=== PATIENT | female | born 1930 | race Caucasian/White ===

== ENCOUNTER 2017-03-21 02:57 | Emergency (ER) | payer MEDICARE, MEDICAID ==
[~2017-03-21] VITALS: Ht 180.3 cm; Wt 95.3 kg
[~2017-03-21 02:57] MED LIST: AC325T PO; ALPR.25T PO; ALPR0.5T PO; AMLO10TA4 PO; AMLO5TAB2 PO; APIX5TAB PO; APIX5TAB2 PO; ARIP10TA2 PO; ARIP2TAB3 PO; ASCO500C15 PO; ASCO500T20 PO; ASP81TEC PO; ATRV10T PO; BISA10SU6 RC; BUDE6HFA IH; CARB15DR74 OU; CARB1TAB17 PO; CARB1TAB6 PO; CHOL10003 PO; CHOL200018 PO; CHOL200035 PO; CLOP75TA PO; CLPD75T PO; CTLP20T PO; CYAN100014 PO; CYAN100053 IM; DOCU100T7; DOCU100T7 PO; DULO30CA; DVL500TSR PO; DXZS2T; ENAL5TAB PO; ENLP10T PO; FENO145T PO; FENT1PAT2 TD; FERROUS SULFATE 27 MG PO; FLUT16SP22 NS; FRSM40T PO; GARL400T13 PO; GBPN600T; GNT.3OP5 OS; GUAI100L2 PO; GUAI100S PO; HYDR-2890 PO; HYDR-3720 PO; KCL10CCR; LEVO125T6; LOPE2CAP PO; LORA10CA PO; LORA10TA76 PO; LUBI8CAP PO; LVT.15T; LVT.15T PO; LVT.1T PO; MAGN-47 PO; MAGN800O PO; MECL25TA56 PO; MELA1TAB16 PO; MELO7.5T; MINE99OI; MMT17NA NS; MNTL10T PO; MTP100TCR; MULT-28 PO; MULT-298 PO; MULT-608 PO; NEBI5TAB8 PO; NF-CYM60C PO; NF-ESOM40C PO; NF-LOVAZAC PO; NF-METANX PO; NF-VITB12 PO; NFNEB10T PO; NYST1POW15 TOP; OLME40TA14 PO; OMG1KC; OMG1KC PO; ONDA4TAB11 PO; ONDN4T PO; OXYC-465 PO; Oxygen; PNT40TEC PO; POLY17PO23 PO; PONARIS NS; POTA10CA43 PO; PRAM0.5T4 PO; PRAM1.5T4 PO; PRAM1TAB3 PO; PRCD5U PO; PRM25T PO; PROM12.59 PO; RANO500T2 PO; SCOP1PAT TD; SENN1TAB33 PO; SODI50SP2 NS; SPIR25TA3 PO; SULF1TAB38 PO; TRAM1TAB7 PO; VITA-185 PO; VLS80C; WARF4TAB PO; WARF6TAB PO; WRF2T PO; WRF3T; WRF5T; WRF5T PO; [UNRECOGNIZED DRUG - OTHER]
[2017-03-21 03:15] LABS: BASOPHILS % (AUTO) 0 % (0-10); EOSINOPHILS # (AUTO) 0.3 10^3/uL (0.0-0.3); EOSINOPHILS % (AUTO) 4 % (0-10); LYMPHOCYTES # (AUTO) 3.2 X 10^3 (1.0-4.0); LYMPHOCYTES % (AUTO) 47 % (12-44); MEAN CORPUSCULAR HEMOGLOBIN 32 PG (25-34); MEAN CORPUSCULAR HGB CONC 32 G/DL (32-36); MEAN CORPUSCULAR VOLUME 100 FL (80-99); MEAN PLATELET VOLUME 9.4 FL (7.4-10.4); MONOCYTES # (AUTO) 0.8 X 10^3 (0.0-1.0); MONOCYTES % (AUTO) 12 % (0-12); NEUTROPHILS # (AUTO) 2.4 X 10^3 (1.8-7.8); NEUTROPHILS % (AUTO) 36 % (42-75); PLATELET COUNT 236 10^3/uL (130-400); RED BLOOD COUNT 3.56 10^6/uL (4.35-5.85); RED CELL DISTRIBUTION WIDTH 13.7 % (10.0-14.5); WHITE BLOOD COUNT 6.8 10^3/uL (4.3-11.0)
[2017-03-21] MEDS ORDERED: RT-ALBUTEROL/IPRATROPIUM 3 ML (DUONEB) VIAL INH ONE (03:15)
[2017-03-21 03:28] LABS: BILIRUBIN,URINE NEGATIVE (NEGATIVE); KETONES,URINE NEGATIVE (NEGATIVE); LEUKOCYTE ESTERASE ,URINE NEGATIVE (NEGATIVE); NITRITE,URINE NEGATIVE (NEGATIVE); PH,URINE 5 (5-9); PROTEIN,URINE NEGATIVE (NEGATIVE); UROBILINOGEN,URINE NORMAL (NORMAL)
[2017-03-21 03:31] LABS: ANION GAP 10 MMOL/L (5-14); BLOOD UREA NITROGEN 35 MG/DL (7-18); CARBON DIOXIDE 21 MMOL/L (21-32); CHLORIDE 108 MMOL/L (98-107); CREATININE SERUM 1.68 MG/DL (0.60-1.30); POTASSIUM 5.6 MMOL/L (3.6-5.0); SODIUM 139 MMOL/L (135-145)
[2017-03-21 03:32] LABS: ALANINE AMINOTRANSFERASE 9 U/L (0-55); ASPARTATE AMINO TRANSFERASE 17 U/L (5-34); BILIRUBIN,TOTAL 0.4 MG/DL (0.1-1.0); BUN/CREATININE RATIO 21; CALCIUM 9.1 MG/DL (8.5-10.1); GFR ESTIMATED 29; GLUCOSE 79 MG/DL (70-105); MAGNESIUM 2.4 MG/DL (1.8-2.4); TOTAL PROTEIN 6.8 G/DL (6.4-8.2)
[2017-03-21 03:34] LABS: SQUAMOUS EPITHELIAL CELL,UR 0-2 /HPF
[2017-03-21] MEDS ORDERED: NS IV 1000 ML 1,000 ML IV ONE ×2 (03:49→04:12)
[2017-03-21 03:52] LABS: TROPONIN I < 0.30 NG/ML (<0.30)
[2017-03-21 03:56] LABS: THYROID STIMULATING HORMONE 5.84 UIU/ML (0.35-4.94)
--- NOTE | 2017-03-21 04:02 | ED General ---
General Chief Complaint: Altered Mental Status Stated Complaint: AMS Nursing Triage Note: PT TO ED PER [facility], STAFF STATES PT HAS ACUTE MENTAL STATUS CHANGE,PT IS ALERT PER AGE, PT ABLE TO SPEAK TO STAFF ONLY CO IS PAIN IN LHAND TO SHOULDER, STATES HURTS ALL THE TIME Nursing Sepsis Screen: No Definite Risk Source of Information: Patient, EMS, Prison Records, Old Records Exam Limitations: No Limitations History of Present Illness Time Seen by Provider: 02:59 Initial Comments This 86-year-old woman presents to the emergency room via EMS with altered mental status. She comes from [facility] in [place], [place] where she was found by staff to have altered mental status when she got up to use the restroom at 01 :30. Staff report that she was not following commands and was not verbal which is unusual for her. However, she did not appear to have complete syncope. Patient was normal earlier in the evening. Staff reports that she is normally conversant and will follow instructions. Patient has neurologic problems including history of CVA and Parkinson's disease. Patient denies any complaints at this time except for left upper extremity and shoulder pain which is chronic. EMS reports she was alert for them. Allergies and Home Medications Allergies Coded Allergies: Penicillins (Unverified Allergy, Unknown, 11/03/16) Uncoded Allergies: POISON AISHWARYA, OAK AND SUMAC (Allergy, Unknown, 12/28/08) Home Medications Acetaminophen 325 Mg Tablet, 325 MG PO BID PRN for PAIN, (Reported) Albuterol Sulfate 2.5 Mg/3 Ml Vial.neb, 2.5 MG IH Q4H PRN for WHEEZING, #30 Prescribed by: CARLOS RITCHIE on 03/21/17 0425 Alprazolam 0.5 Mg Tablet, 0.5 MG PO DAILY, (Reported) Amlodipine Besylate 5 Mg Tab, 5 MG PO DAILY, (Reported) Apixaban 5 Mg Tablet, 5 MG PO BID, (Reported) Ascorbic Acid 500 Mg Capsule.er, 500 MG PO TID, (Reported) Bisacodyl 10 Mg Supp.rect, 10 MG RC DAILY PRN for CONSTIPATION, (Reported) Budesonide/Formoterol Fumarate 10.2 Gm Hfa.aer.ad, 2 PUFF IH BID, (Reported) Carbidopa/Levodopa 1 Each Tablet, 1 TAB PO QID, (Reported) Carboxymethylcellulose Sodium 15 Ml Drops, 1 DROP OU QID, (Reported) Cholecalciferol (Vitamin D3) 2,000 Unit Capsule, 3,000 UNIT PO DAILY, (Reported) Citalopram Hydrobromide 20 Mg Tablet, 20 MG PO DAILY, (Reported) Cyanocobalamin 1,000 Mcg Tablet, 1,000 MCG PO DAILY, (Reported) Fentanyl 1 Each Patch.td72, 25 MCG TD EVERY 3 DAYS, (Reported) Levothyroxine Sodium 100 Mcg Tablet, 100 MCG PO DAILY, (Reported) Loratadine 10 Mg Tablet, 10 MG PO DAILY, (Reported) Magnesium Hydroxide 400 Mg/5 Ml Oral.susp, 30 ML PO DAILY PRN for CONSTIPATION, (Reported) Nebivolol HCl 10 Mg Tab, 10 MG PO DAILY, (Reported) Nystatin 1 Each Powder.ea., TOP BID PRN for REDNESS/GAULDING, (Reported) ABDOMINAL FOLD Olmesartan Medoxomil 40 Mg Tablet, 20-40 MG PO DAILY, (Reported) TAKES 1/2 (40MG) TABLET IF BP BETWEEN 110-150 TAKES 1 (40MG) TABLET IF SYSTOLIC >150 IF SYSTOLIC IS < 110 HOLD MEDICINE Ondansetron 4 Mg Tab.rapdis, 4 MG PO Q6H PRN for NAUSEA, (Reported) Pantoprazole Sod 40 Mg Tab, 40 MG PO DAILY, (Reported) Pramipexole Di-Hcl 1.5 Mg Tablet, 1.5 MG PO TID, (Reported) Sennosides/Docusate Sodium 1 Each Tablet, 2 EACH PO DAILY, (Reported) Tramadol HCl/Acetaminophen 1 Each Tablet, 1 EACH PO Q4H PRN for PAIN, (Reported) [Ferrous Sulfate 27MG] , 27 MG PO TID, (Reported) [Ponaris Solution] , 2 DROP NS BID, (Reported) Constitutional: no symptoms reported EENTM: no symptoms reported Respiratory: no symptoms reported Cardiovascular: no symptoms reported Gastrointestinal: no symptoms reported Genitourinary: no symptoms reported : No Musculoskeletal: see HPI Skin: no symptoms reported Psychiatric/Neurological: See HPI Hematologic/Lymphatic: No Symptoms Reported Past Wtjbiqf-Xbuuml-Gfurjq Hx Patient Social History Alcohol Use: Denies Use Recreational Drug Use: No Smoking Status: Never a Smoker Recent Foreign Travel: No Contact w/Someone Who Travel: No Recent Infectious Disease Expo: No Recent Hopitalizations: No Immunizations Up To Date Tetanus Booster (TDap): Unknown Date of Pneumonia Vaccine: Aug 05, 2012 Date of Influenza Vaccine: Sep 01, 2016 Surgeries HX Surgeries: Yes (HYSTERECTOMY 1974, PACEMAKER, TKR, FOOT, SHOULDER) Surgeries: Abdominal, Coronary Stent, Orthopedic (left shoulder chondroplasty) , Pacemaker Respiratory Hx Respiratory Disorders: Yes (O2 at night) Respiratory Disorders: COPD Cardiovascular Hx Cardiac Disorders: Yes (PACEMAKER, sick sinus syndrome) Cardiac Disorders: Coronary Artery Disease Neurological Hx Neurological Disorders: Yes Neurological Disorders: Parkinson's Disease, Stroke Reproductive System Hx Reproductive Disorders: No Sexually Transmitted Disease: No HIV/AIDS: Yes Female Reproductive Disorders: Denies Genitourinary Hx Genitourinary Disorders: Yes Genitourinary Disorders: Renal Failure Gastrointestinal Hx Gastrointestinal Disorders: Yes Gastrointestinal Disorders: Gastroesophageal Reflux Musculoskeletal Hx Musculoskeletal Disorders: Yes Musculoskeletal Disorders: Arthritis Endocrine Hx Endocrine Disorders: Yes Endocrine Disorders: Hypothyroidsim HEENT HX ENT Disorders: Yes Cancer Hx Cancer: No Psychosocial Hx Psychiatric Problems: Yes Behavioral Health Disorders: Depression Integumentary HX Skin/Integumentary Disorder: No Blood Transfusions Hx Blood Disorders: Yes (anemia) Adverse Reaction to a Blood Tr: No Physical Exam Vital Signs Vital Sign - Last 12Hours 03/21/17 03/21/17 03:00 04:33 Temp 97.2 Pulse 62 Resp 18 B/P (MAP) 128/85 Pulse Ox 98 O2 Flow Rate 2.00 Capillary Refill : Less Than 3 Seconds General Appearance: No Apparent Distress, WD/WN HEENT: PERRL/EOMI, TMs Normal, Normal ENT Inspection, Pharynx Normal, Other ( no mastoid tenderness) Neck: Normal Inspection, Supple Respiratory: Decreased Breath Sounds, Wheezing, Other (inspiratory and expiratory wheezing with decreased air movement, resolved after DuoNeb) Cardiovascular: Regular Rate, Rhythm, No Edema, No Murmur, Normal Peripheral Pulses Gastrointestinal: Normal Bowel Sounds, Non Tender, Soft Extremity: Normal Inspection, No Pedal Edema Neurologic/Psychiatric: Alert, Normal 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/Affect, 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 Norm as Tested, Motor Weakness (left-sided weakness due to orthopedic problems and chronic pain) , Other (somewhat disoriented) Skin: Normal Color, Warm/Dry Progress/Results/Core Measures Results/Orders Lab Results Laboratory Tests Test 03/21/17 03:06 03/21/17 03:21 Range/Units White Blood Count 6.8 4.3-11.0 10^3/uL Red Blood Count 3.56 L 4.35-5.85 10^6/uL Hemoglobin 11.4 L 11.5-16.0 G/DL Hematocrit 36 35-52 % Mean Corpuscular Volume 100 H 80-99 FL Mean Corpuscular Hemoglobin 32 25-34 PG Mean Corpuscular Hemoglobin Concent 32 32-36 G/DL Red Cell Distribution Width 13.7 10.0-14.5 % Platelet Count 236 130-400 10^3/uL Mean Platelet Volume 9.4 7.4-10.4 FL Neutrophils (%) (Auto) 36 L 42-75 % Lymphocytes (%) (Auto) 47 H 12-44 % Monocytes (%) (Auto) 12 0-12 % Eosinophils (%) (Auto) 4 0-10 % Basophils (%) (Auto) 0 0-10 % Neutrophils # (Auto) 2.4 1.8-7.8 X 10^3 Lymphocytes # (Auto) 3.2 1.0-4.0 X 10^3 Monocytes # (Auto) 0.8 0.0-1.0 X 10^3 Eosinophils # (Auto) 0.3 0.0-0.3 10^3/uL Basophils # (Auto) 0.0 0.0-0.1 10^3/uL Sodium Level 139 135-145 MMOL/L Potassium Level 5.6 H 3.6-5.0 MMOL/L Chloride Level 108 H 98-107 MMOL/L Carbon Dioxide Level 21 21-32 MMOL/L Anion Gap 10 5-14 MMOL/L Blood Urea Nitrogen 35 H 7-18 MG/DL Creatinine 1.68 H 0.60-1.30 MG/DL Estimat Glomerular Filtration Rate 29 BUN/Creatinine Ratio 21 Glucose Level 79 70-105 MG/DL Calcium Level 9.1 8.5-10.1 MG/DL Magnesium Level 2.4 1.8-2.4 MG/DL Total Bilirubin 0.4 0.1-1.0 MG/DL Aspartate Amino Transf (AST/SGOT) 17 5-34 U/L Alanine Aminotransferase (ALT/SGPT) 9 0-55 U/L Alkaline Phosphatase 78 40-136 U/L Troponin I < 0.30 <0.30 NG/ML Total Protein 6.8 6.4-8.2 G/DL Albumin 4.0 3.2-4.5 G/DL Thyroid Stimulating Hormone (TSH) 5.84 H 0.35-4.94 UIU/ML Free Thyroxine 0.84 0.70-1.48 NG/DL Urine Color YELLOW Urine Clarity CLEAR Urine pH 5 5-9 Urine Specific [place] 1.020 1.016-1.022 Urine Protein NEGATIVE NEGATIVE Urine Glucose (UA) NEGATIVE NEGATIVE Urine Ketones NEGATIVE NEGATIVE Urine Nitrite NEGATIVE NEGATIVE Urine Bilirubin NEGATIVE NEGATIVE Urine Urobilinogen NORMAL NORMAL MG/DL Urine Leukocyte Esterase NEGATIVE NEGATIVE Urine RBC (Auto) NEGATIVE NEGATIVE Urine RBC NONE /HPF Urine WBC NONE /HPF Urine Squamous Epithelial Cells 0-2 /HPF Urine Crystals NONE /LPF Urine Bacteria NONE /HPF Urine Casts NONE /LPF Urine Mucus NEGATIVE /LPF Urine Culture Indicated NO My Orders Orders - CARLOS GRIFFIN MD Cbc With Automated Diff (03/21/17 03:08) Comprehensive Metabolic Panel (03/21/17 03:08) Magnesium (03/21/17 03:08) Ua Culture If Indicated (03/21/17 03:08) Saline Lock/Iv-Start (03/21/17 03:08) Ekg Tracing (03/21/17 03:08) Monitor-Rhythm Ecg Trace Only (03/21/17 03:08) Chest 1 View, Ap/Pa Only (03/21/17 03:08) Albuterol/Ipra Inhalation Soln (Duoneb I (03/21/17 03:15) Svn Sm Volume Nebulizer Rt-Rfs (03/21/17 03:08) Troponin I (03/21/17 03:08) Thyroid Stimulating Hormone (03/21/17 03:14) Free T4 (Free Thyroxine) (03/21/17 03:14) Ct Head Wo-R/O Stroke (03/21/17 03:27) Ns Iv 1000 Ml (Sodium Chloride 0.9%) (03/21/17 03:49) Ns Iv 1000 Ml (Sodium Chloride 0.9%) (03/21/17 04:12) Medications Given in ED Current Medications Medications Dose Ordered Sig/Indira Route Start Time Stop Time Status Last Admin Dose Admin Albuterol/ Ipratropium 3 ml ONCE ONCE INH 03/21/17 03:15 03/21/17 03:16 DC 03/21/17 03:15 3 ML Sodium Chloride 1,000 ml @ 0 mls/hr Q0M ONCE IV 03/21/17 03:49 03/21/17 03:51 DC 03/21/17 03:56 1,000 MLS/HR Sodium Chloride 1,000 ml @ 0 mls/hr Q0M ONCE IV 03/21/17 04:12 03/21/17 04:13 DC 03/21/17 04:25 1,000 MLS/HR Vital Signs/I&O Vital Sign - Last 12Hours 03/21/17 03/21/17 03/21/17 03:00 03:15 04:33 Temp 97.2 97.2 Pulse 62 60 Resp 18 18 B/P (MAP) 128/85 Pulse Ox 98 96 96 O2 Flow Rate 2.00 Blood Pressure Mean: 99 Progress Note : Progress Note Patient was found to have acute renal failure. She was given 2 L of IV fluids. She also had mild hyperkalemia. Patient uses Lasix and potassium replacement. I'm recommending that she skip the next 2 doses of potassium and follow up with Dr. Greenwood for further lab work. Patient's mental status seemed to be at reported baseline prior to dismissal. Patient was given a DuoNeb treatment which resolved her wheezing. A prescription for albuterol and a nebulizer machine was provided. The radiologist commented on some fluid in the right mastoid air cells. However, this did not appear to be present to a significant degree on my review of the imaging. I performed a focused exam on the patient and found no mastoid tenderness, swelling, or inflammation. Patient denied pain over the mastoid sinuses. ECG Initial ECG Impression Date: Mar 21, 2017 Initial ECG Impression Time: 03:08 Initial ECG Rate: 61 Initial ECG Rhythm: Normal Sinus Comment Sinus rhythm with low voltage. No ST elevation or depression. No axis deviation. Intervals appear normal. Diagnostic Imaging Diagonstic Imaging: Xray Plain Films/CT/US/NM/MRI: chest Comments Chest x-ray viewed by me and compared with prior. Report not yet available. No acute abnormalities appreciated. Plain Films/CT/US/NM/MRI: head Comments CT head viewed by me and [facility] report reviewed. Discussed with the radiologist. Chronic findings including old CVA noted. No acute abnormalities appreciated. Fluid in the mastoid air cell reported by the radiologist did not correlate with any physical exam findings. Departure Impression Impression: Primary Impression: Altered mental status Qualified Codes: R41.82 - Altered mental status, unspecified Additional Impressions: Acute renal failure Qualified Codes: N17.9 - Acute kidney failure, unspecified Hyperkalemia COPD exacerbation Disposition: HOME, SELF-CARE Condition: Improved Departure-Patient Inst. Decision time for Depature: 04:00 Referrals: DIA GREENWOOD MD (PCP) Primary Care Physician GLENIS CHAVARRIA (Family) Primary Care Physician Patient Instructions: Acute Kidney Failure, Chronic Obstructive Pulmonary Disease (COPD), Including Emphysema Add. Discharge Instructions: Encourage plenty of clear liquids. Skip the next 2 doses of potassium. Follow-up with Dr. Greenwood as soon as possible for repeat blood work. Return to the emergency room with worsening symptoms. Use nebulizer treatments every 4 hours as needed for shortness of breath or wheezing. All discharge instructions reviewed with patient and/or family. Voiced understanding. Scripts Albuterol Sulfate (Albuterol Sulfate) 2.5 Mg/3 Ml Vial.neb 2.5 MG IH Q4H Y for WHEEZING, #30 EA Prov: CARLOS GRIFFIN MD 03/21/17 Copy Copies To 1: DIA GREENWOOD MD, JOSHUA T MD Mar 21, 2017 04:02
[2017-03-21] MEDS ORDERED: ALBU2.5V4 IH (04:25)
[2017-03-21 04:33] VITALS: BP 128/85
--- NOTE | 2017-03-21 06:16 | Diagnostic Imaging Report ---
CLINICAL INDICATION: Patient altered mental status. EXAM: Axial CT scan of brain performed without IV contrast. COMPARISON: Head CT without IV contrast dated 11/03/2016. FINDINGS: Stable small chronic cerebral infarct involving the lateral right frontal lobe. Stable chronic lacunar infarct involving the right thalamus. There is no significant change to the patchy and confluent areas of low-attenuation white matter changes involving both cerebral hemispheres likely representing chronic small vessel ischemic disease and leukoaraiosis. There is stable diffuse brain parenchymal volume loss. There is no evidence of intracranial hemorrhage, hydrocephalus, or brain herniation. There is dense atherosclerotic disease involving the bilateral cavernous carotid arteries and intradural vertebral arteries. Extracranial soft tissue, skull, and orbits are unremarkable. Paranasal sinuses show no significant abnormality. Temporal bone structures are unremarkable as visualized. IMPRESSION: 1: There is no definite CT evidence of interval acute cerebral infarction, intracranial hemorrhage, or mass seen. Given the diffuse low attenuation changes throughout the brain parenchyma which can obscure more subtle findings, if there is clinical concern for acute cerebral infarction, MRI of the brain would better evaluate. 2: Relatively stable CT scan of brain with small right frontal lobe chronic cerebral infarct, chronic right thalamic lacunar infarct, chronic small vessel ischemic disease, leukoaraiosis, and brain parenchymal volume loss. I agree with [facility] report. Dictated by: Dictated on workstation # [id number]
--- NOTE | 2017-03-21 06:44 | Diagnostic Imaging Report ---
INDICATION: Altered mental status. COMPARISON STUDY: Chest from November 03. FINDINGS: Portable upright view of the chest demonstrates cardiac pacemaker remaining in place. Heart size and vascularity are normal. There is calcification of the aorta. The lungs are clear. There are no pleural effusions. IMPRESSION: There are no acute findings. Dictated by: Dictated on workstation # [id number]
== END 2017-03-21 04:42 | disposition home or self-care (01) ==
LOC: EDUNIT# 02:57 → ER 02:59
DX: R41.82 Altered mental status, unspecified (principal); N17.9 Acute kidney failure, unspecified; E87.5 Hyperkalemia; J44.1 Chronic obstructive pulmonary disease with (acute) exacerbation; I25.10 Atherosclerotic heart disease of native coronary artery without angina pectoris; G20 Parkinson's disease; Z79.01 Long term (current) use of anticoagulants; Z79.899 Other long term (current) drug therapy; Z95.0 Presence of cardiac pacemaker; Z95.5 Presence of coronary angioplasty implant and graft; Z86.73 Personal history of transient ischemic attack (TIA), and cerebral infarction without residual deficits
CPT/HCPCS: 36415; 70450; 71010; 80053; 81000; 83735; 84439; 84443; 84484; 85025; 93005; 93041; 94640; 96360

== ENCOUNTER → 2017-04-24 | Outpatient (CLI) | payer MEDICARE, MEDICAID ==
[~2017-04-24] MED LIST changes: +ALBU2.5V4 IH
--- NOTE | 2017-04-24 16:42 | Diagnostic Imaging Report ---
PROCEDURE: CT abdomen and pelvis without contrast. TECHNIQUE: Multiple contiguous axial images were obtained through the abdomen and pelvis without the use of intravenous contrast. INDICATION: Pain and nausea. COMPARISON: Comparison 10/27/2008. FINDINGS: There is suggestion of minimal atelectasis in the lung bases and cardiac pacer leads. The liver demonstrates mild dilatation of the bile ducts as well as the CBD demonstrates slight dilatation. This is probably normal for the patient's age and after cholecystectomy. The spleen, the adrenal glands and the pancreas appear unremarkable for unenhanced exam. The kidneys demonstrate no hydronephrosis and no stones. Cystic lesion in the upper pole of the right kidney is 6.1 cm in size enlarged from 5.6 cm in 2008. The abdominal aorta is normal in caliber. No para-aortic significantly enlarged lymph node is seen. Prominent atherosclerotic calcifications are noted. There is suggestion of prior hysterectomy. Presumably dystrophic calcifications are seen in the left adnexa with no significant associated soft tissue mass. There is no bowel obstruction. There is mild diverticulosis. No diverticulitis. The appendix is not seen. The terminal ileum appears unremarkable. There is suggestion of laxity in the anterior abdominal wall with no discrete hernia. The osseous structures demonstrate right convexity scoliosis in the lumbar spine centered around L2 level and prominent disc degenerative changes. SI joints and hip joint degenerative changes also is seen. IMPRESSION: No acute process. Dictated by: Dictated on workstation # [id number]
== END ==
LOC: RAD 15:11
PROVIDERS: ATTEND Physician Assistant
DX: R10.84 Generalized abdominal pain (principal); R11.0 Nausea
CPT/HCPCS: 74176

== ENCOUNTER 2017-05-09 18:42 | Emergency (ER) | payer MEDICARE, MEDICAID ==
[~2017-05-09] VITALS: Ht 180.3 cm; Wt 95.6 kg
--- NOTE | 2017-05-09 19:23 | Diagnostic Imaging Report ---
PROCEDURE: CT head and CT cervical spine without contrast. TECHNIQUE: Multiple contiguous axial images were obtained through the brain and cervical spine without the use of intravenous contrast. Sagittal and coronal reformations through the cervical spine were then performed. INDICATION: Patient found down. COMPARISON: Comparison with CT head from 03/21/2017. CT cervical spine from 11/03/2016. FINDINGS: CT head without: There is diffuse cortical atrophy. Diffuse periventricular white matter changes are present. No evidence of intracranial hemorrhage. Ventricles are slightly prominent with periventricular white matter changes. Overall appearance has not changed significantly since previous exam. No intracranial hemorrhage. No extra-axial fluid collection. There is focal area of encephalomalacia along the right temporoparietal region which was present previously. Basal cisterns are clear. Mastoid air cells and paranasal sinuses are clear. IMPRESSION: 1. Encephalomalacia in right temporoparietal region which has not changed. There are no acute intracranial abnormalities demonstrated. 2. Diffuse cortical atrophy with white matter changes, consistent with chronic small vessel disease. CT cervical spine: Sagittal and coronal reformatted images show good alignment of the vertebral bodies. Body heights are well maintained. There is loss of disc space at C5-C6 and C6-C7 levels with hypertrophic lipping of the endplates both anteriorly and posteriorly. This is causing moderate encroachment upon the neuroforamen and lateral recesses bilaterally at C5-C6. No significant central canal stenosis. No cervical fractures. The surrounding soft tissues appear normal. IMPRESSION: 1. Advanced degenerative cervical disc disease at C5 through C7. 2. No acute abnormalities. Dictated by: Dictated on workstation # [id number]
--- NOTE | 2017-05-09 19:46 | ED Fall/Injury ---
General Chief Complaint: Trauma-Non Activation Stated Complaint: PT FELL AT HOME Nursing Triage Note: patient was found on floor about 1500 this afternoon at retirement. patient complains of neck pain all around Source: patient, family, retirement records Exam Limitations: no limitations History of Present Illness Time seen by provider: 18:50 Initial Comments This pleasant 86-year-old woman from the retirement in [place] presents by private vehicle after having a fall at around 15:00. She has had some associated neck pain unrelieved by her oral medications. Patient does not ambulate at baseline. She attempted to get up without assistance and fell. There is no known loss of consciousness. C-collar was placed. She has Parkinson's disease. Allergies and Home Medications Allergies Coded Allergies: Penicillins (Unverified Allergy, Unknown, 11/03/16) Uncoded Allergies: POISON AISHWARYA, OAK AND SUMAC (Allergy, Unknown, 12/28/08) Home Medications Acetaminophen 325 Mg Tablet, 325 MG PO BID PRN for PAIN, (Reported) Albuterol Sulfate 2.5 Mg/3 Ml Vial.neb, 2.5 MG IH Q4H PRN for WHEEZING, #30 Prescribed by: CARLOS RITCHIE on 03/21/17 0425 Alprazolam 0.5 Mg Tablet, 0.5 MG PO DAILY, (Reported) Amlodipine Besylate 5 Mg Tab, 5 MG PO DAILY, (Reported) Apixaban 5 Mg Tablet, 5 MG PO BID, (Reported) Ascorbic Acid 500 Mg Capsule.er, 500 MG PO TID, (Reported) Bisacodyl 10 Mg Supp.rect, 10 MG RC DAILY PRN for CONSTIPATION, (Reported) Budesonide/Formoterol Fumarate 10.2 Gm Hfa.aer.ad, 2 PUFF IH BID, (Reported) Carbidopa/Levodopa 1 Each Tablet, 1 TAB PO QID, (Reported) Carboxymethylcellulose Sodium 15 Ml Drops, 1 DROP OU QID, (Reported) Cholecalciferol (Vitamin D3) 2,000 Unit Capsule, 3,000 UNIT PO DAILY, (Reported) Ciprofloxacin HCl 250 Mg Tablet, 250 MG PO BID, #10 Prescribed by: CARLOS RITCHIE on 05/09/17 2135 Citalopram Hydrobromide 20 Mg Tablet, 20 MG PO DAILY, (Reported) Cyanocobalamin 1,000 Mcg Tablet, 1,000 MCG PO DAILY, (Reported) Fentanyl 1 Each Patch.td72, 25 MCG TD EVERY 3 DAYS, (Reported) Levothyroxine Sodium 100 Mcg Tablet, 100 MCG PO DAILY, (Reported) Loratadine 10 Mg Tablet, 10 MG PO DAILY, (Reported) Magnesium Hydroxide 400 Mg/5 Ml Oral.susp, 30 ML PO DAILY PRN for CONSTIPATION, (Reported) Nebivolol HCl 10 Mg Tab, 10 MG PO DAILY, (Reported) Nystatin 1 Each Powder.ea., TOP BID PRN for REDNESS/GAULDING, (Reported) ABDOMINAL FOLD Olmesartan Medoxomil 40 Mg Tablet, 20-40 MG PO DAILY, (Reported) TAKES 1/2 (40MG) TABLET IF BP BETWEEN 110-150 TAKES 1 (40MG) TABLET IF SYSTOLIC >150 IF SYSTOLIC IS < 110 HOLD MEDICINE Ondansetron 4 Mg Tab.rapdis, 4 MG PO Q6H PRN for NAUSEA, (Reported) Pantoprazole Sod 40 Mg Tab, 40 MG PO DAILY, (Reported) Pramipexole Di-Hcl 1.5 Mg Tablet, 1.5 MG PO TID, (Reported) Sennosides/Docusate Sodium 1 Each Tablet, 2 EACH PO DAILY, (Reported) Tramadol HCl/Acetaminophen 1 Each Tablet, 1 EACH PO Q4H PRN for PAIN, (Reported) [Ferrous Sulfate 27MG] , 27 MG PO TID, (Reported) [Ponaris Solution] , 2 DROP NS BID, (Reported) Constitutional: no symptoms reported Eyes: No Symptoms Reported Ears, Nose, Mouth, Throat: no symptoms reported Respiratory: no symptoms reported Cardiovascular: no symptoms reported Gastrointestinal: no symptoms reported Genitourinary: no symptoms reported Musculoskeletal: see HPI Skin: no symptoms reported Psychiatric/Neurological: See HPI Past Ridgmyr-Udmkij-Mpfnmf Hx Patient Social History Alcohol Use: Denies Use Recreational Drug Use: No Smoking Status: Never a Smoker Recent Foreign Travel: No Contact w/Someone Who Travel: No Recent Infectious Disease Expo: No Recent Hopitalizations: No Immunizations Up To Date Tetanus Booster (TDap): Unknown Date of Pneumonia Vaccine: Aug 05, 2012 Date of Influenza Vaccine: Sep 01, 2016 Surgeries HX Surgeries: Yes (HYSTERECTOMY 1974, PACEMAKER, TKR, FOOT, SHOULDER) Surgeries: Abdominal, Coronary Stent, Orthopedic, Pacemaker Respiratory Hx Respiratory Disorders: Yes (O2 at night) Respiratory Disorders: COPD Cardiovascular Hx Cardiac Disorders: Yes (PACEMAKER, sick sinus syndrome) Cardiac Disorders: Coronary Artery Disease Neurological Hx Neurological Disorders: Yes Neurological Disorders: Parkinson's Disease, Stroke Reproductive System Hx Reproductive Disorders: No Sexually Transmitted Disease: No HIV/AIDS: Yes Female Reproductive Disorders: Denies Genitourinary Hx Genitourinary Disorders: Yes Genitourinary Disorders: Renal Failure Gastrointestinal Hx Gastrointestinal Disorders: Yes Gastrointestinal Disorders: Gastroesophageal Reflux Musculoskeletal Hx Musculoskeletal Disorders: Yes Musculoskeletal Disorders: Arthritis Endocrine Hx Endocrine Disorders: Yes Endocrine Disorders: Hypothyroidsim HEENT HX ENT Disorders: Yes Cancer Hx Cancer: No Psychosocial Hx Psychiatric Problems: Yes Behavioral Health Disorders: Depression Integumentary HX Skin/Integumentary Disorder: No Blood Transfusions Hx Blood Disorders: Yes (anemia) Adverse Reaction to a Blood Tr: No Physical Exam Vital Signs Vital Sign - Last 12Hours 05/09/17 18:51 Temp 98.2 Pulse 65 Resp 18 B/P (MAP) 177/83 Pulse Ox 98 Capillary Refill : Less Than 3 Seconds General Appearance: WD/WN, no apparent distress HEENT: normal ENT inspection Neck: normal inspection, tender midline Cardiovascular: regular rate, rhythm, no edema, no murmur Respiratory: lungs clear, normal breath sounds, no respiratory distress, no accessory muscle use Gastrointestinal: non tender, soft Extremities: non-tender, normal inspection, no pedal edema, other (No pain with palpation or external rotation of the hips) 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, alert, normal mood/affect, motor weakness (Generalized) Skin: normal color, warm/dry [place] Coma Score Best Eye Response: (4) Open Spontaneously Best Verbal Response: (5) Oriented Best Motor Response: (6) Obeys Commands [place] Total: 15 Splinting and Joint Reduction : Cervical Collars: [place]-Adult Progress/Results/Core Measures Results/Orders Lab Results Laboratory Tests Test 05/09/17 20:30 Range/Units Urine Color YELLOW Urine Clarity SLIGHTLY CLOUDY Urine pH 5 5-9 Urine Specific [place] 1.015 L 1.016-1.022 Urine Protein NEGATIVE NEGATIVE Urine Glucose (UA) NEGATIVE NEGATIVE Urine Ketones NEGATIVE NEGATIVE Urine Nitrite NEGATIVE NEGATIVE Urine Bilirubin NEGATIVE NEGATIVE Urine Urobilinogen NORMAL NORMAL MG/DL Urine Leukocyte Esterase 3+ H NEGATIVE Urine RBC (Auto) NEGATIVE NEGATIVE Urine RBC NONE /HPF Urine WBC 10-25 H /HPF Urine Squamous Epithelial Cells 0-2 /HPF Urine Crystals NONE /LPF Urine Bacteria FEW H /HPF Urine Casts NONE /LPF Urine Mucus NEGATIVE /LPF Urine Culture Indicated YES My Orders Orders - CARLOS GRIFFIN MD Ct Head/Cervical Spine Wo (05/09/17 18:54) Ua Culture If Indicated (05/09/17 18:55) Urine Culture (05/09/17 20:30) Ciprofloxacin Tablet (Cipro Tablet) (05/09/17 21:30) Hydrocodone/Apap 5/325 Tablet (Lortab 5 (05/09/17 21:30) Medications Given in ED Current Medications Medications Dose Ordered Sig/Indira Route Start Time Stop Time Status Last Admin Dose Admin Acetaminophen/ Hydrocodone Bitart 1.5 tab ONCE ONCE PO 05/09/17 21:30 05/09/17 21:31 DC 05/09/17 21:35 1.5 TAB Ciprofloxacin 250 mg ONCE ONCE PO 05/09/17 21:30 05/09/17 21:31 DC 05/09/17 21:35 250 MG Vital Signs/I&O Vital Sign - Last 12Hours 05/09/17 05/09/17 18:51 21:44 Temp 98.2 Pulse 65 84 Resp 18 18 B/P (MAP) 177/83 Pulse Ox 98 98 Blood Pressure Mean: 114 Progress Note : Progress Note Patient was given a dose of hydrocodone and Cipro 250 mg orally before dismissal. Glenis Bustillo was given an update on this patient's status. Chart was reviewed to determine renal function before dosing of Cipro. Diagnostic Imaging Diagonstic Imaging: CT Plain Films/CT/US/NM/MRI: c-spine, head Comments CT head and C-spine viewed by me and report reviewed. See report below: NAME: PRISCILLA LOVELACE [facility] REC#: [id number] PT STATUS: REG ER : 1930 PHYSICIAN: CARLOS GRIFFIN MD ADMIT DATE: 05/09/17/ER Signed Date of Exam: 05/09/17 CT HEAD/CERVICAL SPINE WO PROCEDURE: CT head and CT cervical spine without contrast. TECHNIQUE: Multiple contiguous axial images were obtained through the brain and cervical spine without the use of intravenous contrast. Sagittal and coronal reformations through the cervical spine were then performed. INDICATION: Patient found down. COMPARISON: Comparison with CT head from 03/21/2017. CT cervical spine from 11/03/2016. FINDINGS: CT head without: There is diffuse cortical atrophy. Diffuse periventricular white matter changes are present. No evidence of intracranial hemorrhage. Ventricles are slightly prominent with periventricular white matter changes. Overall appearance has not changed significantly since previous exam. No intracranial hemorrhage. No extra-axial fluid collection. There is focal area of encephalomalacia along the right temporoparietal region which was present previously. Basal cisterns are clear. Mastoid air cells and paranasal sinuses are clear. IMPRESSION: 1. Encephalomalacia in right temporoparietal region which has not changed. There are no acute intracranial abnormalities demonstrated. 2. Diffuse cortical atrophy with white matter changes, consistent with chronic small vessel disease. CT cervical spine: Sagittal and coronal reformatted images show good alignment of the vertebral bodies. Body heights are well maintained. There is loss of disc space at C5-C6 and C6-C7 levels with hypertrophic lipping of the endplates both anteriorly and posteriorly. This is causing moderate encroachment upon the neuroforamen and lateral recesses bilaterally at C5-C6. No significant central canal stenosis. No cervical fractures. The surrounding soft tissues appear normal. IMPRESSION: 1. Advanced degenerative cervical disc disease at C5 through C7. 2. No acute abnormalities. Dictated by: Dictated on workstation # [id number] Dict: 05/09/171913 Trans: 05/09/171923 Interpreted by: LUISANA QUINTERO MD Electronically signed by: LUISANA QUINTERO MD 05/09/171923 Departure Impression Impression: Primary Impression: Fall on same level Qualified Codes: W18.30XA - Fall on same level, unspecified, initial encounter Additional Impressions: Neck pain Urinary tract infection Qualified Codes: N39.0 - Urinary tract infection, site not specified Disposition: 01 HOME, SELF-CARE Condition: Improved Departure-Patient Inst. Decision time for Depature: 21:32 Referrals: DIA GREENWOOD MD (PCP) Primary Care Physician GLENIS BUSTILLO (Family) Primary Care Physician Patient Instructions: Urinary Tract Infections in Adults Add. Discharge Instructions: You may continue using your hydrocodone for pain at home. Follow-up with your primary care provider on Saturday to review urine cultures. You historically of had some kidney insufficiency. Please make sure you're drinking plenty of clear liquids and have your primary care provider follow your kidney function. Return to care if symptoms worsen. All discharge instructions reviewed with patient and/or family. Voiced understanding. Scripts Ciprofloxacin HCl (Cipro) 250 Mg Tablet 250 MG PO BID, #10 TAB Prov: CARLOS GRIFFIN MD 05/09/17 CARLOS GRIFFIN MD May 09, 2017 19:46
[2017-05-09 20:38] LABS: BILIRUBIN,URINE NEGATIVE (NEGATIVE); KETONES,URINE NEGATIVE (NEGATIVE); LEUKOCYTE ESTERASE ,URINE 3+ (NEGATIVE); NITRITE,URINE NEGATIVE (NEGATIVE); PH,URINE 5 (5-9); PROTEIN,URINE NEGATIVE (NEGATIVE); UROBILINOGEN,URINE NORMAL (NORMAL)
[2017-05-09 20:45] LABS: SQUAMOUS EPITHELIAL CELL,UR 0-2 /HPF
[2017-05-09] MEDS: CIPROFLOXACIN 500 MG (CIPRO) TABLET PO ONE (21:35)
[2017-05-09] MEDS: HYDROcodone/APAP 5 MG/325 MG (LORTAB) TAB PO ONE (21:35)
[2017-05-09] MEDS ORDERED: CIPR-226 PO (21:35)
[2017-05-09 21:44] VITALS: BP 143/86
== END 2017-05-09 21:44 | disposition home or self-care (01) ==
LOC: EDUNIT# 18:42 → ER 18:44
DX: M54.2 Cervicalgia (principal); N39.0 Urinary tract infection, site not specified; W18.30XA Fall on same level, unspecified, initial encounter; Y92.129 Unspecified place in nursing home as the place of occurrence of the external cause; J44.9 Chronic obstructive pulmonary disease, unspecified; Z99.81 Dependence on supplemental oxygen; Z95.0 Presence of cardiac pacemaker; I49.5 Sick sinus syndrome; I25.10 Atherosclerotic heart disease of native coronary artery without angina pectoris; G20 Parkinson's disease; Z86.73 Personal history of transient ischemic attack (TIA), and cerebral infarction without residual deficits; N19 Unspecified kidney failure; E03.9 Hypothyroidism, unspecified; D64.9 Anemia, unspecified
CPT/HCPCS: 70450; 72125; 81000; 87088; 99283

== ENCOUNTER → 2017-07-22 | Outpatient (CLI) | payer MEDICARE, MEDICAID ==
[~2017-07-22] MED LIST changes: +CIPR-226 PO
== END ==
LOC: CARD 15:01
PROVIDERS: ATTEND Physician Assistant
DX: I25.10 Atherosclerotic heart disease of native coronary artery without angina pectoris (principal); E78.2 Mixed hyperlipidemia; I49.5 Sick sinus syndrome; G20 Parkinson's disease
CPT/HCPCS: 93306

== ENCOUNTER 2017-11-26 17:53 | Emergency (ER) | payer MEDICARE, MEDICAID ==
[~2017-11-26] VITALS: Ht 180.3 cm; Wt 95.6 kg
--- NOTE | 2017-11-26 18:19 | ED Fall/Injury ---
General Chief Complaint: Trauma-Non Activation Stated Complaint: FALL Nursing Triage Note: TO ED PER [facility] . 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 C/O PAIN IN BACK OF HEAD AND IN R SHOULDER Source: patient Exam Limitations: no limitations History of Present Illness Time seen by provider: 18:00 Initial Comments Here with report of falling while standing at trying to get her pants up after going to the bathroom. Arrives via EMS. Apparently the patient had finished going to the bathroom and was using her Assist bar to hold herself up and was trying to pull up her pants when she lost her balance and fell against a wall. She hit her head against the bar and her shoulder against the wall. She slid down to the floor. Denies loss of consciousness. Only complains of right shoulder pain and mild pain to the posterior aspect of her head. She is on blood thinners. Denies hip pain or back pain. Occurred: just prior to arrival (approximately one hour ago) Severity: mild Injuries/Pain Location: head Context: lost balance Loss of Consciousness: no loss of consciousness Modifying Factors: Improves With Rest Associated Symptoms (Fall): No Abdominal Pain, No Chest Pain, No Confusion, No Muscle Spasms, No Nausea/Vomiting, No Neck Pain, No Shortness of Air, No Slurred Speech Allergies and Home Medications Allergies Coded Allergies: Penicillins (Unverified Allergy, Unknown, 11/03/16) Uncoded Allergies: POISON AISHWARYA, OAK AND SUMAC (Allergy, Unknown, 12/28/08) Home Medications Acetaminophen 325 Mg Tablet, 325 MG PO BID PRN for PAIN, (Reported) Albuterol Sulfate 2.5 Mg/3 Ml Vial.neb, 2.5 MG IH Q4H PRN for WHEEZING, #30 Prescribed by: CARLOS RITCHIE on 03/21/17 4991 Alprazolam 0.5 Mg Tablet, 0.5 MG PO DAILY, (Reported) Amlodipine Besylate 5 Mg Tab, 5 MG PO DAILY, (Reported) Apixaban 5 Mg Tablet, 5 MG PO BID, (Reported) Ascorbic Acid 500 Mg Capsule.er, 500 MG PO TID, (Reported) Bisacodyl 10 Mg Supp.rect, 10 MG RC DAILY PRN for CONSTIPATION, (Reported) Budesonide/Formoterol Fumarate 10.2 Gm Hfa.aer.ad, 2 PUFF IH BID, (Reported) Carbidopa/Levodopa 1 Each Tablet, 1 TAB PO QID, (Reported) Carboxymethylcellulose Sodium 15 Ml Drops, 1 DROP OU QID, (Reported) Cholecalciferol (Vitamin D3) 2,000 Unit Capsule, 3,000 UNIT PO DAILY, (Reported) Ciprofloxacin HCl 250 Mg Tablet, 250 MG PO BID, #10 Prescribed by: CARLOS RITCHIE on 05/09/175 Citalopram Hydrobromide 20 Mg Tablet, 20 MG PO DAILY, (Reported) Cyanocobalamin 1,000 Mcg Tablet, 1,000 MCG PO DAILY, (Reported) Fentanyl 1 Each Patch.td72, 25 MCG TD EVERY 3 DAYS, (Reported) Levothyroxine Sodium 100 Mcg Tablet, 100 MCG PO DAILY, (Reported) Loratadine 10 Mg Tablet, 10 MG PO DAILY, (Reported) Magnesium Hydroxide 400 Mg/5 Ml Oral.susp, 30 ML PO DAILY PRN for CONSTIPATION, (Reported) Nebivolol HCl 10 Mg Tab, 10 MG PO DAILY, (Reported) Nystatin 1 Each Powder.ea., TOP BID PRN for REDNESS/GAULDING, (Reported) ABDOMINAL FOLD Olmesartan Medoxomil 40 Mg Tablet, 20-40 MG PO DAILY, (Reported) TAKES 1/2 (40MG) TABLET IF BP BETWEEN 110-150 TAKES 1 (40MG) TABLET IF SYSTOLIC >150 IF SYSTOLIC IS < 110 HOLD MEDICINE Ondansetron 4 Mg Tab.rapdis, 4 MG PO Q6H PRN for NAUSEA, (Reported) Pantoprazole Sod 40 Mg Tab, 40 MG PO DAILY, (Reported) Pramipexole Di-Hcl 1.5 Mg Tablet, 1.5 MG PO TID, (Reported) Sennosides/Docusate Sodium 1 Each Tablet, 2 EACH PO DAILY, (Reported) Tramadol HCl/Acetaminophen 1 Each Tablet, 1 EACH PO Q4H PRN for PAIN, (Reported) [Ferrous Sulfate 27MG] , 27 MG PO TID, (Reported) [Ponaris Solution] , 2 DROP NS BID, (Reported) Constitutional: see HPI, No chills, No fever Eyes: No Symptoms Reported Ears, Nose, Mouth, Throat: no symptoms reported Respiratory: no symptoms reported Cardiovascular: no symptoms reported Gastrointestinal: no symptoms reported Genitourinary: no symptoms reported Musculoskeletal: see HPI, joint pain Skin: no symptoms reported Psychiatric/Neurological: See HPI, Headache (mild posterior aspect pain on palpation to the right side of the head) All Other Systems Reviewed Negative Unless Noted: Yes Past Lffaexc-Mydpbq-Puzcxf Hx Patient Social History Alcohol Use: Denies Use Recreational Drug Use: No Recent Foreign Travel: No Contact w/Someone Who Travel: No Recent Infectious Disease Expo: No Recent Hopitalizations: No Immunizations Up To Date Tetanus Booster (TDap): Unknown Date of Pneumonia Vaccine: Aug 05, 2012 Date of Influenza Vaccine: Sep 01, 2016 Surgeries History of Surgeries: Yes (HYSTERECTOMY 1974, PACEMAKER, TKR, FOOT, SHOULDER) Surgeries: Abdominal, Coronary Stent, Orthopedic, Pacemaker Respiratory History of Respiratory Disorde: Yes (O2 at night) Respiratory Disorders: COPD Cardiovascular History of Cardiac Disorders: Yes (PACEMAKER, sick sinus syndrome) Cardiac Disorders: Coronary Artery Disease Neurological History of Neurological Disord: Yes Neurological Disorders: Parkinson's Disease, Stroke Reproductive System Hx Reproductive Disorders: No Sexually Transmitted Disease: No HIV/AIDS: Yes Female Reproductive Disorders: Denies Genitourinary Genitourinary Disorders: Renal Failure Gastrointestinal History of Gastrointestinal Di: Yes Gastrointestinal Disorders: Gastroesophageal Reflux Musculoskeletal History of Musculoskeletal Dis: Yes Musculoskeletal Disorders: Arthritis Endocrine History of Endocrine Disorders: Yes Endocrine Disorders: Hypothyroidsim Cancer History of Cancer: No Psychosocial History of Psychiatric Problem: Yes Behavioral Health Disorders: Depression Integumentary History of Skin or Integumenta: No Blood Transfusions History of Blood Disorders: Yes (anemia) Adverse Reaction to a Blood Tr: No Reviewed Nursing Assessment Reviewed/Agree w Nursing PMH: Yes Family Medical History Significant Family History: No Pertinent Family Hx Physical Exam Vital Signs Vital Sign - Last 12Hours 11/26/17 17:53 Temp 98.8 Pulse 83 Resp 18 B/P (MAP) 149/79 (102) Pulse Ox 98 O2 Delivery Room Air Capillary Refill : Less Than 3 Seconds General Appearance: WD/WN, no apparent distress HEENT: PERRL/EOMI, pharynx normal Neck: non-tender, full range of motion, supple, normal inspection Cardiovascular: regular rate, rhythm, no murmur Respiratory: lungs clear, normal breath sounds Gastrointestinal: non tender, soft Back: normal inspection, no CVA tenderness, no vertebral tenderness Extremities: pelvis stable, other (mild tenderness to the right shoulder throughout the joint with retained range of motion.) Neurologic/Psychiatric: alert, oriented x 3 Skin: normal color, warm/dry, No ecchymosis [place] Coma Score Best Eye Response: (4) Open Spontaneously Best Verbal Response: (5) Oriented Best Motor Response: (6) Obeys Commands Progress/Results/Core Measures Results/Orders My Orders Orders - HUAN HOPE MD Ct Head/Cervical Spine Wo (11/26/17 18:12) Shoulder, Right, 3 Views (11/26/17 18:12) Vital Signs/I&O Vital Sign - Last 12Hours 11/26/17 17:53 Temp 98.8 Pulse 83 Resp 18 B/P (MAP) 149/79 (102) Pulse Ox 98 O2 Delivery Room Air Blood Pressure Mean: 102 Progress Note : Progress Note Seen and evaluated. CT of head and neck ordered. Right shoulder x-ray ordered. Monitor patient. Call light in reach and side rails up 2. 105: No acute fractures or other significant findings. Discharge back to group home with return precautions. Patient verbalize understanding instructions and agreement with plan. Diagnostic Imaging Diagonstic Imaging: CT Plain Films/CT/US/NM/MRI: c-spine, head Comments [facility] [place] [place] NAME: PRISCILLA LOVELACE [facility] REC#: [id number] PT STATUS: REG ER : 1930 PHYSICIAN: HUAN HOPE MD ADMIT DATE: 11/26/17/ER Draft Date of Exam:11/26/17 CT HEAD/CERVICAL SPINE WO PROCEDURE: CT head and CT cervical spine without contrast. TECHNIQUE: Multiple contiguous axial images were obtained through the brain and cervical spine without the use of intravenous contrast. Sagittal and coronal reformations through the cervical spine were then performed. INDICATION: Fall. COMPARISON: 05/09/17 CT head: FINDINGS: Age-related cerebral volume loss and chronic small vessel ischemic changes are present. There is no midline shift or mass effect. There is no hemorrhage or evidence of acute ischemia. There is no skull fracture. Paranasal sinuses and mastoids are unremarkable. IMPRESSION: No acute intracranial abnormality. CT cervical spine: FINDINGS: Alignment is normal. There is no subluxation or fracture. Degenerative changes are seen throughout. No paraspinous mass is identified. IMPRESSION: No traumatic malalignment or fracture. Dictated on workstation # [id number] Dict: 11/26/171839 Trans: 11/26/171843 [facility] [id number] Interpreted by: SANGEETHA MON Electronically signed by: Radha Imaging: Xray Plain Films/CT/US/NM/MRI: other Comments [facility] [place] [place] NAME: PRISCILLA LOVELACE [facility] REC#: [id number] PT STATUS: REG ER : 1930 PHYSICIAN: HUAN HOPE MD ADMIT DATE: 11/26/17/ER Draft Date of Exam:11/26/17 SHOULDER, RIGHT, 3 VIEWS INDICATION: Fall, right shoulder pain. COMPARISON: None. FINDINGS: Three views of the right shoulder demonstrate no acute fracture or dislocation. Articular surfaces are age-appropriate. No osseous lesion. IMPRESSION: No fracture or dislocation. Dictated on workstation # [id number] Dict: 11/26/171852 Trans: 11/26/171855 [facility] [id number] Interpreted by: SANGEETHA MON Electronically signed by: Departure Impression Impression: Primary Impression: Minor head injury without loss of consciousness Qualified Codes: S09.90XA - Unspecified injury of head, initial encounter Additional Impression: Contusion of shoulder, right Qualified Codes: S40.011A - Contusion of right shoulder, initial encounter Disposition: 01 HOME, SELF-CARE Condition: Stable Departure-Patient Inst. Decision time for Depature: 19:08 Referrals: DIA GREENWOOD MD (PCP) Primary Care Physician GLENIS CHAVARRIA (Family) Primary Care Physician Patient Instructions: Contusion (DC), Minor Head Injury (DC) Add. Discharge Instructions: All discharge instructions reviewed with patient and/or family. Voiced understanding. Ice packs to affected area as needed 20 minutes per hour for pain. You may take Tylenol as needed for pain control. Follow-up with your in a few days for recheck his needed. Return for worsening, fever, vomiting, weakness, breathing problems or other concerns as needed. You should ask for assistance anytime you need to move about outside of your wheelchair or bed. HUAN HOPE MD Nov 26, 2017 18:19
--- NOTE | 2017-11-26 18:45 | Diagnostic Imaging Report ---
PROCEDURE: CT head and CT cervical spine without contrast. TECHNIQUE: Multiple contiguous axial images were obtained through the brain and cervical spine without the use of intravenous contrast. Sagittal and coronal reformations through the cervical spine were then performed. INDICATION: Fall. COMPARISON: 05/09/17 CT head: FINDINGS: Age-related cerebral volume loss and chronic small vessel ischemic changes are present. There is no midline shift or mass effect. There is no hemorrhage or evidence of acute ischemia. There is no skull fracture. Paranasal sinuses and mastoids are unremarkable. IMPRESSION: No acute intracranial abnormality. CT cervical spine: FINDINGS: Alignment is normal. There is no subluxation or fracture. Degenerative changes are seen throughout. No paraspinous mass is identified. IMPRESSION: No traumatic malalignment or fracture. Dictated by: Dictated on workstation # [id number]
--- NOTE | 2017-11-26 18:57 | Diagnostic Imaging Report ---
INDICATION: Fall, right shoulder pain. COMPARISON: None. FINDINGS: Three views of the right shoulder demonstrate no acute fracture or dislocation. Articular surfaces are age-appropriate. No osseous lesion. IMPRESSION: No fracture or dislocation. Dictated by: Dictated on workstation # [id number]
[2017-11-26 19:16] VITALS: BP 147/68
== END 2017-11-26 19:16 | disposition home or self-care (01) ==
LOC: EDUNIT# 17:53 → ER 17:56
DX: S09.90XA Unspecified injury of head, initial encounter (principal); S40.011A Contusion of right shoulder, initial encounter; J44.9 Chronic obstructive pulmonary disease, unspecified; I25.10 Atherosclerotic heart disease of native coronary artery without angina pectoris; G20 Parkinson's disease; K21.9 Gastro-esophageal reflux disease without esophagitis; E03.9 Hypothyroidism, unspecified; F32.9 Major depressive disorder, single episode, unspecified; Z90.710 Acquired absence of both cervix and uterus; Z95.0 Presence of cardiac pacemaker; Z86.73 Personal history of transient ischemic attack (TIA), and cerebral infarction without residual deficits; Z95.5 Presence of coronary angioplasty implant and graft; W01.198A Fall on same level from slipping, tripping and stumbling with subsequent striking against other object, initial encounter
CPT/HCPCS: 70450; 72125; 73030; 99282

== ENCOUNTER 2017-12-30 20:17 | Emergency (ER) | payer MEDICARE, MEDICAID ==
[~2017-12-30] VITALS: Ht 180.3 cm; Wt 95.6 kg
--- OUTSIDE RECORDS SUMMARY | 2017-12-30 20:26 | XMS REPORT | Continuity of Care Document ---
Author Author [facility] Organization [facility] Address Unknown Phone Unavailable Allergies Active Description Code Type Severity Reaction Onset Reported/Identified Relationship to Patient Clinical Status Yes POISON AISHWARYA, OAK AND SUMAC POISON AISHWARYA, OAK AND SUMAC Unknown N/A 2008 Yes Penicillins [id number] Drug Allergy Unknown N/A 11/03/2016 Medications There is no data. Problems Date Dx Coded Attending Type Code Diagnosis Diagnosed By 06/25/2010 Ot 244.9 06/25/2010 Ot 272.4 06/25/2010 Ot 403.90 06/25/2010 Ot 414.01 06/25/2010 Ot 427.81 06/25/2010 Ot 433.10 06/25/2010 Ot 585.9 06/25/2010 Ot V12.51 06/25/2010 Ot V12.54 06/25/2010 Ot V53.31 06/25/2010 Ot V58.61 04/21/2011 Ot 599.0 URIN TRACT INFECTION NOS 04/21/2011 Ot 786.50 CHEST PAIN NOS 04/21/2011 Ot 786.52 PAINFUL RESPIRATION 07/27/2011 Ot 244.9 HYPOTHYROIDISM NOS 07/27/2011 Ot 285.9 ANEMIA NOS 07/27/2011 Ot 311 DEPRESSIVE DISORDER NEC 07/27/2011 Ot 401.9 HYPERTENSION NOS 07/27/2011 Ot 414.01 CORONARY ATHEROSCLEROSIS OF [place] CORON 07/27/2011 Ot 428.0 CONGESTIVE HEART FAILURE NOS 07/27/2011 Ot 428.43 ACUTE CHRONIC SYSTOLIC/DIALSTOLIC HRT FA 07/27/2011 Ot 496 CHR AIRWAY OBSTRUCT NEC 07/27/2011 Ot 530.81 ESOPHAGEAL REFLUX 07/27/2011 Ot 599.0 URIN TRACT INFECTION NOS 07/27/2011 Ot V12.54 PERSONAL HX OF TIA, CEREBRAL INFARCTION 08/08/2011 Ot 244.9 HYPOTHYROIDISM NOS 08/08/2011 Ot 272.4 HYPERLIPIDEMIA NEC/NOS 08/08/2011 Ot 285.9 ANEMIA NOS 08/08/2011 Ot 311 DEPRESSIVE DISORDER NEC 08/08/2011 Ot 403.90 HYPTNSV CHR KID DIS, UNSPEC, W CHR KD ST 08/08/2011 Ot 414.01 CORONARY ATHEROSCLEROSIS OF [place] CORON 08/08/2011 Ot 428.0 CONGESTIVE HEART FAILURE NOS 08/08/2011 Ot 433.10 CAROTID ARTERY OCCLUSION W O CEREBRAL IN 08/08/2011 Ot 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,HEMIPLEGIA AFFECTING 08/08/2011 Ot 438.89 OTH LATE EFFECT-CEREBROVASCULAR DISEASE 08/08/2011 Ot 585.9 CHRONIC KIDNEY DISEASE, UNSPECIFIED 08/08/2011 Ot 599.0 URIN TRACT INFECTION NOS 08/08/2011 Ot 715.36 LOC OSTEOARTH NOS-L/LEG 08/08/2011 Ot 781.2 ABNORMALITY OF GAIT 08/08/2011 Ot V45.01 CARDIAC PACEMAKER IN SITU 08/08/2011 Ot V57.1 PHYSICAL THERAPY NEC 08/08/2011 Ot V57.21 ENCOUNTER FOR OCCUPATIONAL THERAPY 09/05/2011 Ot 244.9 HYPOTHYROIDISM NOS 09/05/2011 Ot 276.51 DEHYDRATION 09/05/2011 Ot 332.0 PARALYSIS AGITANS 09/05/2011 Ot 401.9 HYPERTENSION NOS 09/05/2011 Ot 414.00 CORON ATHEROSCLER NOS TYPE VESSEL, NATIV 09/05/2011 Ot 435.9 TRANS CEREB ISCHEMIA NOS 09/05/2011 Ot 530.81 ESOPHAGEAL REFLUX 09/05/2011 Ot 584.9 ACUTE RENAL FAILURE, UNSPECIFIED 09/05/2011 Ot 599.0 URIN TRACT INFECTION NOS 09/05/2011 Ot 715.90 OSTEOARTHROS NOS-UNSPEC 09/05/2011 Ot 728.87 MUSCLE WEAKNESS (GENERALIZED) 09/05/2011 Ot V57.1 PHYSICAL THERAPY NEC 09/05/2011 Ot V58.61 ANTICOAGULANTS,LT,CURRENT USE 09/05/2011 Ot V58.63 LONG-TERM( CURRENT)USE OF ANTIPLATELET/AN 09/05/2011 Ot V58.69 OTH MED,LT, CURRENT USE 09/12/2011 Ot 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.0 ABRASION HEAD 09/12/2011 Ot 924.8 MULTIPLE CONTUSIONS NEC 09/12/2011 Ot 959.01 HEAD INJURY , NOS 09/12/2011 Ot E000.8 OTHER EXTERNAL CAUSE STATUS 09/12/2011 Ot E849.0 ACCIDENT IN HOME 09/12/2011 Ot E884.3 FALL FROM WHEELCHAIR 10/10/2011 Ot V45.82 PERCUTANEOUS TRANSLUM CORON ANGIOPLASTY 10/10/2011 Ot V57.89 REHABILITATION PROC NEC 12/20/2011 Ot 244.9 HYPOTHYROIDISM NOS 12/20/2011 Ot 272.4 HYPERLIPIDEMIA NEC/NOS 12/20/2011 Ot 276.51 DEHYDRATION 12/20/2011 Ot 300.00 ANXIETY STATE NOS 12/20/2011 Ot 311 DEPRESSIVE DISORDER NEC 12/20/2011 Ot 332.0 PARALYSIS AGITANS 12/20/2011 Ot 401.9 HYPERTENSION NOS 12/20/2011 Ot 414.01 CORONARY ATHEROSCLEROSIS OF [place] CORON 12/20/2011 Ot 428.0 CONGESTIVE HEART FAILURE NOS 12/20/2011 Ot 435.9 TRANS CEREB ISCHEMIA NOS 12/20/2011 Ot 593.9 RENAL URETERAL DIS NOS 12/20/2011 Ot 788.30 UNSPECIFIED URINARY INCONTINENCE 12/20/2011 Ot V12.54 PERSONAL HX OF TIA, CEREBRAL INFARCTION 12/20/2011 Ot V45.82 PERCUTANEOUS TRANSLUM CORON ANGIOPLASTY 03/21/2012 Ot 920 CONTUSION FACE/ SCALP/NCK 03/21/2012 Ot E000.8 OTHER EXTERNAL CAUSE STATUS 03/21/2012 Ot E849.7 ACCID IN RESIDENT INSTIT 03/21/2012 Ot E888.9 FALL NOS 03/21/2012 Ot V58.61 ANTICOAGULANTS,LT,CURRENT USE 04/01/2012 Ot 250.00 DIAB NOVA WO COMPL, TYPE II OR UNSPEC TY 04/01/2012 Ot 276.8 HYPOPOTASSEMIA 04/01/2012 Ot 285.21 ANEMIA IN CHRONIC KIDNEY DISEASE 04/01/2012 Ot 311 DEPRESSIVE DISORDER NEC 04/01/2012 Ot 403.90 HYPTNSV CHR KID DIS, UNSPEC, W CHR KD ST 04/01/2012 Ot 414.01 CORONARY ATHEROSCLEROSIS OF [place] CORON 04/01/2012 Ot 435.9 TRANS CEREB ISCHEMIA NOS 04/01/2012 Ot 584.9 ACUTE RENAL FAILURE, UNSPECIFIED 04/01/2012 Ot 585.9 CHRONIC KIDNEY DISEASE, UNSPECIFIED 04/01/2012 Ot 920 CONTUSION FACE/ SCALP/NCK 04/01/2012 Ot E888.9 FALL NOS 04/01/2012 Ot V12.51 HX-VENOUS THROMBOSIS EMBOLISM 04/01/2012 Ot V12.54 PERSONAL HX OF TIA, CEREBRAL INFARCTION 04/01/2012 Ot V12.55 PERSONAL HISTORY OF PULMONARY EMBOLISM 06/22/2012 Ot 244.9 HYPOTHYROIDISM NOS 06/22/2012 Ot 300.00 ANXIETY STATE NOS 06/22/2012 Ot 311 DEPRESSIVE DISORDER NEC 06/22/2012 Ot 332.0 PARALYSIS AGITANS 06/22/2012 Ot 401.9 HYPERTENSION NOS 06/22/2012 Ot 414.01 CORONARY ATHEROSCLEROSIS OF [place] CORON 06/22/2012 Ot 435.9 TRANS CEREB ISCHEMIA NOS 06/22/2012 Ot 438.89 OTH LATE EFFECT-CEREBROVASCULAR DISEASE 06/22/2012 Ot 496 CHR AIRWAY OBSTRUCT NEC 06/22/2012 Ot 530.81 ESOPHAGEAL REFLUX 06/22/2012 Ot 564.00 UNSPEC CONSTIPATION 06/22/2012 Ot 715.35 LOC OSTEOARTH NOS-PELVIS 06/22/2012 Ot 715.36 LOC OSTEOARTH NOS-L/LEG 06/22/2012 Ot 728.87 MUSCLE WEAKNESS (GENERALIZED) 06/22/2012 Ot V15.88 HISTORY OF FALL 06/22/2012 Ot V45.01 CARDIAC PACEMAKER IN SITU 12/17/2012 Ot 041.49 OTHER AND UNSPECIFIED ESCHERICHIA COLI [ 12/17/2012 Ot 401.9 HYPERTENSION NOS 12/17/2012 Ot 435.9 TRANS CEREB ISCHEMIA NOS 12/17/2012 Ot 584.9 ACUTE RENAL FAILURE, UNSPECIFIED 12/17/2012 Ot 599.0 URIN TRACT INFECTION NOS 02/19/2013 Ot 244.9 HYPOTHYROIDISM NOS 02/19/2013 Ot 250.00 DIAB NOVA WO COMPL, TYPE II OR UNSPEC TY 02/19/2013 Ot 272.4 HYPERLIPIDEMIA NEC/NOS 02/19/2013 Ot 278.01 MORBID OBESITY 02/19/2013 Ot 285.9 ANEMIA NOS 02/19/2013 Ot 300.00 ANXIETY STATE NOS 02/19/2013 Ot 311 DEPRESSIVE DISORDER NEC 02/19/2013 Ot 403.90 HYPTNSV CHR KID DIS, UNSPEC, W CHR KD ST 02/19/2013 Ot 414.01 CORONARY ATHEROSCLEROSIS OF [place] CORON 02/19/2013 Ot 477.9 ALLERGIC RHINITIS NOS 02/19/2013 Ot 496 CHR AIRWAY OBSTRUCT NEC 02/19/2013 Ot 530.81 ESOPHAGEAL REFLUX 02/19/2013 Ot 564.00 UNSPEC CONSTIPATION 02/19/2013 Ot 584.9 ACUTE RENAL FAILURE, UNSPECIFIED 02/19/2013 Ot 585.9 CHRONIC KIDNEY DISEASE, UNSPECIFIED 02/19/2013 Ot 599.0 URIN TRACT INFECTION NOS 02/19/2013 Ot 715.90 OSTEOARTHROS NOS-UNSPEC 02/19/2013 Ot 733.00 OSTEOPOROSIS NOS 02/19/2013 Ot 780.79 OTH MALAISE FATIGUE 02/19/2013 Ot 780.97 ALTERED MENTAL STATUS 02/19/2013 Ot 786.2 COUGH 02/19/2013 Ot 786.59 CHEST PAIN NEC 02/19/2013 Ot 787.01 NAUSEA WITH VOMITING 02/19/2013 Ot V12.54 PERSONAL HX OF TIA, CEREBRAL INFARCTION 02/19/2013 Ot V15.82 HISTORY OF TOBACCO USE 02/19/2013 Ot V45.01 CARDIAC PACEMAKER IN SITU 02/19/2013 Ot V45.82 PERCUTANEOUS TRANSLUM CORON ANGIOPLASTY 02/19/2013 Ot V85.30 BODY MASS INDEX 30.0-30.9, ADULT 03/25/2015 Ot 959.3 03/25/2015 Ot E000.8 03/25/2015 Ot E030 03/25/2015 Ot E849.0 03/25/2015 Ot E888.9 03/25/2015 Ot 401.9 03/25/2015 Ot 780.2 03/25/2015 Ot 427.81 03/25/2015 Ot 780.2 03/25/2015 Ot V58.61 03/25/2015 Ot V72.63 03/25/2015 Ot V72.81 03/25/2015 Ot V74.8 03/25/2015 Ot 276.51 03/25/2015 Ot 722.51 03/25/2015 Ot 722.52 03/25/2015 Ot 611.72 03/25/2015 Ot 173.90 03/25/2015 Ot 611.72 03/25/2015 Ot 784.7 03/25/2015 Ot V58.61 03/25/2015 Ot 791.9 03/25/2015 Ot V58.61 03/25/2015 Ot V58.83 03/25/2015 Ot 397.0 03/25/2015 Ot 414.00 03/25/2015 Ot 424.0 03/25/2015 Ot 427.81 03/25/2015 Ot 436 03/25/2015 Ot V45.01 03/25/2015 Ot 414.01 03/25/2015 Ot V12.54 03/25/2015 Ot V45.01 03/31/2015 NATALIA BEARD Ot 272.4 03/31/2015 MARLENE PA, NATALIA K Ot 414.00 03/31/2015 MARLENE PA, NATALIA K Ot 427.81 03/31/2015 MARLENE PA, NATALIA K Ot 453.40 04/04/2015 MARLENE PA, NATALIA K Ot 272.4 04/04/2015 MARLENE PA, NATALIA K Ot 414.00 04/04/2015 MARLENE PA, NATALIA K Ot 427.81 04/04/2015 MARLENE PA, NATALIA K Ot 453.40 04/04/2015 MARLENE PA, NATALIA K Ot 272.4 04/04/2015 MARLENE PA, NATALIA K Ot 414.00 04/04/2015 MARLENE PA, NATALIA K Ot 427.81 04/04/2015 MARLENE PA, NATALIA K Ot 453.40 04/04/2015 MARLENE PA, NATALIA K Ot 272.4 04/04/2015 MARLENE PA, NATALIA K Ot 414.00 04/04/2015 MARLENE PA, NATALIA K Ot 427.81 04/04/2015 MARLENE PA, NATALIA K Ot 453.40 04/21/2015 KAYLENE NARVAEZ MD Ot 272.4 HYPERLIPIDEMIA NEC/NOS 04/21/2015 KAYLENE NARVAEZ MD Ot 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 04/21/2015 KAYLENE NARVAEZ MD Ot 332.0 PARALYSIS AGITANS 04/21/2015 KAYLENE NARVAEZ MD Ot 401.9 HYPERTENSION NOS 04/21/2015 KAYLENE NARVAEZ MD Ot 414.01 CORONARY ATHEROSCLEROSIS OF [place] CORON 04/21/2015 KAYLENE NARVAEZ MD Ot 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 NODE DYSFUNCT 04/21/2015 KAYLENE NARVAEZ MD Ot 794.30 ABN CARDIOVASC STUDY NOS 04/21/2015 KAYLENE NARVAEZ MD Ot V12.54 PERSONAL HX OF TIA, CEREBRAL INFARCTION 04/21/2015 KAYLENE NARVAEZ MD Ot V45.82 PERCUTANEOUS TRANSLUM CORON ANGIOPLASTY 04/21/2015 KAYLENE NARVAEZ MD Ot V58.61 ANTICOAGULANTS,LT,CURRENT USE 04/21/2015 SOLANGE RAMOS, KAYLENE Ash Ot V58.69 OT MED,LT,CURRENT USE 04/30/2015 MARLENE PA, NATALIA K Ot 272.4 04/30/2015 MARLENE PA, NATALIA K Ot 414.00 04/30/2015 MARLENE PA, NATALIA K Ot 427.81 04/30/2015 MARLENE PA, NATALIA K Ot 453.40 05/12/2015 MARLENE PA, NATALIA K Ot 272.4 05/12/2015 MARLENE PA, NATALIA K Ot 414.00 05/12/2015 MARLENE PA, NATALIA K Ot 427.81 05/12/2015 MARLENE PA, NATALIA K Ot 453.40 05/12/2015 MARLENE PA, NATALIA K Ot 272.4 05/12/2015 MARLENE PA, NATALIA K Ot 414.00 05/12/2015 MARLENE PA, NATALIA K Ot 427.81 05/12/2015 MARLENE PA, NATALIA K Ot 453.40 05/24/2015 MARLENE PA, NATALIA K Ot 272.4 05/24/2015 MARLENE PA, NATALIA K Ot 414.00 05/24/2015 MARLENE PA, NATALIA K Ot 427.81 05/24/2015 MARLENE PA, NATALIA K Ot 453.40 04/17/2016 Ot 276.51 DEHYDRATION 04/17/2016 Ot 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 NODE DYSFUNCT 04/17/2016 Ot 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 04/17/2016 Ot V45.01 CARDIAC PACEMAKER IN SITU 04/17/2016 Ot 414.01 CORONARY ATHEROSCLEROSIS OF [place] CORON 04/17/2016 Ot V12.54 PERSONAL HX OF TIA, CEREBRAL INFARCTION 04/17/2016 Ot V45.01 CARDIAC PACEMAKER IN SITU 04/17/2016 NATALIA BEARD Ot 272.4 HYPERLIPIDEMIA NEC/NOS 04/17/2016 NATALIA BEARD Ot 414.00 CORON ATHEROSCLER NOS TYPE VESSEL, NATIV 04/17/2016 NATALIA BEARD Ot 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 NODE DYSFUNCT 04/17/2016 NATALIA BEARD Ot 453.40 ACUTE VENOUS EMBOLISM THROMBOSIS UNSP 04/17/2016 NATALIA BEARD Ot 272.4 HYPERLIPIDEMIA NEC/NOS 04/17/2016 NATALIA BEARD Ot 414.00 CORON ATHEROSCLER NOS TYPE VESSEL, NATIV 04/17/2016 NATALIA BEARD Ot 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 NODE DYSFUNCT 04/17/2016 NATALIA BEARD Ot 453.40 ACUTE VENOUS EMBOLISM THROMBOSIS UNSP 04/17/2016 NATALIA BEARD Ot 272.4 HYPERLIPIDEMIA NEC/NOS 04/17/2016 NATALIA BEARD Ot 414.00 CORON ATHEROSCLER NOS TYPE VESSEL, NATIV 04/17/2016 NATALIA BEARD Ot 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 NODE DYSFUNCT 04/17/2016 NATALIA BEARD Ot 453.40 ACUTE VENOUS EMBOLISM [facility] 04/17/2016 TERESITA RAMOS, SAPNA Estes Ot M75.120 COMPLETE ROTATR-CUFF TEAR/RUPTR OF UNSP 04/17/2016 SAPNA LO MD Ot M75.120 COMPLETE ROTATR-CUFF TEAR/RUPTR OF UNSP 04/17/2016 TERESITA RAMOS, SAPNA Estes Ot M75.120 COMPLETE ROTATR-CUFF TEAR/RUPTR OF UNSP 04/18/2016 SAPNA LO MD Ot M75.122 COMPLETE ROTATR-CUFF TEAR/RUPTR OF LEFT 04/18/2016 SAPNA LO MD Ot M75.122 COMPLETE ROTATR-CUFF TEAR/RUPTR OF LEFT 05/18/2016 SAPNA LO MD Ot M75.122 COMPLETE ROTATR-CUFF TEAR/RUPTR OF LEFT 05/23/2016 SAPNA LO MD Ot M75.122 COMPLETE ROTATR-CUFF TEAR/RUPTR OF LEFT 06/22/2016 GLENIS FARR Ot H53.2 DIPLOPIA 07/11/2016 SAPNA LO MD Ot 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 07/11/2016 SAPNA LO MD Ot I10 ESSENTIAL (PRIMARY) HYPERTENSION 07/11/2016 SAPNA LO MD Ot J44.9 CHRONIC OBSTRUCTIVE PULMONARY DISEASE, U 07/11/2016 SAPNA LO MD Ot M19.012 PRIMARY OSTEOARTHRITIS, LEFT SHOULDER 07/11/2016 SAPNA LO MD Ot M75.102 UNSP ROTATR-CUFF TEAR/RUPTR OF LEFT SHOU 07/11/2016 SAPNA LO MD Ot Z11.2 ENCOUNTER FOR SCREENING FOR OTHER BACTER 07/20/2016 GLENIS FARR Ot H53.2 DIPLOPIA 07/25/2016 GLENIS FARR Ot H53.2 DIPLOPIA 11/03/2016 VALERIE MASCORRO APRN Ot J44.9 CHRONIC OBSTRUCTIVE PULMONARY DISEASE, U 11/03/2016 VALERIE MASCORRO APRN Ot 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 11/03/2016 VALERIE MASCORRO APRN Ot S09.90XA UNSPECIFIED INJURY OF HEAD, INITIAL ENCO 11/03/2016 VALERIE MASCORRO APRN Ot S49.92XA UNSP INJURY OF LEFT SHOULDER AND UPPER A 11/03/2016 VALERIE MASCORRO APRN Ot W01.0XXA FALL SAME LEV FROM SLIP/TRIP W/O STRIKE 11/03/2016 VALERIE MASCORRO APRN Ot Y92.[address] IN CUSTODIAL PLACE 11/03/2016 VALERIE MASCORRO APRN Ot Y93.9 ACTIVITY, UNSPECIFIED 11/03/2016 VALERIE MASCORRO [employer]IP[employer] OPERATOR Ot Y99.8 OTHER EXTERNAL CAUSE STATUS 11/03/2016 VALERIE MASCORRO [employer] EQUIPMENT OPERATOR Ot Z79.899 OTHER VACUUM COOKER OPERATOR (CURRENT) DRUG THERAPY 11/03/2016 VALERIE MASCORRO [employer] EQUIPMENT OPERATOR Ot Z95.0 PRESENCE OF CARDIAC PACEMAKER 11/03/2016 Ot 611.72 LUMP OR MASS IN BREAST 11/03/2016 Ot 173.90 UNSPECIFIED MALIGNANT NEOPLASM OF SKIN, 11/03/2016 Ot 611.72 LUMP OR MASS IN BREAST 11/03/2016 Ot 784.7 EPISTAXIS 11/03/2016 Ot V58.61 ANTICOAGULANTS,LT,CURRENT USE 11/03/2016 Ot 791.9 ABN URINE FINDINGS NEC 11/03/2016 Ot V58.61 ANTICOAGULANTS,LT,CURRENT USE 11/03/2016 Ot V58.83 ENCOUNTER FOR THERAPEUTIC DRUG MONITORIN 11/03/2016 Ot 397.0 TRICUSPID VALVE DISEASE 11/03/2016 Ot 414.00 CORON ATHEROSCLER NOS TYPE VESSEL, NATIV 11/03/2016 Ot 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 VALVE DISORDER 11/03/2016 Ot 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 NODE DYSFUNCT 11/03/2016 Ot 436 CVA 11/03/2016 Ot V45.01 CARDIAC PACEMAKER IN SITU 11/03/2016 Ot 414.01 CORONARY ATHEROSCLEROSIS OF [place] CORON 11/03/2016 Ot V12.54 PERSONAL HX OF TIA, CEREBRAL INFARCTION 11/03/2016 Ot V45.01 CARDIAC PACEMAKER IN SITU 11/03/2016 NATALIA BEARD Ot 272.4 HYPERLIPIDEMIA NEC/NOS 11/03/2016 NATALIA BEARD Ot 414.00 CORON ATHEROSCLER NOS TYPE VESSEL, NATIV 11/03/2016 NATALIA BEARD Ot 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 NODE DYSFUNCT 11/03/2016 NATALIA BEARD Ot 453.40 ACUTE VENOUS EMBOLISM THROMBOSIS UNSP 11/03/2016 NATALIA BEARD Ot 272.4 HYPERLIPIDEMIA NEC/NOS 11/03/2016 NATALIA BEARD Ot 414.00 CORON ATHEROSCLER NOS TYPE VESSEL, NATIV 11/03/2016 NATALIA BEARD Ot 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 NODE DYSFUNCT 11/03/2016 NATALIA BEARD Ot 453.40 ACUTE VENOUS EMBOLISM THROMBOSIS UNSP 11/03/2016 NATALIA BEARD Ot 272.4 HYPERLIPIDEMIA NEC/NOS 11/03/2016 NATALIA BEARD Ot 414.00 CORON ATHEROSCLER NOS TYPE VESSEL, NATIV 11/03/2016 NATALIA BEARD Ot 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 NODE DYSFUNCT 11/03/2016 NATALIA BEARD Ot 453.40 ACUTE VENOUS EMBOLISM THROMBOSIS UNSP 11/03/2016 TERESITA RAMOS, SAPNA Estes Ot M75.122 COMPLETE ROTATR-CUFF TEAR/RUPTR OF LEFT 11/03/2016 GLENIS FARR Ot H53.2 DIPLOPIA 11/03/2016 SAPNA LO MD Ot M75.102 UNSP ROTATR-CUFF TEAR/RUPTR OF LEFT SHOU 11/03/2016 SAPNA LO MD Ot Z01.818 ENCOUNTER FOR OTHER PREPROCEDURAL EXAMIN 11/06/2016 VALERIE MASCORRO APRN Ot J44.9 CHRONIC OBSTRUCTIVE PULMONARY DISEASE, U 11/06/2016 VALERIE MASCORRO APRN Ot 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 11/06/2016 VALERIE MASCORRO APRN Ot S09.90XA UNSPECIFIED INJURY OF HEAD, INITIAL ENCO 11/06/2016 VALERIE MASCORRO APRN Ot S49.92XA UNSP INJURY OF LEFT SHOULDER AND UPPER A 11/06/2016 VALERIE MASCORRO APRN Ot W01.0XXA FALL SAME LEV FROM SLIP/TRIP W/O STRIKE 11/06/2016 VALERIE MASCORRO APRN Ot Y92.[address] IN CUSTODIAL PLACE 11/06/2016 VALERIE MASCORRO APRN Ot Y93.9 ACTIVITY, UNSPECIFIED 11/06/2016 VALERIE MASCORRO APRN Ot Y99.8 OTHER EXTERNAL CAUSE STATUS 11/06/2016 VALERIE MASCORRO APRN Ot Z79.899 OTHER VACUUM COOKER OPERATOR (CURRENT) DRUG THERAPY 11/06/2016 VALERIE MASCORRO APRN Ot Z95.0 PRESENCE OF CARDIAC PACEMAKER 03/21/2017 ELIAS RAMOS, CARLOS Sutton Ot E87.5 HYPERKALEMIA 03/21/2017 CARLOS GRIFFIN MD, Ot 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 03/21/2017 CARLOS GRIFFIN MD Ot I25.10 ATHSCL HEART DISEASE OF [place] CORONARY 03/21/2017 CARLOS GRIFFIN MD, Ot J44.1 CHRONIC OBSTRUCTIVE PULMONARY DISEASE W 03/21/2017 CARLOS GRIFFIN MD Ot N17.9 ACUTE KIDNEY FAILURE, UNSPECIFIED 03/21/2017 CARLOS GRIFFIN MD Ot R41.82 ALTERED MENTAL STATUS, UNSPECIFIED 03/21/2017 CARLOS GRIFFIN MD Ot Z79.01 SKILLED NURSING (CURRENT) USE OF ANTICOAGULANT 03/21/2017 CARLOS GRIFFIN MD Ot Z79.899 OTHER SKILLED NURSING (CURRENT) DRUG THERAPY 03/21/2017 CARLOS GRIFFIN MD Ot Z86.73 PRSNL HX OF TIA (TIA), AND CEREB INFRC W 03/21/2017 CARLOS GRIFFIN MD Ot Z95.0 PRESENCE OF CARDIAC PACEMAKER 03/21/2017 CARLOS GRIFFIN MD Ot Z95.5 PRESENCE OF CORONARY ANGIOPLASTY IMPLANT 03/22/2017 CARLOS GRIFFIN MD Ot E87.5 HYPERKALEMIA 03/22/2017 CARLOS GRIFFIN MD, Ot 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 03/22/2017 CARLOS GRIFFIN MD Ot I25.10 ATHSCL HEART DISEASE OF [place] CORONARY 03/22/2017 CARLOS GRIFFIN MD, Ot J44.1 CHRONIC OBSTRUCTIVE PULMONARY DISEASE W 03/22/2017 CARLOS GRIFFIN MD Ot N17.9 ACUTE KIDNEY FAILURE, UNSPECIFIED 03/22/2017 CARLOS GRIFFIN MD Ot R41.82 ALTERED MENTAL STATUS, UNSPECIFIED 03/22/2017 CARLOS GRIFFIN MD Ot Z79.01 SKILLED NURSING (CURRENT) USE OF ANTICOAGULANT 03/22/2017 CARLOS GRIFFIN MD Ot Z79.899 OTHER SKILLED NURSING (CURRENT) DRUG THERAPY 03/22/2017 CARLOS GRIFFIN MD Ot Z86.73 PRSNL HX OF TIA (TIA), AND CEREB INFRC W 03/22/2017 ELIAS RAMOS, CARLOS Sutton Ot Z95.0 PRESENCE OF CARDIAC PACEMAKER 03/22/2017 CARLOS GRIFFIN MD Ot Z95.5 PRESENCE OF CORONARY ANGIOPLASTY IMPLANT 04/30/2017 DENISE FARREN L Ot R10.84 GENERALIZED ABDOMINAL PAIN 04/30/2017 DENISE FARREN L Ot R11.0 NAUSEA 04/30/2017 DENISE FARREN L Ot R10.84 GENERALIZED ABDOMINAL PAIN 04/30/2017 DENISE FARREN L Ot R11.0 NAUSEA 04/30/2017 GLENIS FARR L Ot R10.84 GENERALIZED ABDOMINAL PAIN 04/30/2017 GLENIS FARR L Ot R11.0 NAUSEA 04/30/2017 GLENSI FARR L Ot R10.84 GENERALIZED ABDOMINAL PAIN 04/30/2017 GLENIS FARR L Ot R11.0 NAUSEA 05/03/2017 GLENIS FARR L Ot R10.84 GENERALIZED ABDOMINAL PAIN 05/03/2017 DENISE FARREN L Ot R11.0 NAUSEA 05/03/2017 GLENIS FARR L Ot R10.84 GENERALIZED ABDOMINAL PAIN 05/03/2017 DENISE FARREN L Ot R11.0 NAUSEA 05/03/2017 GLENIS FARR L Ot R10.84 GENERALIZED ABDOMINAL PAIN 05/03/2017 GLENIS FARR L Ot R11.0 NAUSEA 05/03/2017 GLENIS FARR L Ot R10.84 GENERALIZED ABDOMINAL PAIN 05/03/2017 GLENIS FARR L Ot R11.0 NAUSEA 05/09/2017 Ot 173.90 UNSPECIFIED MALIGNANT NEOPLASM OF SKIN, 05/09/2017 Ot 611.72 LUMP OR MASS IN BREAST 05/09/2017 Ot 784.7 EPISTAXIS 05/09/2017 Ot V58.61 ANTICOAGULANTS,LT,CURRENT USE 05/09/2017 Ot 791.9 ABN URINE FINDINGS NEC 05/09/2017 Ot V58.61 ANTICOAGULANTS,LT,CURRENT USE 05/09/2017 Ot V58.83 ENCOUNTER FOR THERAPEUTIC DRUG MONITORIN 05/09/2017 Ot 397.0 TRICUSPID VALVE DISEASE 05/09/2017 Ot 414.00 CORON ATHEROSCLER NOS TYPE VESSEL, NATIV 05/09/2017 Ot 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 VALVE DISORDER 05/09/2017 Ot 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 NODE DYSFUNCT 05/09/2017 Ot 436 CVA 05/09/2017 Ot V45.01 CARDIAC PACEMAKER IN SITU 05/09/2017 Ot 414.01 CORONARY ATHEROSCLEROSIS OF [place] CORON 05/09/2017 Ot V12.54 PERSONAL HX OF TIA, CEREBRAL INFARCTION 05/09/2017 Ot V45.01 CARDIAC PACEMAKER IN SITU 05/09/2017 NATALIA BEARD Ot 272.4 HYPERLIPIDEMIA NEC/NOS 05/09/2017 NATALIA BEARD Ot 414.00 CORON ATHEROSCLER NOS TYPE VESSEL, NATIV 05/09/2017 NATALIA BEARD Ot 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 NODE DYSFUNCT 05/09/2017 NATALIA BEARD Ot 453.40 ACUTE VENOUS EMBOLISM THROMBOSIS UNSP 05/09/2017 NATALIA BEARD Ot 272.4 HYPERLIPIDEMIA NEC/NOS 05/09/2017 NATALIA BEARD Ot 414.00 CORON ATHEROSCLER NOS TYPE VESSEL, NATIV 05/09/2017 NATALIA BEARD Ot 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 NODE DYSFUNCT 05/09/2017 NATALIA BEARD Ot 453.40 ACUTE VENOUS EMBOLISM THROMBOSIS UNSP 05/09/2017 NATALIA BEARD Ot 272.4 HYPERLIPIDEMIA NEC/NOS 05/09/2017 NATALIA BEARD Ot 414.00 CORON ATHEROSCLER NOS TYPE VESSEL, NATIV 05/09/2017 NATALIA BEARD Ot 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 NODE DYSFUNCT 05/09/2017 NATALIA BEARD Ot 453.40 ACUTE VENOUS EMBOLISM THROMBOSIS UNSP 05/09/2017 TERESITA RAMOS, SAPNA Estes Ot M75.122 COMPLETE ROTATR-CUFF TEAR/RUPTR OF LEFT 05/09/2017 GLENIS FARR Ot H53.2 DIPLOPIA 05/09/2017 SAPNA LO MD Ot M75.102 UNSP ROTATR-CUFF TEAR/RUPTR OF LEFT SHOU 05/09/2017 TERESITA RAMOS, SAPNA Estes Ot Z01.818 ENCOUNTER FOR OTHER PREPROCEDURAL EXAMIN 05/09/2017 GLENIS FARR Ot R10.84 GENERALIZED ABDOMINAL PAIN 05/09/2017 GLENIS FARR Ot R11.0 NAUSEA 05/09/2017 CARLOS GRIFFIN MD, Ot D64.9 ANEMIA, UNSPECIFIED 05/09/2017 CARLOS GRIFFIN MD, Ot E03.9 HYPOTHYROIDISM, UNSPECIFIED 05/09/2017 CARLOS GRIFFIN MD, Ot 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 05/09/2017 CARLOS GRIFFIN MD Ot I25.10 ATHSCL HEART DISEASE OF [place] CORONARY 05/09/2017 CARLOS GRIFFIN MD Ot I49.5 SICK SINUS SYNDROME 05/09/2017 CARLOS GRIFFIN MD, Ot J44.9 CHRONIC OBSTRUCTIVE PULMONARY DISEASE, U 05/09/2017 CARLOS GRIFFIN MD, Ot M54.2 CERVICALGIA 05/09/2017 CARLOS GRIFFIN MD, Ot N19 UNSPECIFIED KIDNEY FAILURE 05/09/2017 CARLOS GRIFFIN MD Ot N39.0 URINARY TRACT INFECTION, SITE NOT SPECIF 05/09/2017 CARLOS GRIFFIN MD Ot W18.30XA FALL ON SAME LEVEL, UNSPECIFIED, INITIAL 05/09/2017 CARLOS GRIFFIN MD Ot Y92.[address] IN CUSTODIAL PLACE 05/09/2017 CARLOS GRIFFIN MD, Ot Z86.73 PRSNL HX OF TIA (TIA), AND CEREB INFRC W 05/09/2017 CARLOS GRIFFIN MD Ot Z95.0 PRESENCE OF CARDIAC PACEMAKER 05/09/2017 CARLOS GRIFFIN MD Ot Z99.81 DEPENDENCE ON SUPPLEMENTAL OXYGEN 05/11/2017 CARLOS GRIFFIN MD Ot D64.9 ANEMIA, UNSPECIFIED 05/11/2017 CARLOS GRIFFIN MD Ot E03.9 HYPOTHYROIDISM, UNSPECIFIED 05/11/2017 CARLOS GRIFFIN MD, Ot 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 05/11/2017 CARLOS GRIFFIN MD Ot I25.10 ATHSCL HEART DISEASE OF [place] CORONARY 05/11/2017 CARLOS GRIFFIN MD, Ot I49.5 SICK SINUS SYNDROME 05/11/2017 CARLOS GRIFFIN MD, Ot J44.9 CHRONIC OBSTRUCTIVE PULMONARY DISEASE, U 05/11/2017 CARLOS GRIFFIN MD, Ot M54.2 CERVICALGIA 05/11/2017 CARLOS GRIFFIN MD, Ot N19 UNSPECIFIED KIDNEY FAILURE 05/11/2017 CARLOS GRIFFIN MD, Ot N39.0 URINARY TRACT INFECTION, SITE NOT SPECIF 05/11/2017 CARLOS GRIFFIN MD, Ot W18.30XA FALL ON SAME LEVEL, UNSPECIFIED, INITIAL 05/11/2017 CARLOS GRIFFIN MD, Ot Y92.[address] IN CUSTODIAL PLACE 05/11/2017 CARLOS GRIFFIN MD, Ot Z86.73 PRSNL HX OF TIA (TIA), AND CEREB INFRC W 05/11/2017 CARLOS GRIFFIN MD, Ot Z95.0 PRESENCE OF CARDIAC PACEMAKER 05/11/2017 CARLOS GRIFFIN MD, Ot Z99.81 DEPENDENCE ON SUPPLEMENTAL OXYGEN 05/15/2017 GLENIS FARR Ot R10.84 GENERALIZED ABDOMINAL PAIN 05/15/2017 GLENIS FARR Ot R11.0 NAUSEA 05/22/2017 GLENIS FARR Ot R10.84 GENERALIZED ABDOMINAL PAIN 05/22/2017 GLENIS FARR Ot R11.0 NAUSEA 08/12/2017 GLENIS FARR Ot R10.84 GENERALIZED ABDOMINAL PAIN 08/12/2017 GLENIS FARR Ot R11.0 NAUSEA 08/13/2017 NATALIA BEARD Ot E78.2 MIXED HYPERLIPIDEMIA 08/13/2017 NATALIA BEARD Ot 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 08/13/2017 NATALIA BEARD Ot I25.10 ATHSCL HEART DISEASE OF [place] CORONARY 08/13/2017 NATALIA BEARD Ot I49.5 SICK SINUS SYNDROME 08/28/2017 NATALIA BEARD Ot E78.2 MIXED HYPERLIPIDEMIA 08/28/2017 NATALIA BEARD Ot 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 08/28/2017 NATALIA BEARD Ot I25.10 ATHSCL HEART DISEASE OF [place] CORONARY 08/28/2017 NATALIA BEARD Ot I49.5 SICK SINUS SYNDROME 11/26/2017 HUAN HOPE MD, Ot E03.9 HYPOTHYROIDISM, UNSPECIFIED 11/26/2017 HUAN HOPE MD Ot F32.9 MAJOR DEPRESSIVE DISORDER, SINGLE EPISOD 11/26/2017 HUAN HOPE MD, Ot 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 11/26/2017 HUAN HOPE MD, Ot I25.10 ATHSCL HEART DISEASE OF [place] CORONARY 11/26/2017 HUAN HOPE MD, Ot J44.9 CHRONIC OBSTRUCTIVE PULMONARY DISEASE, U 11/26/2017 HUAN HOPE MD Ot K21.9 GASTRO-ESOPHAGEAL REFLUX DISEASE WITHOUT 11/26/2017 HUAN HOPE MD Ot S09.90XA UNSPECIFIED INJURY OF HEAD, INITIAL ENCO 11/26/2017 HUAN HOPE MD Ot S40.011A CONTUSION OF RIGHT SHOULDER, INITIAL ENC 11/26/2017 HUAN HOPE MD Ot W01.198A FALL SAME LEV FROM SLIP/TRIP W STRIKE AG 11/26/2017 HUAN HOPE MD Ot Z86.73 PRSNL HX OF TIA (TIA), AND CEREB INFRC W 11/26/2017 HUAN HOPE MD Ot Z90.710 ACQUIRED ABSENCE OF BOTH CERVIX AND UTER 11/26/2017 HUAN HOPE MD Ot Z95.0 PRESENCE OF CARDIAC PACEMAKER 11/26/2017 HUAN HOPE MD Ot Z95.5 PRESENCE OF CORONARY ANGIOPLASTY IMPLANT 12/02/2017 HUAN HOPE MD Ot E03.9 HYPOTHYROIDISM, UNSPECIFIED 12/02/2017 HUAN HOPE MD Ot F32.9 MAJOR DEPRESSIVE DISORDER, SINGLE EPISOD 12/02/2017 HUAN HOPE MD Ot 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 12/02/2017 HUAN HOPE MD Ot I25.10 ATHSCL HEART DISEASE OF [place] CORONARY 12/02/2017 HUAN HOPE MD Ot J44.9 CHRONIC OBSTRUCTIVE PULMONARY DISEASE, U 12/02/2017 HUAN HOPE MD, Ot K21.9 GASTRO-ESOPHAGEAL REFLUX DISEASE WITHOUT 12/02/2017 HUAN HOPE MD, Ot S09.90XA UNSPECIFIED INJURY OF HEAD, INITIAL ENCO 12/02/2017 HUAN HOPE MD Ot S40.011A CONTUSION OF RIGHT SHOULDER, INITIAL ENC 12/02/2017 HUAN HOPE MD Ot W01.198A FALL SAME LEV FROM SLIP/TRIP W STRIKE AG 12/02/2017 HUAN HOPE MD Ot Z86.73 PRSNL HX OF TIA (TIA), AND CEREB INFRC W 12/02/2017 HUAN HOPE MD, Ot Z90.710 ACQUIRED ABSENCE OF BOTH CERVIX AND UTER 12/02/2017 HUAN HOPE MD Ot Z95.0 PRESENCE OF CARDIAC PACEMAKER 12/02/2017 HUAN HOPE MD Ot Z95.5 PRESENCE OF CORONARY ANGIOPLASTY IMPLANT Procedures Code Description Performed By Performed On 00.40 PROCEDURE ON SINGLE VESSEL 07/25/2011 00.66 PERC TRANSLUMINAL CORON ANGIOPLASTY PTCA 07/25/2011 36.06 CORONARY ARTERY STENT INSERTION NON-DRUG 07/25/2011 37.22 LEFT HEART CARDIAC CATH 07/25/2011 88.53 LT HEART ANGIOCARDIOGRAM 07/25/2011 88.56 CORONAR ARTERIOGR-2 CATH 07/25/2011 Results Test Result Range Methicillin resistant Staphylococcus aureus (MRSA) screening culture - 10:15 MRSA SCREEN RESULT MRSA ISOLATED NRG Complete urinalysis with reflex to culture - 11/03/16 13:42 Urine color determination YELLOW NRG Urine clarity determination CLEAR NRG Urine pH measurement by test strip 6 5-9 Specific gravity of urine by test strip 1.015 1.016- 1.022 Urine protein assay by test strip, semi-quantitative NEGATIVE NEGATIVE Urine glucose detection by automated test strip NEGATIVE NEGATIVE Erythrocytes detection in urine sediment by light microscopy NEGATIVE NEGATIVE Urine ketones detection by automated test strip NEGATIVE NEGATIVE Urine nitrite detection by test strip NEGATIVE NEGATIVE Urine total bilirubin detection by test strip 1+ NEGATIVE Urine urobilinogen measurement by automated test strip (mass/volume) NORMAL NORMAL Urine leukocyte esterase detection by dipstick 2+ NEGATIVE Automated urine sediment erythrocyte count by microscopy (number/high power field) NONE NRG Automated urine sediment leukocyte count by microscopy (number/high power field ) [HPF] NRG Bacteria detection in urine sediment by light microscopy MODERATE NRG Squamous epithelial cells detection in urine sediment by light microscopy NONE NRG Crystals detection in urine sediment by light microscopy NONE NRG Casts detection in urine sediment by light microscopy NONE NRG Mucus detection in urine sediment by light microscopy NEGATIVE NRG Complete urinalysis with reflex to culture NO NRG Complete blood count (CBC) with automated white blood cell (WBC) differential - 03/21/17 03:06 Blood leukocytes automated count (number/volume) 6.8 10*3/uL 4.3-11.0 Blood erythrocytes automated count (number/volume) 3.56 10*6/uL 4.35-5.85 Venous blood hemoglobin measurement (mass/volume) 11.4 g/dL 11.5-16.0 Blood hematocrit (volume fraction) 36 % 35-52 Automated erythrocyte mean corpuscular volume 100 [foz_us] 80-99 Automated erythrocyte mean corpuscular hemoglobin (mass per erythrocyte) 32 pg 25-34 Automated erythrocyte mean corpuscular hemoglobin concentration measurement ( mass/volume) 32 g/dL 32-36 Automated erythrocyte distribution width ratio 13.7 % 10.0-14.5 Automated blood platelet count (count/volume) 236 10*3/uL 130-400 Automated blood platelet mean volume measurement 9.4 [foz_us] 7.4-10.4 Automated blood neutrophils/100 leukocytes 36 % 42-75 Automated blood lymphocytes/100 leukocytes 47 % 12-44 Blood monocytes/100 leukocytes 12 % 0-12 Automated blood eosinophils/100 leukocytes 4 % 0-10 Automated blood basophils/100 leukocytes 0 % 0-10 Blood neutrophils automated count (number/volume) 2.4 10*3 1.8-7.8 Blood lymphocytes automated count (number/volume) 3.2 10*3 1.0-4.0 Blood monocytes automated count (number/volume) 0.8 10*3 0.0-1.0 Automated eosinophil count 0.3 10*3/uL 0.0-0.3 Automated blood basophil count (count/volume) 0.0 10*3/uL 0.0-0.1 Comprehensive metabolic panel - 03/21/17 03:06 Serum or plasma sodium measurement (moles/volume) 139 mmol/L 135-145 Serum or plasma potassium measurement (moles/volume) 5.6 mmol/L 3.6-5.0 Serum or plasma chloride measurement (moles/volume) 108 mmol/L 98-107 Carbon dioxide 21 mmol/L 21-32 Serum or plasma anion gap determination (moles/volume) 10 mmol/L 5-14 Serum or plasma urea nitrogen measurement (mass/volume) 35 mg/dL 7-18 Serum or plasma creatinine measurement (mass/volume) 1.68 mg/dL 0.60-1.30 Serum or plasma urea nitrogen/creatinine mass ratio 21 NRG Serum or plasma creatinine measurement with calculation of estimated glomerular filtration rate 29 NRG Serum or plasma glucose measurement (mass/volume) 79 mg/dL 70-105 Serum or plasma calcium measurement (mass/volume) 9.1 mg/dL 8.5-10.1 Serum or plasma total bilirubin measurement (mass/volume) 0.4 mg/dL 0.1-1.0 Serum or plasma alkaline phosphatase measurement (enzymatic activity/volume) 78 U/L 40-136 Serum or plasma aspartate aminotransferase measurement (enzymatic activity/ volume) 17 U/L 5-34 Serum or plasma alanine aminotransferase measurement (enzymatic activity/volume ) 9 U/L 0-55 Serum or plasma protein measurement (mass/volume) 6.8 g/dL 6.4-8.2 Serum or plasma albumin measurement (mass/volume) 4.0 g/dL 3.2-4.5 Magnesium - 03/21/17 03:06 Magnesium 2.4 mg/dL 1.8-2.4 THYROID STIMULATING HORMONE - 03/21/17 03:06 THYROID STIMULATING HORMONE 5.84 u[iU]/mL 0.35-4.94 Serum or plasma thyroxine (T4) free measurement (mass/volume) - 03/21/17 03:06 Serum or plasma thyroxine (T4) free measurement (mass/volume) 0.84 ng/dL 0.70-1.48 Serum or plasma troponin i.cardiac measurement (mass/volume) - 03/21/17 03:06 Serum or plasma troponin i.cardiac measurement (mass/volume) < ng/ mL <0.30 Complete urinalysis with reflex to culture - 03/21/17 03:21 Urine color determination YELLOW NRG Urine clarity determination CLEAR NRG Urine pH measurement by test strip 5 5-9 Specific gravity of urine by test strip 1.020 1.016- 1.022 Urine protein assay by test strip, semi-quantitative NEGATIVE NEGATIVE Urine glucose detection by automated test strip NEGATIVE NEGATIVE Erythrocytes detection in urine sediment by light microscopy NEGATIVE NEGATIVE Urine ketones detection by automated test strip NEGATIVE NEGATIVE Urine nitrite detection by test strip NEGATIVE NEGATIVE Urine total bilirubin detection by test strip NEGATIVE NEGATIVE Urine urobilinogen measurement by automated test strip (mass/volume) NORMAL NORMAL Urine leukocyte esterase detection by dipstick NEGATIVE NEGATIVE Automated urine sediment erythrocyte count by microscopy (number/high power field) NONE NRG Automated urine sediment leukocyte count by microscopy (number/high power field ) NONE NRG Bacteria detection in urine sediment by light microscopy NONE NRG Squamous epithelial cells detection in urine sediment by light microscopy 0-2 NRG Crystals detection in urine sediment by light microscopy NONE NRG Casts detection in urine sediment by light microscopy NONE NRG Mucus detection in urine sediment by light microscopy NEGATIVE NRG Complete urinalysis with reflex to culture NO NRG Complete urinalysis with reflex to culture - 05/09/17 20:30 Urine color determination YELLOW NRG Urine clarity determination SLIGHTLY CLOUDY NRG Urine pH measurement by test strip 5 5-9 Specific gravity of urine by test strip 1.015 1.016- 1.022 Urine protein assay by test strip, semi-quantitative NEGATIVE NEGATIVE Urine glucose detection by automated test strip NEGATIVE NEGATIVE Erythrocytes detection in urine sediment by light microscopy NEGATIVE NEGATIVE Urine ketones detection by automated test strip NEGATIVE NEGATIVE Urine nitrite detection by test strip NEGATIVE NEGATIVE Urine total bilirubin detection by test strip NEGATIVE NEGATIVE Urine urobilinogen measurement by automated test strip (mass/volume) NORMAL NORMAL Urine leukocyte esterase detection by dipstick 3+ NEGATIVE Automated urine sediment erythrocyte count by microscopy (number/high power field) NONE NRG Automated urine sediment leukocyte count by microscopy (number/high power field ) [HPF] NRG Bacteria detection in urine sediment by light microscopy FEW NRG Squamous epithelial cells detection in urine sediment by light microscopy 0-2 NRG Crystals detection in urine sediment by light microscopy NONE NRG Casts detection in urine sediment by light microscopy NONE NRG Mucus detection in urine sediment by light microscopy NEGATIVE NRG Complete urinalysis with reflex to culture YES NRG Bacterial urine culture - 05/09/17 20:30 Bacterial urine culture SEE COMMEN NRG COLONY COUNT . NRG FTX;REPORTABLE SENSITIVITY REPORTED 05/12 16:50 NRG URINE CULTURE RESULTS <10,000/ML NRG FREE TEXT ENTRY 3 MIXED GRAM POSITIVE GARTH <10,000/ML NRG Bacterial susceptibility panel - 05/09/17 20:30 Gentamicin susceptibility test by minimum inhibitory concentration > = NRG Trimethoprim/sulfamethoxazole susceptibility test by minimum inhibitoryconcentration >= NRG Ampicillin susceptibility test by minimum inhibitory concentration > = NRG Tobramycin susceptibility test by minimum inhibitory concentration > = NRG Ampicillin/sulbactam susceptibility test by minimum inhibitory concentration 16 NRG Piperacillin/tazobactam susceptibility test by minimum inhibitory concentration <= NRG Ciprofloxacin susceptibility test by minimum inhibitory concentration >= NRG Meropenem susceptibility test by minimum inhibitory concentration 0.5 NRG Encounters ACCT No. Visit Date/Time Discharge Status Pt. Type Provider Facility Loc./Unit Complaint [id number] 11/26/2017 17:56:00 11/26/2017 19:16:00 DIS Emergency HUAN HOPE MD [facility] ER FALL [id number] 07/22/2017 15:01:00 07/22/2017 23:59:59 CLS Outpatient NATALIA BEARD [facility] CARD I25.10 [id number] 05/09/2017 18:44:00 05/09/2017 21:44:00 DIS Emergency CARLOS GRIFFIN MD [facility] ER PT FELL AT HOME [id number] 04/24/2017 15:11:00 04/24/2017 23:59:59 CLS Outpatient GLENIS FARR [facility] RAD ABD PAIN,NAUSEA [id number] 03/21/2017 02:59:00 03/21/2017 04:42:00 DIS Emergency CARLOS GRIFFIN MD [facility] ER AMS [id number] 11/03/2016 12:52:00 11/03/2016 15:03:00 DIS Emergency VALERIE MASCORRO APRN [facility] ER FALL [id number] 07/11/2016 09:22:00 07/11/2016 14:35:00 DIS Outpatient TERESITA RAMOS, SAPNA Estes [facility] SDC LEFT TORN ROTATOR CUFF [id number] 07/10/2016 09:36:00 07/10/2016 23:59:59 CLS Outpatient SAPNA LO MD [facility] PREOP LEFT TORN ROTATOR CUFF [id number] 06/21/2016 13:05:00 06/21/2016 23:59:59 CLS Outpatient GLENIS FARR [facility] RAD DOUBLE VISION [id number] 04/17/2016 13:11:00 04/17/2016 23:59:59 CLS Outpatient SAPNA LO MD [facility] RAD RTC TEAR LEFT [id number] 04/20/2015 10:18:00 04/21/2015 10:05:00 DIS Outpatient SOLANGE RAMOS, KAYLENE Ash [facility] CATH ABNORMAL STRESS,CAD,HTN, CPHLP [id number] 04/18/2015 08:13:00 04/18/2015 23:59:59 CLS Outpatient NATALIA BEARD [facility] CARD CAD,DVT,HLP [id number] 03/30/2015 12:13:00 03/30/2015 23:59:59 CLS Outpatient NATALIA BEARD [facility] CARD CAD,DVT,HLP, SSS [id number] 03/28/2015 13:07:00 03/28/2015 23:59:59 CLS Outpatient NATALIA BEARD [facility] CARD CAD,DVT,HLP, SSS [id number] 03/25/2015 09:53:00 Document Registration [id number] 03/25/2015 09:53:00 Document Registration [id number] 03/25/2015 09:52:00 Document Registration [id number] 03/25/2015 09:52:00 Document Registration [id number] 03/25/2015 09:52:00 Document Registration [id number] 03/25/2015 09:52:00 Document Registration [id number] 03/25/2015 09:52:00 Document Registration [id number] 03/25/2015 09:52:00 Document Registration [id number] 03/23/2013 08:24:00 Document Registration [id number] 01/21/2013 13:50:00 Document Registration [id number] 03/31/2012 16:57:00 Document Registration [id number] 03/21/2012 07:22:00 Document Registration [id number] 01/12/2012 09:33:00 Document Registration [id number] 12/23/2011 12:57:00 Document Registration [id number] 12/19/2011 13:00:00 Document Registration [id number] 12/14/2011 19:49:00 Document Registration [id number] 12/11/2011 12:46:00 Document Registration [id number] 10/22/2011 14:18:00 Document Registration [id number] 09/12/2011 12:22:00 Document Registration [id number] 09/03/2011 15:57:00 Document Registration [id number] 08/31/2011 10:07:00 Document Registration [id number] 07/27/2011 12:17:00 Document Registration [id number] 04/20/2011 21:58:00 Document Registration [id number] 06/22/2010 13:05:00 Document Registration [id number] 06/20/2010 09:08:00 Document Registration [id number] 04/04/2010 10:52:00 Document Registration
--- NOTE | 2017-12-30 20:53 | Diagnostic Imaging Report ---
PROCEDURE: CT head and CT cervical spine without contrast. TECHNIQUE: Multiple contiguous axial images were obtained through the brain and cervical spine without the use of intravenous contrast. Sagittal and coronal reformations through the cervical spine were then performed. INDICATION: Head injury from a fall. CT HEAD: There is generalized atrophy. There is decreased density in the periventricular white matter, typical chronic small vessel ischemic changes. There is no mass, hemorrhage or extra-axial fluid collections. 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 There is no acute abnormality seen. CT CERVICAL SPINE: There are degenerative changes of the atlantoaxial joint and of the discs at C5-6 and C6-7. Alignment is normal. There are no fractures. IMPRESSION: Osteoarthritic changes of the discs and facets. No acute abnormality is seen. Dictated by: Dictated on workstation # [id number]
--- NOTE | 2017-12-30 21:01 | Diagnostic Imaging Report ---
INDICATION: Hip injury from a fall AP view pelvis shows no fracture or dislocation. IMPRESSION: Negative pelvis Dictated by: Dictated on workstation # [id number]
--- NOTE | 2017-12-30 21:02 | Diagnostic Imaging Report ---
INDICATION: Injury from a fall EXAM: Portable chest at 9:03 PM FINDINGS: There is a dual-chamber pacemaker. Heart size and pulmonary vascularity are normal. The lungs are clear. There are no effusions or pneumothoraces. IMPRESSION: Negative chest. Dictated by: Dictated on workstation # [id number]
--- NOTE | 2017-12-30 21:02 | ED Fall/Injury ---
General Chief Complaint: Trauma-Non Activation Stated Complaint: FELL,HIT HEAD Nursing Triage Note: SEE TRAUMA NOTE. Source: patient, EMS History of Present Illness Date Seen by Provider: Dec 30, 2017 Time Seen by Provider: 20:17 Initial Comments PT ARRIVES VIA [facility] FROM [facility] ILL-FITTING C-COLLAR IN PLACE PT HAD UNWITNESSED FALL IN BATHROOM. STATES SHE WAS GOING TO THE BATHROOM WAS TRYING TO TAKE HER PANTS DOWN AND LOST HER BALANCE AND FELL-HIT THE LEFT SIDE OF HER HEAD ON THE SINK, AND HER RIGHT UPPER ARM ON THE TOILET PT DENIES LOSS OF CONSCIOUSNESS. PT STATES SHE WAS ABLE TO CRAWL OUT OF THE SPACE ON HER OWN. PT STATES SHE HAS CHRONIC NECK AND CHRONIC LEFT FOREARM PAIN--NECK IS SLIGHTLY MORE SORE THAN NORMAL NO VISION CHANGES NO DIZZINESS NO PARESTHESIAS OR MOTOR DEFICITS NO HIP OR LEG PAIN PT IS ON ELIQUIS C/O PAIN TO RIGHT UPPER ARM, RIGHT THUMB AND LEFT SIDE OF HEAD CERVICAL COLLAR REPLACED WITH BETTER-FITTING COLLAR ON ARRIVAL TO ER Location Injury Occurred: [facility] Allergies and Home Medications Allergies Coded Allergies: Penicillins (Unverified Allergy, Unknown, 11/03/16) Uncoded Allergies: POISON AISHWARYA, OAK AND SUMAC (Allergy, Unknown, 12/28/08) Home Medications Acetaminophen 325 Mg Tablet, 325 MG PO BID PRN for PAIN, (Reported) Albuterol Sulfate 2.5 Mg/3 Ml Vial.neb, 2.5 MG IH Q4H PRN for WHEEZING, #30 Prescribed by: CARLOS RITCHIE on 03/21/17 0425 Alprazolam 0.5 Mg Tablet, 0.5 MG PO DAILY, (Reported) Amlodipine Besylate 5 Mg Tab, 5 MG PO DAILY, (Reported) Apixaban 5 Mg Tablet, 5 MG PO BID, (Reported) Ascorbic Acid 500 Mg Capsule.er, 500 MG PO TID, (Reported) Bisacodyl 10 Mg Supp.rect, 10 MG RC DAILY PRN for CONSTIPATION, (Reported) Budesonide/Formoterol Fumarate 10.2 Gm Hfa.aer.ad, 2 PUFF IH BID, (Reported) Carbidopa/Levodopa 1 Each Tablet, 1 TAB PO QID, (Reported) Carboxymethylcellulose Sodium 15 Ml Drops, 1 DROP OU QID, (Reported) Cholecalciferol (Vitamin D3) 2,000 Unit Capsule, 3,000 UNIT PO DAILY, (Reported) Ciprofloxacin HCl 250 Mg Tablet, 250 MG PO BID, #10 Prescribed by: CARLOS RITCHIE on 05/09/175 Citalopram Hydrobromide 20 Mg Tablet, 20 MG PO DAILY, (Reported) Cyanocobalamin 1,000 Mcg Tablet, 1,000 MCG PO DAILY, (Reported) Fentanyl 1 Each Patch.td72, 25 MCG TD EVERY 3 DAYS, (Reported) Hydrocodone Bit/Acetaminophen 1 Tab Tab, 1 EACH PO Q4H, #15 Prescribed by: DESTINEE GALLEGOS on 12/30/178 Levothyroxine Sodium 100 Mcg Tablet, 100 MCG PO DAILY, (Reported) Loratadine 10 Mg Tablet, 10 MG PO DAILY, (Reported) Magnesium Hydroxide 400 Mg/5 Ml Oral.susp, 30 ML PO DAILY PRN for CONSTIPATION, (Reported) Nebivolol HCl 10 Mg Tab, 10 MG PO DAILY, (Reported) Nystatin 1 Each Powder.ea., TOP BID PRN for REDNESS/GAULDING, (Reported) ABDOMINAL FOLD Olmesartan Medoxomil 40 Mg Tablet, 20-40 MG PO DAILY, (Reported) TAKES 1/2 (40MG) TABLET IF BP BETWEEN 110-150 TAKES 1 (40MG) TABLET IF SYSTOLIC >150 IF SYSTOLIC IS < 110 HOLD MEDICINE Ondansetron 4 Mg Tab.rapdis, 4 MG PO Q6H PRN for NAUSEA, (Reported) Pantoprazole Sod 40 Mg Tab, 40 MG PO DAILY, (Reported) Pramipexole Di-Hcl 1.5 Mg Tablet, 1.5 MG PO TID, (Reported) Sennosides/Docusate Sodium 1 Each Tablet, 2 EACH PO DAILY, (Reported) Tramadol HCl/Acetaminophen 1 Each Tablet, 1 EACH PO Q4H PRN for PAIN, (Reported) [Ferrous Sulfate 27MG] , 27 MG PO TID, (Reported) [Ponaris Solution] , 2 DROP NS BID, (Reported) Constitutional: no symptoms reported Eyes: No Symptoms Reported Ears, Nose, Mouth, Throat: no symptoms reported Respiratory: no symptoms reported Cardiovascular: no symptoms reported Gastrointestinal: no symptoms reported Genitourinary: no symptoms reported Musculoskeletal: see HPI Skin: no symptoms reported Psychiatric/Neurological: See HPI, Denies Numbness, Denies Paresthesia, Pre- Existing Deficit (TREMORS), Denies Seizure, Tremors (CHRONIC), Denies Weakness Past Qqxrtff-Tafxtz-Nczbts Hx Patient Social History Alcohol Use: Denies Use Recreational Drug Use: No Smoking Status: Never a Smoker 2nd Hand Smoke Exposure: No Recent Foreign Travel: No Contact w/Someone Who Travel: No Recent Infectious Disease Expo: No Recent Hopitalizations: No Immunizations Up To Date Tetanus Booster (TDap): Unknown Date of Pneumonia Vaccine: Aug 05, 2012 Date of Influenza Vaccine: Sep 01, 2016 Seasonal Allergies Seasonal Allergies: No Surgeries History of Surgeries: Yes (HYSTERECTOMY 1974, PACEMAKER, TKR, FOOT, SHOULDER) Surgeries: Abdominal, Coronary Stent, Orthopedic, Pacemaker Respiratory History of Respiratory Disorde: Yes (O2 at night) Respiratory Disorders: COPD Cardiovascular History of Cardiac Disorders: Yes (PACEMAKER, sick sinus syndrome, CHF) Cardiac Disorders: Chronic Edema/Swelling, Coronary Artery Disease Neurological History of Neurological Disord: Yes Neurological Disorders: Parkinson's Disease, Stroke Reproductive System Hx Reproductive Disorders: No Sexually Transmitted Disease: No HIV/AIDS: Yes Female Reproductive Disorders: Denies Genitourinary History of Genitourinary Disor: Yes Genitourinary Disorders: Renal Failure Gastrointestinal History of Gastrointestinal Di: Yes Gastrointestinal Disorders: Gastroesophageal Reflux Musculoskeletal History of Musculoskeletal Dis: Yes Musculoskeletal Disorders: Arthritis Endocrine History of Endocrine Disorders: Yes Endocrine Disorders: Hypothyroidsim HEENT History of HEENT Disorders: No Cancer History of Cancer: No Psychosocial History of Psychiatric Problem: Yes Behavioral Health Disorders: Depression Integumentary History of Skin or Integumenta: No Blood Transfusions History of Blood Disorders: Yes (anemia) Adverse Reaction to a Blood Tr: No Family Medical History Significant Family History: No Pertinent Family Hx Physical Exam Vital Signs Vital Sign - Last 12Hours 12/30/17 20:17 Temp 97.3 Pulse 64 Resp 16 B/P (MAP) 193/83 (119) Pulse Ox 100 O2 Delivery Room Air Capillary Refill : Less Than 3 Seconds General Appearance: WD/WN, no apparent distress HEENT: PERRL/EOMI, normal ENT inspection, other (NO EXTERNAL EVIDENCE OF TRAUMA TO HEAD) Neck: tender lateral (SLIGHTLY), tender midline (SLIGHTLY) Cardiovascular: regular rate, rhythm, no murmur Respiratory: chest non-tender, normal breath sounds, no respiratory distress, no accessory muscle use Gastrointestinal: normal bowel sounds, non tender, soft Back: normal inspection, no CVA tenderness Extremities: normal capillary refill, other (TENDERNESS TO RIGHT MID HUMERUS AND RIGHT THUMMB, NO DEFORMITY, SWELLING OR OR EXTERNAL EVIDENCE OF TRAUMA. ROM LIMITED BY PAIN ,BUT DISTAL MOTOR/SENSORY/VASCULAR INTACT. RESTING TREMOR TO LOWER JAW, HANDS AND FEET. 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 as tested, no motor/sensory deficits, alert, normal mood/affect, oriented x 3, other (RESTING TREMOR TO HANDS, FEET AND LOWER JAW) Skin: normal color, warm/dry, No ecchymosis Eugene Coma Score Best Eye Response: (4) Open Spontaneously Best Verbal Response: (5) Oriented Best Motor Response: (6) Obeys Commands [place] Total: 15 Progress/Results/Core Measures Results/Orders My Orders Orders - DESTINEE GALLEGOS DO Ct Head/Cervical Spine Wo (12/30/17 20:27) Chest 1 View, Ap/Pa Only (12/30/17 20:27) Humerus, Right, 2 Views (12/30/17 20:27) Hand, Right, 3 Views (12/30/17 20:27) Pelvis (12/30/17 20:27) Cervical Collar (12/30/17 20:27) Ketorolac Injection (Toradol Injection) (12/30/17 21:13) Rx-Hydrocodone/Apap 5-325 Mg (Rx-Vicodin (12/30/17 21:30) Vital Signs/I&O Vital Sign - Last 12Hours 12/30/17 20:17 Temp 97.3 Pulse 64 Resp 16 B/P (MAP) 193/83 (119) Pulse Ox 100 O2 Delivery Room Air Blood Pressure Mean: [address] HEAD/CERVICAL SPINE--CHRONIC CHANGES, NO ACUTE PROCESS, PER RADIOLOGIST REPORT @ 2056 XRAYS: PELVIS--NO ACUTE PROCESS RIGHT HUMERUS--NO ACUTE PROCESS RIGHT HAND--NO ACUTE PROCESS CXR--NO ACUTE PROCESS ALL PER RADIOLOGIST REPORTS AT 2114 Reviewed: Reviewed by Me Departure Impression Impression: Primary Impression: Status post fall Additional Impressions: Minor head injury without loss of consciousness Contusion of right upper arm, initial encounter Sprain of right thumb CERVICAL SPINE STRAIN Disposition: 03 XFER SNF Condition: Stable Departure-Patient Inst. Referrals: DIA GREENWOOD MD (PCP) Primary Care Physician GLENIS CHAVARRIA (Family) Primary Care Physician Patient Instructions: Cervical Muscle Strain (DC), Contusion (DC), Minor Head Injury (DC), Preventing Falls in the Older Adult, Sprained Thumb (DC) Add. Discharge Instructions: ICE TO SORE AREAS AT 20 MINUTE INTERVALS CONTINUE YOUR REGULAR MEDICATIONS PRESCRIBED FOLLOW UP WITH YOUR DR IN 5-7 DAYS IF NO BETTER, RETURN TO ER IF WORSE All discharge instructions reviewed with patient and/or family. Voiced understanding. Scripts Hydrocodone Bit/Acetaminophen (Hydrocodone/Acetaminophen 5/325mg Tablet) 1 Tab Tab 1 EACH PO Q4H, #15 TAB Prov: DESTINEE GALLEGOS DO 12/30/17 DESTINEE GALLEGOS DO Dec 30, 2017 21:02
--- NOTE | 2017-12-30 21:02 | Diagnostic Imaging Report ---
INDICATION: Right arm pain Two views of the right humerus show no fracture or dislocation. IMPRESSION: Negative right humerus Dictated by: Dictated on workstation # [id number]
--- NOTE | 2017-12-30 21:03 | Diagnostic Imaging Report ---
INDICATION: Right hand injury from a fall EXAM: Three views of the right hand show no fracture, dislocation or other acute abnormalities. IMPRESSION: No acute abnormalities are seen in the right hand. Dictated by: Dictated on workstation # [id number]
[2017-12-30] MEDS ORDERED: KETOROLAC 60 MG/2 ML VIAL IM STA (21:13)
[2017-12-30] MEDS ORDERED: ACHD5005 PO (21:18)
[2017-12-30] MEDS ORDERED: RX-HYDROCODONE/APAP 5/325 MG #4 TAB PK PO PRN (21:30)
[2017-12-30] MEDS ORDERED: RX-HYDROCODONE/APAP 5/325 MG #4 TAB PK PO ONE (22:15)
[2017-12-30 22:35] VITALS: BP 175/80
== END 2017-12-30 22:35 ==
LOC: EDUNIT# 20:17 → ER 20:18
DX: S09.90XA Unspecified injury of head, initial encounter (principal); S63.621A Sprain of interphalangeal joint of right thumb, initial encounter; S40.021A Contusion of right upper arm, initial encounter; J44.9 Chronic obstructive pulmonary disease, unspecified; I25.10 Atherosclerotic heart disease of native coronary artery without angina pectoris; G20 Parkinson's disease; K21.9 Gastro-esophageal reflux disease without esophagitis; E03.9 Hypothyroidism, unspecified; F32.9 Major depressive disorder, single episode, unspecified; Z87.59 Personal history of other complications of pregnancy, childbirth and the puerperium; Z79.01 Long term (current) use of anticoagulants; Z88.0 Allergy status to penicillin; Z90.710 Acquired absence of both cervix and uterus; Z95.0 Presence of cardiac pacemaker; Z95.5 Presence of coronary angioplasty implant and graft; W01.198A Fall on same level from slipping, tripping and stumbling with subsequent striking against other object, initial encounter; Y92.002 Bathroom of unspecified non-institutional (private) residence as the place of occurrence of the external cause
CPT/HCPCS: 70450; 71045; 72125; 72170; 73060; 73130; 96372; 99283; 99284

== ENCOUNTER 2018-04-21 12:07 | Emergency (ER) | payer MEDICARE, MEDICAID ==
[~2018-04-21] VITALS: Ht 167.6 cm; Wt 81.6 kg
[~2018-04-21 12:07] MED LIST changes: +ACHD5005 PO; +CARB15DR OU; -CARB15DR74 OU
[2018-04-21 12:39] LABS: BASOPHILS % (AUTO) 0 % (0-10); EOSINOPHILS % (AUTO) 0 % (0-10); HEMATOCRIT 42 % (35-52); LYMPHOCYTES # (AUTO) 1.8 X 10^3 (1.0-4.0); LYMPHOCYTES % (AUTO) 20 % (12-44); MEAN CORPUSCULAR HEMOGLOBIN 32 PG (25-34); MEAN CORPUSCULAR HGB CONC 34 G/DL (32-36); MEAN CORPUSCULAR VOLUME 94 FL (80-99); MEAN PLATELET VOLUME 9.5 FL (7.4-10.4); MONOCYTES # (AUTO) 0.6 X 10^3 (0.0-1.0); MONOCYTES % (AUTO) 6 % (0-12); NEUTROPHILS # (AUTO) 6.8 X 10^3 (1.8-7.8); NEUTROPHILS % (AUTO) 74 % (42-75); PLATELET COUNT 299 10^3/uL (130-400); RED BLOOD COUNT 4.42 10^6/uL (4.35-5.85); RED CELL DISTRIBUTION WIDTH 13.8 % (10.0-14.5); WHITE BLOOD COUNT 9.3 10^3/uL (4.3-11.0)
[2018-04-21] MEDS ORDERED: NS IV 1000 ML 1,000 ML IV ONE (12:42)
[2018-04-21] MEDS ORDERED: NALOXONE 0.4 MG/ML 1 ML (NARCAN) VIAL IV ONE (12:45)
--- NOTE | 2018-04-21 12:57 | Diagnostic Imaging Report ---
PROCEDURE: CT head without contrast. TECHNIQUE: Multiple contiguous axial images were obtained through the brain without the use of intravenous contrast. INDICATION: Mental status changes. COMPARISON: Comparison is made with prior head CT from 12/30/2017. FINDINGS: Ventricles and sulci remain consistent with patient's age. There is significant periventricular hypodensity noted consistent with senescent change. There is area of encephalomalacia adjacent to the right frontal horn, unchanged and consistent with prior infarct. There is an old lacunar infarct in the right thalamus, unchanged. No sulcal effacement is identified. There is no midline shift. No acute intra-axial or extra-axial hemorrhage is seen. Cisterns are patent. The visualized paranasal sinuses are clear. IMPRESSION: Chronic and senescent changes. No acute intracranial process is detected. Dictated by: Dictated on workstation # [id number]
[2018-04-21] MEDS ORDERED: ONDANSETRON 4 MG/2 ML (SDV) Z0FRAN IVP ONE (13:00)
[2018-04-21 13:11] LABS: ALANINE AMINOTRANSFERASE < 6 U/L (0-55); ALBUMIN 4.7 GM/DL (3.2-4.5); ALKALINE PHOSPHATASE 115 U/L (40-136); BUN/CREATININE RATIO 14; CALCIUM 10.4 MG/DL (8.5-10.1); CARBON DIOXIDE 25 MMOL/L (21-32); CHLORIDE 99 MMOL/L (98-107); CREATINE KINASE 160 U/L (29-168); CREATININE SERUM 1.19 MG/DL (0.60-1.30); GFR ESTIMATED 43; GLUCOSE 114 MG/DL (70-105); MAGNESIUM 2.2 MG/DL (1.8-2.4); POTASSIUM 4.4 MMOL/L (3.6-5.0); SODIUM 136 MMOL/L (135-145); TOTAL PROTEIN 8.3 GM/DL (6.4-8.2)
[2018-04-21 13:24] LABS: FIBRIN DEGRADATION PRODUCTS 0.36 UG/ML (0.00-0.49); INR 1.7 (0.8-1.4); PROTHROMBIN TIME PATIENT 20.1 SEC (12.2-14.7)
--- NOTE | 2018-04-21 13:27 | ED Neurological Problem ---
General Chief Complaint: Altered Mental Status Stated Complaint: AMS Nursing Triage Note: intermediate staff reports declining mental status change since approx 0800 this morning. On ER arrival, pt is able to open her eyes and moan, but is unable to have intelligent communication. Nursing Sepsis Screen: No Definite Risk Source: patient, EMS, other (Yarelis ([facility] [place] Exam Limitations: clinical condition History of Present Illness Date Seen by Provider: April 21, 2018 Time Seen by Provider: 12:08 Initial Comments 87-year-old female patient presents to the emergency Department with reports of altered mental status beginning at 0800 this a.m. Patient is known to this examiner as a fpc patient for Dr. Greenwood. intermediate staff reports patient was unable to follow commands. Patient unable to provide history of present illness. Patient is noted to be lying in the bed with her eyes closed. 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 Location Injury Occurred: denies recent injury Timing/Duration: 4-6 hours Allergies and Home Medications Allergies Coded Allergies: Penicillins (Unverified Allergy, Unknown, 11/03/16) Uncoded Allergies: POISON AISHWARYA, OAK AND SUMAC (Allergy, Unknown, 12/28/08) Home Medications Acetaminophen 325 Mg Tablet, 650 MG PO Q4H PRN for PAIN-MILD, (Reported) TAKES 2 (325MG) TABLETS Albuterol Sulfate 2.5 Mg/3 Ml Vial.neb, 2.5 MG NEB Q4H PRN for WHEEZING, ( Reported) Apixaban 5 Mg Tablet, 5 MG PO BID, (Reported) Bisacodyl 10 Mg Supp.rect, 10 MG RC DAILY PRN for CONSTIPATION-4TH LINE, ( Reported) Budesonide/Formoterol Fumarate 10.2 Gm Hfa.aer.ad, 2 PUFF INH BID, (Reported) Carboxymethylcellulose Sodium 15 Ml Drops, 1 DROP OU BID, (Reported) Citalopram Hydrobromide 20 Mg Tablet, 20 MG PO 1700, (Reported) Cyanocobalamin (Vitamin B-12) 1,000 Mcg Tablet, 1,000 MCG PO DAILY, (Reported) Ergocalciferol (Vitamin D2) 50,000 Unit Capsule, 50,000 UNIT PO EVERY 14 DAYS, ( Reported) Fentanyl 1 Each Patch.td72, 50 MCG TD Q72H, (Reported) Ferrous Sulfate 134 Mg Tablet, 134 MG PO TID, (Reported) Fish Oil/Dha/Epa 1 Each Capsule, 1,200 MG PO TID, (Reported) Furosemide 20 Mg Tablet, 20 MG PO Q48H, (Reported) ALTERNATING WITH 40MG Furosemide 20 Mg Tablet, 40 MG PO Q48H, (Reported) ALTERNATING WITH 20MG Hydrocodone/Acetaminophen 1 Each Tablet, 1 TAB PO Q6H PRN for PAIN-MODERATE, ( Reported) Levothyroxine Sodium 112 Mcg Tablet, 112 MCG PO DAILY, (Reported) Magnesium Hydroxide 400 Mg/5 Ml Oral.susp, 30 ML PO DAILY PRN for CONSTIPATION- 7TH LINE, (Reported) Melatonin 3 Mg Tablet, 3 MG PO HS PRN for SLEEP, (Reported) Menthol 118 Ml Gel..ml., TP BID PRN for MUSCLE PAIN, (Reported) APPLY TO SHOULDERS, ARMS, OR NECK Nebivolol HCl 5 Mg Tablet, 5 MG PO DAILY, (Reported) HOLD FOR SBP <100 OR DBP <60 OR PULSE <60 Nystatin 1 Each Powder.ea., TOP BID PRN for REDNESS/GAULDING, (Reported) APPLY TO ABDOMINAL FOLD Risperidone 0.25 Mg Tablet, 0.25 MG PO BID Prescribed by: TACHO PEREYRA on 04/23/18 1437 Sennosides/Docusate Sodium 1 Each Tablet, 2 TAB PO DAILY, (Reported) Sodium Chloride 30 Ml [place], 1-2 SPRAYS NS Q4H PRN for CONGESTION, (Reported) Sulfamethoxazole/Trimethoprim 1 Each Tablet, 1 EACH PO BID Prescribed by: VALERIE MASCORRO on 04/24/18 1148 Patient Home Medication List Home Medication List Reviewed: Yes ([place] MAR reviewed.) Review of Systems Constitutional: No fever (no fever per [place] staff.), No other Psychiatric/Neurological: See HPI All Other Systems Reviewed Negative Unless Noted: Yes (Negative excepted noted.) Past Dtvniqo-Nfaafg-Hjqivm Hx Patient Social History 2nd Hand Smoke Exposure: No Recent Foreign Travel: No Contact w/Someone Who Travel: No Recent Infectious Disease Expo: No Recent Hopitalizations: No Immunizations Up To Date Tetanus Booster (TDap): Unknown Date of Pneumonia Vaccine: Aug 05, 2012 Date of Influenza Vaccine: Sep 01, 2016 Seasonal Allergies Seasonal Allergies: Yes Past Medical History Surgeries: Yes (HYSTERECTOMY 1974, PACEMAKER, TKR, FOOT, SHOULDER) Abdominal, Coronary Stent, Orthopedic, Pacemaker Respiratory: Yes (O2 at night) COPD Cardiac: Yes (chronic ischemic heart diseas, CHF, pacemaker, sick sinus syndrome) Chronic Edema/Swelling, Coronary Artery Disease Neurological: Yes (h/o frequent syncopal episodes) Parkinson's Disease, Stroke (with left sided residual effects) Reproductive Disorders: No Female Reproductive Disorders: Denies Sexually Transmitted Disease: No HIV/AIDS: Yes Genitourinary: Yes (UTI) Renal Failure Gastrointestinal: Yes (chronic N/V) Gastroesophageal Reflux, Chronic Constipation Musculoskeletal: Yes (lymphedema LUE, chronic LUE pain, generalized muscle weakness, chronic neck pain) Arthritis, Contracture (left hand) Endocrine: Yes Hypothyroidsim HEENT: Yes (dry eye syndrome, epistaxis, chronic sinusitis) Cancer: No Psychosocial: Yes Sleep Difficulties, Depression Integumentary: No Blood Disorders: Yes (anemia) Adverse Reaction/Blood Tranf: No Family Medical History Reviewed and Corrections made No Pertinent Family Hx Physical Exam Vital Signs Vital Signs - First Documented 04/21/18 04/21/18 12:07 18:09 Temp 98.8 Pulse 82 Resp 16 B/P (MAP) 95/ Pulse Ox 98 O2 Delivery Room Air Capillary Refill : Less Than 3 Seconds General Appearance: WD/WN, no apparent distress, other (patient lying on the exam bed with eyes closed. ) HEENT: PERRL/EOMI, normal ENT inspection, TMs normal, pharynx normal, other ( normocephalic, atraumatic) Neck: non-tender, supple, normal inspection Respiratory: lungs clear, normal breath sounds, no respiratory distress, no accessory muscle use Cardiovascular: normal peripheral pulses, regular rate, rhythm, no murmur Peripheral Pulses: 2+ Carotid (R), 2+ Carotid (L), 2+ Dorsalis Pedis (R), 2+ Left Dors-Pedis (L), 2+ Radial Pulses (R), 2+ Radial Pulses (L) Gastrointestinal: normal bowel sounds, non tender, soft, no organomegaly Back: normal inspection, no vertebral tenderness Extremities: normal capillary refill, other ( left hand contracture similar to previous exams. LUE swelling consistent with past exams (lymphedema LUE).) Neurologic/Psychiatric: other (patient is lying in the exam bed with her eyes closed. Unable to answer questions at this time. Patient does the opposite of instructions and commands (example: when asked to take a deep breath, the patient holds her breath). When her RUE is elevated by this examiner and released the patient is noted to stop her RUE from falling to the bed. Patient lays the arm down gently. mild left facial droop consistent with past exams and h/o cva. left hand contracture similar to previous exams. ) Crainal Nerves: PERRL Skin: normal color, warm/dry Comments Fentanyl patch removed from the left shoulder and discarded (witnessed by Iván Patel RN). Skin cleansed. Progress/Results/Core Measures Results/Orders Lab Results Laboratory Tests Test 04/21/18 12:25 04/21/18 13:40 04/21/18 16:20 Range/Units White Blood Count 9.3 4.3-11.0 10^3/uL Red Blood Count 4.42 4.35-5.85 10^6/uL Hemoglobin 14.0 11.5-16.0 G/DL Hematocrit 42 35-52 % Mean Corpuscular Volume 94 80-99 FL Mean Corpuscular Hemoglobin 32 25-34 PG Mean Corpuscular Hemoglobin Concent 34 32-36 G/DL Red Cell Distribution Width 13.8 10.0-14.5 % Platelet Count 299 130-400 10^3/uL Mean Platelet Volume 9.5 7.4-10.4 FL Neutrophils (%) (Auto) 74 42-75 % Lymphocytes (%) (Auto) 20 12-44 % Monocytes (%) (Auto) 6 0-12 % Eosinophils (%) (Auto) 0 0-10 % Basophils (%) (Auto) 0 0-10 % Neutrophils # (Auto) 6.8 1.8-7.8 X 10^3 Lymphocytes # (Auto) 1.8 1.0-4.0 X 10^3 Monocytes # (Auto) 0.6 0.0-1.0 X 10^3 Eosinophils # (Auto) 0.0 0.0-0.3 10^3/uL Basophils # (Auto) 0.0 0.0-0.1 10^3/uL Prothrombin Time 20.1 H 12.2-14.7 SEC INR Comment 1.7 H 0.8-1.4 Activated Partial Thromboplast Time 36 H 24-35 SEC D-Dimer 0.36 0.00-0.49 UG/ML Sodium Level 136 135-145 MMOL/L Potassium Level 4.4 3.6-5.0 MMOL/L Chloride Level 99 98-107 MMOL/L Carbon Dioxide Level 25 21-32 MMOL/L Anion Gap 12 5-14 MMOL/L Blood Urea Nitrogen 17 7-18 MG/DL Creatinine 1.19 0.60-1.30 MG/DL Estimat Glomerular Filtration Rate 43 BUN/Creatinine Ratio 14 Glucose Level 114 H 70-105 MG/DL Calcium Level 10.4 H 8.5-10.1 MG/DL Magnesium Level 2.2 1.8-2.4 MG/DL Total Bilirubin 1.0 0.1-1.0 MG/DL Aspartate Amino Transf (AST/SGOT) 16 5-34 U/L Alanine Aminotransferase (ALT/SGPT) < 6 0-55 U/L Alkaline Phosphatase 115 40-136 U/L Total Creatine Kinase 160 188 H 29-168 U/L Creatine Kinase MB 2.0 2.0 <6.6 NG/ML Myoglobin 361.1 H 533.1 H 10.0-92.0 NG/ML Troponin I < 0.30 < 0.30 <0.30 NG/ML C-Reactive Protein High Sensitivity 2.59 H 0.00-0.50 MG/DL B-Type Natriuretic Peptide 768.1 H <100.0 PG/ML Total Protein 8.3 H 6.4-8.2 GM/DL Albumin 4.7 H 3.2-4.5 GM/DL TSH [place] Testing 2.50 0.35-4.94 UIU/ML Urine Color YELLOW Urine Clarity CLEAR Urine pH 6.5 5-9 Urine Specific [place] 1.020 1.016-1.022 Urine Protein 3+ H NEGATIVE Urine Glucose (UA) NEGATIVE NEGATIVE Urine Ketones 1+ H NEGATIVE Urine Nitrite NEGATIVE NEGATIVE Urine Bilirubin NEGATIVE NEGATIVE Urine Urobilinogen NORMAL NORMAL MG/DL Urine Leukocyte Esterase 1+ H NEGATIVE Urine RBC (Auto) 2+ H NEGATIVE Urine RBC 0-2 /HPF Urine WBC 0-2 /HPF Urine Squamous Epithelial Cells RARE /HPF Urine Crystals NONE /LPF Urine Bacteria NEGATIVE /HPF Urine Casts NONE /LPF Urine Mucus NEGATIVE /LPF Urine Culture Indicated NO My Orders Orders - GLENIS CHAVARRIA Accucheck Stat ONCE (04/21/18 12:10) Saline Lock/Iv-Start (04/21/18 12:10) Ekg Tracing (04/21/18 12:10) Monitor-Rhythm Ecg Trace Only (04/21/18 12:10) Ct Head Wo (04/21/18 12:10) BNP (04/21/18 12:10) Cbc With Automated Diff (04/21/18 12:10) Comprehensive Metabolic Panel (04/21/18 12:10) Creatine Kinase (04/21/18 12:10) Creatine Kinase Mb (04/21/18 12:10) Hs C Reactive Protein (04/21/18 12:10) Fibrin Degradation Products (04/21/18 12:10) Magnesium (04/21/18 12:10) Protime With Inr (04/21/18 12:10) Partial Thromboplastin Time (04/21/18 12:10) Thyroid Analyzer (04/21/18 12:10) Troponin I (04/21/18 12:10) Ua Culture If Indicated (04/21/18 12:10) Myoglobin Serum (04/21/18 12:10) Naloxone Injection (Narcan Injection) (04/21/18 12:45) Ns Iv 1000 Ml (Sodium Chloride 0.9%) (04/21/18 12:42) Ondansetron Injection (Zofran Injectio (04/21/18 13:00) Chest 1 View, Ap/Pa Only (04/21/18 12:51) Thyroid Analyzer (04/21/18 14:19) Ct Angio Head/Neck (04/21/18 14:19) Iohexol Injection (Omnipaque 350 Mg/Ml 1 (04/21/18 14:30) Ns (Ivpb) (Sodium Chloride 0.9% Ivpb Bag (04/21/18 14:30) Creatine Kinase (04/21/18 16:02) Creatine Kinase Mb (04/21/18 16:02) Troponin I (04/21/18 16:02) Myoglobin Serum (04/21/18 16:02) Us Carotid Lui Complete [id number] (04/21/18 16:06) Iv Push Knot Tying Operator Ed (04/21/18 ) Medications Given in ED Vital Signs/I&O 04/21/18 04/21/18 12:07 18:09 Temp 98.8 98.8 Pulse 82 Resp 16 B/P (MAP) 95/ 180/90 Pulse Ox 98 O2 Delivery Room Air Initial ECG Impression Date: April 21, 2018 Initial ECG Impression Time: 13:55 Initial ECG Rate: 82 Initial ECG Comparisson: Unchanged Comment ventricular paced rhythm and prolonged QT interval similar to previous ECG. No STEMI noted. Diagnostic Imaging Diagonstic Imaging: CT Plain Films/CT/US/NM/MRI: head Comments CT HEAD WO PROCEDURE: CT head without contrast. TECHNIQUE: Multiple contiguous axial images were obtained through the brain without the use of intravenous contrast. INDICATION: Mental status changes. COMPARISON: Comparison is made with prior head CT from 12/30/2017. FINDINGS: Ventricles and sulci remain consistent with patient's age. There is significant periventricular hypodensity noted consistent with senescent change. There is area of encephalomalacia adjacent to the right frontal horn, unchanged and consistent with prior infarct. There is an old lacunar infarct in the right thalamus, unchanged. No sulcal effacement is identified. There is no midline shift. No acute intra- axial or extra-axial hemorrhage is seen. Cisterns are patent. The visualized paranasal sinuses are clear. IMPRESSION: Chronic and senescent changes. No acute intracranial process is detected. Dictated on workstation # [id number] Reviewed: Reviewed by Me (radiology report reviewed by me) Diagonstic Imaging: Xray Plain Films/CT/US/NM/MRI: chest Comments CHEST 1 VIEW, AP/PA ONLY INDICATION: Altered mental status. FINDINGS: The lungs are clear. The heart size and vascularity are normal. There is no effusion or pneumothorax. The pacemaker device appears unremarkable. IMPRESSION: No acute appearing abnormality. Dictated by: Dictated on workstation # [id number] Reviewed: Reviewed by Me (radiology report reviewed by me) Diagonstic Imaging: CT Plain Films/CT/US/NM/MRI: other (CTA head/neck) Comments CT ANGIO HEAD/NECK PROCEDURE: CT angiography of the head and CT angiography of the neck with and without contrast. TECHNIQUE: Contiguous noncontrast images were obtained from the skull base through the vertex. After intravenous contrast administration, helical CT angiography of the neck was performed. Source data was reformatted into multiple MIP projections. Delayed post contrast acquisition was also obtained. INDICATION: Altered metal status and confusion. FINDINGS: The delayed postcontrast imaging through the brain is without evidence of abnormal enhancement. White matter changes are again noted as well as chronic bilateral infarcts. CT angiography portion of the study demonstrates a three-vessel branching pattern to the aortic arch. Moderate calcified plaque at the origin of the left subclavian artery is noted. The right common carotid artery is tortuous but patent. The left common carotid artery is also widely patent. There is a large amount of calcified plaque at the right carotid bifurcation, but no high-grade stenosis is seen. There is also a large amount of calcified plaque at the left internal carotid artery origin. There appears to be high-grade stenosis at the origin of the left internal carotid. The remainder of the internal carotid arteries appear to be patent. There is significant calcified plaque at the carotid siphons bilaterally , limiting evaluation. No definite filling defects to suggest thromboembolism within the middle cerebral arteries are identified. Bilateral anterior cerebral arteries appear to be patent. The basilar artery is patent. Bilateral posterior cerebral arteries appear to be patent. Left vertebral artery appears to be dominant. Bilateral vertebrals appear widely patent. Moderate calcified plaque in the distal left vertebral artery is noted. IMPRESSION: 1. No evidence of acute intracranial thromboembolism. There is significant calcified plaque throughout both carotid systems. In particular, there appears to be a moderate grade stenosis of the origin of left internal carotid artery. Carotid Doppler may be useful for further evaluation and better characterization as there is a large amount of calcified plaque at this location, and evaluation of luminal diameter is compromised. No other significant abnormality is seen. Dictated by: Dictated on workstation # [id number] Reviewed: Reviewed by Me (radiology report reviewed by me) Diagonstic Imaging: Ultrasound Plain Films/CT/US/NM/MRI: other (carotids) Comments US CAROTID LUI COMPLETE [id number] PROCEDURE: US carotid duplex, bilateral. TECHNIQUE : Multiple real-time grayscale images were obtained over the carotid arteries in various projections, bilaterally. Additional duplex Doppler and color Doppler images were also obtained. DATE: April 21, 2018. INDICATION: 87-year-old female, altered mental status. Evaluation for carotid stenosis. COMPARISON: April 10, 2009. CT angiography head and neck April 21, 2018. FINDINGS: Peak systolic velocity in the left mid common carotid artery measures 40 cm/s. Peak systolic velocity in the left proximal internal carotid artery measures 49 cm/s, 70 cm/s in the mid left internal carotid artery, and 58 cm/s distally. Peak systolic velocity in the left external carotid artery measures 77 cm/s. The left vertebral artery is not well seen. Peak systolic velocity in the right mid common carotid artery measures 51 cm/s. Peak systolic velocity in the right proximal internal carotid artery measures 73 cm/s, 88 cm/s in the mid right internal carotid artery, and 60 cm/s distally. Peak systolic velocity in the right external carotid artery measures 90 cm/s. The right vertebral artery is not well seen. There is prominent plaque formation at the bilateral carotid bifurcations and proximal segments of the internal carotid arteries. IMPRESSION : 1. Negative for hemodynamically significant right or left internal carotid artery stenosis based on ultrasound velocity measurements. There is however visible narrowing of the right and left internal carotid arteries with estimated 80% narrowing of the proximal segment of the left internal carotid artery near its origin and roughly 50% narrowing of the right proximal internal carotid artery. 2. The vertebral arteries are not well seen on ultrasound although are patent on same day CT angiography head and neck. Parameters based on the consensus panel Nicholson-Scale and Doppler ultrasound criteria published October 2003, Radiology, Volume 229. DOPPLER (peak systolic velocity M/S Right Left CCA .5 .4 ICA Proximal .73 .5 ICA Mid .88 .69 ICA Distal .6 .57 RATIO 1.7 1.7 ECA .9 .77 VERT NOT SEEN NOT SEEN Dictated by: Dictated on workstation # [id number] Reviewed: Reviewed by Me (radiology report reviewed by me) Departure Communication (Admissions) Patient seen and evaluated. While discussing plan for narcan with ED RN ( patient to receive narcan if she does not wake up soon), patient is noted to open her eyes immediately. 1725 D/W Dr. Stuart. Patient has a f/u scheduled for April 22 for routine visit. Requests patient to keep this appointment. 173 D/W Dr. Hollis. Dr. Hollis recommends [facility] [place]. Impression Primary Impression: Altered mental status Additional Impressions: CKD (chronic kidney disease) CHF (congestive heart failure) Disposition: SNF Condition: Stable Departure-Patient Inst. Decision time for Depature: 17:42 Referrals: DIA GREENWOOD MD (PCP/Family) Primary Care Physician Patient Instructions: Heart Failure, Adult (DC), Transient Ischemic Attack (DC) Add. Discharge Instructions: All discharge instructions reviewed with patient and/or family. Voiced understanding. -Increase lasix to 40 mg po daily x3 days, then resume usual dosing. -Continue usual home medications -Repeat a CBC and CMP Saturday (04/23/18). -Continue your usual diet. -I will see you for follow-up/recheck this week for Dr. Greenwood's office. -Return to the emergency department immediately for worsened symptoms, changes in behavior, headache, dizziness, changes in speech, facial drooping, chest pain , shortness of air, or any other concerns. GLENIS CHAVARRIA April 21, 2018 13:26
[2018-04-21 13:31] LABS: MYOGLOBIN SERUM 361.1 NG/ML (10.0-92.0); TSH (THYROID ANALYZER) 2.44 UIU/ML (0.35-4.94)
--- NOTE | 2018-04-21 13:42 | Diagnostic Imaging Report ---
INDICATION: Altered mental status. FINDINGS: The lungs are clear. The heart size and vascularity are normal. There is no effusion or pneumothorax. The pacemaker device appears unremarkable. IMPRESSION: No acute appearing abnormality. Dictated by: Dictated on workstation # [id number]
[2018-04-21 13:51] LABS: BILIRUBIN,URINE NEGATIVE (NEGATIVE); CLARITY,URINE CLEAR; COLOR,URINE YELLOW; GLUCOSE, URINE (UA) NEGATIVE (NEGATIVE); KETONES,URINE 1+ (NEGATIVE); LEUKOCYTE ESTERASE ,URINE 1+ (NEGATIVE); NITRITE,URINE NEGATIVE (NEGATIVE); PH,URINE 6.5 (5-9); PROTEIN,URINE 3+ (NEGATIVE); UROBILINOGEN,URINE NORMAL (NORMAL)
[2018-04-21 14:06] LABS: BACTERIA,URINE NEGATIVE /HPF; RBC,URINE 0-2 /HPF; SQUAMOUS EPITHELIAL CELL,UR RARE /HPF; WBC,URINE 0-2 /HPF
[2018-04-21] MEDS ORDERED: NS 100 ML (IVPB) BAG IV ONE (14:30)
[2018-04-21] MEDS ORDERED: IOHEXOL 350 MG/ML 100 ML (OMNIPAQUE 350) VIAL IV ONE (14:30)
--- NOTE | 2018-04-21 15:54 | Diagnostic Imaging Report ---
PROCEDURE: CT angiography of the head and CT angiography of the neck with and without contrast. TECHNIQUE: Contiguous noncontrast images were obtained from the skull base through the vertex. After intravenous contrast administration, helical CT angiography of the neck was performed. Source data was reformatted into multiple MIP projections. Delayed post contrast acquisition was also obtained. INDICATION: Altered metal status and confusion. FINDINGS: The delayed postcontrast imaging through the brain is without evidence of abnormal enhancement. White matter changes are again noted as well as chronic bilateral infarcts. CT angiography portion of the study demonstrates a three-vessel branching pattern to the aortic arch. Moderate calcified plaque at the origin of the left subclavian artery is noted. The right common carotid artery is tortuous but patent. The left common carotid artery is also widely patent. There is a large amount of calcified plaque at the right carotid bifurcation, but no high-grade stenosis is seen. There is also a large amount of calcified plaque at the left internal carotid artery origin. There appears to be high-grade stenosis at the origin of the left internal carotid. The remainder of the internal carotid arteries appear to be patent. There is significant calcified plaque at the carotid siphons bilaterally, limiting evaluation. No definite filling defects to suggest thromboembolism within the middle cerebral arteries are identified. Bilateral anterior cerebral arteries appear to be patent. The basilar artery is patent. Bilateral posterior cerebral arteries appear to be patent. Left vertebral artery appears to be dominant. Bilateral vertebrals appear widely patent. Moderate calcified plaque in the distal left vertebral artery is noted. IMPRESSION: 1. No evidence of acute intracranial thromboembolism. There is significant calcified plaque throughout both carotid systems. In particular, there appears to be a moderate grade stenosis of the origin of left internal carotid artery. Carotid Doppler may be useful for further evaluation and better characterization as there is a large amount of calcified plaque at this location, and evaluation of luminal diameter is compromised. No other significant abnormality is seen. Dictated by: Dictated on workstation # [id number]
[2018-04-21 16:45] LABS: CREATINE KINASE 188 U/L (29-168)
[2018-04-21 16:52] LABS: MYOGLOBIN SERUM 533.1 NG/ML (10.0-92.0)
--- NOTE | 2018-04-21 17:10 | Diagnostic Imaging Report ---
PROCEDURE: US carotid duplex, bilateral. TECHNIQUE: Multiple real-time grayscale images were obtained over the carotid arteries in various projections, bilaterally. Additional duplex Doppler and color Doppler images were also obtained. DATE: April 21, 2018. INDICATION: 87-year-old female, altered mental status. Evaluation for carotid stenosis. COMPARISON: April 10, 2009. CT angiography head and neck April 21, 2018. FINDINGS: Peak systolic velocity in the left mid common carotid artery measures 40 cm/s. Peak systolic velocity in the left proximal internal carotid artery measures 49 cm/s, 70 cm/s in the mid left internal carotid artery, and 58 cm/s distally. Peak systolic velocity in the left external carotid artery measures 77 cm/s. The left vertebral artery is not well seen. Peak systolic velocity in the right mid common carotid artery measures 51 cm/s. Peak systolic velocity in the right proximal internal carotid artery measures 73 cm/s, 88 cm/s in the mid right internal carotid artery, and 60 cm/s distally. Peak systolic velocity in the right external carotid artery measures 90 cm/s. The right vertebral artery is not well seen. There is prominent plaque formation at the bilateral carotid bifurcations and proximal segments of the internal carotid arteries. IMPRESSION: 1. Negative for hemodynamically significant right or left internal carotid artery stenosis based on ultrasound velocity measurements. There is however visible narrowing of the right and left internal carotid arteries with estimated 80% narrowing of the proximal segment of the left internal carotid artery near its origin and roughly 50% narrowing of the right proximal internal carotid artery. 2. The vertebral arteries are not well seen on ultrasound although are patent on same day CT angiography head and neck. Parameters based on the consensus panel Nicholson-Scale and Doppler ultrasound criteria published October 2003, Radiology, Volume 229. DOPPLER (peak systolic velocity M/S Right Left CCA .5 .4 ICA Proximal .73 .5 ICA Mid .88 .69 ICA Distal .6 .57 RATIO 1.7 1.7 ECA .9 .77 VERT NOT SEEN NOT SEEN Dictated by: Dictated on workstation # [id number]
[2018-04-21 18:09] VITALS: BP 180/90
[2018-04-22] MEDS ORDERED: ACET325T49 PO (15:22)
[2018-04-22] MEDS ORDERED: FAMO20TA5 PO (15:22)
[2018-04-22] MEDS ORDERED: MELA3TAB PO (15:22)
[2018-04-22] MEDS ORDERED: SENN-109 PO (15:22)
[2018-04-22] MEDS ORDERED: ONDA4TAB10 PO (15:22)
[2018-04-22] MEDS ORDERED: NYST1POW24 TOP (15:22)
[2018-04-22] MEDS ORDERED: CITA20TA12 PO (15:22)
[2018-04-22] MEDS ORDERED: FENT1PAT9 TD (15:22)
[2018-04-22] MEDS ORDERED: ERGO50006 PO (15:22)
[2018-04-22] MEDS ORDERED: CYAN10006 PO (15:22)
[2018-04-22] MEDS ORDERED: ALBU2.5V4 NEB (15:22)
[2018-04-22] MEDS ORDERED: CARB1TAB19 PO ×2 (15:22)
[2018-04-22] MEDS ORDERED: FISH1CAP15 PO (15:22)
[2018-04-22] MEDS ORDERED: FERR134T PO (15:22)
[2018-04-22] MEDS ORDERED: ALPR0.254 PO (15:22)
[2018-04-22] MEDS ORDERED: BUDE10.2 INH (15:22)
[2018-04-22] MEDS ORDERED: NEBI5TAB8 PO (15:22)
[2018-04-22] MEDS ORDERED: PRAM1.5T5 PO (15:22)
[2018-04-22] MEDS ORDERED: LEVO112T55 PO (15:22)
[2018-04-22] MEDS ORDERED: SODI30SP2 NS (15:22)
[2018-04-22] MEDS ORDERED: FURO20TA4 PO ×2 (15:22→15:40)
[2018-04-22] MEDS ORDERED: HYDR-3816 PO ×2 (15:22)
[2018-04-22] MEDS ORDERED: MAGN400O7 PO (15:22)
[2018-04-22] MEDS ORDERED: MENT118G TP (15:22)
== END 2018-04-21 18:09 ==
LOC: EDUNIT# 12:07 → ER 12:09
DX: R41.82 Altered mental status, unspecified (principal); N18.9 Chronic kidney disease, unspecified; I50.9 Heart failure, unspecified; D64.9 Anemia, unspecified; K21.9 Gastro-esophageal reflux disease without esophagitis; K59.09 Other constipation; G20 Parkinson's disease; I25.10 Atherosclerotic heart disease of native coronary artery without angina pectoris; J44.9 Chronic obstructive pulmonary disease, unspecified; I69.30 Unspecified sequelae of cerebral infarction; Z95.0 Presence of cardiac pacemaker; Z95.5 Presence of coronary angioplasty implant and graft; Z90.710 Acquired absence of both cervix and uterus; Z88.0 Allergy status to penicillin
CPT/HCPCS: 36415; 70450; 70496; 70498; 71045; 80053; 81000; 82550; 82553; 83735; 83874; 83880; 84443; 84484; 85025; 85379; 85610; 85730; 86141; 93005; 93041; 93880; 96374; 96375

== ENCOUNTER 2018-04-22 11:37 | Inpatient (IN) | payer MEDICARE, MEDICAID ==
[~2018-04-22] VITALS: Ht 175.3 cm; Wt 95.3 kg
[2018-04-22 12:01] VITALS: BP 109/69
--- NOTE | 2018-04-22 13:54 | Physical Therapy Evaluation ---
PT Evaluation-General Medical Diagnosis Admission Date April 22, 2018 at 11:46 Medical Diagnosis: AMS Onset Date: April 21, 2018 Therapy Diagnosis Therapy Diagnosis: generalized weakness/debility Height/Weight Height (Feet): 5 Height (Inches): 9.00 Weight (Pounds): 199 Weight (Ounces): 0.0 Precautions Precautions/Isolations: Standard Precautions Weight Bear Status Right Lower Extremity: Right Weight Bearing/Tolerated Left Lower Extremity: Left Weight Bearing/Tolerated Referral Physician: Sade Reason for Referral: Evaluation/Treatment Medical History Pertinent Medical History: CAD, CVA, Heart Failure, Renal Insufficiency Additional Medical History nonambulatory per patient and family report. transfers only to w/c Current History direct admit from Dr. Stuart's office Reviewed History: Yes Social History Home: [facility] Prior/[facility] Prior Level of Function Functional Clarke Measure 0=Not Assessed/NA 4=Minimal Assistance 1=Total Assistance 5=Supervision or Setup 2=Maximal Assistance 6=Modified Clarke 3=Moderate Assistance 7=Complete Clarke Bed Mobility: 4 Transfers (B,C,W/C) (FIM): 4 Gait: 0 nonambulatory per patient and family report PT Evaluation-Current Subjective Patient is in bed and family present. Agrees to PT. Patient is very alert and talkative. Pain Numeric Pain Scale: 0-No Pain Location: No Pain Reported Objective Patient Orientation: Person, Time Problem Solving: Poor ROM/Strength ROM Lower Extremities bilateral LE WNL Strength Lower Extremities right LE 3+/5 grossly left LE 3-/5 grossly Integumentary/Posture Integumentary refer to nursing notes Bowel Incontinence: No Bladder Incontinence: No Posture slightly kyphotic Neuromuscular (Tone, Coordination, Reflexes) diminished coordination Sensory Vision: Wears Glasses Hearing: Impaired Sensation Right Lower Extremit: Impaired Sensation Left Lower Extremity: Impaired Transfers Functional Clarke Measure 0=Not Assessed/NA 4=Minimal Assistance 1=Total Assistance 5=Supervision or Setup 2=Maximal Assistance 6=Modified Clarke 3=Moderate Assistance 7=Complete Clarke Transfers (B, C, W/C) (FIM): 3 Scootin Rollin Supine to/from Sit: 3 Patient seated EOB SBA, however, became increasingly lethargic with decrease SAO2 to 84% on RA; BP 95/52 with RN notified. Patient returned to supine via PT and RN in for assessment. Balance Sitting Static: Fair Assessment/Needs 87 y.o. female, became increasingly lethargic and confused and required RN to assess patient's status. PT will address functional strength and mobility as tolerated by patient. 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 Goals Time Frame: April 30, 2018 Transfers (B,C,W/C) (FIM): 4 PT Plan Problem List Problem List: Activity Tolerance, Functional Strength, Balance, Transfer, Bed Mobility Treatment/Plan Treatment Plan: Continue Plan of Care Treatment Plan: Bed Mobility, Education, Functional Activity Nic, Functional Strength, Safety, Therapeutic Exercise, Transfers Treatment Duration: April 30, 2018 Frequency: 6 times per week Estimated Hrs Per Day: .25 hour per day Patient and/or Family Agrees t: Yes Discharge Recommendations Therapy D/C Recommendations: [facility] Placement Time/GCodes Time In: 1300 Time Out: 1312 Total Billed Treatment Time: 12 Total Billed Treatment 1 visit EVModC 12 min PT/OT Therapy GCodes Therapy Functional Limitation: Physical Therapy Test(s)/Tool used to determine: FIM Functional Limitation-Current Charge Code: MOBCUR Modifier: CL Functional Limitation-Goal Charge Code: MOBJASPER Modifier: TERRELL CHEN PT April 22, 2018 13:54
--- NOTE | 2018-04-22 14:04 | Occ Therapy Progress Note ---
Therapy Progress Note Order received and chart reviewed. Nursing requests for OT to hold on therapy at this time. Will hold and check back tomorrow. MANUELA GIBBONS OT April 22, 2018 14:04
[2018-04-22] MEDS ORDERED: BUDE10.2 INH (15:22)
[2018-04-22] MEDS ORDERED: FAMO20TA5 PO (15:22)
[2018-04-22] MEDS ORDERED: MENT118G TP (15:22)
[2018-04-22] MEDS ORDERED: ACET325T49 PO (15:22)
[2018-04-22] MEDS ORDERED: MAGN400O7 PO (15:22)
[2018-04-22] MEDS ORDERED: CYAN10006 PO (15:22)
[2018-04-22] MEDS ORDERED: NYST1POW24 TOP (15:22)
[2018-04-22] MEDS ORDERED: ALBU2.5V4 NEB (15:22)
[2018-04-22] MEDS ORDERED: FISH1CAP15 PO (15:22)
[2018-04-22] MEDS ORDERED: CITA20TA12 PO (15:22)
[2018-04-22] MEDS ORDERED: SODI30SP2 NS (15:22)
[2018-04-22] MEDS ORDERED: ONDA4TAB10 PO (15:22)
[2018-04-22] MEDS ORDERED: ALPR0.254 PO (15:22)
[2018-04-22] MEDS ORDERED: ERGO50006 PO (15:22)
[2018-04-22] MEDS ORDERED: FURO20TA4 PO ×2 (15:22→15:40)
[2018-04-22] MEDS ORDERED: FENT1PAT9 TD (15:22)
[2018-04-22] MEDS ORDERED: FERR134T PO (15:22)
[2018-04-22] MEDS ORDERED: NEBI5TAB8 PO (15:22)
[2018-04-22] MEDS ORDERED: HYDR-3816 PO ×2 (15:22)
[2018-04-22] MEDS ORDERED: SENN-109 PO (15:22)
[2018-04-22] MEDS ORDERED: PRAM1.5T5 PO (15:22)
[2018-04-22] MEDS ORDERED: CARB1TAB19 PO ×2 (15:22)
[2018-04-22] MEDS ORDERED: LEVO112T55 PO (15:22)
[2018-04-22] MEDS ORDERED: MELA3TAB PO (15:22)
[2018-04-22] MEDS ORDERED: ACETAMINOPHEN 325 MG TABLET/CAPLET (TYLENOL) PO PRN (16:00)
[2018-04-22] MEDS ORDERED: fentaNYL PATCH 50 MCG (DURAGESIC) TD SCH (16:00)
[2018-04-22] MEDS ORDERED: BISACODYL 10 MG SUPP (DULCOLAX) RC PRN (16:00)
[2018-04-22 17:00] VITALS: BP 110/98
[2018-04-22 20:00] VITALS: BP 121/53
[2018-04-22] MEDS: APIXABAN 5 MG (ELIQUIS) TABLET PO SCH (20:20)
[2018-04-22] MEDS ORDERED: MELATONIN 3 MG TABLET PO PRN (21:00)
[2018-04-22] MEDS ORDERED: ALPRAZolam 0.25 MG (XANAX) TAB PO SCH (21:00)
[2018-04-23 00:15] VITALS: BP 151/72
[2018-04-23 03:39] VITALS: BP 132/36
[2018-04-23 03:49] LABS: HEMOGLOBIN 11.9 G/DL (11.5-16.0); MEAN PLATELET VOLUME 9.4 FL (7.4-10.4); RED BLOOD COUNT 3.78 10^6/uL (4.35-5.85); RED CELL DISTRIBUTION WIDTH 13.6 % (10.0-14.5); WHITE BLOOD COUNT 8.3 10^3/uL (4.3-11.0)
[2018-04-23 04:01] LABS: INR 1.7 (0.8-1.4); PROTHROMBIN TIME PATIENT 19.8 SEC (12.2-14.7)
[2018-04-23 04:12] LABS: ALANINE AMINOTRANSFERASE 6 U/L (0-55); ALBUMIN 3.9 GM/DL (3.2-4.5); ALKALINE PHOSPHATASE 86 U/L (40-136); BILIRUBIN,TOTAL 0.5 MG/DL (0.1-1.0); BUN/CREATININE RATIO 24; CALCIUM 9.1 MG/DL (8.5-10.1); CARBON DIOXIDE 21 MMOL/L (21-32); CHLORIDE 102 MMOL/L (98-107); CREATININE SERUM 1.64 MG/DL (0.60-1.30); GFR ESTIMATED 30; GLUCOSE 91 MG/DL (70-105); SODIUM 136 MMOL/L (135-145); TOTAL PROTEIN 6.8 GM/DL (6.4-8.2)
--- NOTE | 2018-04-23 08:36 | Pulmonary Consultation ---
History of Present Illness History of Present Illness Date of Consultation 04/23/18 08:28 Time Seen by Provider: 08:28 Date of Admission History of Present Illness 87yo with hx of dementia, and parkinson's admitted from Dr. Stuart's office secondary to rigidity and worsening confusion. Pt was admitted to ICU for close observation. She is from an F. This morning patient does appear to be doing better with less rigidity. sedating meds were held upon admission. I am consulted for ICU management by Dr. Stuart. . Allergies and Home Medications Allergies Coded Allergies: Penicillins (Unverified Allergy, Unknown, 11/03/16) Uncoded Allergies: POISON AISHWARYA, OAK AND SUMAC (Allergy, Unknown, 12/28/08) Home Medications Acetaminophen 325 Mg Tablet, 650 MG PO Q4H PRN for PAIN-MILD, (Reported) TAKES 2 (325MG) TABLETS Albuterol Sulfate 2.5 Mg/3 Ml Vial.neb, 2.5 MG NEB Q4H PRN for WHEEZING, ( Reported) Alprazolam 0.25 Mg Tablet, 0.25 MG PO BID, (Reported) Apixaban 5 Mg Tablet, 5 MG PO BID, (Reported) Bisacodyl 10 Mg Supp.rect, 10 MG RC DAILY PRN for CONSTIPATION-4TH LINE, ( Reported) Budesonide/Formoterol Fumarate 10.2 Gm Hfa.aer.ad, 2 PUFF INH BID, (Reported) Carbidopa/Levodopa 1 Each Tablet, 2 TAB PO 0800,1700, (Reported) Carbidopa/Levodopa 1 Each Tablet, 1 TAB PO 1200,2100, (Reported) Carboxymethylcellulose Sodium 15 Ml Drops, 1 DROP OU BID, (Reported) Citalopram Hydrobromide 20 Mg Tablet, 20 MG PO 1700, (Reported) Cyanocobalamin (Vitamin B-12) 1,000 Mcg Tablet, 1,000 MCG PO DAILY, (Reported) Ergocalciferol (Vitamin D2) 50,000 Unit Capsule, 50,000 UNIT PO EVERY 14 DAYS, ( Reported) Famotidine 20 Mg Tablet, 20 MG PO BID, (Reported) Fentanyl 1 Each Patch.td72, 50 MCG TD Q72H, (Reported) Ferrous Sulfate 134 Mg Tablet, 134 MG PO TID, (Reported) Fish Oil/Dha/Epa 1 Each Capsule, 1,200 MG PO TID, (Reported) Furosemide 20 Mg Tablet, 20 MG PO Q48H, (Reported) ALTERNATING WITH 40MG Furosemide 20 Mg Tablet, 40 MG PO Q48H, (Reported) ALTERNATING WITH 20MG Hydrocodone/Acetaminophen 1 Each Tablet, 1 TAB PO Q6H PRN for PAIN-MODERATE, ( Reported) Hydrocodone/Acetaminophen 1 Each Tablet, 1 TAB PO BID, (Reported) Levothyroxine Sodium 112 Mcg Tablet, 112 MCG PO DAILY, (Reported) Magnesium Hydroxide 400 Mg/5 Ml Oral.susp, 30 ML PO DAILY PRN for CONSTIPATION- 7TH LINE, (Reported) Melatonin 3 Mg Tablet, 3 MG PO HS PRN for SLEEP, (Reported) Menthol 118 Ml Gel..ml., TP BID PRN for MUSCLE PAIN, (Reported) APPLY TO SHOULDERS, ARMS, OR NECK Nebivolol HCl 5 Mg Tablet, 5 MG PO DAILY, (Reported) HOLD FOR SBP <100 OR DBP <60 OR PULSE <60 Nystatin 1 Each Powder.ea., TOP BID PRN for REDNESS/GAULDING, (Reported) APPLY TO ABDOMINAL FOLD Ondansetron HCl 4 Mg Tablet, 4 MG PO Q6H PRN for NAUSEA/VOMITING-1ST LINE, ( Reported) Pramipexole Di-HCl 1.5 Mg Tablet, 1.5 MG PO TID, (Reported) Sennosides/Docusate Sodium 1 Each Tablet, 2 TAB PO DAILY, (Reported) Sodium Chloride 30 Ml Wendel, 1-2 SPRAYS NS Q4H PRN for CONGESTION, (Reported) Past Qrtktus-Jthezh-Tmzxli Hx Patient Social History Alcohol Use: Denies Use Recreational Drug Use: No Smoking Status: Unknown if Ever Smoked 2nd Hand Smoke Exposure: No Recent Foreign Travel: No Contact w/Someone Who Travel: No Recent Infectious Disease Expo: No Recent Hopitalizations: No Immunizations Up To Date Tetanus Booster (TDap): Unknown Date of Pneumonia Vaccine: Aug 05, 2012 Date of Influenza Vaccine: Sep 01, 2016 Seasonal Allergies Seasonal Allergies: Yes Past Medical History Surgeries: Yes (HYSTERECTOMY 1974, PACEMAKER, TKR, FOOT, SHOULDER) Abdominal, Coronary Stent, Orthopedic, Pacemaker Respiratory: Yes (O2 at night) COPD Cardiac: Yes (chronic ischemic heart diseas, CHF, pacemaker, sick sinus syndrome) Chronic Edema/Swelling, Coronary Artery Disease Neurological: Yes (h/o frequent syncopal episodes) Parkinson's Disease, Stroke Reproductive Disorders: No Female Reproductive Disorders: Denies Sexually Transmitted Disease: No HIV/AIDS: Yes Genitourinary: Yes (UTI) Renal Failure Gastrointestinal: Yes (chronic N/V) Gastroesophageal Reflux, Chronic Constipation Musculoskeletal: Yes Arthritis, Contracture Endocrine: Yes Hypothyroidsim HEENT: Yes (dry eye syndrome, epistaxis, chronic sinusitis) Cancer: No Psychosocial: Yes Sleep Difficulties, Depression Integumentary: No Blood Disorders: Yes (anemia) Adverse Reaction/Blood Tranf: No Family Medical History No Pertinent Family Hx Review of Systems Time Seen by Provider: 08:50 Constitutional: Weakness, Malaise; No: Fever, Chills, Sweats, Other Eyes: No: Pain, Vision change, Conjunctivae inflammation, Eyelid inflammation, Other, Redness ENT: No: Ear pain, Ear discharge, Nose pain, Nose discharge, Nose congestion, Mouth pain, Mouth swelling, Throat pain, Throat swelling, Other Respiratory: No: Cough, Dry, Shortness of breath, SOB with excertion, Wheezing , Hemoptysis, Pleuritic Pain, Sputum, Wheezing, Other Neurological: Weakness, Incoordination Exam Exam Vital Signs Date Time Temp Pulse Resp B/P (MAP) Pulse Ox O2 Delivery O2 Flow Rate FiO2 04/23/18 03:39 97.2 60 17 132/36 (68) 98 Room Air 04/23/18 01:00 74 04/23/18 00:15 97.6 66 20 151/72 (98) 92 Room Air 04/22/18 20:00 98.1 61 17 121/53 (75) 97 Room Air 04/22/18 19:31 98.1 04/22/18 19:03 65 04/22/18 17:00 66 24 110/98 (102) 97 Room Air 04/22/18 16:00 97.8 04/22/18 16:00 66 8 99 Room Air 04/22/18 15:15 64 16 99 Room Air 04/22/18 14:45 81 9 97 Room Air 04/22/18 14:15 70 20 99 Room Air 04/22/18 14:00 60 20 93 Room Air 04/22/18 13:52 Room Air 04/22/18 13:45 63 95 Room Air 04/22/18 13:30 82 21 90 Room Air 5/22/18 12:01 98.0 68 13 109/69 (82) 95 Room Air I & O 04/23/18 07:00 Intake Total 350 ml Balance 350 ml General Appearance: No Apparent Distress, WD/WN, Anxious HEENT: PERRL/EOMI, Normal ENT Inspection, Pharynx Normal Neck: Normal Inspection, Non Tender, Supple Respiratory: Chest Non Tender, No Accessory Muscle Use, No Respiratory Distress , Decreased Breath Sounds Cardiovascular: Regular Rate, Rhythm, No Edema Gastrointestinal: normal bowel sounds, non tender, soft, no organomegaly Extremity: Normal Capillary Refill, Normal Inspection Neurologic/Psychiatric: Alert, Oriented x3 Skin: Normal Color, Warm/Dry Lymphatic: No Adenopathy Results Lab Laboratory Tests 04/23/18 03:08 Assessment/Plan Assessment/Plan Parkinson's with dementia Acute lethargy - probably secondary to medications -PT appears to be back to baseline currently. -hold meds for sedation -Change Xanax to PRN only-- Or preferably D/C completely -Add risperadol 0.25mg BID - if this is too sedating we can just give it to her at bedtime. -PT also has a fentanyl patch that may need to be decreased. Deconditioning/debility -pt/ot consulted. Acute renal failure -PRobably secondary to dehydration -Will give IVF bolus Labs reviewed. PT is ok from my standpoint for discharge after IVF bolus. [facility] to be sure kidney function is stable. 254 NATALY CABRERA DO April 23, 2018 08:36
[2018-04-23] MEDS ORDERED: LACTATED RINGERS 1,000 ML IV SCH ×2 (08:45)
[2018-04-23] MEDS ORDERED: NEBIVOLOL 5 MG TAB (BYSTOLIC) PO SCH (09:00)
[2018-04-23] MEDS ORDERED: risperiDONE 0.25 MG (RisperDAL) TAB PO SCH (09:00)
[2018-04-23] MEDS ORDERED: LEVOTHYROXINE 112 MCG (LEVOTHROID) TAB PO SCH (09:00)
[2018-04-23 09:12] VITALS: BP 147/56
[2018-04-23] MEDS: APIXABAN 5 MG (ELIQUIS) TABLET PO SCH (09:30)
--- NOTE | 2018-04-23 11:36 | Consultation-Cardiology ---
HPI-Cardiology Cardiology Consultation Date of Consultation 04/23/18 Date of Admission Time Seen by Provider: 11:31 Indication: Change in mental status HPI Mrs. Gagnon is 87-year-old lady with history of coronary artery disease, history of CVA. She came to the [facility], has significant deterioration in mental status, unable to communicate or move her right arm. She is trying to speak without ability to talk. According to the staff accompanying her this is significant deterioration compared to earlier this week. Patient was sent for direct admission, overnight she has improved, this morning she is feeling well, more talkative. Responsive, back to his baseline, apparently she has been having multiple episodes with change in mental status. Home Medications & Allergies Allergies: Coded Allergies: Penicillins (Unverified Allergy, Unknown, 11/03/16) Uncoded Allergies: POISON AISHWARYA, OAK AND SUMAC (Allergy, Unknown, 12/28/08) Home Medication List Reviewed: Yes UYP-Kupgxp-Hnxpcu Hx Patient Social History Marital Status: Employed/Student: retired Alcohol Use: Denies Use Recreational Drug Use: No Smoking Status: Unknown if Ever Smoked 2nd Hand Smoke Exposure: No Recent Foreign Travel: No Recent Infectious Disease Expo: No Recent Hopitalizations: No Physical Abuse Screen: No Sexual Abuse: No Immunizations Up To Date Tetanus Booster (TDap): Unknown Date of Pneumonia Vaccine: Aug 05, 2012 Date of Influenza Vaccine: Sep 01, 2016 Past Medical History Discussed below Family Medical History Significant Family History: No Pertinent Family Hx Family Medical Hx Noncontributory to her current condition Constitutional: see HPI, malaise, weakness EENTM: see HPI, no symptoms reported Respiratory: see HPI; No cough; dyspnea on exertion; No hemoptysis, No orthopnea, No phlegm, No short of breath, No stridor, No wheezing, No other Cardiovascular: see HPI; No chest pain; edema; No Hx of Intervention, No palpitations, No syncope, No vascular heart diseas, No other Gastrointestinal: no symptoms reported, see HPI Genitourinary: no symptoms reported, see HPI Musculoskeletal: no symptoms reported, see HPI Skin: see HPI Psychiatric/Neurological: No Symptoms Reported, See HPI Reviewed Test Results Reviewed Test Results Lab Laboratory Tests Test 04/23/18 03:08 Range/Units White Blood Count 8.3 4.3-11.0 10^3/uL Red Blood Count 3.78 L 4.35-5.85 10^6/uL Hemoglobin 11.9 11.5-16.0 G/DL Hematocrit 36 35-52 % Mean Corpuscular Volume 95 80-99 FL Mean Corpuscular Hemoglobin 32 25-34 PG Mean Corpuscular Hemoglobin Concent 33 32-36 G/DL Red Cell Distribution Width 13.6 10.0-14.5 % Platelet Count 265 130-400 10^3/uL Mean Platelet Volume 9.4 7.4-10.4 FL Prothrombin Time 19.8 H 12.2-14.7 SEC INR Comment 1.7 H 0.8-1.4 Activated Partial Thromboplast Time 33 24-35 SEC Sodium Level 136 135-145 MMOL/L Potassium Level 4.0 3.6-5.0 MMOL/L Chloride Level 102 98-107 MMOL/L Carbon Dioxide Level 21 21-32 MMOL/L Anion Gap 13 5-14 MMOL/L Blood Urea Nitrogen 39 H 7-18 MG/DL Creatinine 1.64 H 0.60-1.30 MG/DL Estimat Glomerular Filtration Rate 30 BUN/Creatinine Ratio 24 Glucose Level 91 70-105 MG/DL Calcium Level 9.1 8.5-10.1 MG/DL Total Bilirubin 0.5 0.1-1.0 MG/DL Aspartate Amino Transf (AST/SGOT) 13 5-34 U/L Alanine Aminotransferase (ALT/SGPT) 6 0-55 U/L Alkaline Phosphatase 86 40-136 U/L Troponin I < 0.30 <0.30 NG/ML Total Protein 6.8 6.4-8.2 GM/DL Albumin 3.9 3.2-4.5 GM/DL Thyroid Stimulating Hormone (TSH) 1.69 0.35-4.94 UIU/ML Physical Exam Vital Signs Vital Signs - First Documented 04/22/18 12:01 Temp 98.0 Pulse 68 Resp 13 B/P (MAP) 109/69 (82) Pulse Ox 95 O2 Delivery Room Air Capillary Refill : General Appearance: No Apparent Distress, WD/WN Eyes: Bilateral Eye Normal Inspection, Bilateral Eye PERRL, Bilateral Eye EOMI HEENT: PERRL/EOMI, TMs Normal, Normal ENT Inspection, Pharynx Normal Neck: Full Range of Motion, Normal Inspection, Non Tender, Supple, Carotid Bruit Respiratory: Chest Non Tender, Lungs Clear, Normal Breath Sounds, No Accessory Muscle Use, No Respiratory Distress Cardiovascular: Regular Rate, Rhythm, No Edema, No Gallop, No JVD, No Murmur, Normal Peripheral Pulses Gastrointestinal: Normal Bowel Sounds, No Organomegaly, No Pulsatile Mass, Non Tender, Soft Back: Normal Inspection, No CVA Tenderness, No Vertebral Tenderness Extremity: Normal Capillary Refill, Normal Inspection, Normal Range of Motion, Non Tender, No Calf Tenderness, No Pedal Edema Neurologic/Psychiatric: Alert, Oriented x3, No Motor/Sensory Deficits, Normal Mood/Affect Skin: Normal Color, Warm/Dry Lymphatic: No Adenopathy A/P-Cardiology Admission Diagnosis Change in mental status Coronary artery disease Hypertension Hyperlipidemia Assessment/Plan Acute change in mental status. Waxing and waning, most probably secondary to medication, Dr. Azam Mosher and Dr. Morales were consulted, patient is better today, okay for discharge from cardiology standpoint Coronary artery disease, history of 2.25x12 mm integrity stent to the LAD done in July 2011. Most recent cardiac catheterization April 20, 2015 revealed patent stent in the mid LAD. 50 percent stenosis proximal to the stent in the LAD, small vessel disease distally. 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 Otherwise, mild to moderate disease, nonobstructive disease. EF 60 percent, continue to monitor. Most recent 2-D echocardiogram done July 2017 revealed normal EF. Monitor at this time Hypertension, restarted home medication monitor blood pressure Hyperlipidemia, continue to monitor lipids History of CVA and TIA. Continue to monitor. Sick sinus syndrome, paroxysmal atrial fibrillation, history of permanent pacemaker, last pacemaker checkup was done in December 2017 showing good sensing and capture activity, no abnormality. History of DVT, maintained on Eliquis 5 mg twice a day, tolerating it well. No changes were recommended. History of moderate carotid stenosis on the right, mild on the left, last ultrasound was done in April 2016. History of syncope, no further episodes were reported. History of Parkinson disease with unsteady gait and multiple falls, history of intolerance to aggressive anticoagulation. Currently tolerating Eliquis well. Alzheimer dementia, Parkinson disease, had significant change in mental status, waxing and waning, probably secondary to medication, patient will be reestablished with her neurologist, hospitalist functional architect was consulted Okay for discharge from cardiology standpoint, patient was seen and evaluated with physical therapy Clinical Quality Measures DVT/VTE Risk/Contraindication: Risk Factor Score Per Nursin RFS Level Per Nursing on Admit: 4+=Very High KAYLENE NARVAEZ MD April 23, 2018 11:36
--- NOTE | 2018-04-23 11:58 | Consultation-Hospitalist ---
HPI History of Present Illness: HPI/Chief Complaint The patient is an 87-year-old white female new patient of Dr. NEERU Clayton. She reports that she knows me as I provided care of her mother years ago before her . She was admitted from Dr. Stuart's office where she had a clinic visit. He found her to be confused and extremely stiff. She takes a long list of medications and he was concerned about these. Apparently she used to see Dr. Becerril and has just recently transferred to Dr. NEERU Clayton. She lives at the [facility] [place]. The bulk of her medications were held yesterday after her admission. Today she is bright and alert and much more functional. Source: patient, family Exam Limitations: no limitations Date Seen 04/23/18 Attending Physician Gloria Stuart MD PCP Bethel Clayton MD Referring Physician Sade Date of Admission April 22, 2018 at 11:46 Home Medications & Allergies Home Medications Reviewed patient Home Medication Reconciliation performed by pharmacy medication reconciliations outer diameter technician and/or nursing. Patients Allergies have been reviewed. Allergies Allergies Coded Allergies Penicillins (Unverified Allergy, Unknown, 11/03/16) Uncoded Allergies POISON AISHWARYA, OAK AND SUMAC ( Allergy, Unknown, 12/28/08) Past Xiwotnm-Srxjnh-Phsige Hx Past Med/Social Hx: Reviewed Nursing Past Med/Soc Hx Patient Social History Marrital Status: Employed/Student: retired Alcohol Use: Denies Use Recreational Drug Use: No Smoking Status: Unknown if Ever Smoked 2nd Hand Smoke Exposure: No Physical Abuse Screen: No Sexual Abuse: No Recent Foreign Travel: No Contact w/other who traveled: No Recent Hopitalizations: No Recent Infectious Disease Expo: No Immunizations Up To Date Tetanus Booster (TDap): Unknown Date of Pneumonia Vaccine: Aug 05, 2012 Date of Influenza Vaccine: Sep 01, 2016 Seasonal Allergies Seasonal Allergies: Yes Past Medical History Surgeries: Abdominal, Coronary Stent, Orthopedic, Pacemaker Cardiac: Chronic Edema/Swelling, Coronary Artery Disease Neurological: Parkinson's Disease, Stroke Reproductive: No Sexually Transmitted Disease: No HIV/AIDS: Yes Female Reproductive Disorders: Denies Genitourinary: Renal Failure Gastrointestinal: Gastroesophageal Reflux, Chronic Constipation Musculoskeletal: Arthritis, Contracture Endocrine: Hypothyroidsim Psychosocial: Sleep Difficulties, Depression History of Blood Disorders: Yes (anemia) Adverse Reaction to Blood Jolly: No Family History No Pertinent Family Hx Review of Systems Constitutional: see HPI EENTM: no symptoms reported Respiratory: no symptoms reported Cardiovascular: no symptoms reported Gastrointestinal: constipation Genitourinary: no symptoms reported Musculoskeletal: muscle stiffness, muscle weakness Skin: no symptoms reported Psychiatric/Neurological: Tremors Physical Exam Physical Exam Vital Signs Capillary Refill : General Appearance: Other Eyes: Bilateral Eye Normal Inspection HEENT: Normal ENT Inspection Neck: Full Range of Motion, Normal Inspection, Non Tender, Supple, Carotid Bruit Respiratory: Chest Non Tender, Lungs Clear, Normal Breath Sounds, No Accessory Muscle Use, No Respiratory Distress Cardiovascular: Regular Rate, Rhythm, No Edema, No Gallop, No JVD, No Murmur Gastrointestinal: Normal Bowel Sounds, No Organomegaly Back: Normal Inspection Extremity: Other (there is no pedal edema. There is a slow beat tremor of the right foot. 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 Assessment/Plan Assessment and Plan Assess & Plan/Chief Complaint Confusion and stiffness suggesting medication effect. 2.six-year history of Parkinson's disease. 3.history coronary artery disease Clinical Quality Measures DVT/VTE Risk/Contraindication: Risk Factor Score Per Nursin RFS Level Per Nursing on Admit: 4+=Very High WALLACE BAUMANN MD April 23, 2018 11:58
[2018-04-23 12:45] VITALS: BP 114/82
--- NOTE | 2018-04-23 13:08 | Discharge Instructions ---
Discharge Instructions Patient Instructions Patient Instructions: Your medication orders have been greatly reduced in number. Your new provider will need to review your performance, your present order list, and considerations of medications from the previous order list. Activity & Diet Discharge Diet: No Restrictions Activity as Tolerated: Yes Copy Copies To 1: DIA GREENWOOD MD, RODNEY K MD April 23, 2018 13:08
--- NOTE | 2018-04-23 13:40 | Physical Therapy Daily Note ---
PT Daily Note-Current Subjective Pt laying Supine in bed upon arrival. Dr Hollis arrives at same time & visits with pt. Pt agrees to PT. Mental Status Patient Orientation: Person, Place, Situation Attachments: Other-See Comments (Telemetry), IV Transfers Functional [place] Measure 0=Not Assessed/NA 4=Minimal Assistance 1=Total Assistance 5=Supervision or Setup 2=Maximal Assistance 6=Modified [place] 3=Moderate Assistance 7=Complete IndependenceIRFPAI Quality Coding Scale 6 Independent with activity with or without an assistive device 5 Patient requires set up or clean up by helper. Patient completes activity by themselves 4 Supervision or touching assist (CGA). [place] provide cues , steadying assist 3 The helper provides less than half the effort to complete the activity 2 The helper provides more than half the effort to complete the activity 1 Dependent. The helper does all the effort to complete an activity 7 Patient refused to complete or attempt activity 9 The patient did not perform the activity before the current illness or injury 88 Not attempted due to Medical conditions or safety concerns Scootin Rollin Supine to/from Sit: 5 Sit to/from Stand: 5 Weight Bearing Right Lower Extremity: Right Weight Bearing/Tolerated Left Lower Extremity: Left Weight Bearing/Tolerated Gait Training Distance (FIM): 3=150 ft Distance: 200' Gait Level of Assist: 5 Gait Persons Needed: 1 Gait Assistive Device: FWW (Pt ) Pt walks with slow but steady gait, no LOB. Pt reports no pain even with increased ambulating distance. Pt ask about ambulating with crutches although at this time CHAIN MORTISER OPERATOR feels that pt is more stable with FWW. PT will revisit crutches at pt gains strength. PT Children'S Choir Director Goals Skilled Nursing Goals PT Skilled Nursing Goals Time Frame: April 30, 2018 Transfers (B,C,W/C) (FIM): 4 PT Plan Treatment/Plan Treatment Plan: Bed Mobility, Education, Functional Activity Nic, Functional Strength, Safety, Therapeutic Exercise, Transfers Treatment Duration: April 30, 2018 Frequency: 6 times per week Estimated Hrs Per Day: .25 hour per day Patient and/or Family Agrees t: Yes PT/OT Therapy GCodes Therapy Functional Limitation: Physical Therapy Test(s)/Tool used to determine: FIM Functional Limitation-Current Charge Code: MOBCUR Modifier: CL Functional Limitation-Goal Charge Code: MOBGOAL Modifier: ANNI MOONEY CHAIN MORTISER OPERATOR April 23, 2018 13:40
--- NOTE | 2018-04-23 14:09 | Occupational Ther Daily Note ---
OT Current Status-Daily Note Subjective Pt. does not report pain. Appearance Pt. is up on BSC. Finishing with PT. Mental Status/Objective Patient Orientation: Unable to Assess Functional [place] Measure 0=Not Assessed/NA 4=Minimal Assistance 1=Total Assistance 5=Supervision or Setup 2=Maximal Assistance 6=Modified [place] 3=Moderate Assistance 7=Complete [place] Attachments: IV ADL-Treatment Bathing (FIM): 3 (Pt. requires mod assist overall to spongebathe while seated on BSC.) Lower Body Dressing (FIM): 2 (OT dons socks for pt.) Toileting (FIM): 1 (Pt. requires assist of 2. Requires assist to stand, and then assist of another person to cleanse eleni area.) Transfers (B, C, W/C) (FIM): 2 (Max assist to stand and pivot to chair.) Partial co-treat OT/PT. OT assisted with ADLs while PT assisted with transfers. After spongebathing and donning fresh gown and socks, pt. was transferred to chair in room. All needs met. Education OT Patient Education: Correct positioning, Modified ADL techniques, Progress toward Goal/Update tx plan, Purpose of tx/functional activities, Reviewed precautions, Rehab process, Transfer techniques Teaching Recipient: Patient Teaching Methods: Demonstration, Discussion Response to Teaching: Verbalize Understanding OT Short Term Goals Short Term Goals 1=Demonstrate adherence to instructed precautions during ADL tasks. 2=Patient will verbalize/demonstrate understanding of assistive devices/ modifications for ADL. 3=Patient will improve strength/tolerance for activity to enable patient to perform ADL's. OT Public Relations Professional Goals [facility] Goals 1=Demonstrate adherence to instructed precautions during ADL tasks. 2=Patient will verbalize/demonstrate understanding of assistive devices/ modifications for ADL. 3=Patient will improve strength/tolerance for activity to enable patient to perform ADL's. OT Education/Plan Problem List/Assessment Assessment: Decreased Activ Tolerance, Decreased Safety Aware, Decreased UE Strength, Dependent Transfers, Impaired Bed Mobility, Impaired Cognition, Impaired Funct Balance, Impaired I ADL's, Impaired Self-Care Skills Discharge Recommendations Plan/Recommendations: Continue POC Therapy D/C Recommendations: 24 hr Supervision Treatment Plan/Plan of Care Treatment,Training & Education: Yes Plan of Care: ADL Retraining, Functional Mobility Treatment Duration: April 23, 2018 Frequency: 1 time per week Estimated Hrs Per Day: .25 hour per day Agreement: Yes Rehab Potential: Guarded Time/GCodes Start Time: 11:55 Stop Time: 12:15 Total Time Billed (hr/min): 20 Billed Treatment Time 1, EVH PT/OT Therapy GCodes Therapy Functional Limitation: Physical Therapy Test(s)/Tool used to determine: FIM Functional Limitation-Current Charge Code: MOBCUR Modifier: CL Functional Limitation-Goal Charge Code: MOBGOAL Modifier: MANUELA CANCHOLA OT April 23, 2018 14:09
--- NOTE | 2018-04-23 14:13 | Physical Therapy Daily Note ---
PT Daily Note-Current Subjective Pt laying Supine in bed. Pt agrees to PT. SENIOR INSPECTOR arrives as Dr Hollis arrives to see pt. Mental Status Patient Orientation: Person, Place, Situation Attachments: Other-See Comments (Telemetry), IV Transfers Functional [place] Measure 0=Not Assessed/NA 4=Minimal Assistance 1=Total Assistance 5=Supervision or Setup 2=Maximal Assistance 6=Modified [place] 3=Moderate Assistance 7=Complete IndependenceIRFPAI Quality Coding Scale 6 Independent with activity with or without an assistive device 5 Patient requires set up or clean up by helper. Patient completes activity by themselves 4 Supervision or touching assist (CGA). [place] provide cues , steadying assist 3 The helper provides less than half the effort to complete the activity 2 The helper provides more than half the effort to complete the activity 1 Dependent. The helper does all the effort to complete an activity 7 Patient refused to complete or attempt activity 9 The patient did not perform the activity before the current illness or injury 88 Not attempted due to Medical conditions or safety concerns Scootin Supine to/from Sit: 4 Sit to/from Stand: 3 Bed to/from Chair: 3 Weight Bearing Right Lower Extremity: Right Weight Bearing/Tolerated Left Lower Extremity: Left Weight Bearing/Tolerated Treatments Dr Hollis visits with pt about improved progress as well as discussing with Dr Morales, Dr Stuart & current SNF nursing staff about need for all pt's current medications and if any can be discontinued. SENIOR INSPECTOR assists pt get to EOB for toileting although pt urinates in process of transferring to EOB. Pt transfers to EOB then to BSC to finish toileting then OT arrives. OT assists pt with changing gown & quick sponge bath as well as standing while PT assists with pericare. Pt transfers to recliner to rest at end of tx. Pt is finishing tx with OT. Assessment Current Status: Good Progress Pt is gaining strength and increased mobility although is still Mod A with transfers. Pt is to discharge to SNF today. PT Assisted Goals Assisted Goals PT Hybrid Technologist Goals Time Frame: April 30, 2018 Transfers (B,C,W/C) (FIM): 4 PT Plan Problem List Problem List: Activity Tolerance, Functional Strength, Safety, Balance, Gait, Transfer, Bed Mobility Treatment/Plan Treatment Plan: Continue Plan of Care Treatment Plan: Bed Mobility, Education, Functional Activity Nic, Functional Strength, Safety, Therapeutic Exercise, Transfers Treatment Duration: April 30, 2018 Frequency: 6 times per week Estimated Hrs Per Day: .25 hour per day Patient and/or Family Agrees t: Yes Safety Risks/Education Patient Education: Transfer Techniques, Correct Positioning, Safety Issues Teaching Recipient: Patient Teaching Methods: Discussion Response to Teaching: Verbalize Understanding Time/GCodes Time In: 1140 Time Out: 1215 Total Billed Treatment Time: 35 Total Billed Treatment 1, FA x2 (35m) G Codes Necessary: No PT/OT Therapy GCodes Therapy Functional Limitation: Physical Therapy Test(s)/Tool used to determine: FIM Functional Limitation-Current Charge Code: MOBCUR Modifier: CL Functional Limitation-Goal Charge Code: MOBGOAL Modifier: ANNI MOONEY SENIOR INSPECTOR April 23, 2018 14:13
[2018-04-23] MEDS ORDERED: RISP0.2517 PO (14:37)
[2018-04-23 16:10] VITALS: BP 114/82
[2018-04-23] MEDS ORDERED: ALPRAZolam 0.25 MG (XANAX) TAB PO PRN (21:00)
[2018-04-24] MEDS ORDERED: SULF1TAB35 PO (11:48)
[2018-04-25] MEDS ORDERED: FENTANYL PATCH REMOVAL TP SCH (16:00)
== END 2018-04-23 10:51 | DRG 948 ==
LOC: UNDOADMIN 11:46 → ICU 11:46 → UNDODISIN 04-23 16:10
PROVIDERS: ADMIT Internal Medicine Cardiovascular Disease; ATTEND Internal Medicine Cardiovascular Disease
DX: R41.82 Altered mental status, unspecified (principal); R47.9 Unspecified speech disturbances; N17.9 Acute kidney failure, unspecified; R53.83 Other fatigue; T42.4X5A Adverse effect of benzodiazepines, initial encounter; T40.4X5A Adverse effect of other synthetic narcotics, initial encounter; I13.0 Hypertensive heart and chronic kidney disease with heart failure and stage 1 through stage 4 chronic kidney disease, or unspecified chronic kidney disease; I50.9 Heart failure, unspecified; Z66 Do not resuscitate; N18.9 Chronic kidney disease, unspecified; G30.9 Alzheimer's disease, unspecified; G20 Parkinson's disease; F02.80 Dementia in other diseases classified elsewhere, unspecified severity, without behavioral disturbance, psychotic disturbance, mood disturbance, and anxiety; I48.0 Paroxysmal atrial fibrillation; J44.9 Chronic obstructive pulmonary disease, unspecified; E86.0 Dehydration; I25.10 Atherosclerotic heart disease of native coronary artery without angina pectoris; G62.89 Other specified polyneuropathies; K21.9 Gastro-esophageal reflux disease without esophagitis; F32.9 Major depressive disorder, single episode, unspecified; J30.2 Other seasonal allergic rhinitis; E78.5 Hyperlipidemia, unspecified; Z86.718 Personal history of other venous thrombosis and embolism; Z99.81 Dependence on supplemental oxygen; Z95.0 Presence of cardiac pacemaker; Z95.5 Presence of coronary angioplasty implant and graft; Z86.73 Personal history of transient ischemic attack (TIA), and cerebral infarction without residual deficits; Z86.79 Personal history of other diseases of the circulatory system
CPT/HCPCS: 36415; 80053; 84443; 84484; 85027; 85610; 85730; 93005; 93306

== ENCOUNTER 2018-04-24 10:37 | Emergency (ER) | payer MEDICARE, MEDICAID ==
[~2018-04-24] VITALS: Ht 180.3 cm; Wt 117.9 kg
[~2018-04-24 10:37] MED LIST changes: +ACET325T49 PO; +ALBU2.5V4 NEB; +ALPR0.254 PO; +BUDE10.2 INH; +CARB1TAB19 PO; +CITA20TA12 PO; +CYAN10006 PO; +ERGO50006 PO; +FAMO20TA5 PO; +FENT1PAT9 TD; +FERR134T PO; +FISH1CAP15 PO; +FURO20TA4 PO; +HYDR-3816 PO; +LEVO112T55 PO; +MAGN400O7 PO; +MELA3TAB PO; +MENT118G TP; +NYST1POW24 TOP; +ONDA4TAB10 PO; +PRAM1.5T5 PO; +RISP0.2517 PO; +SENN-109 PO; +SODI30SP2 NS
--- OUTSIDE RECORDS SUMMARY | 2018-04-24 10:46 | XMS REPORT | Continuity of Care Document ---
Author Author [facility] Organization [facility] Address Unknown Phone Unavailable Allergies Active Description Code Type Severity Reaction Onset Reported/Identified Relationship to Patient Clinical Status Yes POISON AISHWARYA, [place] AND SUMAC POISON AISHWARYA, OAK AND SUMAC Unknown N/A 2008 Yes Penicillins [id number] Drug Allergy Unknown N/A 11/03/2016 Medications There [...] NOS 07/27/2011 Ot 414.01 CORONARY ATHEROSCLEROSIS OF [place] CORON 07/27/2011 Ot 428.0 CONGESTIVE HEART FAILURE [...] ST 08/08/2011 Ot 414.01 CORONARY ATHEROSCLEROSIS OF [place] CORON 08/08/2011 Ot 428.0 CONGESTIVE HEART FAILURE [...] NOS 12/20/2011 Ot 414.01 CORONARY ATHEROSCLEROSIS OF [place] CORON 12/20/2011 Ot 428.0 CONGESTIVE HEART FAILURE [...] ST 04/01/2012 Ot 414.01 CORONARY ATHEROSCLEROSIS OF [place] CORON 04/01/2012 Ot 435.9 TRANS CEREB ISCHEMIA [...] NOS 06/22/2012 Ot 414.01 CORONARY ATHEROSCLEROSIS OF [place] CORON 06/22/2012 Ot 435.9 TRANS CEREB ISCHEMIA [...] ST 02/19/2013 Ot 414.01 CORONARY ATHEROSCLEROSIS OF [place] CORON 02/19/2013 Ot 477.9 ALLERGIC RHINITIS NOS [...] NARVAEZ MD Ot 414.01 CORONARY ATHEROSCLEROSIS OF [place] CORON 04/21/2015 KAYLENE NARVAEZ MD Ot 427.81 [...] SITU 04/17/2016 Ot 414.01 CORONARY ATHEROSCLEROSIS OF [place] CORON 04/17/2016 Ot V12.54 PERSONAL HX OF TIA, CEREBRAL INFARCTION 04/17/2016 Ot V45.01 CARDIAC PACEMAKER IN SITU 04/17/2016 NATALIA BEARD Ot 272.4 HYPERLIPIDEMIA NEC/NOS 04/17/2016 NATALIA BEARD Ot 414.00 CORON ATHEROSCLER NOS TYPE VESSEL, NATIV 04/17/2016 NATALIA BEARD Ot 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 NODE DYSFUNCT 04/17/2016 NATALIA BEADR Ot 453.40 ACUTE VENOUS EMBOLISM THROMBOSIS UNSP [...] BEARD Ot 453.40 ACUTE VENOUS EMBOLISM [facility] 04/17/2016 TERESITA RAMOS, SAPNA Estes Ot M75.120 [...] MASCORRO APRN Ot Y92.[address] IN RETIREMENT PLACE 11/03/2016 VALERIE MASCORRO APRN Ot Y93.9 ACTIVITY, UNSPECIFIED 11/03/2016 VALERIE MASCORRO TRANSMISSION LINE ENGINEER Ot Y99.8 OTHER EXTERNAL CAUSE STATUS 11/03/2016 VALERIE MASCORRO TRANSMISSION LINE ENGINEER Ot Z79.899 OTHER WASTEWATER DESIGN ENGINEER (CURRENT) DRUG THERAPY 11/03/2016 VALERIE MASCORRO TRANSMISSION LINE ENGINEER Ot Z95.0 PRESENCE OF CARDIAC PACEMAKER 11/03/2016 [...] SITU 11/03/2016 Ot 414.01 CORONARY ATHEROSCLEROSIS OF [place] CORON 11/03/2016 Ot V12.54 PERSONAL HX OF [...] MASCORRO APRN Ot Y92.[address] IN RETIREMENT PLACE 11/06/2016 VALERIE MASCORRO APRN Ot Y93.9 ACTIVITY, UNSPECIFIED 11/06/2016 VALERIE MASCORRO APRN Ot Y99.8 OTHER EXTERNAL CAUSE STATUS 11/06/2016 VALERIE MASCORRO APRN Ot Z79.899 OTHER WASTEWATER DESIGN ENGINEER (CURRENT) DRUG THERAPY 11/06/2016 VALERIE MASCORRO APRN Ot Z95.0 PRESENCE OF CARDIAC PACEMAKER 03/21/2017 ELIAS RAMOS, CARLOS Sutton Ot E87.5 HYPERKALEMIA 03/21/2017 CARLOS GRIFFIN MD, Ot 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 03/21/2017 CARLOS GRIFFIN MD Ot I25.10 ATHSCL HEART DISEASE OF [place] CORONARY 03/21/2017 CARLOS GRIFFIN MD, Ot J44.1 CHRONIC OBSTRUCTIVE PULMONARY DISEASE W 03/21/2017 CARLOS GRIFFIN MD Ot N17.9 ACUTE KIDNEY FAILURE, UNSPECIFIED 03/21/2017 CARLOS GRIFFIN MD Ot R41.82 ALTERED MENTAL STATUS, UNSPECIFIED 03/21/2017 CARLOS GRIFFIN MD Ot Z79.01 HALF-WAY (CURRENT) USE OF ANTICOAGULANT 03/21/2017 CARLOS GRIFFIN MD Ot Z79.899 OTHER HALF-WAY (CURRENT) DRUG THERAPY 03/21/2017 CARLOS GRIFFIN MD [...] MD Ot I25.10 ATHSCL HEART DISEASE OF [place] CORONARY 03/22/2017 CARLOS GRIFFIN MD, Ot J44.1 CHRONIC OBSTRUCTIVE PULMONARY DISEASE W 03/22/2017 CARLOS GRIFFIN MD Ot N17.9 ACUTE KIDNEY FAILURE, UNSPECIFIED 03/22/2017 CARLOS GRIFFIN MD Ot R41.82 ALTERED MENTAL STATUS, UNSPECIFIED 03/22/2017 CARLOS GRIFFIN MD Ot Z79.01 HALF-WAY (CURRENT) USE OF ANTICOAGULANT 03/22/2017 CARLOS GRIFFIN MD Ot Z79.899 OTHER HALF-WAY (CURRENT) DRUG THERAPY 03/22/2017 CARLOS GRIFFIN MD [...] GLENIS FARR L Ot R11.0 NAUSEA 04/30/2017 GLENIS FARR [...] SITU 05/09/2017 Ot 414.01 CORONARY ATHEROSCLEROSIS OF [place] CORON 05/09/2017 Ot V12.54 PERSONAL HX OF [...] MD Ot I25.10 ATHSCL HEART DISEASE OF [place] CORONARY 05/09/2017 CARLOS GRIFFIN MD Ot I49.5 [...] GRIFFIN MD Ot Y92.[address] IN RETIREMENT PLACE 05/09/2017 CARLOS GRIFFIN MD, Ot Z86.73 [...] MD Ot I25.10 ATHSCL HEART DISEASE OF [place] CORONARY 05/11/2017 CARLOS GRIFFIN MD, Ot I49.5 [...] GRIFFIN MD, Ot Y92.[address] IN RETIREMENT PLACE 05/11/2017 CARLOS GRIFFIN MD, Ot Z86.73 [...] BEARD Ot I25.10 ATHSCL HEART DISEASE OF [place] CORONARY 08/13/2017 NATALIA BEARD Ot I49.5 SICK SINUS SYNDROME 08/28/2017 NATALIA BEARD Ot E78.2 MIXED HYPERLIPIDEMIA 08/28/2017 NATALIA BEARD Ot 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 08/28/2017 NATALIA BEARD Ot I25.10 ATHSCL HEART DISEASE OF [place] CORONARY 08/28/2017 NATALIA BEARD Ot I49.5 SICK SINUS SYNDROME 11/26/2017 HUAN HOPE MD, Ot E03.9 HYPOTHYROIDISM, UNSPECIFIED 11/26/2017 HUAN HOPE MD Ot F32.9 MAJOR DEPRESSIVE DISORDER, SINGLE EPISOD 11/26/2017 HUAN HOPE MD, Ot 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 11/26/2017 HUAN HOPE MD, Ot I25.10 ATHSCL HEART DISEASE OF [place] CORONARY 11/26/2017 HUAN HOPE MD, Ot J44.9 [...] MD Ot I25.10 ATHSCL HEART DISEASE OF [place] CORONARY 12/02/2017 HUAN HOPE MD Ot J44.9 CHRONIC OBSTRUCTIVE PULMONARY DISEASE, U 12/02/2017 HUAN HOPE MD, Ot K21.9 GASTRO-ESOPHAGEAL REFLUX DISEASE WITHOUT 12/02/2017 HUAN HOPE MD, Ot S09.90XA UNSPECIFIED INJURY OF HEAD, INITIAL ENCO 12/02/2017 HUAN HOPE MD Ot S40.011A CONTUSION OF RIGHT SHOULDER, INITIAL ENC 12/02/2017 HUAN HOPE MD Ot W01.198A FALL SAME LEV FROM SLIP/TRIP W STRIKE AG 12/02/2017 HUAN HOPE MD, Ot Z86.73 PRSNL HX OF TIA (TIA), AND CEREB INFRC W 12/02/2017 HUAN HOPE MD, Ot Z90.710 ACQUIRED ABSENCE OF BOTH CERVIX AND UTER 12/02/2017 HUAN HOPE MD, Ot Z95.0 PRESENCE OF CARDIAC PACEMAKER 12/02/2017 HUAN HOPE MD, Ot Z95.5 PRESENCE OF CORONARY ANGIOPLASTY IMPLANT 12/30/2017 DESTINEE GALLEGOS DO Ot E03.9 HYPOTHYROIDISM, UNSPECIFIED 12/30/2017 DESTINEE GALLEGOS DO Ot F32.9 MAJOR DEPRESSIVE DISORDER, SINGLE EPISOD 12/30/2017 DESTINEE GALLEGOS DO Ot 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 12/30/2017 DESTINEE GALLEGOS DO Ot I25.10 ATHSCL HEART DISEASE OF [place] CORONARY 12/30/2017 DESTINEE GALLEGOS DO Ot J44.9 CHRONIC OBSTRUCTIVE PULMONARY DISEASE, U 12/30/2017 DESTINEE GALLEGOS DO Ot K21.9 GASTRO-ESOPHAGEAL REFLUX DISEASE WITHOUT 12/30/2017 DESTINEE GALLEGOS DO Ot R51 HEADACHE 12/30/2017 DESTINEE GALLEGOS DO Ot S09.90XA UNSPECIFIED INJURY OF HEAD, INITIAL ENCO 12/30/2017 DESTINEE GALLEGOS DO Ot S40.021A CONTUSION OF RIGHT UPPER ARM, INITIAL EN 12/30/2017 DESTINEE GALLEGOS DO Ot S63.621A SPRAIN OF INTERPHALANGEAL JOINT OF RIGHT 12/30/2017 DESTINEE GALLEGOS DO Ot W01.198A FALL SAME LEV FROM SLIP/TRIP W STRIKE AG 12/30/2017 DESTINEE GALLEGOS DO Ot Y92.002 BATHRM OF [facility] 12/30/2017 DESTINEE GALLEGOS DO, Ot Z79.01 HALF-WAY (CURRENT) USE OF ANTICOAGULANT 12/30/2017 DESTINEE GALLEGOS DO, Ot Z87.59 PERSONAL HISTORY OF COMP OF PREG, CHLDBR 12/30/2017 DESTINEE GALLEGOS DO Ot Z88.0 ALLERGY STATUS TO PENICILLIN 12/30/2017 DESTINEE GALLEGOS DO Ot Z90.710 ACQUIRED ABSENCE OF BOTH CERVIX AND UTER 12/30/2017 DESTINEE GALLEGOS DO Ot Z95.0 PRESENCE OF CARDIAC PACEMAKER 12/30/2017 DESTINEE GALLEGOS DO Ot Z95.5 PRESENCE OF CORONARY ANGIOPLASTY IMPLANT 01/01/2018 DESTINEE GALLEGOS DO Ot E03.9 HYPOTHYROIDISM, UNSPECIFIED 01/01/2018 DESTINEE GALLEGOS DO Ot F32.9 MAJOR DEPRESSIVE DISORDER, SINGLE EPISOD 01/01/2018 DESTINEE GALLEGOS DO Ot 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 01/01/2018 DESTINEE GALLEGOS DO, Ot I25.10 ATHSCL HEART DISEASE OF [place] CORONARY 01/01/2018 DESTINEE GALLEGOS DO, Ot J44.9 CHRONIC OBSTRUCTIVE PULMONARY DISEASE, U 01/01/2018 DESTINEE GALLEGOS DO, Ot K21.9 GASTRO-ESOPHAGEAL REFLUX DISEASE WITHOUT 01/01/2018 DESTINEE GALLEGOS DO Ot R51 HEADACHE 01/01/2018 DESTINEE GALLEGOS DO Ot S09.90XA UNSPECIFIED INJURY OF HEAD, INITIAL ENCO 01/01/2018 DESTINEE GALLEGOS DO Ot S40.021A CONTUSION OF RIGHT UPPER ARM, INITIAL EN 01/01/2018 DESTINEE GALLEGOS DO, Ot S63.621A SPRAIN OF INTERPHALANGEAL JOINT OF RIGHT 01/01/2018 DESTINEE GALLEGOS DO Ot W01.198A FALL SAME LEV FROM SLIP/TRIP W STRIKE AG 01/01/2018 DESTINEE GALLEGOS DO Ot Y92.002 BATHRM OF [facility] 01/01/2018 DESTINEE GALLEGOS DO, Ot Z79.01 WASTEWATER DESIGN ENGINEER (CURRENT) USE OF ANTICOAGULANT 01/01/2018 DESTINEE GALLEGOS DO Ot Z87.59 PERSONAL HISTORY OF COMP OF PREG, CHLDBR 01/01/2018 DESTINEE GALLEGOS DO Ot Z88.0 ALLERGY STATUS TO PENICILLIN 01/01/2018 EL DESTINEE FERNANDEZ Ot Z90.710 ACQUIRED ABSENCE OF BOTH CERVIX AND UTER 01/01/2018 DESTINEE GALLEGOS DO Ot Z95.0 PRESENCE OF CARDIAC PACEMAKER 01/01/2018 DESTINEE GALLEGOS DO Ot Z95.5 PRESENCE OF CORONARY ANGIOPLASTY IMPLANT 01/01/2018 DESTINEE GALLEGOS DO Ot E03.9 HYPOTHYROIDISM, UNSPECIFIED 01/01/2018 EL DESTINEE FERNANDEZ Ot F32.9 MAJOR DEPRESSIVE DISORDER, SINGLE EPISOD 01/01/2018 EL DESTINEE FERNANDEZ Ot 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 01/01/2018 EL DESTINEE FERNANDEZ Ot I25.10 ATHSCL HEART DISEASE OF [place] CORONARY 01/01/2018 DESTINEE GALLEGOS DO Ot J44.9 CHRONIC OBSTRUCTIVE PULMONARY DISEASE, U 01/01/2018 DESTINEE GALLEGOS DO Ot K21.9 GASTRO-ESOPHAGEAL REFLUX DISEASE WITHOUT 01/01/2018 DESTINEE GALLEGOS DO Ot R51 HEADACHE 01/01/2018 EL DESTINEE FERNANDEZ Ot S09.90XA UNSPECIFIED INJURY OF HEAD, INITIAL ENCO 01/01/2018 DESTINEE GALLEGOS DO Ot S40.021A CONTUSION OF RIGHT UPPER ARM, INITIAL EN 01/01/2018 DESTINEE GALLEGOS DO Ot S63.621A SPRAIN OF INTERPHALANGEAL JOINT OF RIGHT 01/01/2018 DESTINEE GALLEGOS DO Ot W01.198A FALL SAME LEV FROM SLIP/TRIP W STRIKE AG 01/01/2018 DESTINEE GALLEGOS DO Ot Y92.002 BATHRM OF [facility] NON-INSTITUT RESDNCE SNGL 01/01/2018 DESTINEE GALLEGOS DO Ot Z79.01 HALF-WAY (CURRENT) USE OF ANTICOAGULANT 01/01/2018 DESTINEE GALLEGOS DO Ot Z87.59 PERSONAL HISTORY OF COMP OF PREG, CHLDBR 01/01/2018 DESTINEE GALLEGOS DO Ot Z88.0 ALLERGY STATUS TO PENICILLIN 01/01/2018 DESTINEE GALLEGOS DO Ot Z90.710 ACQUIRED ABSENCE OF BOTH CERVIX AND UTER 01/01/2018 DESTINEE GALLEGOS DO Ot Z95.0 PRESENCE OF CARDIAC PACEMAKER 01/01/2018 DESTINEE GALLEGOS DO Ot Z95.5 PRESENCE OF CORONARY ANGIOPLASTY IMPLANT [...] Status Pt. Type Provider Facility Loc./Unit Complaint [id number] 12/30/2017 20:18:00 12/30/2017 22:35:00 DIS Emergency EL DODESTINEE [facility] ER FELL,HIT HEAD [id number] 11/26/2017 17:56:00 11/26/2017 19:16:00 DIS Emergency HUAN HOPE MD [facility] ER FALL [id number] 07/22/2017 15:01:00 07/22/2017 23:59:59 CLS Outpatient NATALIA BEARD [facility] CARD I25.10 [id number] 05/09/2017 18:44:00 05/09/2017 21:44:00 DIS Emergency CARLOS GRIFFIN MD [facility] ER PT FELL AT HOME [id number] 04/24/2017 15:11:00 04/24/2017 23:59:59 CLS Outpatient GLENIS FARR [facility] RAD ABD PAIN,NAUSEA [id number] 03/21/2017 02:59:00 03/21/2017 04:42:00 DIS Emergency CARLOS GRIFFIN MD [facility] ER AMS [id number] 11/03/2016 12:52:00 11/03/2016 15:03:00 DIS Emergency VALERIE MASCORRO TRANSMISSION LINE ENGINEER [facility] ER FALL [id number] 07/11/2016 09:22:00 07/11/2016 14:35:00 DIS Outpatient SAPNA LO MD [facility] SDC LEFT TORN ROTATOR CUFF [id number] 07/10/2016 09:36:00 07/10/2016 23:59:59 CLS Outpatient SAPNA LO MD [facility] PREOP LEFT TORN ROTATOR CUFF [id number] 06/21/2016 13:05:00 06/21/2016 23:59:59 CLS Outpatient GLENIS FARR [facility] RAD DOUBLE VISION [id number] 04/17/2016 13:11:00 04/17/2016 23:59:59 CLS Outpatient SAPNA LO MD [facility] RAD RTC TEAR LEFT [id number] 04/20/2015 10:18:00 04/21/2015 10:05:00 DIS Outpatient KAYLENE NARVAEZ MD [facility] CATH ABNORMAL STRESS,CAD,HTN, CPHLP [id number] 04/18/2015 08:13:00 04/18/2015 23:59:59 CLS Outpatient BOONENATALIA DON [facility] CARD CAD,DVT,HLP [id number] 03/30/2015 12:13:00 03/30/2015 23:59:59 CLS Outpatient MARLENE NATALIA CAMPA [facility] CARD CAD,DVT,HLP, SSS [id number] 03/28/2015 13:07:00 03/28/2015 23:59:59 [facility] CARD CAD,DVT,HLP, SSS [id number] 04/22/2018 14:06:00 Document Registration [id number] 03/25/2015 09:53:00 Document Registration [id number] 03/25/2015 09:53:00 Document Registration [id number] 03/25/2015 09:52:00 Document Registration [id number] 03/25/2015 09:52:00 Document Registration [id number] 03/25/2015 09:52:00 Document Registration [id number] 03/25/2015 09:52:00 Document Registration [id number] 03/25/2015 09:52:00 Document Registration [id number] 03/25/2015 09:52:00 Document Registration [id number] 03/23/2013 08:24:00 Document Registration [id number] 01/21/2013 13:50:00 Document Registration [id number] 03/31/2012 16:57:00 Document Registration [id number] 03/21/2012 07:22:00 Document Registration [id number] 01/12/2012 09:33:00 Document Registration [id number] 12/23/2011 12:57:00 Document Registration [id number] 12/19/2011 13:00:00 Document Registration [id number] 12/14/2011 19:49:00 Document Registration [id number] 12/11/2011 12:46:00 Document Registration [id number] 10/22/2011 14:18:00 Document Registration [id number] 09/12/2011 12:22:00 Document Registration [id number] 09/03/2011 15:57:00 Document Registration [id number] 08/31/2011 10:07:00 Document Registration [id number] 07/27/2011 12:17:00 Document Registration [id number] 04/20/2011 21:58:00 Document Registration [id number] 06/22/2010 13:05:00 Document Registration [id number] 06/20/2010 09:08:00 Document Registration [id number] 04/04/2010 10:52:00 Document Registration [id number] 04/20/2015 10:19:56 ACT Document Registration
--- NOTE | 2018-04-24 10:52 | ED General ---
General Stated Complaint: HALLUCINATIONS Source of Information: EMS, Prison Records Exam Limitations: No Limitations History of Present Illness Date Seen by Provider: April 24, 2018 Time Seen by Provider: 10:50 Initial Comments to ER per EMS from half-way in [place] with reports of hallucinations. Patient was recently discharged from the hospital here a few times in the past few months with reports of altered mental status.. She does not recall why. EMS reports on the way here patient was talking aboutan elephant at stop sign. Patient also reports to me that she slept with a dog last night in her bed. She is alert and oriented to person place and time currently. She did fall last night getting up off of the toilet but denies hitting her head. Timing/Duration: 1-2 Days Severity: Moderate Allergies and Home Medications Allergies Coded Allergies: Penicillins (Unverified Allergy, Unknown, 11/03/16) Uncoded Allergies: POISON AISHWARYA, OAK AND SUMAC (Allergy, Unknown, 12/28/08) Home Medications Acetaminophen 325 Mg Tablet, 650 MG PO Q4H PRN for PAIN-MILD, (Reported) TAKES 2 (325MG) TABLETS Albuterol Sulfate 2.5 Mg/3 Ml Vial.neb, 2.5 MG NEB Q4H PRN for WHEEZING, ( Reported) Apixaban 5 Mg Tablet, 5 MG PO BID, (Reported) Bisacodyl 10 Mg Supp.rect, 10 MG RC DAILY PRN for CONSTIPATION-4TH LINE, ( Reported) Budesonide/Formoterol Fumarate 10.2 Gm Hfa.aer.ad, 2 PUFF INH BID, (Reported) Carboxymethylcellulose Sodium 15 Ml Drops, 1 DROP OU BID, (Reported) Citalopram Hydrobromide 20 Mg Tablet, 20 MG PO 1700, (Reported) Cyanocobalamin (Vitamin B-12) 1,000 Mcg Tablet, 1,000 MCG PO DAILY, (Reported) Ergocalciferol (Vitamin D2) 50,000 Unit Capsule, 50,000 UNIT PO EVERY 14 DAYS, ( Reported) Fentanyl 1 Each Patch.td72, 50 MCG TD Q72H, (Reported) Ferrous Sulfate 134 Mg Tablet, 134 MG PO TID, (Reported) Fish Oil/Dha/Epa 1 Each Capsule, 1,200 MG PO TID, (Reported) Furosemide 20 Mg Tablet, 20 MG PO Q48H, (Reported) ALTERNATING WITH 40MG Furosemide 20 Mg Tablet, 40 MG PO Q48H, (Reported) ALTERNATING WITH 20MG Hydrocodone/Acetaminophen 1 Each Tablet, 1 TAB PO Q6H PRN for PAIN-MODERATE, ( Reported) Levothyroxine Sodium 112 Mcg Tablet, 112 MCG PO DAILY, (Reported) Magnesium Hydroxide 400 Mg/5 Ml Oral.susp, 30 ML PO DAILY PRN for CONSTIPATION- 7TH LINE, (Reported) Melatonin 3 Mg Tablet, 3 MG PO HS PRN for SLEEP, (Reported) Menthol 118 Ml Gel..ml., TP BID PRN for MUSCLE PAIN, (Reported) APPLY TO SHOULDERS, ARMS, OR NECK Nebivolol HCl 5 Mg Tablet, 5 MG PO DAILY, (Reported) HOLD FOR SBP <100 OR DBP <60 OR PULSE <60 Nystatin 1 Each Powder.ea., TOP BID PRN for REDNESS/GAULDING, (Reported) APPLY TO ABDOMINAL FOLD Risperidone 0.25 Mg Tablet, 0.25 MG PO BID Prescribed by: TACHO PEREYRA on 04/23/18 1437 Sennosides/Docusate Sodium 1 Each Tablet, 2 TAB PO DAILY, (Reported) Sodium Chloride 30 Ml [place], 1-2 SPRAYS NS Q4H PRN for CONGESTION, (Reported) Sulfamethoxazole/Trimethoprim 1 Each Tablet, 1 EACH PO BID Prescribed by: VALERIE MASCORRO on 04/24/18 1148 Patient Home Medication List Home Medication List Reviewed: Yes Review of Systems Constitutional: see HPI EENTM: see HPI Respiratory: no symptoms reported Cardiovascular: no symptoms reported Genitourinary: no symptoms reported Musculoskeletal: no symptoms reported Skin: no symptoms reported Psychiatric/Neurological: See HPI Hematologic/Lymphatic: No Symptoms Reported Past Rlsqhvs-Isezna-Moxkor Hx Patient Social History 2nd Hand Smoke Exposure: No Recent Hopitalizations: No Immunizations Up To Date Tetanus Booster (TDap): Unknown Date of Pneumonia Vaccine: Aug 05, 2012 Date of Influenza Vaccine: Sep 01, 2016 Seasonal Allergies Seasonal Allergies: Yes Past Medical History Surgeries: Yes (HYSTERECTOMY 1974, PACEMAKER, TKR, FOOT, SHOULDER) Abdominal, Coronary Stent, Orthopedic, Pacemaker Respiratory: Yes (O2 at night) COPD Cardiac: Yes (chronic ischemic heart diseas, CHF, pacemaker, sick sinus syndrome) Chronic Edema/Swelling, Coronary Artery Disease Neurological: Yes (h/o frequent syncopal episodes) Parkinson's Disease, Stroke Reproductive Disorders: No Female Reproductive Disorders: Denies Sexually Transmitted Disease: No HIV/AIDS: Yes Genitourinary: Yes (UTI) Renal Failure Gastrointestinal: Yes (chronic N/V) Gastroesophageal Reflux, Chronic Constipation Musculoskeletal: Yes Arthritis, Contracture Endocrine: Yes Hypothyroidsim HEENT: Yes (dry eye syndrome, epistaxis, chronic sinusitis) Cancer: No Psychosocial: Yes Sleep Difficulties, Depression Integumentary: No Blood Disorders: Yes (anemia) Adverse Reaction/Blood Tranf: No Family Medical History No Pertinent Family Hx Physical Exam Vital Signs Vital Signs - First Documented 04/24/18 10:37 Temp 98.0 Pulse 86 Resp 18 B/P (MAP) 141/6 (51) Pulse Ox 96 O2 Delivery Room Air Capillary Refill : General Appearance: No Apparent Distress, WD/WN Eyes: Bilateral Eye Normal Inspection, Bilateral Eye PERRL, Bilateral Eye EOMI HEENT: PERRL/EOMI, TMs Normal Neck: Full Range of Motion, Normal Inspection Respiratory: No Accessory Muscle Use, No Respiratory Distress Cardiovascular: Regular Rate, Rhythm, Normal Peripheral Pulses Gastrointestinal: Non Tender, Soft Extremity: Normal Capillary Refill, Normal Inspection Neurologic/Psychiatric: Alert, Oriented x3 Skin: Normal Color, Warm/Dry Progress/Results/Core Measures Suspected Sepsis SIRS Temperature: Pulse: Respiratory Rate: Laboratory Tests 04/24/18 11:00: White Blood Count 8.3 Blood Pressure / Mean: Laboratory Tests 04/24/18 11:00: Creatinine 1.60H, Platelet Count 304, Total Bilirubin 0.4 Results/Orders Lab Results Laboratory Tests Test 04/24/18 10:41 04/24/18 11:00 Range/Units Urine Color YELLOW Urine Clarity SLIGHTLY CLOUDY Urine pH 5 5-9 Urine Specific [place] 1.020 1.016-1.022 Urine Protein 2+ H NEGATIVE Urine Glucose (UA) NEGATIVE NEGATIVE Urine Ketones 1+ H NEGATIVE Urine Nitrite NEGATIVE NEGATIVE Urine Bilirubin NEGATIVE NEGATIVE Urine Urobilinogen NORMAL NORMAL MG/DL Urine Leukocyte Esterase 3+ H NEGATIVE Urine RBC (Auto) 2+ H NEGATIVE Urine RBC 2-5 H /HPF Urine WBC TNTC H /HPF Urine Squamous Epithelial Cells NONE /HPF Urine Renal Epithelial Cells 0-2 /HPF Urine Crystals NONE /LPF Urine Bacteria LARGE H /HPF Urine Casts NONE /LPF Urine Mucus NEGATIVE /LPF Urine Culture Indicated YES White Blood Count 8.3 4.3-11.0 10^3/uL Red Blood Count 3.73 L 4.35-5.85 10^6/uL Hemoglobin 12.0 11.5-16.0 G/DL Hematocrit 36 35-52 % Mean Corpuscular Volume 96 80-99 FL Mean Corpuscular Hemoglobin 32 25-34 PG Mean Corpuscular Hemoglobin Concent 34 32-36 G/DL Red Cell Distribution Width 14.0 10.0-14.5 % Platelet Count 304 130-400 10^3/uL Mean Platelet Volume 9.2 7.4-10.4 FL Neutrophils (%) (Auto) 67 42-75 % Lymphocytes (%) (Auto) 23 12-44 % Monocytes (%) (Auto) 9 0-12 % Eosinophils (%) (Auto) 1 0-10 % Basophils (%) (Auto) 0 0-10 % Neutrophils # (Auto) 5.6 1.8-7.8 X 10^3 Lymphocytes # (Auto) 1.9 1.0-4.0 X 10^3 Monocytes # (Auto) 0.7 0.0-1.0 X 10^3 Eosinophils # (Auto) 0.1 0.0-0.3 10^3/uL Basophils # (Auto) 0.0 0.0-0.1 10^3/uL Sodium Level 141 135-145 MMOL/L Potassium Level 3.7 3.6-5.0 MMOL/L Chloride Level 109 H 98-107 MMOL/L Carbon Dioxide Level 17 L 21-32 MMOL/L Anion Gap 15 H 5-14 MMOL/L Blood Urea Nitrogen 37 H 7-18 MG/DL Creatinine 1.60 H 0.60-1.30 MG/DL Estimat Glomerular Filtration Rate 31 BUN/Creatinine Ratio 23 Glucose Level 95 70-105 MG/DL Calcium Level 9.5 8.5-10.1 MG/DL Total Bilirubin 0.4 0.1-1.0 MG/DL Aspartate Amino Transf (AST/SGOT) 16 5-34 U/L Alanine Aminotransferase (ALT/SGPT) 10 0-55 U/L Alkaline Phosphatase 88 40-136 U/L Total Protein 7.2 6.4-8.2 GM/DL Albumin 4.2 3.2-4.5 GM/DL My Orders Orders - [facility] [employer] Cbc With Automated Diff (04/24/18 10:49) Comprehensive Metabolic Panel (04/24/18 10:49) Ua Culture If Indicated (04/24/18 10:49) Chest 1 View, Ap/Pa Only (04/24/18 10:49) Ct Head Wo (04/24/18 10:49) Urine Culture (04/24/18 10:41) Ceftriaxone Injection (Rocephin Injectio (04/24/18 11:45) Ns Iv 1000 Ml (Sodium Chloride 0.9%) (04/24/18 11:45) Medications Given in ED Current Medications Medications Dose Ordered Sig/Indira Route Start Time Stop Time Status Last Admin Dose Admin Ceftriaxone Sodium 1000 mg/ Sodium Chloride 50 ml @ 200 mls/hr ONCE ONCE IV 04/24/18 11:45 04/24/18 11:59 DC 04/24/18 12:15 200 MLS/HR Vital Signs/I&O 04/24/18 10:37 Temp 98.0 Pulse 86 Resp 18 B/P (MAP) 141/6 (51) Pulse Ox 96 O2 Delivery Room Air Capillary Refill : Departure Communication (Admissions) 1248-patient did receive all of the IV Rocephin. However, her IV infiltrated and she only had received about 200 mL of normal saline. She started being poked and agrees to drink more fluids at home. I will have the nurses encourage fluids. Impression Primary Impression: Acute renal failure Additional Impressions: Altered mental status Urinary tract infection Disposition: XF SNF Condition: Stable Departure-Patient Inst. Decision time for Depature: 11:14 Referrals: DIA GREENWOOD MD (PCP/Family) Primary Care Physician Patient Instructions: Urinary Tract Infection, Adult (DC) Add. Discharge Instructions: 1. Romina has a bladder infection which may be causing the hallucinations and altered mental status. If she fails to improve after 2-3 days, you may call the senior behavioral health unit at [facility] at [phone] to ask for screening for possible temporary admission to [facility] unit.she alsoappeared a little dehydrated on lab work so encourage fluids orally for the next 2-3 days. Scripts Sulfamethoxazole/Trimethoprim (Bactrim Ds Tablet) 1 Each Tablet 1 EACH PO BID, #14 TAB Prov: VALERIE MASCORRO APRN 04/24/18 Copy Copies To 1: DIA GREENWOOD MD, PETER J APRN April 24, 2018 10:52
[2018-04-24 11:11] LABS: BASOPHILS % (AUTO) 0 % (0-10); EOSINOPHILS # (AUTO) 0.1 10^3/uL (0.0-0.3); EOSINOPHILS % (AUTO) 1 % (0-10); HEMATOCRIT 36 % (35-52); LYMPHOCYTES # (AUTO) 1.9 X 10^3 (1.0-4.0); LYMPHOCYTES % (AUTO) 23 % (12-44); MEAN CORPUSCULAR HEMOGLOBIN 32 PG (25-34); MEAN CORPUSCULAR HGB CONC 34 G/DL (32-36); MEAN CORPUSCULAR VOLUME 96 FL (80-99); MEAN PLATELET VOLUME 9.2 FL (7.4-10.4); MONOCYTES # (AUTO) 0.7 X 10^3 (0.0-1.0); MONOCYTES % (AUTO) 9 % (0-12); NEUTROPHILS # (AUTO) 5.6 X 10^3 (1.8-7.8); NEUTROPHILS % (AUTO) 67 % (42-75); PLATELET COUNT 304 10^3/uL (130-400); RED BLOOD COUNT 3.73 10^6/uL (4.35-5.85); WHITE BLOOD COUNT 8.3 10^3/uL (4.3-11.0)
[2018-04-24 11:31] LABS: BILIRUBIN,URINE NEGATIVE (NEGATIVE); CLARITY,URINE SLIGHTLY CLOUDY; COLOR,URINE YELLOW; GLUCOSE, URINE (UA) NEGATIVE (NEGATIVE); KETONES,URINE 1+ (NEGATIVE); LEUKOCYTE ESTERASE ,URINE 3+ (NEGATIVE); NITRITE,URINE NEGATIVE (NEGATIVE); PH,URINE 5 (5-9); PROTEIN,URINE 2+ (NEGATIVE); UROBILINOGEN,URINE NORMAL (NORMAL)
[2018-04-24 11:34] LABS: ALBUMIN 4.2 GM/DL (3.2-4.5); BILIRUBIN,TOTAL 0.4 MG/DL (0.1-1.0); CALCIUM 9.5 MG/DL (8.5-10.1); CREATININE SERUM 1.6 MG/DL (0.60-1.30); POTASSIUM 3.7 MMOL/L (3.6-5.0); TOTAL PROTEIN 7.2 GM/DL (6.4-8.2)
--- NOTE | 2018-04-24 11:36 | Diagnostic Imaging Report ---
PROCEDURE: CT head without contrast. TECHNIQUE: Multiple contiguous axial images were obtained through the brain without the use of intravenous contrast. INDICATION: Fall, confusion. Study compared 04/21. FINDINGS: Cerebral cortical atrophy, periventricular white matter small vessel sequelae and old lacunar infarcts are stable from prior. No hemorrhage. No evidence for edema, mass or mass effect. No new pathology. Atherosclerotic vascular calcifications chronic. IMPRESSION: Stable chronic findings as described. No hemorrhage, edema or acute finding. Dictated by: Dictated on workstation # [id number]
--- NOTE | 2018-04-24 11:39 | Diagnostic Imaging Report ---
INDICATION: Confusion. Time of exam 11:23 AM Correlation is made with prior study from 04/21/2018. The heart size is stable. Cardiac pacemaker remains in place. The lungs are clear of acute infiltrates. No failure is seen. There is no effusion or pneumothorax. Tiny calcified nodule left lower lobe is noted consistent with a granuloma. IMPRESSION: No acute cardiopulmonary process is detected. Dictated by: Dictated on workstation # [id number]
[2018-04-24 11:42] LABS: BACTERIA,URINE LARGE /HPF; WBC,URINE TNTC /HPF
[2018-04-24 11:43] LABS: RENAL EPITHELIAL CELLS,URINE 0-2 /HPF
[2018-04-24] MEDS ORDERED: SULF1TAB35 PO (11:48)
[2018-04-24] MEDS: cefTRIAXone INJECTION 1,000 MG in NS (IVPB) 50 ML IV ONE (12:15)
[2018-04-24] MEDS: NS IV 1000 ML 1,000 ML IV SCH (12:15)
[2018-04-24 13:51] VITALS: BP 148/59
== END 2018-04-24 13:51 ==
LOC: EDUNIT# 10:37 → ER 10:38
DX: N17.9 Acute kidney failure, unspecified (principal); N39.0 Urinary tract infection, site not specified; R41.82 Altered mental status, unspecified; J44.9 Chronic obstructive pulmonary disease, unspecified; I25.10 Atherosclerotic heart disease of native coronary artery without angina pectoris; I50.9 Heart failure, unspecified; G20 Parkinson's disease; K21.9 Gastro-esophageal reflux disease without esophagitis; F32.9 Major depressive disorder, single episode, unspecified; D64.9 Anemia, unspecified; E03.9 Hypothyroidism, unspecified; Z87.19 Personal history of other diseases of the digestive system; Z86.73 Personal history of transient ischemic attack (TIA), and cerebral infarction without residual deficits; Z87.440 Personal history of urinary (tract) infections; Z88.0 Allergy status to penicillin; Z79.51 Long term (current) use of inhaled steroids; Z79.01 Long term (current) use of anticoagulants; Z79.02 Long term (current) use of antithrombotics/antiplatelets; Z90.710 Acquired absence of both cervix and uterus; Z95.0 Presence of cardiac pacemaker; Z95.5 Presence of coronary angioplasty implant and graft
CPT/HCPCS: 36415; 51701; 70450; 71045; 80053; 81000; 85025; 87077; 87088; 87186; 96365

== ENCOUNTER 2018-08-22 16:20 | Emergency (ER) | payer MEDICARE, MEDICAID ==
[~2018-08-22] VITALS: Ht 162.6 cm; Wt 91.2 kg
[~2018-08-22 16:20] MED LIST changes: +SULF1TAB35 PO
--- OUTSIDE RECORDS SUMMARY | 2018-08-22 16:31 | XMS REPORT | Continuity of Care Document ---
Author Author [facility] Organization [facility] Address Unknown Phone Unavailable Allergies Active Description Code Type Severity Reaction Onset Reported/Identified Relationship to Patient Clinical Status Yes PENICILLINS UNKNOWN UNKNOWN Yes POISON AISHWARYA, OAK AND SUMAC POISON AISHWARYA, OAK AND SUMAC Unknown N/A 2008 Yes Penicillins [id number] Drug Allergy Unknown N/A 11/03/2016 Medications Medication Packaging Start Date Stop Date Route Dosage Sig RISPERIDONE TAB 0.25 MG (RISPERDAL) MG 04/24/2018 05/24/2018 BID&0800,2000 Artificial TEARS opht drops (TEARS for Dry Eyes) DROP 04/24/2018 05/09/2018 BID&0800,2000 POLY/BACI/NEOM OINT OINT (NEOSPORIN) carlos manuel 04/24/2018 05/24/2018 PRN BID SMZ/TMP DS TAB (SEPTRA DS) (Bactrim DS) TAB 04/24/2018 05/01/2018 BID&0800,2000 BUDESONIDE/FORMOTEROL INH 160 /4.5MCG (SYMBICORT) PUFF 04/24/2018 05/24/2018 BID&0800,2000 APIXABAN TAB 5 MG (ELIQUIS) MG 05/24/2018 BID&0800,2000 MELATONIN TAB 3 MG (MELATONIN) MG 04/24/2018 05/24/2018 PRN QHS ACETAMINOPHEN ORAL TABLET 325mg(Tylenol) MG 04/24/2018 05/24/2018 PRN Q4H MELATONIN TAB 3 MG (MELATONIN) MG 04/24/2018 05/24/2018 PRN QHS POLYETHYLENE GLYCOL POWDER UD PWD (MIRALAX 17GM UNIT DOSE PAKS) gm 04/24/2018 05/24/2018 PRN Q3H TRAZODONE TAB 50 MG (DESYREL) MG 05/25/2018 PRN QHS ALUM/MAG/SIMETH 30CC LIQ (MYLANTA PLUS) cc 04/25/2018 05/25/2018 PRN Q4H SALINE NASAL MIST LIQ (OCEAN SPRAY) SPRAYS 04/25/2018 05/05/2018 PRN Q4H ALBUTEROL SVN 2.5MG/3CC LIQ 2.5 MG (PROVENTIL LANDON 2.5MG/3CC) MG 04/25/2018 05/25/2018 PRN Q4H FISH OIL CAP CAP 1000 MG (OMEGA 3) MG 04/25/2018 05/24/2018 TID&0700,1200,1730 CALMOSEPTINE OINT TUBE (RISAMINE OINT) carlos manuel 04/25/2018 05/25/2018 PRN QID FENTANYL PATCH PAT 50 MCG/HR (DURAGESIC PATCH) PATCH 04/25/2018 05/22/2018 Q72H&0800 LOPERAMIDE CAP 2 MG (IMMODIUM) MG 04/25/2018 05/25/2018 PRN QID Nystatin top powder (Mycostatin) APPLICATION 04/25/2018 05/09/2018 PRN BID LACTULOSE SYRUP LIQ 20 GM/30CC (CHRONULAC SYRUP) GM 04/25/2018 05/24/2018 BID&0800,2000 MILK OF MAGNESIA LIQ ml 04/25/2018 05/25/2018 PRN BID FOLIC ACID TAB 1 MG MG 04/25/2018 05/24/2018 Daily& 0900 FUROSEMIDE TAB 40 MG (LASIX) MG 04/25/2018 Daily&0900 FERROUS SULFATE TAB 325 MG (FEOSOL) MG 04/25/2018 05/24/2018 Daily&0900 SENNA CONC/DOCUSATE TAB (SENOKOT S) TAB 04/25/2018 05/24/2018 Daily&0900 CITALOPRAM TAB 20 MG (CELEXA) MG 05/24/2018 Daily&0900 CITALOPRAM TAB 10 MG (CELEXA) MG 05/24/2018 Daily&0900 BISACODYL SUPPOS 10 MG (DULCOLAX SUPPOS) MG 04/25/2018 05/25/2018 PRN Daily CYANOCOBALAMIN TAB 1000 MCG (VIT B 12) MCG 04/25/2018 05/24/2018 Daily&0900 LEVOTHYROXINE TAB 112 MCG (SYNTHROID) MCG 04/25/2018 05/24/2018 Daily&0900 NEBIVOLOL TAB 5 MG (BYSTOLIC) MG 05/24/2018 Daily&0900 MILK OF MAGNUMA LIQ ml 04/25/2018 05/25/2018 PRN Daily Haloperidol 0.25mg (Haldol) oral tablet MG 04/25/2018 05/25/2018 PRN Q8H TRAZODONE TAB 50 MG (DESYREL) MG 05/25/2018 PRN QHS MELATONIN TAB 3 MG (MELATONIN) MG 04/25/2018 05/25/2018 PRN QHS FENTANYL PATCH PAT 50 MCG/HR (DURAGESIC PATCH) PATCH 04/26/2018 05/23/2018 Q72H&0800 FUROSEMIDE TAB 20 MG (LASIX) MG 05/10/2018 Q48H&0900 POLY/BACI/NEOMY OPTH OINT (NEOSPORIN) CARLOS MANUEL 04/27/2018 05/01/2018 TID&0800,1400,2000 POLY/BACI/NEOMY OPTH OINT (NEOSPORIN) CARLOS MANUEL 04/27/2018 05/02/2018 TID&0800,1400,2000 MUPIROCIN OINT 2 % (BACTROBAN) carlos manuel 04/28/2018 05/04/2018 BID&0800,2000 QUETIAPINE TAB 25 MG (SEROQUEL) MG 04/28/2018 05/27/2018 QHS&2100 LEVOTHYROXINE TAB 125 MCG (SYNTHROID) MCG 04/29/2018 05/28/2018 Daily&0900 POLY/BACI/NEOMY 1APP OINT (NEOSPORIN) carlos manuel 05/02/2018 05/31/2018 BID&0800,2000 ERGOCALCIFEROL CAP 50,000 UNITS (VITAMIN D) UNITS 05/05/2018 06/02/2018 Q2WK&0900 TRAZODONE TAB 50 MG (DESYREL) MG 06/03/2018 QHS&2100 Problems Date Dx Coded Attending Type Code [...] NOS 07/27/2011 Ot 414.01 CORONARY ATHEROSCLEROSIS 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 07/27/2011 Ot 428.0 CONGESTIVE HEART FAILURE [...] ST 08/08/2011 Ot 414.01 CORONARY ATHEROSCLEROSIS 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 08/08/2011 Ot 428.0 CONGESTIVE HEART FAILURE [...] NOS 12/20/2011 Ot 414.01 CORONARY ATHEROSCLEROSIS 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 12/20/2011 Ot 428.0 CONGESTIVE HEART FAILURE [...] ST 04/01/2012 Ot 414.01 CORONARY ATHEROSCLEROSIS 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 04/01/2012 Ot 435.9 TRANS CEREB ISCHEMIA [...] NOS 06/22/2012 Ot 414.01 CORONARY ATHEROSCLEROSIS 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 06/22/2012 Ot 435.9 TRANS CEREB ISCHEMIA [...] ST 02/19/2013 Ot 414.01 CORONARY ATHEROSCLEROSIS 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 02/19/2013 Ot 477.9 ALLERGIC RHINITIS NOS [...] 03/25/2015 Ot V12.54 03/25/2015 Ot V45.01 03/31/2015 BOONE-MAJOR PA, NATALIA K Ot 272.4 03/31/2015 BOONE-MAJOR PA, NATALIA K Ot 414.00 03/31/2015 BOONE-MAJOR PA, NATALIA K Ot 427.81 03/31/2015 BOONE-MAJOR PA, NATALIA K Ot 453.40 04/04/2015 BOONE-MAJOR PA, NATALIA K Ot 272.4 04/04/2015 BOONE-MAJOR PA, NATALIA K Ot 414.00 04/04/2015 BOONE-MAJOR PA, NATALIA K Ot 427.81 04/04/2015 BOONE-MAJOR PA, NATALIA K Ot 453.40 04/04/2015 BOONE-MAJOR PA, NATALIA K Ot 272.4 04/04/2015 BOONE-MAJOR PA, NATALIA K Ot 414.00 04/04/2015 BOONE-MAJOR PA, NATALIA K Ot 427.81 04/04/2015 BOONE-MAJOR PA, NATALIA K Ot 453.40 04/04/2015 NATALIA BEARD Ot 272.4 04/04/2015 NATALIA BEARD Ot 414.00 04/04/2015 NATALIA BEARD Ot 427.81 04/04/2015 NATALIA BEARD Ot 453.40 04/21/2015 KAYLENE NARVAEZ MD Ot 272.4 HYPERLIPIDEMIA NEC/NOS 04/21/2015 KAYLENE NARVAEZ MD Ot 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 04/21/2015 KAYLENE NARVAEZ MD Ot 332.0 PARALYSIS AGITANS 04/21/2015 KAYLENE NARVAEZ MD Ot 401.9 HYPERTENSION NOS 04/21/2015 KAYLENE NARVAEZ MD Ot 414.01 CORONARY ATHEROSCLEROSIS 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 04/21/2015 KAYLNEE NARVAEZ MD Ot 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 NODE DYSFUNCT 04/21/2015 KAYLENE NARVAEZ MD Ot 794.30 ABN CARDIOVASC STUDY NOS 04/21/2015 KAYLENE NARVAEZ MD Ot V12.54 PERSONAL HX OF TIA, CEREBRAL INFARCTION 04/21/2015 KAYLENE NARVAEZ MD Ot V45.82 PERCUTANEOUS TRANSLUM CORON ANGIOPLASTY 04/21/2015 KAYLENE NARVAEZ MD Ot V58.61 ANTICOAGULANTS,LT,CURRENT USE 04/21/2015 KAYLENE NARVAEZ MD Ot V58.69 OTH MED,LT,CURRENT USE 04/30/2015 NATALIA BEARD Ot 272.4 04/30/2015 NATALIA BEARD Ot 414.00 04/30/2015 NATALIA BEARD Ot 427.81 04/30/2015 NATALIA BEARD Ot 453.40 05/12/2015 NATALIA BEARD Ot 272.4 05/12/2015 NATALIA BEARD Ot 414.00 05/12/2015 NATALIA BEARD Ot 427.81 05/12/2015 NATALIA BEARD Ot 453.40 05/12/2015 NATALIA BEARD Ot 272.4 05/12/2015 NATALIA BEARD Ot 414.00 05/12/2015 NATALIA BEARD Ot 427.81 05/12/2015 NATALIA BEARD Ot 453.40 05/24/2015 NATALIA BEARD Ot 272.4 05/24/2015 NATALIA BEARD Ot 414.00 05/24/2015 NATALIA BEARD Ot 427.81 05/24/2015 NATALIA BEARD Ot 453.40 04/17/2016 Ot 276.51 DEHYDRATION 04/17/2016 [...] SITU 04/17/2016 Ot 414.01 CORONARY ATHEROSCLEROSIS 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 04/17/2016 Ot V12.54 PERSONAL HX OF [...] BEARD Ot 453.40 ACUTE VENOUS EMBOLISM [facility] 04/17/2016 SAPNA LO MD, Ot M75.120 COMPLETE ROTATR-CUFF TEAR/RUPTR OF [facility] 04/17/2016 SAPNA LO MD, Ot M75.120 COMPLETE ROTATR-CUFF TEAR/RUPTR OF [facility] 04/17/2016 SAPNA LO MD, Ot M75.120 COMPLETE ROTATR-CUFF TEAR/RUPTR OF [facility] 04/18/2016 SAPNA LO MD, Ot M75.122 COMPLETE ROTATR-CUFF TEAR/RUPTR OF LEFT 04/18/2016 SAPNA LO MD Ot M75.122 COMPLETE ROTATR-CUFF TEAR/RUPTR OF LEFT 05/18/2016 SAPNA LO MD, Ot M75.122 COMPLETE ROTATR-CUFF TEAR/RUPTR OF LEFT 05/23/2016 SAPNA LO MD, Ot M75.122 COMPLETE ROTATR-CUFF TEAR/RUPTR OF LEFT 06/22/2016 GLENIS FARR Ot H53.2 DIPLOPIA 07/11/2016 SAPNA LO MD Ot 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 07/11/2016 SAPNA LO MD Ot I10 ESSENTIAL (PRIMARY) HYPERTENSION 07/11/2016 SAPNA LO MD, Ot J44.9 CHRONIC OBSTRUCTIVE PULMONARY DISEASE, U 07/11/2016 SAPNA LO MD, Ot M19.012 PRIMARY OSTEOARTHRITIS, LEFT SHOULDER 07/11/2016 [...] MASCORRO APRN Ot Y92.[address] IN RESIDENTIAL PLACE 11/03/2016 VALERIE MASCORRO APRN Ot Y93.9 ACTIVITY, UNSPECIFIED 11/03/2016 VALERIE MASCORRO APRN Ot Y99.8 OTHER EXTERNAL CAUSE STATUS 11/03/2016 VALERIE MASCORRO APRN Ot Z79.899 OTHER PROJECT ACCOUNTANT (CURRENT) DRUG THERAPY 11/03/2016 VALERIE MASCORRO APRN Ot Z95.0 PRESENCE OF CARDIAC PACEMAKER 11/03/2016 [...] SITU 11/03/2016 Ot 414.01 CORONARY ATHEROSCLEROSIS 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 11/03/2016 Ot V12.54 PERSONAL HX OF [...] 11/03/2016 GLENIS FARR Ot H53.2 DIPLOPIA 11/03/2016 TERESITA RAMOS, SAPNA Estes Ot M75.102 UNSP ROTATR-CUFF TEAR/RUPTR OF LEFT SHOU 11/03/2016 TERESITA RAMOS, SAPNA Estes Ot Z01.818 ENCOUNTER [...] MASCORRO APRN Ot Y92.[address] IN RESIDENTIAL PLACE 11/06/2016 VALERIE MASCORRO APRN Ot Y93.9 ACTIVITY, UNSPECIFIED 11/06/2016 VALERIE MASCORRO APRN Ot Y99.8 OTHER EXTERNAL CAUSE STATUS 11/06/2016 VALERIE MASCORRO APRN Ot Z79.899 OTHER FDC (CURRENT) DRUG THERAPY 11/06/2016 VALERIE MASCORRO APRN Ot Z95.0 PRESENCE OF CARDIAC PACEMAKER 03/21/2017 CARLOS GRIFFIN MD Ot E87.5 HYPERKALEMIA 03/21/2017 CARLOS GRIFFIN MD Ot 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 03/21/2017 CARLOS GRIFFIN MD Ot I25.10 ATHSCL HEART DISEASE 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ARY 03/21/2017 CARLOS GRIFFIN MD Ot J44.1 CHRONIC OBSTRUCTIVE PULMONARY DISEASE W 03/21/2017 CARLOS GRIFFIN MD Ot N17.9 ACUTE KIDNEY FAILURE, UNSPECIFIED 03/21/2017 CARLOS GRIFFIN MD Ot R41.82 ALTERED MENTAL STATUS, UNSPECIFIED 03/21/2017 CARLOS GRIFFIN MD Ot Z79.01 PROJECT ACCOUNTANT (CURRENT) USE OF ANTICOAGULANT 03/21/2017 CARLOS GRIFFIN MD Ot Z79.899 OTHER FDC (CURRENT) DRUG THERAPY 03/21/2017 CARLOS GRIFFIN MD Ot Z86.73 PRSNL HX OF TIA (TIA), AND CEREB INFRC W 03/21/2017 CARLOS GRIFFIN MD Ot Z95.0 PRESENCE OF CARDIAC PACEMAKER 03/21/2017 CARLOS GRIFFIN MD Ot Z95.5 PRESENCE OF CORONARY ANGIOPLASTY IMPLANT 03/22/2017 CARLOS GRIFFIN MD Ot E87.5 HYPERKALEMIA 03/22/2017 CARLOS GRIFFIN MD Ot 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 03/22/2017 CARLOS GRIFFIN MD Ot I25.10 ATHSCL HEART DISEASE 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ARY 03/22/2017 CARLOS GRIFFIN MD Ot J44.1 CHRONIC OBSTRUCTIVE PULMONARY DISEASE W 03/22/2017 CARLOS GRIFFIN MD Ot N17.9 ACUTE KIDNEY FAILURE, UNSPECIFIED 03/22/2017 CARLOS GRIFFIN MD, Ot R41.82 ALTERED MENTAL STATUS, UNSPECIFIED 03/22/2017 CARLOS GRIFFIN MD, Ot Z79.01 PROJECT ACCOUNTANT (CURRENT) USE OF ANTICOAGULANT 03/22/2017 CARLOS GRIFFIN MD Ot Z79.899 OTHER FDC (CURRENT) DRUG THERAPY 03/22/2017 CARLOS GRIFFIN MD Ot Z86.73 PRSNL HX OF TIA (TIA), AND CEREB INFRC W 03/22/2017 CARLOS GRIFFIN MD Ot Z95.0 PRESENCE OF CARDIAC PACEMAKER 03/22/2017 CARLOS GRIFFIN MD Ot Z95.5 PRESENCE OF CORONARY ANGIOPLASTY IMPLANT 04/30/2017 GLENIS FARR Ot R10.84 GENERALIZED ABDOMINAL PAIN 04/30/2017 GLENIS FARR Ot R11.0 NAUSEA 04/30/2017 GLENIS FARR Ot R10.84 GENERALIZED ABDOMINAL PAIN 04/30/2017 GLENIS FARR Ot R11.0 NAUSEA 04/30/2017 GLENIS FARR Ot R10.84 GENERALIZED ABDOMINAL PAIN 04/30/2017 GLENIS FARR Ot R11.0 NAUSEA 04/30/2017 GLENIS FARR Ot R10.84 GENERALIZED ABDOMINAL PAIN 04/30/2017 GLENIS FARR Ot R11.0 NAUSEA 05/03/2017 AURA PA, GLENIS L Ot R10.84 GENERALIZED ABDOMINAL PAIN 05/03/2017 AURA CAMPA, GLENIS [place] Ot R11.0 NAUSEA 05/03/2017 AURA CAMPA, GLENIS L Ot R10.84 GENERALIZED ABDOMINAL PAIN 05/03/2017 AURA CAMPA, GLENIS L Ot R11.0 NAUSEA 05/03/2017 AURA CAMPA, GLENIS [place] Ot R10.84 GENERALIZED ABDOMINAL PAIN 05/03/2017 AURA CAMPA, GLENIS L Ot R11.0 NAUSEA 05/03/2017 AURA CAMPA, GLENIS [place] Ot R10.84 GENERALIZED ABDOMINAL PAIN 05/03/2017 AURA CAMPA, GLENIS [place] Ot R11.0 NAUSEA 05/09/2017 Ot 173.90 UNSPECIFIED [...] SITU 05/09/2017 Ot 414.01 CORONARY ATHEROSCLEROSIS 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 05/09/2017 Ot V12.54 PERSONAL HX OF TIA, CEREBRAL INFARCTION 05/09/2017 Ot V45.01 CARDIAC PACEMAKER IN SITU 05/09/2017 NATALIA BEARD Ot 272.4 HYPERLIPIDEMIA NEC/NOS 05/09/2017 NATALIA BEARD Ot 414.00 CORON ATHEROSCLER NOS TYPE VESSEL, NATIV 05/09/2017 NATALIA BEARD Ot 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 NODE DYSFUNCT 05/09/2017 NATAILA BEARD Ot 453.40 ACUTE VENOUS EMBOLISM THROMBOSIS UNSP 05/09/2017 NATALIA EBARD Ot 272.4 HYPERLIPIDEMIA NEC/NOS 05/09/2017 NATALIA BEARD [...] 453.40 ACUTE VENOUS EMBOLISM THROMBOSIS UNSP 05/09/2017 SAPNA LO MD Ot M75.122 COMPLETE ROTATR-CUFF TEAR/RUPTR OF LEFT 05/09/2017 GLENIS FARR Ot H53.2 DIPLOPIA 05/09/2017 SAPNA LO MD Ot M75.102 UNSP ROTATR-CUFF TEAR/RUPTR OF LEFT SHOU 05/09/2017 SAPNA LO MD Ot Z01.818 ENCOUNTER FOR OTHER PREPROCEDURAL EXAMIN 05/09/2017 GLENIS FARR Ot R10.84 GENERALIZED ABDOMINAL PAIN 05/09/2017 GLENIS FARR Ot R11.0 NAUSEA 05/09/2017 CARLOS GRIFFIN MD Ot D64.9 ANEMIA, UNSPECIFIED 05/09/2017 CARLOS GRIFFIN MD Ot E03.9 HYPOTHYROIDISM, UNSPECIFIED 05/09/2017 CARLOS GRIFFIN MD Ot 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 05/09/2017 CARLOS GRIFFIN MD Ot I25.10 ATHSCL HEART DISEASE 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ARY 05/09/2017 CARLOS GRIFFIN MD Ot I49.5 SICK SINUS SYNDROME 05/09/2017 CARLOS GRIFFIN MD, Ot J44.9 CHRONIC OBSTRUCTIVE PULMONARY DISEASE, U 05/09/2017 CARLOS GRIFFIN MD Ot M54.2 CERVICALGIA 05/09/2017 BRUEGGEMANN MD, CARLOS T Ot N19 UNSPECIFIED KIDNEY FAILURE 05/09/2017 CARLOS GRIFFIN MD Ot N39.0 URINARY TRACT INFECTION, SITE NOT SPECIF 05/09/2017 CARLOS GRIFFIN MD Ot W18.30XA FALL ON SAME LEVEL, UNSPECIFIED, INITIAL 05/09/2017 CARLOS GRIFFIN MD Ot Y92.[address] IN RESIDENTIAL PLACE 05/09/2017 CARLOS GRIFFIN MD Ot Z86.73 PRSNL HX OF TIA (TIA), AND CEREB INFRC W 05/09/2017 CARLOS GRIFFIN MD Ot Z95.0 PRESENCE OF CARDIAC PACEMAKER 05/09/2017 CARLOS GRIFFIN MD Ot Z99.81 DEPENDENCE ON SUPPLEMENTAL OXYGEN 05/11/2017 CARLOS GRIFFIN MD Ot D64.9 ANEMIA, UNSPECIFIED 05/11/2017 CARLOS GRIFFIN MD Ot E03.9 HYPOTHYROIDISM, UNSPECIFIED 05/11/2017 CARLOS GRIFFIN MD Ot 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 05/11/2017 CARLOS GRIFFIN MD Ot I25.10 ATHSCL HEART DISEASE 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ARY 05/11/2017 CARLOS GRIFFIN MD Ot I49.5 SICK SINUS SYNDROME 05/11/2017 CARLOS GRIFFIN MD Ot J44.9 CHRONIC OBSTRUCTIVE PULMONARY DISEASE, U 05/11/2017 CARLOS GRIFFIN MD Ot M54.2 CERVICALGIA 05/11/2017 CARLOS GRIFFIN MD Ot N19 UNSPECIFIED KIDNEY FAILURE 05/11/2017 CARLOS GRIFFIN MD Ot N39.0 URINARY TRACT INFECTION, SITE NOT SPECIF 05/11/2017 CARLOS GRIFFIN MD Ot W18.30XA FALL ON SAME LEVEL, UNSPECIFIED, INITIAL 05/11/2017 CARLOS GRIFFIN MD Ot Y92.[address] IN RESIDENTIAL PLACE 05/11/2017 CARLOS GRIFFIN MD Ot Z86.73 PRSNL HX OF TIA (TIA), AND CEREB INFRC W 05/11/2017 CARLOS GRIFFIN MD Ot Z95.0 PRESENCE OF CARDIAC PACEMAKER 05/11/2017 ELIAS RAMOS, CARLOS Sutton Ot Z99.81 DEPENDENCE ON SUPPLEMENTAL OXYGEN 05/15/2017 AURA CAMPA, GLENIS L Ot R10.84 GENERALIZED ABDOMINAL PAIN 05/15/2017 AURA CAMPA, GLENIS L Ot R11.0 NAUSEA 05/22/2017 AURA CAMPA, GLENIS L Ot R10.84 GENERALIZED ABDOMINAL PAIN 05/22/2017 AURA CAMPA, GLENIS L Ot R11.0 NAUSEA 08/12/2017 AURA CAMPA, GLENIS L Ot R10.84 GENERALIZED ABDOMINAL PAIN 08/12/2017 AURA CAMPA, GLENIS L Ot R11.0 NAUSEA 08/13/2017 NATALIA BEARD Ot E78.2 MIXED HYPERLIPIDEMIA 08/13/2017 NATALIA BEARD Ot 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 08/13/2017 NATALIA BEARD Ot I25.10 ATHSCL HEART DISEASE 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ARY 08/13/2017 NATALIA BEARD Ot I49.5 SICK SINUS SYNDROME 08/28/2017 NATALIA BEARD Ot E78.2 MIXED HYPERLIPIDEMIA 08/28/2017 NATALIA BEARD Ot 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 08/28/2017 NATALIA BEARD Ot I25.10 ATHSCL HEART DISEASE 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ARY 08/28/2017 NATALIA BEARD Ot I49.5 SICK SINUS SYNDROME 11/26/2017 HUAN HOPE MD Ot E03.9 HYPOTHYROIDISM, UNSPECIFIED 11/26/2017 HUAN HOPE MD Ot F32.9 MAJOR DEPRESSIVE DISORDER, SINGLE EPISOD 11/26/2017 HUAN HOPE MD Ot 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 11/26/2017 HUAN HOPE MD Ot I25.10 ATHSCL HEART DISEASE 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ARY 11/26/2017 HUAN HOPE MD Ot J44.9 CHRONIC OBSTRUCTIVE PULMONARY DISEASE, U 11/26/2017 HUAN HOPE MD Ot K21.9 GASTRO-ESOPHAGEAL REFLUX DISEASE WITHOUT 11/26/2017 HUAN HOPE MD Ot S09.90XA UNSPECIFIED INJURY OF HEAD, INITIAL ENCO 11/26/2017 HUAN HOPE MD Ot S40.011A CONTUSION OF RIGHT SHOULDER, INITIAL ENC 11/26/2017 HUAN HOPE MD Ot W01.198A FALL SAME LEV FROM SLIP/TRIP W STRIKE AG 11/26/2017 HUAN HOPE MD, Ot Z86.73 PRSNL HX [...] MD Ot I25.10 ATHSCL HEART DISEASE 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ARY 12/02/2017 HUAN HOPE MD, Ot J44.9 CHRONIC OBSTRUCTIVE PULMONARY DISEASE, U 12/02/2017 HUAN HOPE MD, Ot K21.9 GASTRO-ESOPHAGEAL REFLUX DISEASE WITHOUT 12/02/2017 HUAN HOPE MD Ot S09.90XA UNSPECIFIED INJURY OF HEAD, INITIAL ENCO 12/02/2017 HUAN HOPE MD Ot S40.011A CONTUSION OF RIGHT SHOULDER, INITIAL ENC 12/02/2017 HUAN HOPE MD Ot W01.198A FALL SAME LEV FROM SLIP/TRIP W STRIKE AG 12/02/2017 HUAN HOPE MD, Ot Z86.73 PRSNL HX OF TIA (TIA), AND CEREB INFRC W 12/02/2017 HUAN HOPE MD Ot Z90.710 ACQUIRED ABSENCE OF BOTH CERVIX AND UTER 12/02/2017 HUAN HOPE MD Ot Z95.0 PRESENCE OF CARDIAC PACEMAKER 12/02/2017 HUAN HOPE MD Ot Z95.5 PRESENCE OF CORONARY ANGIOPLASTY IMPLANT 12/30/2017 DESTINEE GALLEGOS DO Ot E03.9 HYPOTHYROIDISM, UNSPECIFIED 12/30/2017 DESTINEE GALLEGOS DO, Ot F32.9 MAJOR DEPRESSIVE DISORDER, SINGLE EPISOD 12/30/2017 DESTINEE GALLEGOS DO, Ot 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 12/30/2017 DESTINEE GALLEGOS DO, Ot I25.10 ATHSCL HEART DISEASE 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ARY 12/30/2017 DESTINEE GALLEGOS DO, Ot J44.9 CHRONIC OBSTRUCTIVE PULMONARY DISEASE, U 12/30/2017 DESTINEE GALLEGOS DO, Ot K21.9 GASTRO-ESOPHAGEAL REFLUX DISEASE WITHOUT 12/30/2017 DESTINEE GALLEGOS DO Ot R51 HEADACHE 12/30/2017 DESTINEE GALLEGOS DO, Ot S09.90XA UNSPECIFIED INJURY OF HEAD, INITIAL ENCO 12/30/2017 DESTINEE GALLEGOS DO Ot S40.021A CONTUSION OF RIGHT UPPER ARM, INITIAL EN 12/30/2017 DESTINEE GALLEGOS DO, Ot S63.621A SPRAIN OF INTERPHALANGEAL JOINT OF RIGHT 12/30/2017 DESTINEE GALLEGOS DO Ot W01.198A FALL SAME LEV FROM SLIP/TRIP W STRIKE AG 12/30/2017 DESTINEE GALLEGOS DO Ot Y92.002 [facility] NON-INSTITUT RESDNCE SNGL 12/30/2017 DESTINEE GALLEGOS DO Ot Z79.01 FDC (CURRENT) USE OF ANTICOAGULANT 12/30/2017 DESTINEE GALLEGOS DO Ot Z87.59 PERSONAL HISTORY OF COMP OF PREG, CHLDBR 12/30/2017 DESTINEE GALLEGOS DO, Ot Z88.0 ALLERGY STATUS TO PENICILLIN 12/30/2017 DESTINEE GALLEGOS DO, Ot Z90.710 ACQUIRED ABSENCE OF BOTH CERVIX AND UTER 12/30/2017 DESTINEE GALLEGOS DO Ot Z95.0 PRESENCE OF CARDIAC PACEMAKER 12/30/2017 DESTINEE GALLEGOS DO Ot Z95.5 PRESENCE OF CORONARY ANGIOPLASTY IMPLANT 01/01/2018 DESTINEE GALLEGOS DO, Ot E03.9 HYPOTHYROIDISM, UNSPECIFIED 01/01/2018 DESTINEE GALLEGOS DO, Ot F32.9 MAJOR DEPRESSIVE DISORDER, SINGLE EPISOD 01/01/2018 DESTINEE GALLEGOS DO, Ot 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 01/01/2018 DESTINEE GALLEGOS DO, Ot I25.10 ATHSCL HEART DISEASE 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ARY 01/01/2018 DESTINEE GALLEGOS DO, Ot J44.9 [...] DESTINEE GALLEGOS DO Ot Y92.002 [facility] NON-INSTITUT RESDNCE SNGL 01/01/2018 DESTINEE GALLEGOS DO Ot Z79.01 FDC (CURRENT) USE OF ANTICOAGULANT 01/01/2018 DESTINEE GALLEGOS DO Ot Z87.59 PERSONAL HISTORY OF COMP OF PREG, CHLDBR 01/01/2018 DESTINEE GALLEGOS DO, Ot Z88.0 ALLERGY STATUS TO PENICILLIN 01/01/2018 DESTINEE GALLEGOS DO, Ot Z90.710 ACQUIRED ABSENCE OF BOTH CERVIX [...] DO, Ot I25.10 ATHSCL HEART DISEASE 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ARY 01/01/2018 DESTINEE GALLEGOS DO, Ot J44.9 CHRONIC OBSTRUCTIVE PULMONARY DISEASE, U 01/01/2018 DESTINEE GALLEGOS DO, Ot K21.9 GASTRO-ESOPHAGEAL REFLUX DISEASE WITHOUT 01/01/2018 DESTINEE GALLEGOS DO Ot R51 HEADACHE 01/01/2018 TYRESE GALLEGOS DOA [place] S09.90XA UNSPECIFIED INJURY OF HEAD, INITIAL ENCO 01/01/2018 DESTINEE GALLEGOS DO Ot S40.021A CONTUSION OF RIGHT UPPER ARM, INITIAL EN 01/01/2018 DESTINEE GALLEGOS DO, Ot S63.621A SPRAIN OF INTERPHALANGEAL JOINT OF RIGHT 01/01/2018 DESTINEE GALLEGOS DO Ot W01.198A FALL SAME LEV FROM SLIP/TRIP W STRIKE AG 01/01/2018 DESTINEE GALLEGOS DO Ot Y92.002 [facility]HRM OF [facility] NON-INSTITUT RESDNCE SNGL 01/01/2018 DESTINEE GALLEGOS DO Ot Z79.01 FDC (CURRENT) USE OF ANTICOAGULANT 01/01/2018 DESTINEE GALLEGOS DO, Ot Z87.59 PERSONAL HISTORY OF COMP OF PREG, CHLDBR 01/01/2018 DESTINEE GALLEGOS DO, Ot Z88.0 ALLERGY STATUS TO PENICILLIN 01/01/2018 DESTINEE GALLEGOS DO, Ot Z90.710 ACQUIRED ABSENCE OF BOTH CERVIX AND UTER 01/01/2018 DESTINEE GALLEGOS DO Ot Z95.0 PRESENCE OF CARDIAC PACEMAKER 01/01/2018 DESTINEE GALLEGOS DO Ot Z95.5 PRESENCE OF CORONARY ANGIOPLASTY IMPLANT 04/21/2018 Ot 397.0 TRICUSPID VALVE DISEASE 04/21/2018 Ot 414.00 CORON ATHEROSCLER NOS TYPE VESSEL, NATIV 04/21/2018 Ot 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 VALVE DISORDER 04/21/2018 Ot 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 NODE DYSFUNCT 04/21/2018 Ot 436 CVA 04/21/2018 Ot V45.01 CARDIAC PACEMAKER IN SITU 04/21/2018 Ot 414.01 CORONARY ATHEROSCLEROSIS 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 04/21/2018 Ot V12.54 PERSONAL HX OF TIA, CEREBRAL INFARCTION 04/21/2018 Ot V45.01 CARDIAC PACEMAKER IN SITU 04/21/2018 NATALIA BEARD Ot 272.4 HYPERLIPIDEMIA NEC/NOS 04/21/2018 NATALIA BEARD Ot 414.00 CORON ATHEROSCLER NOS TYPE VESSEL, NATIV 04/21/2018 NATALIA BEARD Ot 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 NODE DYSFUNCT 04/21/2018 NATALIA BEARD Ot 453.40 ACUTE VENOUS EMBOLISM THROMBOSIS UNSP 04/21/2018 NATALIA BEARD Ot 272.4 HYPERLIPIDEMIA NEC/NOS 04/21/2018 NATALIA BEARD Ot 414.00 CORON ATHEROSCLER NOS TYPE VESSEL, NATIV 04/21/2018 NATALIA BEARD Ot 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 NODE DYSFUNCT 04/21/2018 NATALIA BEARD Ot 453.40 ACUTE VENOUS EMBOLISM THROMBOSIS UNSP 04/21/2018 NATALIA BEARD Ot 272.4 HYPERLIPIDEMIA NEC/NOS 04/21/2018 NATALIA BEARD Ot 414.00 CORON ATHEROSCLER NOS TYPE VESSEL, NATIV 04/21/2018 NATALIA BEARD Ot 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 NODE DYSFUNCT 04/21/2018 NATALIA BEARD Ot 453.40 ACUTE VENOUS EMBOLISM THROMBOSIS UNSP 04/21/2018 TERESITA RAMOS, SAPNA Estes Ot M75.122 COMPLETE ROTATR-CUFF TEAR/RUPTR OF LEFT 04/21/2018 GLENIS FARR Ot H53.2 DIPLOPIA 04/21/2018 SAPNA LO MD Ot M75.102 UNSP ROTATR-CUFF TEAR/RUPTR OF LEFT SHOU 04/21/2018 TERESITA RAMOS, SAPNA Estes Ot Z01.818 ENCOUNTER FOR OTHER PREPROCEDURAL EXAMIN 04/21/2018 GLENIS FARR Ot R10.84 GENERALIZED ABDOMINAL PAIN 04/21/2018 GLENIS FARR Ot R11.0 NAUSEA 04/21/2018 NATALIA BEARD Ot E78.2 MIXED HYPERLIPIDEMIA 04/21/2018 NATALIA BEARD Ot 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 04/21/2018 NATALIA BEARD Ot I25.10 ATHSCL HEART DISEASE 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ARY 04/21/2018 NATALIA BEARD Ot I49.5 SICK SINUS SYNDROME 04/23/2018 GLENIS FARR Ot D64.9 ANEMIA, UNSPECIFIED 04/23/2018 GLENIS FARR Ot 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 04/23/2018 GLENIS FARR Ot I25.10 ATHSCL HEART DISEASE 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ARY 04/23/2018 GLENIS FARR Ot I50.9 HEART FAILURE, UNSPECIFIED 04/23/2018 GLENIS FARR Ot 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 04/23/2018 GLENIS FARR Ot J44.9 CHRONIC OBSTRUCTIVE PULMONARY DISEASE, U 04/23/2018 GLENIS FARR Ot K21.9 GASTRO-ESOPHAGEAL REFLUX DISEASE WITHOUT 04/23/2018 GLENIS FARR Ot K59.09 OTHER CONSTIPATION 04/23/2018 GLENIS FARR Ot N18.9 CHRONIC KIDNEY DISEASE, UNSPECIFIED 04/23/2018 GLENIS FARR Ot R41.82 ALTERED MENTAL STATUS, UNSPECIFIED 04/23/2018 GLENIS FARR Ot Z88.0 ALLERGY STATUS TO PENICILLIN 04/23/2018 GLENIS FARR Ot Z90.710 ACQUIRED ABSENCE OF BOTH CERVIX AND UTER 04/23/2018 GLENIS FARR Ot Z95.0 PRESENCE OF CARDIAC PACEMAKER 04/23/2018 GLENIS FARR Ot Z95.5 PRESENCE OF CORONARY ANGIOPLASTY IMPLANT 04/23/2018 KAYLENE NARVAEZ MD Ot E78.5 HYPERLIPIDEMIA, UNSPECIFIED 04/23/2018 KAYLENE NARVAEZ MD, Ot E86.0 DEHYDRATION 04/23/2018 KAYLENE NARVAEZ MD Ot F02.80 DEMENTIA IN OTH DISEASES CLASSD ELSWHR W 04/23/2018 KAYLENE NARVAEZ MD, Ot F32.9 MAJOR DEPRESSIVE DISORDER, SINGLE EPISOD 04/23/2018 KAYLENE NARVAEZ MD Ot 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 04/23/2018 KAYLENE NARVAEZ MD, Ot 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, UNSPECIFIED 04/23/2018 KAYLENE NARVAEZ MD, Ot 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 04/23/2018 KAYLENE NARVAEZ MD, Ot G81.91 HEMIPLEGIA, UNSPECIFIED AFFECTING RIGHT 04/23/2018 KAYLENE NARVAEZ MD, Ot I13.0 HYP HRT CHR KDNY DIS W HRT FAIL AND ST 04/23/2018 KAYLENE NARVAEZ MD, Ot I25.10 ATHSCL HEART DISEASE 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ARY 04/23/2018 KAYLENE NARVAEZ MD Ot I48.0 PAROXYSMAL ATRIAL FIBRILLATION 04/23/2018 KAYLENE NARVAEZ MD Ot I50.9 HEART FAILURE, UNSPECIFIED 04/23/2018 KAYLENE NARVAEZ MD Ot J30.2 OTHER SEASONAL ALLERGIC RHINITIS 04/23/2018 KAYLENE NARVAEZ MD Ot J44.9 CHRONIC OBSTRUCTIVE PULMONARY DISEASE, U 04/23/2018 KAYLENE NARVAEZ MD Ot K21.9 GASTRO-ESOPHAGEAL REFLUX DISEASE WITHOUT 04/23/2018 KAYLENE NARVAEZ MD Ot N17.9 ACUTE KIDNEY FAILURE, UNSPECIFIED 04/23/2018 KAYLENE NARVAEZ MD Ot N18.9 CHRONIC KIDNEY DISEASE, UNSPECIFIED 04/23/2018 KAYLENE NARVAEZ MD Ot R41.82 ALTERED MENTAL STATUS, UNSPECIFIED 04/23/2018 KAYLENE NARVAEZ MD Ot R47.9 UNSPECIFIED SPEECH DISTURBANCES 04/23/2018 KAYLENE NARVAEZ MD Ot R53.83 OTHER FATIGUE 04/23/2018 KAYLENE NARVAEZ MD Ot T40.4X5A ADVERSE EFFECT OF OTHER SYNTHETIC NARCOT 04/23/2018 KAYLENE NARVAEZ MD Ot T42.4X5A ADVERSE EFFECT OF BENZODIAZEPINES, INITI 04/23/2018 KAYLENE NARVAEZ MD Ot Z66 DO NOT RESUSCITATE 04/23/2018 KAYLENE NARVAEZ MD Ot Z86.718 PERSONAL HISTORY OF OTHER VENOUS THROMBO 04/23/2018 KAYLENE NARVAEZ MD Ot Z86.73 PRSNL HX OF TIA (TIA), AND CEREB INFRC W 04/23/2018 KAYLENE NARVAEZ MD Ot Z86.79 PERSONAL HISTORY OF OTHER DISEASES OF TH 04/23/2018 KAYLENE NARVAEZ MD Ot Z95.0 PRESENCE OF CARDIAC PACEMAKER 04/23/2018 KAYLENE NARVAEZ MD Ot Z95.5 PRESENCE OF CORONARY ANGIOPLASTY IMPLANT 04/23/2018 KAYLENE NARVAEZ MD Ot Z99.81 DEPENDENCE ON SUPPLEMENTAL OXYGEN 04/23/2018 KAYLENE NARVAEZ MD Ot E78.5 HYPERLIPIDEMIA, UNSPECIFIED 04/23/2018 KAYLENE NARVAEZ MD Ot E86.0 DEHYDRATION 04/23/2018 KAYLENE NARVAEZ MD Ot F02.80 DEMENTIA IN OTH DISEASES CLASSD ELSWHR W 04/23/2018 KAYLENE NARVAEZ MD Ot F32.9 MAJOR DEPRESSIVE DISORDER, SINGLE EPISOD 04/23/2018 KAYLENE NARVAEZ MD, Ot 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 04/23/2018 KAYLENE NARVAEZ MD, Ot 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, UNSPECIFIED 04/23/2018 KAYLENE NARVAEZ MD Ot 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 04/23/2018 KAYLENE NARVAEZ MD Ot G81.91 HEMIPLEGIA, UNSPECIFIED AFFECTING RIGHT 04/23/2018 KAYLENE NARVAEZ MD Ot I13.0 HYP HRT CHR KDNY DIS W HRT FAIL AND ST 04/23/2018 KAYLENE NARVAEZ MD Ot I25.10 ATHSCL HEART DISEASE 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ARY 04/23/2018 KAYLENE NARVAEZ MD Ot I48.0 PAROXYSMAL ATRIAL FIBRILLATION 04/23/2018 KAYLENE NARVAEZ MD Ot I50.9 HEART FAILURE, UNSPECIFIED 04/23/2018 KAYLENE NARVAEZ MD Ot J30.2 OTHER SEASONAL ALLERGIC RHINITIS 04/23/2018 KAYLENE NARVAEZ MD, Ot J44.9 CHRONIC OBSTRUCTIVE PULMONARY DISEASE, U 04/23/2018 KAYLENE NARVAEZ MD Ot K21.9 GASTRO-ESOPHAGEAL REFLUX DISEASE WITHOUT 04/23/2018 KAYLENE NARVAEZ MD Ot N17.9 ACUTE KIDNEY FAILURE, UNSPECIFIED 04/23/2018 KAYLENE NARVAEZ MD, Ot N18.9 CHRONIC KIDNEY DISEASE, UNSPECIFIED 04/23/2018 KAYLENE NARVAEZ MD Ot R41.82 ALTERED MENTAL STATUS, UNSPECIFIED 04/23/2018 KAYLENE NARVAEZ MD Ot R47.9 UNSPECIFIED SPEECH DISTURBANCES 04/23/2018 KAYLENE NARVAEZ MD Ot R53.83 OTHER FATIGUE 04/23/2018 KAYLENE NARVAEZ MD Ot T40.4X5A ADVERSE EFFECT OF OTHER SYNTHETIC NARCOT 04/23/2018 KAYLENE NARVAEZ MD, Ot T42.4X5A ADVERSE EFFECT OF BENZODIAZEPINES, INITI 04/23/2018 KAYLENE NARVAEZ MD Ot Z66 DO NOT RESUSCITATE 04/23/2018 KAYLENE NARVAEZ MD Ot Z86.718 PERSONAL HISTORY OF OTHER VENOUS THROMBO 04/23/2018 KAYLENE NARVAEZ MD Ot Z86.73 PRSNL HX OF TIA (TIA), AND CEREB INFRC W 04/23/2018 KAYLENE NARVAEZ MD Ot Z86.79 PERSONAL HISTORY OF OTHER DISEASES OF TH 04/23/2018 KAYLENE NARVAEZ MD Ot Z95.0 PRESENCE OF CARDIAC PACEMAKER 04/23/2018 KAYLENE NARVAEZ MD Ot Z95.5 PRESENCE OF CORONARY ANGIOPLASTY IMPLANT 04/23/2018 KAYLENE NARVAEZ MD Ot Z99.81 DEPENDENCE ON SUPPLEMENTAL OXYGEN 04/24/2018 VALERIE MASCORRO APRN Ot D64.9 ANEMIA, UNSPECIFIED 04/24/2018 VALERIE MASCORRO APRN Ot E03.9 HYPOTHYROIDISM, UNSPECIFIED 04/24/2018 VALERIE MASCORRO APRN Ot F32.9 MAJOR DEPRESSIVE DISORDER, SINGLE EPISOD 04/24/2018 VALERIE MASCORRO APRN Ot 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 04/24/2018 VALERIE MASCORRO APRN Ot I25.10 ATHSCL HEART DISEASE 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ARY 04/24/2018 VALERIE MASCORRO APRN Ot I50.9 HEART FAILURE, UNSPECIFIED 04/24/2018 VALERIE MASCORRO APRN Ot J44.9 CHRONIC OBSTRUCTIVE PULMONARY DISEASE, U 04/24/2018 VALERIE MASCORRO APRN Ot K21.9 GASTRO-ESOPHAGEAL REFLUX DISEASE WITHOUT 04/24/2018 VALERIE MASCORRO APRN Ot N17.9 ACUTE KIDNEY FAILURE, UNSPECIFIED 04/24/2018 VALERIE MASCORRO APRN Ot N39.0 URINARY TRACT INFECTION, SITE NOT SPECIF 04/24/2018 VALERIE MASCORRO APRN Ot R41.82 ALTERED MENTAL STATUS, UNSPECIFIED 04/24/2018 VALERIE MASCORRO APRN Ot R44.1 VISUAL HALLUCINATIONS 04/24/2018 VALERIE MASCORRO APRN Ot Z79.01 PROJECT ACCOUNTANT (CURRENT) USE OF ANTICOAGULANT 04/24/2018 VALERIE MASCORRO APRN Ot Z79.02 PROJECT ACCOUNTANT (CURRENT) USE OF ANTITHROMBOTI 04/24/2018 VALERIE MASCORRO APRN Ot Z79.51 FDC (CURRENT) USE OF INHALED STERO 04/24/2018 VALERIE MASCORRO APRN Ot Z86.73 PRSNL HX OF TIA (TIA), AND CEREB INFRC W 04/24/2018 VALERIE MASCORRO APRN Ot Z87.19 PERSONAL HISTORY OF OTHER DISEASES OF 04/24/2018 VALERIE MASCORRO APRN Ot Z87.440 PERSONAL HISTORY OF URINARY (TRACT) INFE 04/24/2018 VALERIE MASCORRO APRN Ot Z88.0 ALLERGY STATUS TO PENICILLIN 04/24/2018 VALERIE MASCORRO APRN Ot Z90.710 ACQUIRED ABSENCE OF BOTH CERVIX AND UTER 04/24/2018 VALERIE MASCORRO APRN Ot Z95.0 PRESENCE OF CARDIAC PACEMAKER 04/24/2018 VALERIE MASCORRO APRN Ot Z95.5 PRESENCE OF CORONARY ANGIOPLASTY IMPLANT 04/28/2018 VALERIE MASCORRO APRN Ot D64.9 ANEMIA, UNSPECIFIED 04/28/2018 VALERIE MASCORRO APRN Ot E03.9 HYPOTHYROIDISM, UNSPECIFIED 04/28/2018 VALERIE MASCORRO APRN Ot F32.9 MAJOR DEPRESSIVE DISORDER, SINGLE EPISOD 04/28/2018 VLAERIE MASCORRO APRN Ot 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 04/28/2018 VALERIE MASCORRO APRN Ot I25.10 ATHSCL HEART DISEASE 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ARY 04/28/2018 VALERIE MASCORRO APRN Ot I50.9 HEART FAILURE, UNSPECIFIED 04/28/2018 VALERIE MASCORRO APRN Ot J44.9 CHRONIC OBSTRUCTIVE PULMONARY DISEASE, U 04/28/2018 VALERIE MASCORRO APRN Ot K21.9 GASTRO-ESOPHAGEAL REFLUX DISEASE WITHOUT 04/28/2018 VALERIE MASCORRO APRN Ot N17.9 ACUTE KIDNEY FAILURE, UNSPECIFIED 04/28/2018 VALERIE MASCORRO APRN Ot N39.0 URINARY TRACT INFECTION, SITE NOT SPECIF 04/28/2018 VALERIE MASCORRO APRN Ot R41.82 ALTERED MENTAL STATUS, UNSPECIFIED 04/28/2018 VALERIE MASCORRO APRN Ot R44.1 VISUAL HALLUCINATIONS 04/28/2018 VALERIE MASCORRO APRN Ot Z79.01 PROJECT ACCOUNTANT (CURRENT) USE OF ANTICOAGULANT 04/28/2018 VALERIE MASCORRO APRN Ot Z79.02 FDC (CURRENT) USE OF ANTITHROMBOTI 04/28/2018 VALERIE MASCORRO APRN Ot Z79.51 PROJECT ACCOUNTANT (CURRENT) USE OF INHALED STERO 04/28/2018 VALERIE MASCORRO APRN Ot Z86.73 PRSNL HX OF TIA (TIA), AND CEREB INFRC W 04/28/2018 VALERIE MASCORRO APRN Ot Z87.19 PERSONAL HISTORY OF OTHER DISEASES OF TH 04/28/2018 VALERIE MASCORRO CERTIFIED PEDORTHOTIST Ot Z87.440 PERSONAL HISTORY OF URINARY (TRACT) INFE 04/28/2018 VALERIE MASCORRO CERTIFIED PEDORTHOTIST Ot Z88.0 ALLERGY STATUS TO PENICILLIN 04/28/2018 VALERIE MASCORRO CERTIFIED PEDORTHOTIST Ot Z90.710 ACQUIRED ABSENCE OF BOTH CERVIX AND UTER 04/28/2018 VALERIE MASCORRO CERTIFIED PEDORTHOTIST Ot Z95.0 PRESENCE OF CARDIAC PACEMAKER 04/28/2018 VALERIE MASCORRO CERTIFIED PEDORTHOTIST Ot Z95.5 PRESENCE OF CORONARY ANGIOPLASTY IMPLANT [...] test by minimum inhibitory concentration 0.5 NRG Complete blood count (CBC) with automated white blood cell (WBC) differential - 04/21/18 12:25 Blood leukocytes automated count (number/volume) 9.3 10*3/uL 4.3-11.0 Blood erythrocytes automated count (number/volume) 4.42 10*6/uL 4.35-5.85 Venous blood hemoglobin measurement (mass/volume) 14.0 g/dL 11.5-16.0 Blood hematocrit (volume fraction) 42 % 35-52 Automated erythrocyte mean corpuscular volume 94 [foz_us] 80-99 Automated erythrocyte mean corpuscular hemoglobin (mass per erythrocyte) 32 pg 25-34 Automated erythrocyte mean corpuscular hemoglobin concentration measurement ( mass/volume) 34 g/dL 32-36 Automated erythrocyte distribution width ratio 13.8 % 10.0-14.5 Automated blood platelet count (count/volume) 299 10*3/uL 130-400 Automated blood platelet mean volume measurement 9.5 [foz_us] 7.4-10.4 Automated blood neutrophils/100 leukocytes 74 % 42-75 Automated blood lymphocytes/100 leukocytes 20 % 12-44 Blood monocytes/100 leukocytes 6 % 0-12 Automated blood eosinophils/100 leukocytes 0 % 0-10 Automated blood basophils/100 leukocytes 0 % 0-10 Blood neutrophils automated count (number/volume) 6.8 10*3 1.8-7.8 Blood lymphocytes automated count (number/volume) 1.8 10*3 1.0-4.0 Blood monocytes automated count (number/volume) 0.6 10*3 0.0-1.0 Automated eosinophil count 0.0 10*3/uL 0.0-0.3 Automated blood basophil count (count/volume) 0.0 10*3/uL 0.0-0.1 Comprehensive metabolic panel - 04/21/18 12:25 Serum or plasma sodium measurement (moles/volume) 136 mmol/L 135-145 Serum or plasma potassium measurement (moles/volume) 4.4 mmol/L 3.6-5.0 Serum or plasma chloride measurement (moles/volume) 99 mmol/L 98-107 Carbon dioxide 25 mmol/L 21-32 Serum or plasma anion gap determination (moles/volume) 12 mmol/L 5-14 Serum or plasma urea nitrogen measurement (mass/volume) 17 mg/dL 7-18 Serum or plasma creatinine measurement (mass/volume) 1.19 mg/dL 0.60-1.30 Serum or plasma urea nitrogen/creatinine mass ratio 14 NRG Serum or plasma creatinine measurement with calculation of estimated glomerular filtration rate 43 NRG Serum or plasma glucose measurement (mass/volume) 114 mg/dL 70-105 Serum or plasma calcium measurement (mass/volume) 10.4 mg/dL 8.5-10.1 Serum or plasma total bilirubin measurement (mass/volume) 1.0 mg/dL 0.1-1.0 Serum or plasma alkaline phosphatase measurement (enzymatic activity/volume) 115 U/L 40-136 Serum or plasma aspartate aminotransferase measurement (enzymatic activity/ volume) 16 U/L 5-34 Serum or plasma alanine aminotransferase measurement (enzymatic activity/volume ) < U/L 0-55 Serum or plasma protein measurement (mass/volume) 8.3 g/dL 6.4-8.2 Serum or plasma albumin measurement (mass/volume) 4.7 g/dL 3.2-4.5 Magnesium - 04/21/18 12:25 Magnesium 2.2 mg/dL 1.8-2.4 Serum or plasma creatine kinase measurement (enzymatic activity/volume) - 04/21 12:25 Serum or plasma creatine kinase measurement (enzymatic activity/volume) 160 U/L 29-168 Serum or plasma creatine kinase MB measurement (enzymatic activity/volume) - 12:25 Serum or plasma creatine kinase MB measurement (enzymatic activity/volume) 2.0 ng/mL <6.6 Serum or plasma lithium measurement (moles/volume) - 04/21/18 12:25 BNP level 768.1 pg/mL <100.0 PT panel in platelet poor plasma by coagulation assay - 04/21/18 12:25 Prothrombin time (PT) in platelet poor plasma by coagulation assay 20.1 s 12.2-14.7 INR in platelet poor plasma or blood by coagulation assay 1.7 0.8-1.4 Activated partial thromboplastin time (aPTT) in platelet poor plasma bycoagulation assay - 04/21/18 12:25 Activated partial thromboplastin time (aPTT) in platelet poor plasma bycoagulation assay 36 s 24-35 Fibrin D-dimer FEU measurement in platelet poor plasma (mass/volume) - 12:25 Fibrin D-dimer FEU measurement in platelet poor plasma (mass/volume) 0.36 ug/mL 0.00-0.49 Serum or plasma troponin i.cardiac measurement (mass/volume) - 04/21/18 12:25 Serum or plasma troponin i.cardiac measurement (mass/volume) < ng/ mL <0.30 Myoglobin, serum - 04/21/18 12:25 Myoglobin, serum 361.1 ng/mL 10.0-92.0 Serum or plasma thyrotropin measurement by detection limit <=0.05 miu/l (units/ volume) - 04/21/18 12:25 Serum or plasma thyrotropin measurement by detection limit <=0.05 miu/l (units/ volume) 2.44 u[iU]/mL 0.35-4.94 Serum or plasma C reactive protein measurement (mass/volume) - 04/21/18 12:25 Serum or plasma C reactive protein measurement (mass/volume) 2.59 mg /dL 0.00-0.50 Serum or plasma thyrotropin measurement by detection limit <=0.05 miu/l (units/ volume) - 04/21/18 12:25 Serum or plasma thyrotropin measurement by detection limit <=0.05 miu/l (units/ volume) 2.50 u[iU]/mL 0.35-4.94 Complete urinalysis with reflex to culture - 04/21/18 13:40 Urine color determination YELLOW NRG Urine clarity determination CLEAR NRG Urine pH measurement by test strip 6.5 5-9 Specific gravity of urine by test strip 1.020 1.016- 1.022 Urine protein assay by test strip, semi-quantitative 3+ NEGATIVE Urine glucose detection by automated test strip NEGATIVE NEGATIVE Erythrocytes detection in urine sediment by light microscopy 2+ NEGATIVE Urine ketones detection by automated test strip 1+ NEGATIVE Urine nitrite detection by test strip NEGATIVE NEGATIVE Urine total bilirubin detection by test strip NEGATIVE NEGATIVE Urine urobilinogen measurement by automated test strip (mass/volume) NORMAL NORMAL Urine leukocyte esterase detection by dipstick 1+ NEGATIVE Automated urine sediment erythrocyte count by microscopy (number/high power field) [HPF] [facility] Automated urine sediment leukocyte count by microscopy (number/high power field ) [HPF] NRG Bacteria detection in urine sediment by light microscopy NEGATIVE NRG Squamous epithelial cells detection in urine sediment by light microscopy RARE NRG Crystals detection in urine sediment by light microscopy NONE NRG Casts detection in urine sediment by light microscopy NONE NRG Mucus detection in urine sediment by light microscopy NEGATIVE NRG Complete urinalysis with reflex to culture NO NRG Serum or plasma creatine kinase measurement (enzymatic activity/volume) - 04/21 16:20 Serum or plasma creatine kinase measurement (enzymatic activity/volume) 188 U/L 29-168 Serum or plasma creatine kinase MB measurement (enzymatic activity/volume) - 16:20 Serum or plasma creatine kinase MB measurement (enzymatic activity/volume) 2.0 ng/mL <6.6 Myoglobin, serum - 04/21/18 16:20 Myoglobin, serum 533.1 ng/mL 10.0-92.0 Serum or plasma troponin i.cardiac measurement (mass/volume) - 04/21/18 16:20 Serum or plasma troponin i.cardiac measurement (mass/volume) < ng/ mL <0.30 Myoglobin, serum - 04/21/18 16:20 Myoglobin, serum 533.1 ng/mL 10.0-92.0 Automated blood complete blood count (hemogram) panel - 04/23/18 03:08 Blood leukocytes automated count (number/volume) 8.3 10*3/uL 4.3-11.0 Blood erythrocytes automated count (number/volume) 3.78 10*6/uL 4.35-5.85 Venous blood hemoglobin measurement (mass/volume) 11.9 g/dL 11.5-16.0 Blood hematocrit (volume fraction) 36 % 35-52 Automated erythrocyte mean corpuscular volume 95 [foz_us] 80-99 Automated erythrocyte mean corpuscular hemoglobin (mass per erythrocyte) 32 pg 25-34 Automated erythrocyte mean corpuscular hemoglobin concentration measurement ( mass/volume) 33 g/dL 32-36 Automated erythrocyte distribution width ratio 13.6 % 10.0-14.5 Automated blood platelet count (count/volume) 265 10*3/uL 130-400 Automated blood platelet mean volume measurement 9.4 [foz_us] 7.4-10.4 PT panel in platelet poor plasma by coagulation assay - 04/23/18 03:08 Prothrombin time (PT) in platelet poor plasma by coagulation assay 19.8 s 12.2-14.7 INR in platelet poor plasma or blood by coagulation assay 1.7 0.8-1.4 Activated partial thromboplastin time (aPTT) in platelet poor plasma bycoagulation assay - 04/23/18 03:08 Activated partial thromboplastin time (aPTT) in platelet poor plasma bycoagulation assay 33 s 24-35 Comprehensive metabolic panel - 04/23/18 03:08 Serum or plasma sodium measurement (moles/volume) 136 mmol/L 135-145 Serum or plasma potassium measurement (moles/volume) 4.0 mmol/L 3.6-5.0 Serum or plasma chloride measurement (moles/volume) 102 mmol/L 98-107 Carbon dioxide 21 mmol/L 21-32 Serum or plasma anion gap determination (moles/volume) 13 mmol/L 5-14 Serum or plasma urea nitrogen measurement (mass/volume) 39 mg/dL 7-18 Serum or plasma creatinine measurement (mass/volume) 1.64 mg/dL 0.60-1.30 Serum or plasma urea nitrogen/creatinine mass ratio 24 NRG Serum or plasma creatinine measurement with calculation of estimated glomerular filtration rate 30 NRG Serum or plasma glucose measurement (mass/volume) 91 mg/dL 70-105 Serum or plasma calcium measurement (mass/volume) 9.1 mg/dL 8.5-10.1 Serum or plasma total bilirubin measurement (mass/volume) 0.5 mg/dL 0.1-1.0 Serum or plasma alkaline phosphatase measurement (enzymatic activity/volume) 86 U/L 40-136 Serum or plasma aspartate aminotransferase measurement (enzymatic activity/ volume) 13 U/L 5-34 Serum or plasma alanine aminotransferase measurement (enzymatic activity/volume ) 6 U/L 0-55 Serum or plasma protein measurement (mass/volume) 6.8 g/dL 6.4-8.2 Serum or plasma albumin measurement (mass/volume) 3.9 g/dL 3.2-4.5 Serum or plasma troponin i.cardiac measurement (mass/volume) - 04/23/18 03:08 Serum or plasma troponin i.cardiac measurement (mass/volume) < ng/ mL <0.30 THYROID STIMULATING HORMONE - 04/23/18 03:08 THYROID STIMULATING HORMONE 1.69 u[iU]/mL 0.35-4.94 Complete urinalysis with reflex to culture - 04/24/18 10:41 Urine color determination YELLOW NRG Urine clarity determination SLIGHTLY CLOUDY NRG Urine pH measurement by test strip 5 5-9 Specific gravity of urine by test strip 1.020 1.016- 1.022 Urine protein assay by test strip, semi-quantitative 2+ NEGATIVE Urine glucose detection by automated test strip NEGATIVE NEGATIVE Erythrocytes detection in urine sediment by light microscopy 2+ NEGATIVE Urine ketones detection by automated test strip 1+ NEGATIVE Urine nitrite detection by test strip NEGATIVE NEGATIVE Urine total bilirubin detection by test strip NEGATIVE NEGATIVE Urine urobilinogen measurement by automated test strip (mass/volume) NORMAL NORMAL Urine leukocyte esterase detection by dipstick 3+ NEGATIVE Automated urine sediment erythrocyte count by microscopy (number/high power field) [HPF] NRG Automated urine sediment leukocyte count by microscopy (number/high power field ) TNTC NRG Bacteria detection in urine sediment by light microscopy LARGE NRG Squamous epithelial cells detection in urine sediment by light microscopy NONE NRG Crystals detection in urine sediment by light microscopy NONE NRG Casts detection in urine sediment by light microscopy NONE NRG Mucus detection in urine sediment by light microscopy NEGATIVE NRG Complete urinalysis with reflex to culture YES NRG Renal epithelial cells detection in urine sediment by light microscopy 0-2 NRG Bacterial urine culture - 04/24/18 10:41 Bacterial urine culture [id number] NRG COLONY COUNT >100,000/ML NRG FTX;REPORTABLE FINAL AND SUSCEPTIBILITIES REPORTED AT [facility] FREE TEXT ENTRY 2 04-27-18 AT 0905 [facility] Sensitivity Panel - 04/24/18 10:41 Gentamicin susceptibility test by minimum inhibitory concentration < = NRG Trimethoprim/sulfamethoxazole susceptibility test by minimum inhibitoryconcentration <= NRG Levofloxacin susceptibility test by minimum inhibitory concentration <= NRG Ampicillin susceptibility test by minimum inhibitory concentration > NRG Cefazolin susceptibility test by minimum inhibitory concentration < = NRG Ceftriaxone susceptibility test by minimum inhibitory concentration <= NRG Ciprofloxacin susceptibility test by minimum inhibitory concentration <= NRG Meropenem susceptibility test by minimum inhibitory concentration < = NRG Nitrofurantoin susceptibility test by minimum inhibitory concentration 64 NRG Amoxicillin and clavulanate potassium susc [place] <= NRG [facility] Sensitivity Panel - 04/24/18 10:41 Gentamicin susceptibility test by minimum inhibitory concentration < = NRG Trimethoprim/sulfamethoxazole susceptibility test by minimum inhibitoryconcentration <= NRG Levofloxacin susceptibility test by minimum inhibitory concentration <= NRG Ampicillin susceptibility test by minimum inhibitory concentration > NRG Cefazolin susceptibility test by minimum inhibitory concentration 2 NRG Ceftriaxone susceptibility test by minimum inhibitory concentration <= NRG Ciprofloxacin susceptibility test by minimum inhibitory concentration <= NRG Meropenem susceptibility test by minimum inhibitory concentration < = NRG Nitrofurantoin susceptibility test by minimum inhibitory concentration 32 NRG Amoxicillin and clavulanate potassium susc [place] <= NRG Complete blood count (CBC) with automated white blood cell (WBC) differential - 04/24/18 11:00 Blood leukocytes automated count (number/volume) 8.3 10*3/uL 4.3-11.0 Blood erythrocytes automated count (number/volume) 3.73 10*6/uL 4.35-5.85 Venous blood hemoglobin measurement (mass/volume) 12.0 g/dL 11.5-16.0 Blood hematocrit (volume fraction) 36 % 35-52 Automated erythrocyte mean corpuscular volume 96 [foz_us] 80-99 Automated erythrocyte mean corpuscular hemoglobin (mass per erythrocyte) 32 pg 25-34 Automated erythrocyte mean corpuscular hemoglobin concentration measurement ( mass/volume) 34 g/dL 32-36 Automated erythrocyte distribution width ratio 14.0 % 10.0-14.5 Automated blood platelet count (count/volume) 304 10*3/uL 130-400 Automated blood platelet mean volume measurement 9.2 [foz_us] 7.4-10.4 Automated blood neutrophils/100 leukocytes 67 % 42-75 Automated blood lymphocytes/100 leukocytes 23 % 12-44 Blood monocytes/100 leukocytes 9 % 0-12 Automated blood eosinophils/100 leukocytes 1 % 0-10 Automated blood basophils/100 leukocytes 0 % 0-10 Blood neutrophils automated count (number/volume) 5.6 10*3 1.8-7.8 Blood lymphocytes automated count (number/volume) 1.9 10*3 1.0-4.0 Blood monocytes automated count (number/volume) 0.7 10*3 0.0-1.0 Automated eosinophil count 0.1 10*3/uL 0.0-0.3 Automated blood basophil count (count/volume) 0.0 10*3/uL 0.0-0.1 Comprehensive metabolic panel - 04/24/18 11:00 Serum or plasma sodium measurement (moles/volume) 141 mmol/L 135-145 Serum or plasma potassium measurement (moles/volume) 3.7 mmol/L 3.6-5.0 Serum or plasma chloride measurement (moles/volume) 109 mmol/L 98-107 Carbon dioxide 17 mmol/L 21-32 Serum or plasma anion gap determination (moles/volume) 15 mmol/L 5-14 Serum or plasma urea nitrogen measurement (mass/volume) 37 mg/dL 7-18 Serum or plasma creatinine measurement (mass/volume) 1.60 mg/dL 0.60-1.30 Serum or plasma urea nitrogen/creatinine mass ratio 23 NRG Serum or plasma creatinine measurement with calculation of estimated glomerular filtration rate 31 NRG Serum or plasma glucose measurement (mass/volume) 95 mg/dL 70-105 Serum or plasma calcium measurement (mass/volume) 9.5 mg/dL 8.5-10.1 Serum or plasma total bilirubin measurement (mass/volume) 0.4 mg/dL 0.1-1.0 Serum or plasma alkaline phosphatase measurement (enzymatic activity/volume) 88 U/L 40-136 Serum or plasma aspartate aminotransferase measurement (enzymatic activity/ volume) 16 U/L 5-34 Serum or plasma alanine aminotransferase measurement (enzymatic activity/volume ) 10 U/L 0-55 Serum or plasma protein measurement (mass/volume) 7.2 g/dL 6.4-8.2 Serum or plasma albumin measurement (mass/volume) 4.2 g/dL 3.2-4.5 Vitamin D, 25 OH - 04/24/18 19:12 Vitamin D, 25 OH 37.70 ng/mL 25.00-100.00 Free T4 - 04/24/18 19:12 Free T4 1.17 ng/dL 0.81-1.61 MRSA Screen - 04/24/18 19:12 FINAL CULTURE RESULTS MRSA POSITIVE Nasal Culture MEDIA PLATED Setup at 20:54 on 04/24/2018 Urinalysis - 04/25/18 01:17 Icotest N/A Negative Urine Volume Urine Volume Sufficient (10mL) Urine-Appearance Slightly Cloudy Clear Urine-Bacteria 1+ Urine-Bilirubin Negative Negative Urine-Blood 1+ Negative Urine-Color Yellow Colorless-Lt. Yellow Urine-Epithelial Cells 5-10/HPF Urine-Glucose Negative Negative Urine-Ketones Negative Negative Urine-Leukocytes 3+ Negative Urine-Nitrite Negative Negative Urine-Other Culture to follow Urine-pH 6.5 5-8.5 Urine-Protein Negative Negative Urine-RBC 5-10/HPF Urine-Specific [place] <=1.005 1.000-1.030 Urine-WBC 20-40/HPF Urobilinogen 0.2 E.U./dL 0.2-1.0 Thyroid Stimulating Hormone - 04/25/18 05:07 TSH 15.72 mIU/mL 0.32-5.00 Lipid Panel - 04/25/18 05:07 C/HDL 5.6 3.7-6.7 Cholesterol 145 mg/dL 100-240 HDL 26 mg/dL 30-85 LDL-Calculated 89 mg/dL 0-100 Trig 150 mg/dL 35-160 VLDL 30 mg/dL 0-42 Urine Culture - 04/25/18 08:26 PRELIM CULTURE RESULTS 50,000-100,000 Mixed Garth Probable Skin Contaminant MEDIA PLATED Setup at 08:59 on 04/25/2018 CULTURE SOURCE clean catch reflex EKG - 04/25/18 08:42 EKG Complete EKG - 04/27/18 15:37 EKG Complete BMP - 05/01/18 07:25 Anion Gap 18 6-14 BUN 21 mg/dL 5-25 Calcium 9.6 mg/dL 8.3-10.4 Chloride 110 mmol/L 95-114 CO2 19 mEq/L 22-33 Creat 1.04 mg/dL 0.50-1.50 eGFR 50 mL/min/1.73m2 >59 Glucose 96 mg/dL 70-110 Osmo 296 280-295 Potassium 4.7 mmol/L 3.5-5.3 Sodium 142 mmol/L 134-148 Urinalysis - 05/31/18 19:00 Icotest N/A Negative Urine Volume Urine Volume Sufficient (10mL) Urine Yeast No Yeast present Urine-Appearance Clear Clear Urine-Bacteria Trace Urine-Bilirubin Negative Negative Urine-Blood Negative Negative Urine-Color Yellow Colorless-Lt. Yellow Urine-Epithelial Cells 5-10/HPF Urine-Glucose Negative Negative Urine-Ketones Negative Negative Urine-Leukocytes Negative Negative Urine-Nitrite Negative Negative Urine-Other Urine Saved if Culture Needed (48hrs from time of collection) Urine-pH 5.5 5-8.5 Urine-Protein Negative Negative Urine-RBC 0-2/HPF Urine-Specific [place] 1.015 1.000-1.030 Urine-WBC 2-5/HPF Urobilinogen 0.2 0.2-1.0 Encounters ACCT No. Visit Date/Time Discharge Status Pt. Type Provider Facility Loc./Unit Complaint [id number] 04/24/2018 10:38:00 04/24/2018 13:51:00 DIS Emergency VALERIE MASCORRO CERTIFIED PEDORTHOTIST Via [facility] ER HALLUCINATIONS [id number] 04/22/2018 12:00:00 04/23/2018 10:51:00 DIS Inpatient KAYLENE NARVAEZ MD Via [facility] ICU AMS [id number] 04/21/2018 12:09:00 04/21/2018 18:09:00 DIS Outpatient GLENIS FARR Via [facility] ER AMS [id number] 12/30/2017 20:18:00 12/30/2017 22:35:00 DIS Emergency DESTINEE GALLEGOS DO Via [facility] ER FELL,HIT HEAD [id number] 11/26/2017 17:56:00 11/26/2017 19:16:00 DIS Emergency HUAN HOPE MD Via [facility] ER FALL [id number] 07/22/2017 15:01:00 07/22/2017 23:59:59 CLS Outpatient NATALIA BEARD Via [facility] CARD I25.10 [id number] 05/09/2017 18:44:00 05/09/2017 21:44:00 DIS Emergency CARLOS GRIFFIN MD Via [facility] ER PT FELL AT HOME [id number] 04/24/2017 15:11:00 04/24/2017 23:59:59 CLS Outpatient GLENIS FARR Via [facility] RAD ABD PAIN,NAUSEA [id number] 03/21/2017 02:59:00 03/21/2017 04:42:00 DIS Emergency CARLOS GRIFFIN MD Via [facility] ER AMS [id number] 11/03/2016 12:52:00 11/03/2016 15:03:00 DIS Emergency VALERIE MASCORRO CERTIFIED PEDORTHOTIST Via [facility] ER FALL [id number] 07/11/2016 09:22:00 07/11/2016 14:35:00 DIS Outpatient SAPNA LO MD Via [facility] SDC LEFT TORN ROTATOR CUFF [id number] 07/10/2016 09:36:00 07/10/2016 23:59:59 CLS Outpatient SAPNA LO MD Via [facility] PREOP LEFT TORN ROTATOR CUFF [id number] 06/21/2016 13:05:00 06/21/2016 23:59:59 CLS Outpatient GLENIS FARR Via [facility] RAD DOUBLE VISION [id number] 04/17/2016 13:11:00 04/17/2016 23:59:59 CLS Outpatient SAPNA LO MD [facility] RAD RTC TEAR LEFT [id number] 04/20/2015 10:18:00 04/21/2015 10:05:00 DIS Outpatient KAYLENE NARVAEZ MD Via [facility] CATH ABNORMAL STRESS,CAD,HTN, CPHLP [id number] 04/18/2015 08:13:00 04/18/2015 23:59:59 CLS Outpatient NATALIA BEARD Via [facility] CARD CAD,DVT,HLP [id number] 03/30/2015 12:13:00 03/30/2015 23:59:59 CLS Outpatient NATALIA BEARD Via [facility] CARD CAD,DVT,HLP, SSS [id number] 03/28/2015 13:07:00 03/28/2015 23:59:59 CLS Outpatient NATALIA BEARD Via [facility] CARD CAD,DVT,HLP, SSS [id number] 03/25/2015 09:53:00 Document Registration [id number] 03/25/2015 09:53:00 Document Registration [id number] 03/25/2015 09:52:00 Document Registration [id number] 03/25/2015 09:52:00 Document Registration [id number] 03/25/2015 09:52:00 Document Registration [id number] 03/25/2015 09:52:00 Document Registration [id number] 03/25/2015 09:52:00 Document Registration [id number] 03/25/2015 09:52:00 Document Registration [id number] 03/23/2013 08:24:00 Document Registration [id number] 01/21/2013 13:50:00 Document Registration [id number] 03/31/2012 16:57:00 Document Registration [id number] 03/21/2012 07:22:00 Document Registration [id number] 01/12/2012 09:33:00 Document Registration [id number] 12/23/2011 12:57:00 Document Registration [id number] 12/19/2011 13:00:00 Document Registration [id number] 12/14/2011 19:49:00 Document Registration [id number] 12/11/2011 12:46:00 Document Registration [id number] 10/22/2011 14:18:00 Document Registration [id number] 09/12/2011 12:22:00 Document Registration [id number] 09/03/2011 15:57:00 Document Registration [id number] 08/31/2011 10:07:00 Document Registration [id number] 07/27/2011 12:17:00 Document Registration [id number] 04/20/2011 21:58:00 Document Registration [id number] 06/22/2010 13:05:00 Document Registration [id number] 06/20/2010 09:08:00 Document Registration [id number] 04/04/2010 10:52:00 Document Registration [id number] 06/01/2018 01:31:00 06/01/2018 23:59:00 DIS Outpatient Bethel Clayton [id number] 04/24/2018 19:05:00 05/06/2018 14:31:00 DIS Inpatient Mahendra Chacko [facility] ROBERT [id number] 04/24/2018 22:40:26 Document Registration [id number] 04/20/2015 10:19:56 ACT Document Registration
--- NOTE | 2018-08-22 16:45 | ED General ---
General Chief Complaint: General Problems/Pain Stated Complaint: L SIDE PAIN Source of Information: Patient (SISSY CERVANTES MD) History of Present Illness Date Seen by Provider: Aug 22, 2018 Time Seen by Provider: 16:37 Initial Comments This 87-year-old female presents with a three-day history of left-sided abdominal pain. The patient denies associated fever, chills, vomiting, or diarrhea. The patient has been constipated for the last several days. The patient's sharp left upper quadrant pain beneath her ribs is made worse with deep palpation. The patient has a history of frequent occult urinary tract infections. (SISSY CERVANTES MD) Allergies and Home Medications Allergies Coded Allergies: Penicillins (Unverified Allergy, Unknown, 11/03/16) Uncoded Allergies: POISON AISHWARYA, OAK AND SUMAC (Allergy, Unknown, 12/28/08) Home Medications Acetaminophen 325 Mg Tablet, 650 MG PO Q4H PRN for PAIN-MILD, (Reported) TAKES 2 (325MG) TABLETS Albuterol Sulfate 2.5 Mg/3 Ml Vial.neb, 2.5 MG NEB Q4H PRN for WHEEZING, ( Reported) Apixaban 5 Mg Tablet, 5 MG PO BID, (Reported) Bisacodyl 10 Mg Supp.rect, 10 MG RC DAILY PRN for CONSTIPATION-4TH LINE, ( Reported) Budesonide/Formoterol Fumarate 10.2 Gm Hfa.aer.ad, 2 PUFF INH BID, (Reported) Carboxymethylcellulose Sodium 15 Ml Drops, 1 DROP OU BID, (Reported) Citalopram Hydrobromide 20 Mg Tablet, 20 MG PO 1700, (Reported) Cyanocobalamin (Vitamin B-12) 1,000 Mcg Tablet, 1,000 MCG PO DAILY, (Reported) Ergocalciferol (Vitamin D2) 50,000 Unit Capsule, 50,000 UNIT PO EVERY 14 DAYS, ( Reported) Fentanyl 1 Each Patch.td72, 50 MCG TD Q72H, (Reported) Ferrous Sulfate 134 Mg Tablet, 134 MG PO TID, (Reported) Fish Oil/Dha/Epa 1 Each Capsule, 1,200 MG PO TID, (Reported) Furosemide 20 Mg Tablet, 20 MG PO Q48H, (Reported) ALTERNATING WITH 40MG Furosemide 20 Mg Tablet, 40 MG PO Q48H, (Reported) ALTERNATING WITH 20MG Hydrocodone/Acetaminophen 1 Each Tablet, 1 TAB PO Q6H PRN for PAIN-MODERATE, ( Reported) Levothyroxine Sodium 112 Mcg Tablet, 112 MCG PO DAILY, (Reported) Magnesium Hydroxide 400 Mg/5 Ml Oral.susp, 30 ML PO DAILY PRN for CONSTIPATION- 7TH LINE, (Reported) Melatonin 3 Mg Tablet, 3 MG PO HS PRN for SLEEP, (Reported) Menthol 118 Ml Gel..ml., TP BID PRN for MUSCLE PAIN, (Reported) APPLY TO SHOULDERS, ARMS, OR NECK Nebivolol HCl 5 Mg Tablet, 5 MG PO DAILY, (Reported) HOLD FOR SBP <100 OR DBP <60 OR PULSE <60 Nystatin 1 Each Powder.ea., TOP BID PRN for REDNESS/GAULDING, (Reported) APPLY TO ABDOMINAL FOLD Risperidone 0.25 Mg Tablet, 0.25 MG PO BID Prescribed by: TACHO PEREYRA on 04/23/18 1437 Sennosides/Docusate Sodium 1 Each Tablet, 2 TAB PO DAILY, (Reported) Sodium Chloride 30 Ml [place], 1-2 SPRAYS NS Q4H PRN for CONGESTION, (Reported) Sulfamethoxazole/Trimethoprim 1 Each Tablet, 1 EACH PO BID Prescribed by: VALERIE MASCORRO on 04/24/18 1148 Patient Home Medication List Home Medication List Reviewed: Yes (SISSY CERVANTES MD) Review of Systems Review of Systems Constitutional: No chills, No fever EENTM: No ear pain, No vision loss Respiratory: No cough, No short of breath Cardiovascular: No chest pain Gastrointestinal: abdominal pain (LUQ), constipation; No diarrhea, No nausea, No vomiting Genitourinary: no symptoms reported : No Musculoskeletal: No back pain Skin: No change in color, No rash Psychiatric/Neurological: No Symptoms Reported Hematologic/Lymphatic: No Symptoms Reported Immunological/Allergic: no symptoms reported (SISSY CERVANTES MD) Past Ujtpbks-Nhadzo-Ybyhid Hx Past Med/Social Hx: Reviewed Nursing Past Med/Soc Hx (SISSY CERVANTES MD) Patient Social History 2nd Hand Smoke Exposure: No Recent Hopitalizations: No (SISSY CERVANTES MD) Immunizations Up To Date Tetanus Booster (TDap): Unknown Date of Pneumonia Vaccine: Aug 05, 2012 Date of Influenza Vaccine: Sep 01, 2016 (SISSY CERVANTES MD) Seasonal Allergies Seasonal Allergies: Yes (SISSY CERVANTES MD) Past Medical History Surgeries: Yes (HYSTERECTOMY 1974, PACEMAKER, TKR, FOOT, SHOULDER) Abdominal, Coronary Stent, Orthopedic, Pacemaker Respiratory: Yes (O2 at night) COPD Cardiac: Yes (chronic ischemic heart diseas, CHF, pacemaker, sick sinus syndrome) Chronic Edema/Swelling, Coronary Artery Disease Neurological: Yes (h/o frequent syncopal episodes) Parkinson's Disease, Stroke Reproductive Disorders: No Female Reproductive Disorders: Denies Sexually Transmitted Disease: No HIV/AIDS: Yes Genitourinary: Yes (UTI) Renal Failure Gastrointestinal: Yes (chronic N/V) Gastroesophageal Reflux, Chronic Constipation Musculoskeletal: Yes Arthritis, Contracture Endocrine: Yes Hypothyroidsim HEENT: Yes (dry eye syndrome, epistaxis, chronic sinusitis) Cancer: No Psychosocial: Yes Sleep Difficulties, Depression Integumentary: No Blood Disorders: Yes (anemia) Adverse Reaction/Blood Tranf: No (SISSY CERVANTES MD) Family Medical History No Pertinent Family Hx (SISSY CERVANTES MD) Physical Exam Vital Signs Vital Signs - First Documented 08/22/18 16:25 Temp 98.0 Pulse 71 Resp 18 B/P (MAP) 209/96 (133) Pulse Ox 99 O2 Delivery Room Air (HUAN HOPE MD) Vital Signs Capillary Refill : (SISSY CERVANTES MD) Height, Weight, BMI Height: 5'11.00" Weight: 260lbs. 0.0oz. 117.145402tt; 29.4 BMI Method:Stated General Appearance: No Apparent Distress, WD/WN Eyes: Bilateral Eye Normal Inspection HEENT: Normal ENT Inspection Neck: Normal Inspection Respiratory: Lungs Clear Cardiovascular: Regular Rate, Rhythm Gastrointestinal: Normal Bowel Sounds, Tenderness (left upper quadrant) Back: Normal Inspection Extremity: Normal Inspection, Normal Range of Motion Neurologic/Psychiatric: Alert, Oriented x3, No Motor/Sensory Deficits Skin: Normal Color, Warm/Dry (SISSY CERVANTES MD) Progress/Results/Core Measures Suspected Sepsis SIRS Temperature: Pulse: Respiratory Rate: Blood Pressure / Mean: (SISSY CERVANTES MD) Results/Orders Lab Results Laboratory Tests Test 08/22/18 16:55 08/22/18 17:40 Range/Units Urine Color YELLOW Urine Clarity CLEAR Urine pH 6 5-9 Urine Specific [place] 1.015 L 1.016-1.022 Urine Protein NEGATIVE NEGATIVE Urine Glucose (UA) NEGATIVE NEGATIVE Urine Ketones NEGATIVE NEGATIVE Urine Nitrite NEGATIVE NEGATIVE Urine Bilirubin NEGATIVE NEGATIVE Urine Urobilinogen NORMAL NORMAL MG/DL Urine Leukocyte Esterase 3+ H NEGATIVE Urine RBC (Auto) NEGATIVE NEGATIVE Urine RBC NONE /HPF Urine WBC 10-25 H /HPF Urine Squamous Epithelial Cells 2-5 /HPF Urine Renal Epithelial Cells 5-10 /HPF Urine Crystals NONE /LPF Urine Bacteria NEGATIVE /HPF Urine Casts NONE /LPF Urine Mucus NEGATIVE /LPF Urine Culture Indicated YES White Blood Count 6.4 4.3-11.0 10^3/uL Red Blood Count 3.91 L 4.35-5.85 10^6/uL Hemoglobin 12.6 11.5-16.0 G/DL Hematocrit 38 35-52 % Mean Corpuscular Volume 97 80-99 FL Mean Corpuscular Hemoglobin 32 25-34 PG Mean Corpuscular Hemoglobin Concent 33 32-36 G/DL Red Cell Distribution Width 14.8 H 10.0-14.5 % Platelet Count 241 130-400 10^3/uL Mean Platelet Volume 9.1 7.4-10.4 FL Neutrophils (%) (Auto) 41 L 42-75 % Lymphocytes (%) (Auto) 42 12-44 % Monocytes (%) (Auto) 12 0-12 % Eosinophils (%) (Auto) 5 0-10 % Basophils (%) (Auto) 1 0-10 % Neutrophils # (Auto) 2.6 1.8-7.8 X 10^3 Lymphocytes # (Auto) 2.7 1.0-4.0 X 10^3 Monocytes # (Auto) 0.8 0.0-1.0 X 10^3 Eosinophils # (Auto) 0.3 0.0-0.3 10^3/uL Basophils # (Auto) 0.0 0.0-0.1 10^3/uL Sodium Level 141 135-145 MMOL/L Potassium Level 4.5 3.6-5.0 MMOL/L Chloride Level 110 H 98-107 MMOL/L Carbon Dioxide Level 20 L 21-32 MMOL/L Anion Gap 11 5-14 MMOL/L Blood Urea Nitrogen 21 H 7-18 MG/DL Creatinine 1.09 0.60-1.30 MG/DL Estimat Glomerular Filtration Rate 48 BUN/Creatinine Ratio 19 Glucose Level 92 70-105 MG/DL Calcium Level 9.5 8.5-10.1 MG/DL Corrected Calcium 9.3 8.5-10.1 MG/DL Total Bilirubin 0.2 0.1-1.0 MG/DL Aspartate Amino Transf (AST/SGOT) 16 5-34 U/L Alanine Aminotransferase (ALT/SGPT) 8 0-55 U/L Alkaline Phosphatase 102 40-136 U/L Total Protein 7.1 6.4-8.2 GM/DL Albumin 4.2 3.2-4.5 GM/DL Lipase 27 8-78 U/L (HUAN HOPE MD) My Orders Orders - HUAN HOPE MD Saline Lock/Iv-Start (08/22/18 18:29) Ns Iv 500 Ml (Sodium Chloride 0.9%) (08/22/18 18:29) Iohexol Injection (Omnipaque 350 Mg/Ml 1 (08/22/18 18:45) Ns (Ivpb) (Sodium Chloride 0.9%) (08/22/18 18:45) Fentanyl Injection (Sublimaze Injection (08/22/18 19:25) Ceftriaxone For Iv Use (Rocephin For I (08/22/18 19:30) Hydrocodone/Apap 7.5/325 Tab (Lortab 7. (08/22/18 20:04) (HUAN HOPE MD) Medications Given in ED Current Medications Medications Dose Ordered Sig/Indira Route Start Time Stop Time Status Last Admin Dose Admin Ceftriaxone Sodium 1000 mg/ Sodium Chloride 60 ml @ 100 mls/hr ONCE ONCE IV 08/22/18 19:30 08/22/18 20:05 08/22/18 19:43 100 MLS/HR Iohexol 75 ml ONCE ONCE IV 08/22/18 18:45 08/22/18 18:46 DC 08/22/18 18:45 75 ML Sodium Chloride 250 ml ONCE ONCE IV 08/22/18 18:45 08/22/18 18:46 DC 08/22/18 18:45 80 ML Sodium Chloride 500 ml @ 0 mls/hr Q0M ONCE IV 08/22/18 18:29 08/22/18 18:30 DC 08/22/18 19:15 500 MLS/HR (HUAN HOPE MD) Vital Signs/I&O 08/22/18 16:25 Temp 98.0 Pulse 71 Resp 18 B/P (MAP) 209/96 (133) Pulse Ox 99 O2 Delivery Room Air (HUAN HOPE MD) Vital Signs/I&O Capillary Refill : (SISSY CERVANTES MD) Progress Note : Progress Note I assumed care of the patient from Dr. Cervantes at [address] scan. 1929: CT complete. Patient is still complaining of mild left upper quadrant pain. Labs do not indicate any significant findings. Physical exam shows mild tenderness to left upper quadrant but otherwise no other concerning findings. UA was reviewed. Fentanyl 50 g IV and Rocephin 1 g IV ordered. We are pending CT results. 1952: CT results complete and shows no acute findings. Anticipate discharge back to longterm. We will continue Keflex outpatient for 5 more days. Continue current longterm therapy for pain. 2005: We will give hydrocodone 7.5/325 one tab by mouth now and discharged back to longterm. Patient and family agree. Discharged home with return precautions. Patient verbalize understanding instructions and agreement with plan. (HUAN HOPE MD) Diagnostic Imaging Diagonstic Imaging: CT Plain Films/CT/US/NM/MRI: abdomen, pelvis Comments VIA [facility]. [place], [place] NAME: ALB[facility]CILLA [facility] REC#: [id number] PT STATUS: REG ER : 1932 PHYSICIAN: SISSY CERVANTES MD ADMIT DATE: 08/22/18/ER Draft Date of Exam:08/22/18 CT ABDOMEN/PELVIS W PROCEDURE: CT abdomen and pelvis with contrast. TECHNIQUE: Multiple contiguous axial images were obtained through the abdomen and pelvis after administration of intravenous contrast. INDICATION: Left-sided abdominal pain. COMPARISON: Comparison is made with prior CT from 04/24/2017. FINDINGS: The lung bases are clear. No discrete liver mass is seen. Intrahepatic and extrahepatic bile ducts are prominent but no definite obstructing lesion is seen. Gallbladder appears to be surgically absent. The pancreas and spleen are unremarkable. No adrenal mass is identified. Left kidney is unremarkable. Right kidney contains a large cyst in the upper pole, similar to prior exam. The aorta is nonaneurysmal. Small and large bowel loops are normal in caliber. No obstruction is seen. There is no ascites. Bladder is unremarkable. IMPRESSION: Stable CT of the abdomen and pelvis. No acute feature is identified. Dictated on workstation # [id number] Dict: 08/22/181899 Trans: 08/22/181904 [id number] [id number] Interpreted by: ALEXANDRU ENCARNACION MD Electronically signed by: Reviewed: Reviewed by Me (HUAN HOPE MD) Departure Impression Primary Impression: Abdominal pain, left upper quadrant Additional Impression: Urinary tract infection Qualified Codes: N30.00 - Acute cystitis without hematuria Disposition: HOME, SELF-CARE Condition: Improved Departure-Patient Inst. Decision time for Depature: 20:07 (HUAN HOPE MD) Referrals: DIA GREENWOOD MD (PCP/Family) Primary Care Physician Patient Instructions: Acute Abdomen (Belly Pain), Adult (DC), Urinary Tract Infection, Adult (DC) Add. Discharge Instructions: All discharge instructions reviewed with patient and/or family. Voiced understanding. Take medications as previously prescribed. You may use icy hot with lidocaine patch or similar to area of pain per package directions. Follow up with your doctor early next week for recheck and further evaluation. Return for worse pain, fever, vomiting, weakness, breathing problems or other concerns as needed. Scripts Cephalexin (Cephalexin) 500 Mg Tablet 500 MG PO BID, #10 TAB 0 Refills Prov: HUAN HOPE MD 08/22/18 SISSY CERVANTES MD Aug 22, 2018 16:45 HUAN HOPE MD Aug 22, 2018 19:54
[2018-08-22 16:58] LABS: BILIRUBIN,URINE NEGATIVE (NEGATIVE); CLARITY,URINE CLEAR; COLOR,URINE YELLOW; GLUCOSE, URINE (UA) NEGATIVE (NEGATIVE); KETONES,URINE NEGATIVE (NEGATIVE); LEUKOCYTE ESTERASE ,URINE 3+ (NEGATIVE); NITRITE,URINE NEGATIVE (NEGATIVE); PH,URINE 6 (5-9); PROTEIN,URINE NEGATIVE (NEGATIVE); UROBILINOGEN,URINE NORMAL (NORMAL)
[2018-08-22 17:12] LABS: BACTERIA,URINE NEGATIVE /HPF
[2018-08-22 17:46] LABS: BASOPHILS % (AUTO) 1 % (0-10); EOSINOPHILS # (AUTO) 0.3 10^3/uL (0.0-0.3); EOSINOPHILS % (AUTO) 5 % (0-10); HEMATOCRIT 38 % (35-52); HEMOGLOBIN 12.6 G/DL (11.5-16.0); LYMPHOCYTES # (AUTO) 2.7 X 10^3 (1.0-4.0); LYMPHOCYTES % (AUTO) 42 % (12-44); MEAN CORPUSCULAR HEMOGLOBIN 32 PG (25-34); MEAN CORPUSCULAR HGB CONC 33 G/DL (32-36); MEAN CORPUSCULAR VOLUME 97 FL (80-99); MEAN PLATELET VOLUME 9.1 FL (7.4-10.4); MONOCYTES # (AUTO) 0.8 X 10^3 (0.0-1.0); MONOCYTES % (AUTO) 12 % (0-12); NEUTROPHILS # (AUTO) 2.6 X 10^3 (1.8-7.8); NEUTROPHILS % (AUTO) 41 % (42-75); PLATELET COUNT 241 10^3/uL (130-400); RED BLOOD COUNT 3.91 10^6/uL (4.35-5.85); RED CELL DISTRIBUTION WIDTH 14.8 % (10.0-14.5); WHITE BLOOD COUNT 6.4 10^3/uL (4.3-11.0)
[2018-08-22 18:10] LABS: ALBUMIN 4.2 GM/DL (3.2-4.5); BILIRUBIN,TOTAL 0.2 MG/DL (0.1-1.0); CALCIUM 9.5 MG/DL (8.5-10.1); CREATININE SERUM 1.09 MG/DL (0.60-1.30); POTASSIUM 4.5 MMOL/L (3.6-5.0); TOTAL PROTEIN 7.1 GM/DL (6.4-8.2)
[2018-08-22] MEDS ORDERED: NS IV 500 ML 500 ML IV ONE (18:29)
[2018-08-22] MEDS ORDERED: IOHEXOL 350 MG/ML 100 ML (OMNIPAQUE 350) VIAL IV ONE (18:45)
[2018-08-22] MEDS ORDERED: NS 250 ML (IVPB) BAG IV ONE (18:45)
--- NOTE | 2018-08-22 19:05 | Diagnostic Imaging Report ---
PROCEDURE: CT abdomen and pelvis with contrast. TECHNIQUE: Multiple contiguous axial images were obtained through the abdomen and pelvis after administration of intravenous contrast. INDICATION: Left-sided abdominal pain. COMPARISON: Comparison is made with prior CT from 04/24/2017. FINDINGS: The lung bases are clear. No discrete liver mass is seen. Intrahepatic and extrahepatic bile ducts are prominent but no definite obstructing lesion is seen. Gallbladder appears to be surgically absent. The pancreas and spleen are unremarkable. No adrenal mass is identified. Left kidney is unremarkable. Right kidney contains a large cyst in the upper pole, similar to prior exam. The aorta is nonaneurysmal. Small and large bowel loops are normal in caliber. No obstruction is seen. There is no ascites. Bladder is unremarkable. IMPRESSION: Stable CT of the abdomen and pelvis. No acute feature is identified. Dictated by: Dictated on workstation # [id number]
[2018-08-22] MEDS ORDERED: fentaNYL INJECTION 100 MCG/2 ML AMP IVP STA (19:25)
[2018-08-22] MEDS ORDERED: cefTRIAXone FOR IV USE 1,000 MG in NS (IVPB) 50 ML IV ONE (19:30)
[2018-08-22] MEDS ORDERED: HYDROcodone/APAP 7.5 MG/325 MG (LORTAB, LORCET PLUS) TABLET PO STA (20:04)
[2018-08-22] MEDS ORDERED: CEPH500T PO (20:10)
[2018-08-22 20:40] VITALS: BP 178/110
== END 2018-08-22 20:40 | disposition home or self-care (01) ==
LOC: EDUNIT# 16:20 → ER 16:21
DX: N39.0 Urinary tract infection, site not specified (principal); J44.9 Chronic obstructive pulmonary disease, unspecified; I25.10 Atherosclerotic heart disease of native coronary artery without angina pectoris; I50.9 Heart failure, unspecified; G20 Parkinson's disease; K21.9 Gastro-esophageal reflux disease without esophagitis; E03.9 Hypothyroidism, unspecified; F32.9 Major depressive disorder, single episode, unspecified; D64.9 Anemia, unspecified; Z87.19 Personal history of other diseases of the digestive system; Z87.440 Personal history of urinary (tract) infections; Z86.73 Personal history of transient ischemic attack (TIA), and cerebral infarction without residual deficits; Z88.0 Allergy status to penicillin; Z79.51 Long term (current) use of inhaled steroids; Z79.01 Long term (current) use of anticoagulants; Z79.52 Long term (current) use of systemic steroids; Z90.710 Acquired absence of both cervix and uterus; Z95.0 Presence of cardiac pacemaker; Z95.5 Presence of coronary angioplasty implant and graft
CPT/HCPCS: 36415; 74177; 80053; 81000; 83690; 85025; 87088; 96361; 96365; 96375

== ENCOUNTER 2018-11-05 01:23 | Emergency (ER) | payer MEDICARE, MEDICAID ==
[~2018-11-05] VITALS: Ht 180.3 cm; Wt 91.2 kg
[~2018-11-05 01:23] MED LIST changes: +CEPH500T PO
--- OUTSIDE RECORDS SUMMARY | 2018-11-05 01:34 | XMS REPORT | Continuity of Care Document ---
Author Author [facility] Organization [facility] Address Unknown Phone Unavailable Allergies Active Description Code Type Severity Reaction Onset Reported/Identified Relationship to Patient Clinical Status Yes PENICILLINS UNKNOWN UNKNOWN Yes POISON AISHWARYA, OAK AND SUMAC POISON AISHWARYA, OAK AND SUMAC Unknown N/A 2008 Yes Penicillins [id number] Drug Allergy Unknown N/A 11/03/2016 Medications Medication [...] MG (BYSTOLIC) MG 05/24/2018 Daily&0900 MILK OF YOGI LIQ ml 04/25/2018 05/25/2018 PRN Daily Haloperidol [...] NOS 07/27/2011 Ot 414.01 CORONARY ATHEROSCLEROSIS OF [place] CORON 07/27/2011 Ot 428.0 CONGESTIVE HEART FAILURE [...] ST 08/08/2011 Ot 414.01 CORONARY ATHEROSCLEROSIS OF [place] CORON 08/08/2011 Ot 428.0 CONGESTIVE HEART FAILURE [...] NOS 12/20/2011 Ot 414.01 CORONARY ATHEROSCLEROSIS OF [place] CORON 12/20/2011 Ot 428.0 CONGESTIVE HEART FAILURE [...] ST 04/01/2012 Ot 414.01 CORONARY ATHEROSCLEROSIS OF [place] CORON 04/01/2012 Ot 435.9 TRANS CEREB ISCHEMIA [...] NOS 06/22/2012 Ot 414.01 CORONARY ATHEROSCLEROSIS OF [place] CORON 06/22/2012 Ot 435.9 TRANS CEREB ISCHEMIA [...] ST 02/19/2013 Ot 414.01 CORONARY ATHEROSCLEROSIS OF [place] CORON 02/19/2013 Ot 477.9 ALLERGIC RHINITIS NOS [...] V12.54 03/25/2015 Ot V45.01 03/31/2015 BOONE-MAJOR PA, NATLAIA K Ot 272.4 03/31/2015 BOONE-MAJOR PA, NATALIA [...] NARVAEZ MD Ot 414.01 CORONARY ATHEROSCLEROSIS OF [place] CORON 04/21/2015 KAYLENE NARVAEZ MD Ot 427.81 [...] SITU 04/17/2016 Ot 414.01 CORONARY ATHEROSCLEROSIS OF [place] CORON 04/17/2016 Ot V12.54 PERSONAL HX OF [...] BEARD Ot 453.40 ACUTE VENOUS EMBOLISM [facility] 04/17/2016 SAPNA LO MD Ot M75.120 COMPLETE ROTATR-CUFF TEAR/RUPTR OF [facility] 04/17/2016 SAPNA LO MD Ot M75.120 COMPLETE ROTATR-CUFF TEAR/RUPTR OF [facility] 04/17/2016 SAPNA LO MD, Ot M75.120 COMPLETE ROTATR-CUFF TEAR/RUPTR OF [facility] 04/18/2016 SAPNA LO MD, Ot M75.122 COMPLETE ROTATR-CUFF TEAR/RUPTR OF LEFT 04/18/2016 SAPNA LO MD Ot M75.122 COMPLETE ROTATR-CUFF TEAR/RUPTR OF LEFT 05/18/2016 SAPNA LO MD, Ot M75.122 COMPLETE ROTATR-CUFF TEAR/RUPTR OF LEFT 05/23/2016 SAPNA LO MD, Ot M75.122 COMPLETE ROTATR-CUFF TEAR/RUPTR OF LEFT 06/22/2016 GLENIS FARR Ot H53.2 DIPLOPIA 07/11/2016 SAPNA LO MD Ot 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 07/11/2016 SAPNA LO MD, Ot I10 ESSENTIAL (PRIMARY) HYPERTENSION 07/11/2016 SAPNA [...] MASCORRO APRN Ot Y92.[address] IN ASSISTED PLACE 11/03/2016 VALERIE MASCORRO APRN Ot Y93.9 ACTIVITY, UNSPECIFIED 11/03/2016 VALERIE MASCORRO APRN Ot Y99.8 OTHER EXTERNAL CAUSE STATUS 11/03/2016 VALERIE MASCORRO APRN Ot Z79.899 OTHER SKILLED NURSING (CURRENT) DRUG THERAPY 11/03/2016 VALERIE MASCORRO APRN [...] SITU 11/03/2016 Ot 414.01 CORONARY ATHEROSCLEROSIS OF [place] CORON 11/03/2016 Ot V12.54 PERSONAL HX OF [...] MASCORRO APRN Ot Y92.[address] IN ASSISTED PLACE 11/06/2016 VALERIE MASCORRO APRN Ot Y93.9 ACTIVITY, UNSPECIFIED 11/06/2016 VALERIE MASCORRO APRN Ot Y99.8 OTHER EXTERNAL CAUSE STATUS 11/06/2016 VALERIE MASCORRO APRN Ot Z79.899 OTHER PSYCHIATRIC CLINICAL NURSE SPECIALIST (CURRENT) DRUG THERAPY 11/06/2016 VALERIE MASCORRO APRN Ot Z95.0 PRESENCE OF CARDIAC PACEMAKER 03/21/2017 CARLOS GRIFFIN MD Ot E87.5 HYPERKALEMIA 03/21/2017 CARLOS GRIFFIN MD Ot 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 03/21/2017 CARLOS GRIFFIN MD Ot I25.10 ATHSCL HEART DISEASE OF [place] CORONARY 03/21/2017 CARLOS GRIFFIN MD Ot J44.1 CHRONIC OBSTRUCTIVE PULMONARY DISEASE W 03/21/2017 CARLOS GRIFFIN MD Ot N17.9 ACUTE KIDNEY FAILURE, UNSPECIFIED 03/21/2017 CARLOS GRIFFIN MD Ot R41.82 ALTERED MENTAL STATUS, UNSPECIFIED 03/21/2017 CARLOS GRIFFIN MD Ot Z79.01 SKILLED NURSING (CURRENT) USE OF ANTICOAGULANT 03/21/2017 CARLOS GRIFFIN MD Ot Z79.899 OTHER PSYCHIATRIC CLINICAL NURSE SPECIALIST (CURRENT) DRUG THERAPY 03/21/2017 CARLOS GRIFFIN MD [...] MD Ot I25.10 ATHSCL HEART DISEASE OF [place] CORONARY 03/22/2017 CARLOS GRIFFIN MD Ot J44.1 CHRONIC OBSTRUCTIVE PULMONARY DISEASE W 03/22/2017 CARLOS GRIFFIN MD Ot N17.9 ACUTE KIDNEY FAILURE, UNSPECIFIED 03/22/2017 CARLOS GRIFFIN MD Ot R41.82 ALTERED MENTAL STATUS, UNSPECIFIED 03/22/2017 CARLOS GRIFFIN MD, Ot Z79.01 PSYCHIATRIC CLINICAL NURSE SPECIALIST (CURRENT) USE OF ANTICOAGULANT 03/22/2017 CARLOS GRIFFIN MD Ot Z79.899 OTHER PSYCHIATRIC CLINICAL NURSE SPECIALIST (CURRENT) DRUG THERAPY 03/22/2017 CARLOS GRIFFIN MD [...] SITU 05/09/2017 Ot 414.01 CORONARY ATHEROSCLEROSIS OF [place] CORON 05/09/2017 Ot V12.54 PERSONAL HX OF [...] MD Ot I25.10 ATHSCL HEART DISEASE OF [place] CORONARY 05/09/2017 CARLOS GRIFFIN MD Ot I49.5 SICK SINUS SYNDROME 05/09/2017 CARLOS GRIFFIN MD, Ot J44.9 CHRONIC OBSTRUCTIVE PULMONARY DISEASE, U 05/09/2017 CARLOS GRIFFIN MD Ot M54.2 CERVICALGIA 05/09/2017 CARLOS GRIFFIN MD Ot N19 UNSPECIFIED KIDNEY FAILURE 05/09/2017 CARLOS GRIFFIN MD Ot N39.0 URINARY TRACT INFECTION, SITE NOT SPECIF 05/09/2017 CARLOS GRIFFIN MD Ot W18.30XA FALL ON SAME LEVEL, UNSPECIFIED, INITIAL 05/09/2017 CARLOS GRIFFIN MD Ot Y92.[address] IN ASSISTED PLACE 05/09/2017 CARLOS GRIFFIN MD Ot Z86.73 [...] MD Ot I25.10 ATHSCL HEART DISEASE OF [place] CORONARY 05/11/2017 CARLOS GRIFFIN MD Ot I49.5 [...] GRIFFIN MD Ot Y92.[address] IN ASSISTED PLACE 05/11/2017 CARLOS GRIFFIN MD Ot Z86.73 [...] L Ot R10.84 GENERALIZED ABDOMINAL PAIN 08/12/2017 GLENIS FARR L Ot R11.0 NAUSEA 08/13/2017 NATALIA BEARD Ot E78.2 MIXED HYPERLIPIDEMIA 08/13/2017 NATALIA BEARD Ot 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 08/13/2017 NATALIA BEARD Ot I25.10 ATHSCL HEART DISEASE OF [place] CORONARY 08/13/2017 NATALIA BEARD Ot I49.5 SICK SINUS SYNDROME 08/28/2017 NATALIA BEARD Ot E78.2 MIXED HYPERLIPIDEMIA 08/28/2017 NATALIA BEARD Ot 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 08/28/2017 NATALIA BEARD Ot I25.10 ATHSCL HEART DISEASE OF [place] CORONARY 08/28/2017 NATALIA BEARD Ot I49.5 SICK SINUS SYNDROME 11/26/2017 HUAN HOPE MD Ot E03.9 HYPOTHYROIDISM, UNSPECIFIED 11/26/2017 HUAN HOPE MD Ot F32.9 MAJOR DEPRESSIVE DISORDER, SINGLE EPISOD 11/26/2017 HUAN HOPE MD Ot 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 11/26/2017 HUAN HOPE MD Ot I25.10 ATHSCL HEART DISEASE OF [place] CORONARY 11/26/2017 HUAN HOPE MD Ot J44.9 [...] MD Ot I25.10 ATHSCL HEART DISEASE OF [place] CORONARY 12/02/2017 HUAN HOPE MD, Ot J44.9 [...] DO, Ot I25.10 ATHSCL HEART DISEASE OF [place] CORONARY 12/30/2017 DESTINEE GALLEGOS DO, Ot J44.9 [...] DESTINEE GALLEGOS DO Ot Y92.002 BATHRM OF [facility] NON-INSTITUT RESDNCE SNGL 12/30/2017 DESTINEE GALLEGOS DO Ot Z79.01 PSYCHIATRIC CLINICAL NURSE SPECIALIST (CURRENT) USE OF ANTICOAGULANT 12/30/2017 DESTINEE GALLEGOS [...] DO, Ot I25.10 ATHSCL HEART DISEASE OF [place] CORONARY 01/01/2018 DESTINEE GALLEGOS DO, Ot J44.9 CHRONIC OBSTRUCTIVE PULMONARY DISEASE, U 01/01/2018 DESTINEE GALLEGOS DO, Ot K21.9 GASTRO-ESOPHAGEAL REFLUX DISEASE WITHOUT 01/01/2018 DESTINEE GALLEGOS DO Ot R51 HEADACHE 01/01/2018 DESTINEE GALLEGOS DO, Ot S09.90XA UNSPECIFIED INJURY OF HEAD, INITIAL ENCO 01/01/2018 DESTINEE GALLEGOS DO Ot S40.021A CONTUSION OF RIGHT UPPER ARM, INITIAL EN 01/01/2018 DESTINEE GALLEGOS DO, Ot S63.621A SPRAIN OF INTERPHALANGEAL JOINT OF RIGHT 01/01/2018 DESTINEE GALLEGOS DO Ot W01.198A FALL SAME LEV FROM SLIP/TRIP W STRIKE AG 01/01/2018 DESTINEE GALLEGOS DO Ot Y92.002 BATHRM OF [facility] NON-INSTITUT RESDNCE SNGL 01/01/2018 DESTINEE GALLEGOS DO Ot Z79.01 SKILLED NURSING (CURRENT) USE OF ANTICOAGULANT 01/01/2018 DESTINEE GALLEGOS DO Ot Z87.59 PERSONAL HISTORY OF COMP OF PREG, CHLDBR 01/01/2018 DESTINEE GALLEGOS DO, Ot Z88.0 ALLERGY STATUS TO PENICILLIN 01/01/2018 DESTINEE GALLEGOS DO, Ot Z90.710 ACQUIRED ABSENCE OF BOTH CERVIX AND UTER 01/01/2018 DETSINEE GALLEGOS DO Ot Z95.0 PRESENCE OF CARDIAC PACEMAKER 01/01/2018 DESTINEE GALLEGOS DO Ot Z95.5 PRESENCE OF CORONARY ANGIOPLASTY IMPLANT 01/01/2018 DESTINEE GALLEGOS DO Ot E03.9 HYPOTHYROIDISM, UNSPECIFIED 01/01/2018 DESTINEE GALLEGOS DO Ot F32.9 MAJOR DEPRESSIVE DISORDER, SINGLE EPISOD 01/01/2018 DESTINEE GALLEGOS DO Ot 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 01/01/2018 DESTINEE GALLEGOS DO, Ot I25.10 ATHSCL HEART DISEASE OF [place] CORONARY 01/01/2018 DESTINEE GALLEGOS DO, Ot J44.9 CHRONIC OBSTRUCTIVE PULMONARY DISEASE, U 01/01/2018 DESTINEE GALLEGOS DO, Ot K21.9 GASTRO-ESOPHAGEAL REFLUX DISEASE WITHOUT 01/01/2018 DESTINEE GALLEGOS DO, Ot R51 HEADACHE 01/01/2018 DESTINEE GALLEGOS DO, Ot S09.90XA UNSPECIFIED INJURY OF HEAD, INITIAL ENCO 01/01/2018 DESTINEE GALLEGOS DO, Ot S40.021A CONTUSION OF RIGHT UPPER ARM, INITIAL EN 01/01/2018 DESTINEE GALLEGOS DO, Ot S63.621A SPRAIN OF INTERPHALANGEAL JOINT OF RIGHT 01/01/2018 DESTINEE GALLEGOS DO Ot W01.198A FALL SAME LEV FROM SLIP/TRIP W STRIKE AG 01/01/2018 DESTINEE GALLEGOS DO, Ot Y92.002 BATHRM OF [facility] NON-INSTITUT RESDNCE SNGL 01/01/2018 DESTINEE GALLEGOS DO, Ot Z79.01 SKILLED NURSING (CURRENT) USE OF ANTICOAGULANT 01/01/2018 DESTINEE GALLEGOS [...] SITU 04/21/2018 Ot 414.01 CORONARY ATHEROSCLEROSIS OF [place] CORON 04/21/2018 Ot V12.54 PERSONAL HX OF [...] UNSP ROTATR-CUFF TEAR/RUPTR OF LEFT SHOU 04/21/2018 SAPNA LO MD Ot Z01.818 ENCOUNTER FOR OTHER PREPROCEDURAL EXAMIN 04/21/2018 GLENIS FARR Ot R10.84 GENERALIZED ABDOMINAL PAIN 04/21/2018 GLENIS FARR Ot R11.0 NAUSEA 04/21/2018 NATALIA BEARD Ot E78.2 MIXED HYPERLIPIDEMIA 04/21/2018 NATALIA BEARD Ot 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 04/21/2018 NATALIA BEARD Ot I25.10 ATHSCL HEART DISEASE OF [place] CORONARY 04/21/2018 NATALIA BEARD Ot I49.5 SICK SINUS SYNDROME 04/21/2018 GLENIS FARR Ot D64.9 ANEMIA, UNSPECIFIED 04/21/2018 AURA PA, GLENIS L Ot 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 04/21/2018 GLENIS FARR Ot I25.10 ATHSCL HEART DISEASE OF [place] CORONARY 04/21/2018 GLENIS FARR Ot I50.9 HEART FAILURE, UNSPECIFIED 04/21/2018 GLENIS FARR Ot 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 04/21/2018 GLENIS FARR Ot J44.9 CHRONIC OBSTRUCTIVE PULMONARY DISEASE, U 04/21/2018 GLENIS FARR Ot K21.9 GASTRO-ESOPHAGEAL REFLUX DISEASE WITHOUT 04/21/2018 GLENIS FARR Ot K59.09 OTHER CONSTIPATION 04/21/2018 GLENIS FARR Ot N18.9 CHRONIC KIDNEY DISEASE, UNSPECIFIED 04/21/2018 GLENIS FARR Ot R41.82 ALTERED MENTAL STATUS, UNSPECIFIED 04/21/2018 GLENIS FARR Ot Z88.0 ALLERGY STATUS TO PENICILLIN 04/21/2018 GLENIS FARR Ot Z90.710 ACQUIRED ABSENCE OF BOTH CERVIX AND UTER 04/21/2018 GLENIS FARR Ot Z95.0 PRESENCE OF CARDIAC PACEMAKER 04/21/2018 GLENIS FARR Ot Z95.5 PRESENCE OF CORONARY ANGIOPLASTY IMPLANT 04/23/2018 GLENIS FARR Ot D64.9 ANEMIA, UNSPECIFIED 04/23/2018 GLENIS FARR Ot 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 04/23/2018 GLENIS FARR Ot I25.10 ATHSCL HEART DISEASE OF [place] CORONARY 04/23/2018 GLENIS FARR Ot I50.9 HEART [...] Ot 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 04/23/2018 KAYLENE NARVAEZ MD Ot 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, UNSPECIFIED 04/23/2018 KAYLENE NARVAEZ MD Ot 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 04/23/2018 KAYLENE NARVAEZ MD Ot G81.91 HEMIPLEGIA, UNSPECIFIED AFFECTING RIGHT 04/23/2018 KAYLENE NARVAEZ MD Ot I13.0 HYP HRT CHR KDNY DIS W HRT FAIL AND ST 04/23/2018 KAYLENE NARVAEZ MD Ot I25.10 ATHSCL HEART DISEASE OF [place] CORONARY 04/23/2018 KAYLENE NARVAEZ MD Ot I48.0 [...] Ot R53.83 OTHER FATIGUE 04/23/2018 KAYLENE NARVAEZ MD, Ot T40.4X5A ADVERSE EFFECT OF OTHER SYNTHETIC NARCOT 04/23/2018 KAYLENE NARVAEZ MD, Ot T42.4X5A ADVERSE EFFECT OF BENZODIAZEPINES, INITI 04/23/2018 KAYLENE NARVAEZ MD, Ot Z66 DO NOT RESUSCITATE 04/23/2018 KAYLENE NARVAEZ MD, Ot Z86.718 PERSONAL HISTORY OF OTHER VENOUS THROMBO 04/23/2018 KAYLENE NARVAEZ MD, Ot Z86.73 PRSNL HX OF TIA (TIA), AND CEREB INFRC W 04/23/2018 KAYLENE NARVAEZ MD, Ot Z86.79 PERSONAL HISTORY OF OTHER DISEASES [...] Ot 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 04/23/2018 KAYLENE NARVAEZ MD Ot 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, UNSPECIFIED 04/23/2018 KAYLENE NARVAEZ MD Ot 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 04/23/2018 KAYLENE NARVAEZ MD Ot G81.91 HEMIPLEGIA, UNSPECIFIED AFFECTING RIGHT 04/23/2018 KAYLENE NARVAEZ MD Ot I13.0 HYP HRT CHR [place] DIS W HRT FAIL AND ST 04/23/2018 KAYLENE NARVAEZ MD Ot I25.10 ATHSCL HEART DISEASE OF [place] CORONARY 04/23/2018 KAYLENE NARVAEZ MD Ot I48.0 PAROXYSMAL ATRIAL FIBRILLATION 04/23/2018 KAYLENE NARVAEZ MD Ot I50.9 HEART FAILURE, UNSPECIFIED 04/23/2018 KAYLENE NARVAEZ MD, Ot J30.2 OTHER SEASONAL ALLERGIC RHINITIS 04/23/2018 [...] APRN Ot I25.10 ATHSCL HEART DISEASE OF [place] CORONARY 04/24/2018 VALERIE MASCORRO APRN Ot I50.9 [...] HALLUCINATIONS 04/24/2018 VALERIE MASCORRO APRN Ot Z79.01 PSYCHIATRIC CLINICAL NURSE SPECIALIST (CURRENT) USE OF ANTICOAGULANT 04/24/2018 VALERIE MASCORRO APRN Ot Z79.02 PSYCHIATRIC CLINICAL NURSE SPECIALIST (CURRENT) USE OF ANTITHROMBOTI 04/24/2018 VALERIE MASCORRO APRN Ot Z79.51 SKILLED NURSING (CURRENT) USE OF INHALED STERO 04/24/2018 VALERIE MASCORRO APRN Ot Z86.73 PRSNL HX OF TIA (TIA), AND CEREB INFRC W 04/24/2018 VALERIE MASCORRO APRN Ot Z87.19 PERSONAL HISTORY OF OTHER DISEASES OF TH 04/24/2018 VALERIE MASCORRO APRN Ot Z87.440 PERSONAL [...] F32.9 MAJOR DEPRESSIVE DISORDER, SINGLE EPISOD 04/28/2018 VALERIE MASCORRO APRN Ot 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 04/28/2018 VALERIE MASCORRO APRN Ot I25.10 ATHSCL HEART DISEASE OF [place] CORONARY 04/28/2018 VALERIE MASCORRO APRN Ot I50.9 [...] HALLUCINATIONS 04/28/2018 VALERIE MASCORRO APRN Ot Z79.01 SKILLED NURSING (CURRENT) USE OF ANTICOAGULANT 04/28/2018 VALERIE MASCORRO APRN Ot Z79.02 PSYCHIATRIC CLINICAL NURSE SPECIALIST (CURRENT) USE OF ANTITHROMBOTI 04/28/2018 VALERIE MASCORRO APRN Ot Z79.51 SKILLED NURSING (CURRENT) USE OF INHALED STERO 04/28/2018 VALERIE MASCORRO APRN Ot Z86.73 PRSNL HX OF TIA (TIA), AND CEREB INFRC W 04/28/2018 VALERIE MASCORRO APRN Ot Z87.19 PERSONAL HISTORY OF OTHER DISEASES OF TH 04/28/2018 VALERIE MASCORRO APRN Ot Z87.440 PERSONAL HISTORY OF URINARY (TRACT) INFE 04/28/2018 VALERIE MASCORRO APRN Ot Z88.0 ALLERGY STATUS TO PENICILLIN 04/28/2018 VALERIE MASCORRO APRN Ot Z90.710 ACQUIRED ABSENCE OF BOTH CERVIX AND UTER 04/28/2018 VALERIE MASCORRO APRN Ot Z95.0 PRESENCE OF CARDIAC PACEMAKER 04/28/2018 VALERIE MASCORRO APRN Ot Z95.5 PRESENCE OF CORONARY ANGIOPLASTY IMPLANT 05/06/2018 Mahendra Chacko W 250.00 DIABETES MELLITUS WITHOUT MENTION OF COMPLICATION, TYPE II OR UNSPECIFIED TYPE, NOT STATED UNCONTROLLED 05/06/2018 Mahendra Chacko A 294.21 05/06/2018 Ricco, Mahendra W 296.20 05/06/2018 Ricco, Mahendra W 332.0 PARALYSIS AGITANS 05/06/2018 Ricco, Mahendra W 368.16 05/06/2018 Ricco, Mahendra W 372.00 05/06/2018 Ricco, Mahendra W 427.31 05/06/2018 Ricco, Mahendra W 530.81 ESOPHAGEAL REFLUX 05/06/2018 Ricco, Mahendra W 564.00 CONSTIPATION, UNSPECIFIED 05/06/2018 Ricco, Mahendra W 599.0 URINARY TRACT INFECTION, SITE NOT SPECIFIED 05/06/2018 Ricco, Mahendra W 707.15 05/06/2018 Ricco, Mahendra W E11.9 TYPE 2 DIABETES MELLITUS WITHOUT COMPLICATIONS 05/06/2018 Ricco Mahendra A F03.91 05/06/2018 Ricco Mahendra W F32.9 MAJOR DEPRESSIVE DISORDER, SINGLE EPISODE, UNSPECIFIED 05/06/2018 Ricco, Mahendra W 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 05/06/2018 Ricco Mahendra W H10.33 UNSPECIFIED ACUTE CONJUNCTIVITIS, BILATERAL 05/06/2018 Ricco Mahendra W I48.91 UNSPECIFIED ATRIAL FIBRILLATION 05/06/2018 Ricco Mahendra W K21.9 GASTRO-ESOPHAGEAL REFLUX DISEASE WITHOUT ESOPHAGITIS 05/06/2018 Ricco Mahendra W K59.09 OTHER CONSTIPATION 05/06/2018 Ricco Mahendra W L97.519 NON-PRS CHRONIC ULCER OTH PRT RIGHT FOOT W UNSP SEVERITY 05/06/2018 Ricco Mahendra W N39.0 URINARY TRACT INFECTION, SITE NOT SPECIFIED 05/06/2018 Ricco Mahendra W R44.1 VISUAL HALLUCINATIONS 08/22/2018 JAYY RAMOS, HUAN Sigala Ot D64.9 ANEMIA, UNSPECIFIED 08/22/2018 HUAN HOPE MD, Ot E03.9 HYPOTHYROIDISM, UNSPECIFIED 08/22/2018 HUAN HOPE MD, Ot F32.9 MAJOR DEPRESSIVE DISORDER, SINGLE EPISOD 08/22/2018 HUAN HOPE MD, Ot 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 08/22/2018 HUAN HOPE MD, Ot I25.10 ATHSCL HEART DISEASE OF [place] CORONARY 08/22/2018 HUAN HOPE MD Ot I50.9 HEART FAILURE, UNSPECIFIED 08/22/2018 HUAN HOPE MD, Ot J44.9 CHRONIC OBSTRUCTIVE PULMONARY DISEASE, U 08/22/2018 HUAN HOPE MD, Ot K21.9 GASTRO-ESOPHAGEAL REFLUX DISEASE WITHOUT 08/22/2018 HUAN HOPE MD, Ot N39.0 URINARY TRACT INFECTION, SITE NOT SPECIF 08/22/2018 HUAN HOPE MD, Ot R10.12 LEFT UPPER QUADRANT PAIN 08/22/2018 HUAN HOPE MD, Ot Z79.01 SKILLED NURSING (CURRENT) USE OF ANTICOAGULANT 08/22/2018 HUAN HOPE MD, Ot Z79.51 PSYCHIATRIC CLINICAL NURSE SPECIALIST (CURRENT) USE OF INHALED STERO 08/22/2018 HUAN HOPE MD, Ot Z79.52 PSYCHIATRIC CLINICAL NURSE SPECIALIST (CURRENT) USE OF SYSTEMIC STER 08/22/2018 HUAN HOPE MD Ot Z86.73 PRSNL HX OF TIA (TIA), AND CEREB INFRC W 08/22/2018 HUAN HOPE MD Ot Z87.19 PERSONAL HISTORY OF OTHER DISEASES OF TH 08/22/2018 HUAN HOPE MD Ot Z87.440 PERSONAL HISTORY OF URINARY (TRACT) INFE 08/22/2018 HUAN HOPE MD Ot Z88.0 ALLERGY STATUS TO PENICILLIN 08/22/2018 HUAN HOPE MD Ot Z90.710 ACQUIRED ABSENCE OF BOTH CERVIX AND UTER 08/22/2018 HUAN HOPE MD Ot Z95.0 PRESENCE OF CARDIAC PACEMAKER 08/22/2018 HUAN HOPE MD Ot Z95.5 PRESENCE OF CORONARY ANGIOPLASTY IMPLANT 08/23/2018 Ot 414.01 CORONARY ATHEROSCLEROSIS OF [place] CORON 08/23/2018 Ot V12.54 PERSONAL HX OF TIA, CEREBRAL INFARCTION 08/23/2018 Ot V45.01 CARDIAC PACEMAKER IN SITU 08/23/2018 NATALIA BEARD Ot 272.4 HYPERLIPIDEMIA NEC/NOS 08/23/2018 NATALIA BEARD Ot 414.00 CORON ATHEROSCLER NOS TYPE VESSEL, NATIV 08/23/2018 NATALIA BEARD Ot 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 NODE DYSFUNCT 08/23/2018 NATALIA BEARD Ot 453.40 ACUTE VENOUS EMBOLISM THROMBOSIS UNSP 08/23/2018 NATALIA BEARD Ot 272.4 HYPERLIPIDEMIA NEC/NOS 08/23/2018 NATALIA BEARD Ot 414.00 CORON ATHEROSCLER NOS TYPE VESSEL, NATIV 08/23/2018 NATALIA BEARD Ot 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 NODE DYSFUNCT 08/23/2018 NATALIA BEARD Ot 453.40 ACUTE VENOUS EMBOLISM THROMBOSIS UNSP 08/23/2018 NATALIA BEARD Ot 272.4 HYPERLIPIDEMIA NEC/NOS 08/23/2018 NATALIA BEARD Ot 414.00 CORON ATHEROSCLER NOS TYPE VESSEL, NATIV 08/23/2018 NATALIA BEARD Ot 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 NODE DYSFUNCT 08/23/2018 NATALIA BEARD Ot 453.40 ACUTE VENOUS EMBOLISM THROMBOSIS UNSP 08/23/2018 TERESITA RAMOS, SAPNA Estes Ot M75.122 COMPLETE ROTATR-CUFF TEAR/RUPTR OF LEFT 08/23/2018 GLENIS FARR Ot H53.2 DIPLOPIA 08/23/2018 TERESITA RAMOS, SAPNA Estes Ot M75.102 UNSP ROTATR-CUFF TEAR/RUPTR OF LEFT SHOU 08/23/2018 TERESITA RAMOS, SAPNA Estes Ot Z01.818 ENCOUNTER FOR OTHER PREPROCEDURAL EXAMIN 08/23/2018 GLENIS FARR Ot R10.84 GENERALIZED ABDOMINAL PAIN 08/23/2018 GLENIS FARR Ot R11.0 NAUSEA 08/23/2018 NATALIA BEARD Ot E78.2 MIXED HYPERLIPIDEMIA 08/23/2018 NATALIA BEARD Ot 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 08/23/2018 NATALIA BEARD Ot I25.10 ATHSCL HEART DISEASE OF [place] CORONARY 08/23/2018 NATALIA BEARD Ot I49.5 SICK SINUS SYNDROME 08/25/2018 JAYY RAMOS, HUAN D Ot D64.9 ANEMIA, UNSPECIFIED 08/25/2018 HUAN HOPE MD, Ot E03.9 HYPOTHYROIDISM, UNSPECIFIED 08/25/2018 HUAN HOPE MD, Ot F32.9 MAJOR DEPRESSIVE DISORDER, SINGLE EPISOD 08/25/2018 HUAN HOPE MD Ot 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 08/25/2018 HUAN HOPE MD, Ot I25.10 ATHSCL HEART DISEASE OF [place] CORONARY 08/25/2018 HUAN HOPE MD, Ot I50.9 HEART FAILURE, UNSPECIFIED 08/25/2018 HUAN HOPE MD, Ot J44.9 CHRONIC OBSTRUCTIVE PULMONARY DISEASE, U 08/25/2018 HUAN HOPE MD, Ot K21.9 GASTRO-ESOPHAGEAL REFLUX DISEASE WITHOUT 08/25/2018 HUAN HOPE MD, Ot N39.0 URINARY TRACT INFECTION, SITE NOT SPECIF 08/25/2018 HUAN HOPE MD Ot R10.12 LEFT UPPER QUADRANT PAIN 08/25/2018 HUAN HOPE MD Ot Z79.01 PSYCHIATRIC CLINICAL NURSE SPECIALIST (CURRENT) USE OF ANTICOAGULANT 08/25/2018 HUAN HOPE MD Ot Z79.51 SKILLED NURSING (CURRENT) USE OF INHALED STERO 08/25/2018 HUAN HOPE MD, Ot Z79.52 PSYCHIATRIC CLINICAL NURSE SPECIALIST (CURRENT) USE OF SYSTEMIC STER 08/25/2018 HUAN HOPE MD Ot Z86.73 PRSNL HX OF TIA (TIA), AND CEREB INFRC W 08/25/2018 HUAN HOPE MD Ot Z87.19 PERSONAL HISTORY OF OTHER DISEASES OF TH 08/25/2018 HUAN HOPE MD Ot Z87.440 PERSONAL HISTORY OF URINARY (TRACT) INFE 08/25/2018 HUAN HOPE MD Ot Z88.0 ALLERGY STATUS TO PENICILLIN 08/25/2018 HUAN HOPE MD Ot Z90.710 ACQUIRED ABSENCE OF BOTH CERVIX AND UTER 08/25/2018 HUAN HOPE MD Ot Z95.0 PRESENCE OF CARDIAC PACEMAKER 08/25/2018 HUAN HOPE MD Ot Z95.5 PRESENCE OF [...] culture - 04/24/18 10:41 Bacterial urine culture [id number] NRG COLONY COUNT >100,000/ML NR FTX;REPORTABLE FINAL AND SUSCEPTIBILITIES REPORTED AT [facility] FREE TEXT ENTRY 2 04-27-18 AT 0905 [facility] Sensitivity Panel - 04/24/18 10:41 Gentamicin [...] and clavulanate potassium susc [place] <= NRG [facility] Sensitivity Panel - 04/24/18 10:41 [...] 5-8.5 Urine-Protein Negative Negative Urine-RBC 5-10/HPF Urine-Specific [place] <=1.005 1.000-1.030 Urine-WBC 20-40/HPF Urobilinogen 0.2 E.U./dL [...] 5-8.5 Urine-Protein Negative Negative Urine-RBC 0-2/HPF Urine-Specific [place] 1.015 1.000-1.030 Urine-WBC 2-5/HPF Urobilinogen 0.2 0.2-1.0 Complete urinalysis with reflex to culture - 08/22/18 16:55 Urine color determination YELLOW NRG Urine clarity [...] detection in urine sediment by light microscopy 2-5 NRG Crystals detection in urine sediment by light microscopy NONE NRG Casts detection in urine sediment by light microscopy NONE NRG Mucus detection in urine sediment by light microscopy NEGATIVE NRG Complete urinalysis with reflex to culture YES NRG Renal epithelial cells detection in urine sediment by light microscopy 5-10 NRG Bacterial urine culture - 08/22/18 16:55 Bacterial urine culture SEE REPORT NRG COLONY COUNT . NRG Complete blood count (CBC) with automated white blood cell (WBC) differential - 08/22/18 17:40 Blood leukocytes automated count (number/volume) 6.4 10*3/uL 4.3-11.0 Blood erythrocytes automated count (number/volume) 3.91 10*6/uL 4.35-5.85 Venous blood hemoglobin measurement (mass/volume) 12.6 g/dL 11.5-16.0 Blood hematocrit (volume fraction) 38 % 35-52 Automated erythrocyte mean corpuscular volume 97 [foz_us] 80-99 Automated erythrocyte mean corpuscular hemoglobin (mass per erythrocyte) 32 pg 25-34 Automated erythrocyte mean corpuscular hemoglobin concentration measurement ( mass/volume) 33 g/dL 32-36 Automated erythrocyte distribution width ratio 14.8 % 10.0-14.5 Automated blood platelet count (count/volume) 241 10*3/uL 130-400 Automated blood platelet mean volume measurement 9.1 [foz_us] 7.4-10.4 Automated blood neutrophils/100 leukocytes 41 % 42-75 Automated blood lymphocytes/100 leukocytes 42 % 12-44 Blood monocytes/100 leukocytes 12 % 0-12 Automated blood eosinophils/100 leukocytes 5 % 0-10 Automated blood basophils/100 leukocytes 1 % 0-10 Blood neutrophils automated count (number/volume) 2.6 10*3 1.8-7.8 Blood lymphocytes automated count (number/volume) 2.7 10*3 1.0-4.0 Blood monocytes automated count (number/volume) 0.8 10*3 0.0-1.0 Automated eosinophil count 0.3 10*3/uL 0.0-0.3 Automated blood basophil count (count/volume) 0.0 10*3/uL 0.0-0.1 Comprehensive metabolic panel - 08/22/18 17:40 Serum or plasma sodium measurement (moles/volume) 141 mmol/L 135-145 Serum or plasma potassium measurement (moles/volume) 4.5 mmol/L 3.6-5.0 Serum or plasma chloride measurement (moles/volume) 110 mmol/L 98-107 Carbon dioxide 20 mmol/L 21-32 Serum or plasma anion gap determination (moles/volume) 11 mmol/L 5-14 Serum or plasma urea nitrogen measurement (mass/volume) 21 mg/dL 7-18 Serum or plasma creatinine measurement (mass/volume) 1.09 mg/dL 0.60-1.30 Serum or plasma urea nitrogen/creatinine mass ratio 19 NRG Serum or plasma creatinine measurement with calculation of estimated glomerular filtration rate 48 NRG Serum or plasma glucose measurement (mass/volume) 92 mg/dL 70-105 Serum or plasma calcium measurement (mass/volume) 9.5 mg/dL 8.5-10.1 Serum or plasma total bilirubin measurement (mass/volume) 0.2 mg/dL 0.1-1.0 Serum or plasma alkaline phosphatase measurement (enzymatic activity/volume) 102 U/L 40-136 Serum or plasma aspartate aminotransferase measurement (enzymatic activity/ volume) 16 U/L 5-34 Serum or plasma alanine aminotransferase measurement (enzymatic activity/volume ) 8 U/L 0-55 Serum or plasma protein measurement (mass/volume) 7.1 g/dL 6.4-8.2 Serum or plasma albumin measurement (mass/volume) 4.2 g/dL 3.2-4.5 CALCIUM CORRECTED 9.3 mg/dL 8.5-10.1 Lipase - 08/22/18 17:40 Lipase 27 U/L 8-78 Encounters ACCT No. Visit Date/Time Discharge Status Pt. Type Provider Facility Loc./Unit Complaint [id number] 08/22/2018 16:21:00 08/22/2018 20:40:00 DIS Emergency JAYY RAMOS, HUAN Sigala [facility] ER L SIDE PAIN [id number] 04/24/2018 10:38:00 04/24/2018 13:51:00 DIS Emergency VALERIE MASCORRO PAN CLEANER [facility] ER HALLUCINATIONS [id number] 04/22/2018 12:00:00 04/23/2018 10:51:00 DIS Inpatient KAYLENE NARVAEZ MD [facility] ICU AMS [id number] 04/21/2018 12:09:00 04/21/2018 18:09:00 DIS Emergency GLENIS FARR [facility] ER AMS [id number] 12/30/2017 20:18:00 12/30/2017 22:35:00 DIS Emergency EL DESTINEE FERNANDEZ [facility] ER FELL,HIT HEAD [id number] 11/26/2017 17:56:00 11/26/2017 19:16:00 DIS Emergency HUAN HOPE MD [facility] ER FALL [id number] 07/22/2017 15:01:00 07/22/2017 23:59:59 CLS Outpatient NATALIA BEARD [facility] CARD I25.10 [id number] 05/09/2017 18:44:00 05/09/2017 21:44:00 DIS Emergency CARLOS GRIFFIN MD [facility] ER PT FELL AT HOME [id number] 04/24/2017 15:11:00 04/24/2017 23:59:59 CLS Outpatient GLENIS FARR [facility] RAD ABD PAIN,NAUSEA [id number] 03/21/2017 02:59:00 03/21/2017 04:42:00 DIS Emergency CARLOS GRIFFIN MD [facility] ER AMS [id number] 11/03/2016 12:52:00 11/03/2016 15:03:00 DIS Emergency VALERIE MASCORRO PAN CLEANER [facility] ER FALL [id number] 07/11/2016 09:22:00 07/11/2016 14:35:00 DIS Outpatient TERESITA RAMOS, SAPNA Estes [facility] SDC LEFT TORN ROTATOR CUFF [id number] 07/10/2016 09:36:00 07/10/2016 23:59:59 CLS Outpatient SAPNA LO MD [facility] PREOP LEFT TORN ROTATOR CUFF [id number] 06/21/2016 13:05:00 06/21/2016 23:59:59 CLS Outpatient GLENIS FARR [facility] RAD DOUBLE VISION [id number] 04/17/2016 13:11:00 04/17/2016 23:59:59 CLS Outpatient SAPNA LO MD [facility] RAD RTC TEAR LEFT [id number] 04/20/2015 10:18:00 04/21/2015 10:05:00 DIS Outpatient SOLANGE RAMOS, KAYLENE Ash [facility] CATH ABNORMAL STRESS,CAD,HTN, CPHLP [id number] 04/18/2015 08:13:00 04/18/2015 23:59:59 CLS Outpatient NATALIA BEARD [facility] CARD CAD,DVT,HLP [id number] 03/30/2015 12:13:00 03/30/2015 23:59:59 CLS Outpatient NATALIA BEARD [facility] CARD CAD,DVT,HLP, SSS [id number] 03/28/2015 13:07:00 03/28/2015 23:59:59 CLS Outpatient NATALIA BEARD [facility] CARD CAD,DVT,HLP, SSS [id number] 03/25/2015 09:53:00 Document Registration [id number] 03/25/2015 09:53:00 Document Registration [id number] 03/25/2015 09:52:00 Document Registration [id number] 03/25/2015 09:52:00 Document Registration [id number] 03/25/2015 09:52:00 Document Registration [id number] 03/25/2015 09:52:00 Document Registration [id number] 03/25/2015 09:52:00 Document Registration [id number] 03/25/2015 09:52:00 Document Registration [id number] 03/23/2013 08:24:00 Document Registration [id number] 01/21/2013 13:50:00 Document Registration [id number] 03/31/2012 16:57:00 Document Registration [id number] 03/21/2012 07:22:00 Document Registration [id number] 01/12/2012 09:33:00 Document Registration [id number] 12/23/2011 12:57:00 Document Registration [id number] 12/19/2011 13:00:00 Document Registration [id number] 12/14/2011 19:49:00 Document Registration [id number] 12/11/2011 12:46:00 Document Registration [id number] 10/22/2011 14:18:00 Document Registration [id number] 09/12/2011 12:22:00 Document Registration [id number] 09/03/2011 15:57:00 Document Registration [id number] 08/31/2011 10:07:00 Document Registration [id number] 07/27/2011 12:17:00 Document Registration [id number] 04/20/2011 21:58:00 Document Registration [id number] 06/22/2010 13:05:00 Document Registration [id number] 06/20/2010 09:08:00 Document Registration [id number] 04/04/2010 10:52:00 Document Registration [id number] 06/01/2018 01:31:00 06/01/2018 23:59:00 DIS Outpatient Bethel Clayton [id number] 04/24/2018 19:05:00 05/06/2018 14:31:00 DIS Inpatient Mahendra Chacko [facility] ROBERT [id number] 04/24/2018 22:40:26 Document Registration [id number] 04/20/2015 10:19:56 ACT Document Registration
[2018-11-05 01:52] LABS: BASOPHILS # (AUTO) 0.1 10^3/uL (0.0-0.1); BASOPHILS % (AUTO) 1 % (0-10); EOSINOPHILS % (AUTO) 0 % (0-10); HEMATOCRIT 41 % (35-52); HEMOGLOBIN 13.2 G/DL (11.5-16.0); LYMPHOCYTES # (AUTO) 2.6 X 10^3 (1.0-4.0); LYMPHOCYTES % (AUTO) 36 % (12-44); MEAN CORPUSCULAR HEMOGLOBIN 32 PG (25-34); MEAN CORPUSCULAR HGB CONC 33 G/DL (32-36); MEAN CORPUSCULAR VOLUME 98 FL (80-99); MEAN PLATELET VOLUME 9.2 FL (7.4-10.4); MONOCYTES # (AUTO) 0.9 X 10^3 (0.0-1.0); MONOCYTES % (AUTO) 12 % (0-12); NEUTROPHILS # (AUTO) 3.7 X 10^3 (1.8-7.8); NEUTROPHILS % (AUTO) 51 % (42-75); PLATELET COUNT 252 10^3/uL (130-400); RED BLOOD COUNT 4.12 10^6/uL (4.35-5.85); RED CELL DISTRIBUTION WIDTH 13.9 % (10.0-14.5); WHITE BLOOD COUNT 7.3 10^3/uL (4.3-11.0)
[2018-11-05 02:04] LABS: INR 1.5 (0.8-1.4); PROTHROMBIN TIME PATIENT 17.7 SEC (12.2-14.7)
[2018-11-05 02:12] LABS: ALANINE AMINOTRANSFERASE < 6 U/L (0-55); ALKALINE PHOSPHATASE 97 U/L (40-136); BILIRUBIN,TOTAL 0.4 MG/DL (0.1-1.0); BUN/CREATININE RATIO 19; CALCIUM 9.5 MG/DL (8.5-10.1); CARBON DIOXIDE 20 MMOL/L (21-32); CHLORIDE 106 MMOL/L (98-107); GFR ESTIMATED 47; GLUCOSE 91 MG/DL (70-105); LIPASE 11 U/L (8-78); MAGNESIUM 2.9 MG/DL (1.8-2.4); POTASSIUM 5.7 MMOL/L (3.6-5.0); SODIUM 138 MMOL/L (135-145); TOTAL PROTEIN 7.4 GM/DL (6.4-8.2)
[2018-11-05 02:19] LABS: MYOGLOBIN SERUM 68.3 NG/ML (10.0-92.0)
--- NOTE | 2018-11-05 02:23 | ED Chest Pain ---
General Chief Complaint: Chest Pain Stated Complaint: CHEST PAIN Nursing Triage Note: PT TO ROOM #5 VIA [facility] FROM [facility] WITH C/O MEDIAL CHEST PAIN. PT REPORTS SHE HAS NOT BEEN FEELING WELL THROUGHOUT THE DAY AND DEVELOPED CHEST DISCOMFORT APPROX 0045 THIS AM. PT STATES, "IT FEELS LIKE SOMETHING IS CAUGHT IN MY CHEST." REPORTS NAUSEA. A&OX4. Nursing Sepsis Screen: No Definite Risk Source: patient Exam Limitations: no limitations History of Present Illness Date Seen by Provider: Nov 05, 2018 Time Seen by Provider: 01:25 Initial Comments Here by EMS with report of chest pain that started about 1245 a.m. this morning. Reports that she feels like something is caught there but no reports of eating or something that would be caught there. EMS did give 324 mg of baby aspirin. Blood pressure okay. Patient states the pain is constant but is having a hard time describing it. Reports a little short of breath with the discomfort and some nausea. No vomiting. 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 HANDLER: Yes NTG SL AMMUNITION AND EXPLOSIVES HANDLER: No Associated Symptoms: No abdominal pain, No back pain; nausea/vomiting, shortness of breath Allergies and Home Medications Allergies Coded Allergies: Penicillins (Unverified Allergy, Unknown, 11/03/16) Uncoded Allergies: POISON AISHWARYA, OAK AND SUMAC (Allergy, Unknown, 12/28/08) Home Medications Acetaminophen 325 Mg Tablet, 650 MG PO Q4H PRN for PAIN-MILD, (Reported) TAKES 2 (325MG) TABLETS Albuterol Sulfate 2.5 Mg/3 Ml Vial.neb, 2.5 MG NEB Q4H PRN for WHEEZING, ( Reported) Apixaban 5 Mg Tablet, 5 MG PO BID, (Reported) Bisacodyl 10 Mg Supp.rect, 10 MG RC DAILY PRN for CONSTIPATION-4TH LINE, ( Reported) Budesonide/Formoterol Fumarate 10.2 Gm Hfa.aer.ad, 2 PUFF INH BID, (Reported) Carboxymethylcellulose Sodium 15 Ml Drops, 1 DROP OU BID, (Reported) Cephalexin 500 Mg Tablet, 500 MG PO BID Prescribed by: HUAN HOPE on 08/22/182009 Citalopram Hydrobromide 20 Mg Tablet, 20 MG PO 1700, (Reported) Cyanocobalamin (Vitamin B-12) 1,000 Mcg Tablet, 1,000 MCG PO DAILY, (Reported) Ergocalciferol (Vitamin D2) 50,000 Unit Capsule, 50,000 UNIT PO EVERY 14 DAYS, ( Reported) Fentanyl 1 Each Patch.td72, 50 MCG TD Q72H, (Reported) Ferrous Sulfate 134 Mg Tablet, 134 MG PO TID, (Reported) Fish Oil/Dha/Epa 1 Each Capsule, 1,200 MG PO TID, (Reported) Furosemide 20 Mg Tablet, 20 MG PO Q48H, (Reported) ALTERNATING WITH 40MG Furosemide 20 Mg Tablet, 40 MG PO Q48H, (Reported) ALTERNATING WITH 20MG Hydrocodone/Acetaminophen 1 Each Tablet, 1 TAB PO Q6H PRN for PAIN-MODERATE, ( Reported) Levothyroxine Sodium 112 Mcg Tablet, 112 MCG PO DAILY, (Reported) Magnesium Hydroxide 400 Mg/5 Ml Oral.susp, 30 ML PO DAILY PRN for CONSTIPATION- 7TH LINE, (Reported) Melatonin 3 Mg Tablet, 3 MG PO HS PRN for SLEEP, (Reported) Menthol 118 Ml Gel..ml., TP BID PRN for MUSCLE PAIN, (Reported) APPLY TO SHOULDERS, ARMS, OR NECK Nebivolol HCl 5 Mg Tablet, 5 MG PO DAILY, (Reported) HOLD FOR SBP <100 OR DBP <60 OR PULSE <60 Nystatin 1 Each Powder.ea., TOP BID PRN for REDNESS/GAULDING, (Reported) APPLY TO ABDOMINAL FOLD Risperidone 0.25 Mg Tablet, 0.25 MG PO BID Prescribed by: TACHO PEREYRA on 04/23/18 1437 Sennosides/Docusate Sodium 1 Each Tablet, 2 TAB PO DAILY, (Reported) Sodium Chloride 30 Ml [place], 1-2 SPRAYS NS Q4H PRN for CONGESTION, (Reported) Sulfamethoxazole/Trimethoprim 1 Each Tablet, 1 EACH PO BID Prescribed by: VALERIE MASCORRO on 04/24/18 1148 Patient Home Medication List Home Medication List Reviewed: Yes Review of Systems Review of Systems Constitutional: see HPI; No chills, No fever EENTM: No Symptoms Reported Respiratory: See HPI, Shortness of Air Cardiovascular: See HPI, Chest Pain; Denies Edema Gastrointestinal: No Symptoms Reported; Denies Abdominal Pain, Denies Diarrhea ; Nausea; Denies Vomiting Genitourinary: No Symptoms Reported Musculoskeletal: no symptoms reported Skin: no symptoms reported Psychiatric/Neurological: See HPI, Anxiety Endocrine: No Symptoms Reported All Other Systems Reviewed Negative Unless Noted: Yes Past Mkvvzbs-Mxwksq-Rygrgw Hx Past Med/Social Hx: Reviewed Nursing Past Med/Soc Hx Patient Social History Alcohol Use: Denies Use Recreational Drug Use: No Smoking Status: Never a Smoker 2nd Hand Smoke Exposure: No Recent Foreign Travel: No Contact w/Someone Who Travel: No Recent Infectious Disease Expo: No Recent Hopitalizations: No Physical Abuse: No Sexual Abuse: No Immunizations Up To Date Tetanus Booster (TDap): Unknown Date of Pneumonia Vaccine: Aug 05, 2012 Date of Influenza Vaccine: Sep 01, 2016 Seasonal Allergies Seasonal Allergies: Yes Past Medical History Surgeries: Yes (HYSTERECTOMY 1974, PACEMAKER, TKR, FOOT, SHOULDER) Abdominal, Coronary Stent, Orthopedic, Pacemaker Respiratory: Yes (O2 at night) COPD Cardiac: Yes (chronic ischemic heart diseas, CHF, pacemaker, sick sinus syndrome) Chronic Edema/Swelling, Coronary Artery Disease Neurological: Yes (h/o frequent syncopal episodes) Parkinson's Disease, Stroke Reproductive Disorders: No Female Reproductive Disorders: Denies Sexually Transmitted Disease: No HIV/AIDS: Yes Genitourinary: Yes (UTI) Renal Failure Gastrointestinal: Yes (chronic N/V) Gastroesophageal Reflux, Chronic Constipation Musculoskeletal: Yes Arthritis, Contracture Endocrine: Yes Hypothyroidsim HEENT: Yes (dry eye syndrome, epistaxis, chronic sinusitis) Cancer: No Psychosocial: Yes Sleep Difficulties, Depression Integumentary: No Blood Disorders: Yes (anemia) Adverse Reaction/Blood Tranf: No Family Medical History Reviewed Nursing Family Hx No Pertinent Family Hx Physical Exam Vital Signs Vital Signs - First Documented 11/05/18 01:25 Temp 96.9 Pulse 64 Resp 18 B/P (MAP) 145/77 (99) Pulse Ox 98 O2 Delivery Room Air O2 Flow Rate 0 Capillary Refill : Less Than 3 Seconds Height, Weight, BMI Height: 5'11.00" Weight: 201lbs. 0.0oz. 91.706467gz; 29.4 BMI Method:Stated General Appearance: No Apparent Distress, WD/WN HEENT: PERRL/EOMI Neck: Non Tender, Supple Respiratory: Lungs Clear, Normal Breath Sounds Cardiovascular: Regular Rate, Rhythm, No Murmur Gastrointestinal: Non Tender, Soft Extremity: Normal Range of Motion, Non Tender Neurologic/Psychiatric: Alert, Oriented x3 Skin: Warm/Dry, Other (skin tear to the lower leg covered with dressing on the left) Progress/Results/Core Measures Results/Orders Lab Results Laboratory Tests Test 11/05/18 01:40 11/05/18 03:40 Range/Units White Blood Count 7.3 4.3-11.0 10^3/uL Red Blood Count 4.12 L 4.35-5.85 10^6/uL Hemoglobin 13.2 11.5-16.0 G/DL Hematocrit 41 35-52 % Mean Corpuscular Volume 98 80-99 FL Mean Corpuscular Hemoglobin 32 25-34 PG Mean Corpuscular Hemoglobin Concent 33 32-36 G/DL Red Cell Distribution Width 13.9 10.0-14.5 % Platelet Count 252 130-400 10^3/uL Mean Platelet Volume 9.2 7.4-10.4 FL Neutrophils (%) (Auto) 51 42-75 % Lymphocytes (%) (Auto) 36 12-44 % Monocytes (%) (Auto) 12 0-12 % Eosinophils (%) (Auto) 0 0-10 % Basophils (%) (Auto) 1 0-10 % Neutrophils # (Auto) 3.7 1.8-7.8 X 10^3 Lymphocytes # (Auto) 2.6 1.0-4.0 X 10^3 Monocytes # (Auto) 0.9 0.0-1.0 X 10^3 Eosinophils # (Auto) 0.0 0.0-0.3 10^3/uL Basophils # (Auto) 0.1 0.0-0.1 10^3/uL Prothrombin Time 17.7 H 12.2-14.7 SEC INR Comment 1.5 H 0.8-1.4 Activated Partial Thromboplast Time 39 H 24-35 SEC Sodium Level 138 140 135-145 MMOL/L Potassium Level 5.7 H 4.6 3.6-5.0 MMOL/L Chloride Level 106 106 98-107 MMOL/L Carbon Dioxide Level 20 L 21 21-32 MMOL/L Anion Gap 12 13 5-14 MMOL/L Blood Urea Nitrogen 21 H 22 H 7-18 MG/DL Creatinine 1.10 1.10 0.60-1.30 MG/DL Estimat Glomerular Filtration Rate 47 47 BUN/Creatinine Ratio 19 20 Glucose Level 91 84 70-105 MG/DL Calcium Level 9.5 9.5 8.5-10.1 MG/DL Corrected Calcium 9.5 8.5-10.1 MG/DL Magnesium Level 2.9 H 1.8-2.4 MG/DL Total Bilirubin 0.4 0.1-1.0 MG/DL Aspartate Amino Transf (AST/SGOT) 16 5-34 U/L Alanine Aminotransferase (ALT/SGPT) < 6 0-55 U/L Alkaline Phosphatase 97 40-136 U/L Myoglobin 68.3 66.3 10.0-92.0 NG/ML Troponin I < 0.30 < 0.30 <0.30 NG/ML Total Protein 7.4 6.4-8.2 GM/DL Albumin 4.0 3.2-4.5 GM/DL Lipase 11 8-78 U/L My Orders Orders - HUAN HOPE MD Cbc With Automated Diff (11/05/18) Magnesium (11/05/18:) Chest 1 View, Ap/Pa Only (11/05/18:33) Ekg Tracing (11/05/18:33) Cardiac Profile 1 (11/05/18:) Comprehensive Metabolic Panel (11/05/18) Myoglobin Serum (11/05/18) Protime With Inr (11/05/18:) Partial Thromboplastin Time (11/05/18:) O2 (11/05/18:) Monitor-Rhythm Ecg Trace Only (11/05/18) Lipid Panel (11/06/18 06:00) Saline Lock/Iv-Start (11/05/18:33) Lipase (11/05/18:33) Lidocaine 2% Viscous 15 Ml (Xylocaine Vi (11/05/18 02:45) Antacid Suspension (Mylanta Suspension (11/05/18 02:45) Ns Iv 500 Ml (Sodium Chloride 0.9%) (11/05/18 02:41) Lorazepam Injection (Ativan Injection) (11/05/18 03:30) Basic Metabolic Panel (11/05/18 03:21) Troponin I (11/05/18 03:21) Myoglobin Serum (11/05/18 03:21) Ekg Tracing (11/05/18 03:22) Morphine Injection (Morphine Injection (11/05/18 03:56) Medications Given in ED Current Medications Medications Dose Ordered Sig/Indira Route Start Time Stop Time Status Last Admin Dose Admin Al Hydrox/Mg Hydrox/Simethicone 30 ml ONCE ONCE PO 11/05/18 02:45 11/05/18 02:46 DC 11/05/18 02:48 30 ML Lidocaine HCl 15 ml ONCE ONCE PO 11/05/18 02:45 11/05/18 02:46 DC 11/05/18 02:49 15 ML Lorazepam 0.5 mg ONCE ONCE IVP 11/05/18 03:30 11/05/18 03:31 DC 11/05/18 03:27 0.5 MG Sodium Chloride 500 ml @ 0 mls/hr Q0M ONCE IV 11/05/18 02:41 11/05/18 02:43 DC 11/05/18 02:48 0 MLS/HR Vital Signs/I&O 11/05/18 11/05/18 01:25 01:25 Temp 96.9 Pulse 64 Resp 18 B/P (MAP) 145/77 (99) Pulse Ox 98 O2 Delivery Room Air Room Air O2 Flow Rate 0 Blood Pressure Mean: 99 Progress Progress Note : Progress Note Seen and evaluated. IV, labs, EKG and chest x-ray ordered. ASA given by EMS. We will hold nitroglycerin at this point as pain as pretty typical pending labs. Patient is currently on Eliquis twice a day. Monitor patient. 0330: Patient reports that the pain is feeling that she has something stuck sideways in the middle of her chest. She is wondering if it was maybe the horse pill which apparently is her fish oil. Ativan 0.5 mg IV given for some anxiousness and her blood pressure as elevated higher currently. The daughter reports that the patient has a difficult time with this time of year due to the patient's passing 20 years ago at about this time and this was also his favorite time of year. Monitor patient. We will recheck a troponin, myoglobin and EKG. 0355: EKG complete. Morphine 4 mg IV for the discomfort. 0440: Hydrocodone 5 /325 one tab by mouth given. Patient is able to drink water without difficulty. She did get GI cocktail which didn't change symptoms much although now reports that the pain is intermittent. She is swallowing okay when drinking water. Repeat troponin and myoglobin are negative and repeat EKG does not show any significant changes or findings. Patient's blood pressure is 150s to 160s systolic currently. We will discharge back to halfway with instructions to follow-up with her primary care provider and cardiology within one week. Discharged home with return precautions. Patient verbalize understanding instructions and agreement with plan. Initial ECG Impression Date: Nov 05, 2018 Initial ECG Impression Time: 01:25 Initial ECG Rate: 69 Initial ECG Rhythm: Normal Sinus Initial ECG Comparisson: Unchanged Comment Sinus with first-degree AV block with low voltage P waves and artifact. Similar to previous on 04/22/18. Normal axis. No evidence of ST elevation CT. Interpreted by me. EKG : EKG Time: 03:55 Rate: 60 Rhythm: Normal Sinus Comment Sinus rhythm intermittently paced. Normal axis. No evidence of ST elevation CT. Overall similar to previous in morphology from earlier. Interpreted by me. Diagnostic Imaging Diagonstic Imaging: Xray Plain Films/CT/US/NM/MRI: chest Comments Portable 1 view chest shows no acute findings compared to previous Departure Impression Primary Impression: Chest pain Qualified Codes: R07.9 - Chest pain, unspecified Disposition: HOME, SELF-CARE Condition: Improved Departure-Patient Inst. Decision time for Depature: 04:49 Referrals: DIA GREENWOOD MD (PCP/Family) Primary Care Physician Patient Instructions: Chest Pain (DC) Add. Discharge Instructions: All discharge instructions reviewed with patient and/or family. Voiced understanding. Continue home medications as directed. In a normal diet. Follow-up with your doctor this week for recheck and further evaluation. Set up an appointment with Dr. Stuart within one week for recheck and further evaluation. Return for worse pain, fever, vomiting, weakness, breathing problems or other concerns as needed. Copy Copies To 1: DIA GREENWOOD MD, TIMOTHY D MD Nov 05, 2018 02:23
[2018-11-05] MEDS ORDERED: NS IV 500 ML 500 ML IV ONE (02:41)
[2018-11-05] MEDS ORDERED: LIDOCAINE 2% VISCOUS 15 ML UDC PO ONE (02:45)
[2018-11-05] MEDS ORDERED: ANTACID SUSP 30 ML UDC (MYLANTA) PO ONE (02:45)
[2018-11-05] MEDS ORDERED: LORazepam INJ 2 MG/ML (ATIVAN) VIAL IVP ONE (03:30)
[2018-11-05] MEDS ORDERED: morphine INJ 10 MG/ML 1ML (SYR OR VIAL) IVP STA (03:56)
[2018-11-05 04:07] LABS: BUN/CREATININE RATIO 20; CALCIUM 9.5 MG/DL (8.5-10.1); CARBON DIOXIDE 21 MMOL/L (21-32); CHLORIDE 106 MMOL/L (98-107); GFR ESTIMATED 47; GLUCOSE 84 MG/DL (70-105); POTASSIUM 4.6 MMOL/L (3.6-5.0); SODIUM 140 MMOL/L (135-145)
[2018-11-05 04:17] LABS: MYOGLOBIN SERUM 66.3 NG/ML (10.0-92.0)
[2018-11-05] MEDS ORDERED: HYDROcodone/APAP 5 MG/325 MG (LORTAB) TAB PO STA (04:44)
[2018-11-05 07:30] VITALS: BP 145/77
--- NOTE | 2018-11-05 08:28 | Diagnostic Imaging Report ---
Patient History: Chest pain. Technique: Single frontal view of the chest Comparison: 04/24/2018 FINDINGS: The lung volumes are normal. No focal consolidation is seen. No large pleural effusion or pneumothorax is seen. The cardiomediastinal silhouette is normal in size and contour. No acute osseous abnormality is seen. Left-sided pacemaker leads appear stable. There is aortic atherosclerosis. Suture anchors noted in the left humeral head. IMPRESSION: No acute pulmonary abnormality seen. Dictated by: Dictated on workstation # [id number]
== END 2018-11-05 07:30 | disposition home or self-care (01) ==
LOC: EDUNIT# 01:23 → ER 01:24
DX: R07.89 Other chest pain (principal); J44.9 Chronic obstructive pulmonary disease, unspecified; I25.10 Atherosclerotic heart disease of native coronary artery without angina pectoris; I50.9 Heart failure, unspecified; I73.9 Peripheral vascular disease, unspecified; G20 Parkinson's disease; K21.9 Gastro-esophageal reflux disease without esophagitis; E03.9 Hypothyroidism, unspecified; F32.9 Major depressive disorder, single episode, unspecified; D64.9 Anemia, unspecified; Z87.19 Personal history of other diseases of the digestive system; Z86.73 Personal history of transient ischemic attack (TIA), and cerebral infarction without residual deficits; Z87.448 Personal history of other diseases of urinary system; Z88.0 Allergy status to penicillin; Z88.8 Allergy status to other drugs, medicaments and biological substances; Z79.51 Long term (current) use of inhaled steroids; Z79.01 Long term (current) use of anticoagulants; Z90.710 Acquired absence of both cervix and uterus; Z95.0 Presence of cardiac pacemaker; Z95.5 Presence of coronary angioplasty implant and graft
CPT/HCPCS: 36415; 71045; 80048; 80053; 83690; 83735; 83874; 84484; 85025; 85610; 85730; 93005; 93041

== ENCOUNTER 2018-11-07 22:53 | Observation (INO) | payer MEDICARE, MEDICAID ==
[~2018-11-07] VITALS: Ht 180.3 cm; Wt 92.5 kg
[2018-11-07] MEDS ORDERED: ASPIRIN 81 MG CHEW (CHILDREN'S ASA) PO ONE (23:15)
[2018-11-07 23:54] LABS: BASOPHILS % (AUTO) 0 % (0-10); EOSINOPHILS # (AUTO) 0.3 10^3/uL (0.0-0.3); EOSINOPHILS % (AUTO) 4 % (0-10); HEMATOCRIT 35 % (35-52); HEMOGLOBIN 11.5 G/DL (11.5-16.0); LYMPHOCYTES # (AUTO) 2.4 X 10^3 (1.0-4.0); LYMPHOCYTES % (AUTO) 36 % (12-44); MEAN CORPUSCULAR HEMOGLOBIN 33 PG (25-34); MEAN CORPUSCULAR HGB CONC 33 G/DL (32-36); MEAN CORPUSCULAR VOLUME 100 FL (80-99); MEAN PLATELET VOLUME 9.2 FL (7.4-10.4); MONOCYTES # (AUTO) 0.9 X 10^3 (0.0-1.0); MONOCYTES % (AUTO) 13 % (0-12); NEUTROPHILS # (AUTO) 3.1 X 10^3 (1.8-7.8); NEUTROPHILS % (AUTO) 47 % (42-75); PLATELET COUNT 248 10^3/uL (130-400); RED BLOOD COUNT 3.51 10^6/uL (4.35-5.85); WHITE BLOOD COUNT 6.7 10^3/uL (4.3-11.0)
[2018-11-08] VITALS (14 sets, daily range): BP systolic 123–202; BP diastolic 57–92
[2018-11-08 00:10] LABS: INR 1.5 (0.8-1.4); PROTHROMBIN TIME PATIENT 18.3 SEC (12.2-14.7)
[2018-11-08 00:19] LABS: ALANINE AMINOTRANSFERASE < 6 U/L (0-55); ALBUMIN 3.8 GM/DL (3.2-4.5); ALKALINE PHOSPHATASE 90 U/L (40-136); BILIRUBIN,TOTAL 0.3 MG/DL (0.1-1.0); BUN/CREATININE RATIO 18; CARBON DIOXIDE 20 MMOL/L (21-32); CHLORIDE 107 MMOL/L (98-107); CREATININE SERUM 1.42 MG/DL (0.60-1.30); GFR ESTIMATED 35; GLUCOSE 97 MG/DL (70-105); MAGNESIUM 2.3 MG/DL (1.8-2.4); POTASSIUM 4.7 MMOL/L (3.6-5.0); SODIUM 140 MMOL/L (135-145); TOTAL PROTEIN 6.5 GM/DL (6.4-8.2)
[2018-11-08 00:25] LABS: MYOGLOBIN SERUM 67.2 NG/ML (10.0-92.0)
[2018-11-08] MEDS ORDERED: LIDOCAINE 2% VISCOUS 15 ML UDC PO ONE (00:45)
[2018-11-08] MEDS ORDERED: ANTACID SUSP 30 ML UDC (MYLANTA) PO ONE (00:45)
[2018-11-08] MEDS ORDERED: NS IV 1000 ML 1,000 ML IV ONE (00:59)
--- NOTE | 2018-11-08 01:43 | ED Chest Pain ---
General Chief Complaint: Chest Pain Stated Complaint: CP Nursing Triage Note: Pt to ED via [facility] from [facility]. Facility staff reported to this RN that pt was seen in this ED on Saturday (11/04) for similar symptoms. Pt had multiple tests run and dx w/ anxiety. Pt reports pain woke her from her sleep tonight. Nursing Sepsis Screen: No Definite Risk Source: patient, EMS, old records Exam Limitations: no limitations History of Present Illness Date Seen by Provider: Nov 08, 2018 Time Seen by Provider: 01:52 Initial Comments This 87-year-old woman is brought to the emergency room from the skilled nursing by EMS for reasons of chest pain. She was seen a couple of days ago for similar symptoms. Her pain seems to be atypical in nature. She has some epigastric tenderness as well. Workup on her prior visit was negative. Patient also has some issues with anxiety. Review of chart also notes that she had a cardiac catheterization in 2014 showing an LAD stenosis of 50 percent proximal to a prior stent. She also had an aneurysmal LAD. Angiogram was done for reasons of abnormal stress test. Patient is anti-coagulated with Eliquis because of history of A. fib. EMS commented on erratic heart rate and blood pressure. Part of their rhythm strip showed paced rhythm. EMS reports chest pain is reproducible with palpation. Allergies and Home Medications Allergies Coded Allergies: Penicillins (Unverified Allergy, Unknown, 11/03/16) Uncoded Allergies: POISON AISHWARYA, OAK AND SUMAC (Allergy, Unknown, 12/28/08) Home Medications Acetaminophen 325 Mg Tablet, 650 MG PO Q4H PRN for PAIN-MILD, (Reported) TAKES 2 (325MG) TABLETS Albuterol Sulfate 2.5 Mg/3 Ml Vial.neb, 2.5 MG NEB Q4H PRN for WHEEZING, ( Reported) Apixaban 5 Mg Tablet, 5 MG PO BID, (Reported) Bisacodyl 10 Mg Supp.rect, 10 MG RC DAILY PRN for CONSTIPATION-4TH LINE, ( Reported) Budesonide/Formoterol Fumarate 10.2 Gm Hfa.aer.ad, 2 PUFF INH BID, (Reported) Carboxymethylcellulose Sodium 15 Ml Drops, 1 DROP OU BID, (Reported) Cephalexin 500 Mg Tablet, 500 MG PO BID Prescribed by: HUAN HOPE on 08/22/182009 Citalopram Hydrobromide 20 Mg Tablet, 20 MG PO 1700, (Reported) Cyanocobalamin (Vitamin B-12) 1,000 Mcg Tablet, 1,000 MCG PO DAILY, (Reported) Ergocalciferol (Vitamin D2) 50,000 Unit Capsule, 50,000 UNIT PO EVERY 14 DAYS, ( Reported) Fentanyl 1 Each Patch.td72, 50 MCG TD Q72H, (Reported) Ferrous Sulfate 134 Mg Tablet, 134 MG PO TID, (Reported) Fish Oil/Dha/Epa 1 Each Capsule, 1,200 MG PO TID, (Reported) Furosemide 20 Mg Tablet, 20 MG PO Q48H, (Reported) ALTERNATING WITH 40MG Furosemide 20 Mg Tablet, 40 MG PO Q48H, (Reported) ALTERNATING WITH 20MG Hydrocodone/Acetaminophen 1 Each Tablet, 1 TAB PO Q6H PRN for PAIN-MODERATE, ( Reported) Levothyroxine Sodium 112 Mcg Tablet, 112 MCG PO DAILY, (Reported) Magnesium Hydroxide 400 Mg/5 Ml Oral.susp, 30 ML PO DAILY PRN for CONSTIPATION- 7TH LINE, (Reported) Melatonin 3 Mg Tablet, 3 MG PO HS PRN for SLEEP, (Reported) Menthol 118 Ml Gel..ml., TP BID PRN for MUSCLE PAIN, (Reported) APPLY TO SHOULDERS, ARMS, OR NECK Nebivolol HCl 5 Mg Tablet, 5 MG PO DAILY, (Reported) HOLD FOR SBP <100 OR DBP <60 OR PULSE <60 Nystatin 1 Each Powder.ea., TOP BID PRN for REDNESS/GAULDING, (Reported) APPLY TO ABDOMINAL FOLD Risperidone 0.25 Mg Tablet, 0.25 MG PO BID Prescribed by: TACHO PEREYRA on 04/23/18 1437 Sennosides/Docusate Sodium 1 Each Tablet, 2 TAB PO DAILY, (Reported) Sodium Chloride 30 Ml [place], 1-2 SPRAYS NS Q4H PRN for CONGESTION, (Reported) Sulfamethoxazole/Trimethoprim 1 Each Tablet, 1 EACH PO BID Prescribed by: VALERIE MASCORRO on 04/24/18 1148 Patient Home Medication List Home Medication List Reviewed: Yes Review of Systems Review of Systems Constitutional: no symptoms reported EENTM: No Symptoms Reported Respiratory: No Symptoms Reported Cardiovascular: See HPI Gastrointestinal: See HPI Genitourinary: No Symptoms Reported Musculoskeletal: no symptoms reported Skin: no symptoms reported Psychiatric/Neurological: No Symptoms Reported Endocrine: No Symptoms Reported Hematologic/Lymphatic: No Symptoms Reported Past Qaphgnh-Zeuitg-Yfjmio Hx Patient Social History Alcohol Use: Denies Use Recreational Drug Use: No Smoking Status: Former Smoker 2nd Hand Smoke Exposure: No Recent Foreign Travel: No Contact w/Someone Who Travel: No Recent Infectious Disease Expo: No Recent Hopitalizations: No Immunizations Up To Date Tetanus Booster (TDap): Unknown Date of Pneumonia Vaccine: Aug 05, 2012 Date of Influenza Vaccine: Sep 01, 2016 Seasonal Allergies Seasonal Allergies: Yes Past Medical History Surgeries: Yes (HYSTERECTOMY 1974, PACEMAKER, TKR, FOOT, SHOULDER) Abdominal, Coronary Stent, Orthopedic, Pacemaker Respiratory: Yes (O2 at night) COPD Cardiac: Yes (chronic ischemic heart diseas, CHF, pacemaker, sick sinus syndrome) Chronic Edema/Swelling, Coronary Artery Disease Neurological: Yes (h/o frequent syncopal episodes) Parkinson's Disease, Stroke Reproductive Disorders: No Female Reproductive Disorders: Denies Sexually Transmitted Disease: No HIV/AIDS: Yes Genitourinary: Yes (UTI) Renal Failure Gastrointestinal: Yes (chronic N/V) Gastroesophageal Reflux, Chronic Constipation Musculoskeletal: Yes Arthritis, Contracture Endocrine: Yes Hypothyroidsim HEENT: Yes (dry eye syndrome, epistaxis, chronic sinusitis) Cancer: No Psychosocial: Yes Sleep Difficulties, Depression Integumentary: No Blood Disorders: Yes (anemia) Adverse Reaction/Blood Tranf: No Family Medical History No Pertinent Family Hx Physical Exam Vital Signs Vital Signs - First Documented Capillary Refill : Less Than 3 Seconds Height, Weight, BMI Height: 5'11.00" Weight: 204lbs. 0.0oz. 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 Norm as Tested Skin: Normal Color, Warm/Dry Progress/Results/Core Measures Results/Orders Lab Results Laboratory Tests Test 11/07/18 00:00 11/07/18 23:47 Range/Units Thyroid Stimulating Hormone (TSH) 2.18 0.35-4.94 UIU/ML Free Thyroxine 1.13 0.70-1.48 NG/DL White Blood Count 6.7 4.3-11.0 10^3/uL Red Blood Count 3.51 L 4.35-5.85 10^6/uL Hemoglobin 11.5 11.5-16.0 G/DL Hematocrit 35 35-52 % Mean Corpuscular Volume 100 H 80-99 FL Mean Corpuscular Hemoglobin 33 25-34 PG Mean Corpuscular Hemoglobin Concent 33 32-36 G/DL Red Cell Distribution Width 14.0 10.0-14.5 % Platelet Count 248 130-400 10^3/uL Mean Platelet Volume 9.2 7.4-10.4 FL Neutrophils (%) (Auto) 47 42-75 % Lymphocytes (%) (Auto) 36 12-44 % Monocytes (%) (Auto) 13 H 0-12 % Eosinophils (%) (Auto) 4 0-10 % Basophils (%) (Auto) 0 0-10 % Neutrophils # (Auto) 3.1 1.8-7.8 X 10^3 Lymphocytes # (Auto) 2.4 1.0-4.0 X 10^3 Monocytes # (Auto) 0.9 0.0-1.0 X 10^3 Eosinophils # (Auto) 0.3 0.0-0.3 10^3/uL Basophils # (Auto) 0.0 0.0-0.1 10^3/uL Prothrombin Time 18.3 H 12.2-14.7 SEC INR Comment 1.5 H 0.8-1.4 Activated Partial Thromboplast Time 39 H 24-35 SEC Sodium Level 140 135-145 MMOL/L Potassium Level 4.7 3.6-5.0 MMOL/L Chloride Level 107 98-107 MMOL/L Carbon Dioxide Level 20 L 21-32 MMOL/L Anion Gap 13 5-14 MMOL/L Blood Urea Nitrogen 25 H 7-18 MG/DL Creatinine 1.42 H 0.60-1.30 MG/DL Estimat Glomerular Filtration Rate 35 BUN/Creatinine Ratio 18 Glucose Level 97 70-105 MG/DL Calcium Level 9.0 8.5-10.1 MG/DL Corrected Calcium 9.2 8.5-10.1 MG/DL Magnesium Level 2.3 1.8-2.4 MG/DL Total Bilirubin 0.3 0.1-1.0 MG/DL Aspartate Amino Transf (AST/SGOT) 9 5-34 U/L Alanine Aminotransferase (ALT/SGPT) < 6 0-55 U/L Alkaline Phosphatase 90 40-136 U/L Myoglobin 67.2 10.0-92.0 NG/ML Troponin I < 0.30 <0.30 NG/ML Total Protein 6.5 6.4-8.2 GM/DL Albumin 3.8 3.2-4.5 GM/DL Lipase 21 8-78 U/L My Orders Orders - CARLOS GRIFFIN MD Cbc With Automated Diff (11/07/18 23:03) Magnesium (11/07/18:) Chest 1 View, Ap/Pa Only (11/07/18 23:03) Ekg Tracing (11/07/18 23:03) Cardiac Profile 1 (11/07/18 23:) Comprehensive Metabolic Panel (11/07/18 23:) Myoglobin Serum (11/07/18 23:03) Protime With Inr (11/07/18 23:03) Partial Thromboplastin Time (11/07/18 23:03) O2 (11/07/18 23:03) Monitor-Rhythm Ecg Trace Only (11/07/18 23:03) Lipid Panel (11/08/18 06:00) Aspirin Chewable Tablet (Baby Aspirin Ch (11/07/18 23:15) Saline Lock/Iv-Start (11/07/18 23:03) Lidocaine 2% Viscous 15 Ml (Xylocaine Vi (11/08/18 00:45) Antacid Suspension (Mylanta Suspension (11/08/18 00:45) Lipase (11/08/18 00:36) Ns Iv 1000 Ml (Sodium Chloride 0.9%) (11/08/18 00:59) Nitroglycerin 0.4 Mg Btl 25's (Nitrostat (11/08/18 01:45) Nitroglycerin Ointment (Nitrobid Ointme (11/08/18 02:30) Ct Abdomen/Pelvis Wo (11/08/18 02:18) Medications Given in ED Current Medications Medications Dose Ordered Sig/Indira Route Start Time Stop Time Status Last Admin Dose Admin Al Hydrox/Mg Hydrox/Simethicone 30 ml ONCE ONCE PO 11/08/18 00:45 11/08/18 00:46 DC 11/08/18 00:57 30 ML Lidocaine HCl 15 ml ONCE ONCE PO 11/08/18 00:45 11/08/18 00:46 DC 11/08/18 00:57 15 ML Nitroglycerin 0.4 mg UD PRN SL 11/08/18 01:45 11/08/18 04:48 DC 11/08/18 02:01 0.4 MG Nitroglycerin 1 inch ONCE ONCE TOP 11/08/18 02:30 11/08/18 02:31 DC 11/08/18 02:36 1 INCH Sodium Chloride 1,000 ml @ 0 mls/hr Q0M ONCE IV 11/08/18 00:59 11/08/18 01:00 DC 11/08/18 01:06 0 MLS/HR Vital Signs/I&O 11/07/18 11/07/18 23:03 23:03 Temp 96.0 Pulse 62 Resp 18 B/P (MAP) 197/93 (127) Pulse Ox 98 O2 Delivery Room Air Room Air Blood Pressure Mean: 127 Progress Progress Note #1: Time: 02:19 Progress Note GI cocktail did not improve patient's pain or abdominal tenderness. Nitroglycerin was administered 2. This improved her escalating hypertension. Her pain decreased from 9/10 down to 8/10 after the first nitroglycerin and then down to 5/10 after the second nitroglycerin. Nitro paste will be applied. Patient states she is feeling pretty good now. On reexamination she is cooling pan tender in the epigastrium. She did not notice this tenderness until she was examined in the ER. CT of the abdomen and pelvis will be obtained also. Labs are unremarkable except for a bump in creatinine. IV fluids are being administered. Progress Note #2: Progress Note Nitroglycerin paste was applied. Patient had no pain at the time of admission. Initial ECG Impression Date: Nov 07, 2018 Initial ECG Impression Time: 22:58 Initial ECG Rate: 61 Initial ECG Rhythm: Normal Sinus Initial ECG Intervals: Normal Comment Normal sinus rhythm with no ST elevation or depression. No abnormal intervals or axis deviation. Diagnostic Imaging Diagonstic Imaging: Xray Plain Films/CT/US/NM/MRI: chest Comments Chest x-ray viewed by me and report not yet available. No acute abnormalities appreciated. Diagonstic Imaging: CT Plain Films/CT/US/NM/MRI: abdomen, pelvis Comments CT abdomen and pelvis viewed by me. Stat rad report reviewed. No acute features to explain her pain. Departure Communication (Admissions) Time/Spoke to Admitting Phy: 03:20 Dr. Lott Impression Primary Impression: Chest pain Qualified Codes: R07.9 - Chest pain, unspecified Additional Impressions: Hypertensive urgency Epigastric pain Disposition: ADMITTED INPATIENT Condition: Improved Admissions Decision to Admit Reason: Admit from ER (General) Decision to Admit/Date: Nov 08, 2018 Time/Decision to Admit Time: 03:10 Departure-Patient Inst. Referrals: DIA GREENWOOD MD (PCP/Family) Primary Care Physician CARLOS GRIFFIN MD Nov 08, 2018 01:43
[2018-11-08] MEDS: NITROGLYCERIN 0.4 MG SL TABS BTL 25'S SL PRN ×2 (01:50→02:01)
[2018-11-08] MEDS ORDERED: NITROGLYCERIN 2% OINT 1 GM UNIT DOSE PACKET TOP ONE (02:30)
[2018-11-08 04:18] LABS: FREE T4 (FREE THYROXINE) 1.13 NG/DL (0.70-1.48)
[2018-11-08] MEDS ORDERED: hydrALAZINE (APESOLINE) 20 MG/ML VIAL ONE (04:39)
[2018-11-08] MEDS ORDERED: hydrALAZINE (APESOLINE) 20 MG/ML VIAL IV ONE (04:45)
[2018-11-08] MEDS ORDERED: morphine INJ 4 MG/ML 1 ML (VIAL/SYRINGE) IV PRN (05:00)
[2018-11-08] MEDS ORDERED: ONDANSETRON 4 MG/2 ML (SDV) Z0FRAN IV PRN (05:00)
[2018-11-08] MEDS ORDERED: CATHETER FLUSH 10 ML SYR IV PRN (05:00)
[2018-11-08] MEDS: CATHETER FLUSH 10 ML SYR IV SCH ×3 (05:29→20:29)
[2018-11-08] MEDS ORDERED: NITROGLYCERIN 2% OINT 1 GM UNIT DOSE PACKET TOP SCH (06:00)
[2018-11-08 06:39] LABS: CREATINE KINASE 45 U/L (29-168)
[2018-11-08 06:40] LABS: CHOLESTEROL 160 MG/DL (< 200); HDL CHOLESTEROL 32 MG/DL (40-60); TRIGLYCERIDES 173 MG/DL (<150); VLDL CHOLESTEROL 35 MG/DL (5-40)
--- NOTE | 2018-11-08 07:11 | Diagnostic Imaging Report ---
EXAMINATION: Portable erect AP chest at 1149 PM INDICATION: Chest pain The heart size is at the upper limits of normal or slightly enlarged but stable when compared to 11/05/2018. The left-sided pacemaker seen previously is again evident and no different. The lungs remain clear. There is no sign of failure, pneumonia or of a pleural effusion to indicate an acute abnormality. The mediastinum is not widened. The osseous structures are intact. IMPRESSION: There is no evidence for an acute cardiopulmonary abnormality. Dictated by: Dictated on workstation # [id number]
[2018-11-08] MEDS ORDERED: amLODIPine 10 MG (NORVASC) TAB ONE (07:29)
[2018-11-08] MEDS ORDERED: amLODIPine 10 MG (NORVASC) TAB PO ONE (07:30)
--- NOTE | 2018-11-08 07:42 | Diagnostic Imaging Report ---
PROCEDURE: CT abdomen and pelvis without contrast. TECHNIQUE: Multiple contiguous axial images were obtained through the abdomen and pelvis without the use of intravenous contrast. INDICATION: Abdominal pain The previous CT abdomen/pelvis exam of 05/22/2018 failed to show any sign of an acute abnormality. On this exam, the liver appears homogeneous and not enlarged. There is no focal mass involving the liver and the biliary tree does not appear to be abnormally dilated. As noted on the prior exam, the gallbladder is surgically absent. The common bile duct near its entry into the head of the pancreas is dilated measuring 15 MM. There is no obstructive calculus or mass visualized, however, and this finding may be related to the patient's prior cholecystectomy. The spleen, pancreas, adrenals, kidneys and inferior vena cava show no sign of an acute abnormality. As noted on the prior exam there is a benign-appearing 6.3 x 6.6 CM cyst on the superior pole of the right kidney. The aorta is not aneurysmally dilated but there is heavy calcification involving the origin of the superior mesenteric artery and I am concerned that there is a hemodynamically significant stenosis in this area. There is also a calcification of the origins of both renal arteries and there may be stenoses involving these vessels as well. If further imaging is desired, then CTA would be recommended. The stomach is not well-distended and consequently difficult to assess. The images through the pelvis show that there is diverticulosis of the sigmoid and descending colon but there is no evidence for acute diverticulitis. The appendix was not particularly well-visualized but there are no indirect signs of acute appendicitis. The uterus is surgically absent. The urinary bladder is grossly unremarkable. There does appear to be a decubitus ulcer involving the right buttock. There is no abscess formation identified. However, the edema/inflammation associated with the ulcer is in close proximity to the inferior pubic ramus on the right. If there is clinical concern regarding early osteomyelitis, then MRI would be recommended. The bone windows are otherwise generally unremarkable. The lung bases are clear. IMPRESSION: 1. There is no acute abnormality of the abdomen or pelvis. 2. There is persistent dilatation of the common bile duct near its entry into the head of the pancreas. This may well be a sequela of the patient's prior cholecystectomy. 3. There is a decubitus ulcer involving the right buttock. The edema/inflammation associated with the ulcer in close proximity to the inferior pubic ramus on the right but there is no evidence for bony destruction to suggest osteomyelitis. Additional considerations as above. Dictated by: Dictated on workstation # [id number]
[2018-11-08] MEDS ORDERED: ASPIRIN 81 MG CHEW (CHILDREN'S ASA) PO ONE (07:45)
[2018-11-08] MEDS ORDERED: ASPIRIN E.C. 81 MG (ECOTRIN) TAB PO SCH (09:00)
[2018-11-08] MEDS: APIXABAN 5 MG (ELIQUIS) TABLET PO SCH ×2 (10:32→20:24)
--- NOTE | 2018-11-08 11:37 | History & Physical-Hospitalist ---
History of Present Illness HPI/Chief Complaint Pt is an 87yoCF with a PMH of HTN, SSS and a-fib s/p pacemaker, CAD, CVA, and dementia who presented to the ER with CC of chest pain. She states this has been going on for a couple of weeks and happens randomly. She is unable to walk so it is not precipitated by exertion or ambulation. She states the only thing that improves it is laying down and placing something on her chest. She locates it to the center of her chest. She denies any associated SOB, nausea, vomiting, diaphoresis. Source: patient Date Seen 11/08/18 Time Seen by a Provider: 11:32 Attending Physician Indigo Lott John D MD Referring Physician Date of Admission Nov 08, 2018 at 03:30 Home Medications & Allergies Home Medications Reviewed patient Home Medication Reconciliation performed by pharmacy medication reconciliations critical systems technician and/or nursing. Patients Allergies have been reviewed. Allergies Allergies Coded Allergies Penicillins (Unverified Allergy, Mild, 11/08/18) Hives Uncoded Allergies POISON AISHWARYA, OAK AND SUMAC ( Allergy, Unknown, 12/28/08) Past Ecffhyf-Huakpt-Ojpvze Hx Past Med/Social Hx: Reviewed Nursing Past Med/Soc Hx Patient Social History Employed/Student: retired Alcohol Use: Denies Use Recreational Drug Use: No Smoking Status: Never a Smoker 2nd Hand Smoke Exposure: No Physical Abuse Screen: No Sexual Abuse: No Recent Foreign Travel: No Contact w/other who traveled: No Recent Hopitalizations: No Recent Infectious Disease Expo: No Immunizations Up To Date Tetanus Booster (TDap): Unknown Date of Pneumonia Vaccine: Aug 05, 2012 Date of Influenza Vaccine: Sep 01, 2018 Seasonal Allergies Seasonal Allergies: Yes Past Medical History Surgeries: Abdominal, Appendectomy, Coronary Stent, Gallbladder, Hysterectomy, Orthopedic, Pacemaker Cardiac: Chronic Edema/Swelling, Coronary Artery Disease Neurological: Parkinson's Disease, Stroke Reproductive: No Sexually Transmitted Disease: No HIV/AIDS: Yes Female Reproductive Disorders: Denies Genitourinary: Renal Failure Gastrointestinal: Gastroesophageal Reflux, Chronic Constipation Musculoskeletal: Arthritis, Contracture Endocrine: Hypothyroidsim Psychosocial: Sleep Difficulties, Depression History of Blood Disorders: Yes (anemia) Adverse Reaction to Blood Jolly: No Family History Reviewed Nursing Family Hx Patient reports no known family medical history. No Pertinent Family Hx Review of Systems Constitutional: No chills, No fever EENTM: No blurred vision, No double vision, No nose congestion, No throat pain Respiratory: No cough, No dyspnea on exertion, No short of breath Cardiovascular: see HPI, chest pain; No edema; Hx of Intervention; No palpitations Gastrointestinal: No abdominal pain, No constipation, No diarrhea, No nausea, No vomiting Genitourinary: No dysuria, No frequency Musculoskeletal: No joint pain, No muscle pain Skin: No lesions, No rash Psychiatric/Neurological: Denies Headache, Denies Numbness, Denies Tingling Physical Exam Physical Exam Vital Signs Vital Signs - First Documented Capillary Refill : Less Than 3 Seconds Height, Weight, BMI Height: 5'11.00" Weight: 204lbs. 0.0oz. 92.774737nz; 28.5 BMI Method:Stated General Appearance: No Apparent Distress, Chronically ill HEENT: PERRL/EOMI, Moist Mucous Membranes Neck: Non Tender, Supple Respiratory: Lungs Clear, No Respiratory Distress Cardiovascular: Regular Rate, Rhythm, No Murmur Gastrointestinal: Normal Bowel Sounds, Non Tender, Soft Extremity: Normal Capillary Refill, No Calf Tenderness Neurologic/Psychiatric: Alert, Oriented x3, Normal Mood/Affect Skin: Normal Color, Warm/Dry Results Results/Procedures Labs Laboratory Tests 11/07/18 23:47 11/09/18 04:05 Patient resulted labs reviewed. Imaging: Reviewed Imaging Report Assessment/Plan Admission Diagnosis Chest Pain Admission Status: Observation Diagnosis/Problems Diagnosis/Problems (1) Chest pain Status: Acute Assessment & Plan: troponin negsative Improved with nitro May be due to hypertension Cardiology consulted, appreciate recs Qualifiers: Chest pain type: unspecified Qualified Codes: R07.9 - Chest pain, unspecified (2) Hypertensive urgency Status: Acute Assessment & Plan: Improved with amlodipine, will continue (3) Sick sinus syndrome Assessment & Plan: s/p pacemaker Cardiology consulted, appreciate recs (4) CKD (chronic kidney disease) Assessment & Plan: Mild MARY, likely due to hypertension Trend Qualifiers: Chronic kidney disease stage: stage 3 (moderate) Qualified Codes: N18.3 - Chronic kidney disease, stage 3 (moderate) Clinical Quality Measures AMI/AHF: ASA po Prior to arrival: Yes (324mg ASA) DVT/VTE Risk/Contraindication: Risk Factor Score Per Nursin RFS Level Per Nursing on Admit: 4+=Very High AMANDA,INDIGO M MD Nov 08, 2018 11:37
[2018-11-08] MEDS ORDERED: BISACODYL 10 MG SUPP (DULCOLAX) PR PRN (11:45)
[2018-11-08] MEDS ORDERED: ANTACID SUSP 30 ML UDC (MYLANTA) PO PRN (11:45)
[2018-11-08] MEDS ORDERED: SENNA W/DOCUSATE (SENOKOT S) TABLET PO PRN (11:45)
[2018-11-08] MEDS ORDERED: MELATONIN 3 MG TABLET PO PRN (11:45)
[2018-11-08] MEDS ORDERED: ACETAMINOPHEN 500 MG TAB (TYLENOL) PO PRN (11:45)
[2018-11-08] MEDS ORDERED: MILK OF MAGNESIA 400 MG/5 ML 30 ML UDC PO PRN (11:45)
--- NOTE | 2018-11-08 12:08 | Consultation-Cardiology ---
HPI-Cardiology Cardiology Consultation: Date of Consultation 11/08/18 Time Seen by a Provider: 10:30 Date of Admission Attending Physician Dannie Luz MD Admitting Physician Bethel Clayton MD Consulting Physician TAMMY VALENZUELA MD, MA, FACP, FACC, FSCAI, CCDS HPI: Chief Complaint: CC: Chest discomfort HPI: 87 yo woman, resident of a local [place], awoke with chest discomfort at approx 9 pm yesterday: sub-sternal, sharp, nonradiating, lasting several hours, partially relieved with NTG, gradually subsided, w/o recurrence, w/o radiation, not experienced before, not associated with diaphoresis or shortness of breath or other symptoms. Has chronic exertional shortness of breath, mod. Has chronic gen malaise and gen weakness. Denies palp or syncope. Has chronic intermittent ankle swelling Review of Systems-Cardiology Review of Systems Constitutional: No weight loss, No weight gain Eyes: No vision change Ears/Nose/Throat: No ear discharge, No nasal drainage, No recent hearing loss Respiratory: As described under HPI Cardiovascular: As described under HPI Gastrointestinal: No constipation, No diarrhea, No nausea, No vomiting Genitourinary: No dysuria, No hematuria Musculoskeletal: back pain (chronic), joint pain (chronic) Skin: No rash, No ulcerations Psychiatric/Neurological: No seizure, No focal weakness, No syncope Hematologic: No bleeding abnormalities [id number] Hx Patient Social History Employed/Student: retired Alcohol Use: Denies Use Recreational Drug Use: No Smoking Status: Never a Smoker 2nd Hand Smoke Exposure: No Recent Foreign Travel: No Recent Infectious Disease Expo: No Physical Abuse Screen: No Sexual Abuse: No Immunizations Up To Date Tetanus Booster (TDap): Unknown Date of Pneumonia Vaccine: Aug 05, 2012 Date of Influenza Vaccine: Sep 01, 2018 Past Medical History PMH As described under Assessment. Family Medical History Family History: Patient reports no known family medical history. Allergies and Home Medications Allergies Coded Allergies: Penicillins (Unverified Allergy, Mild, 11/08/18) Hives Uncoded Allergies: POISON AISHWARYA, OAK AND SUMAC (Allergy, Unknown, 12/28/08) Home Medications Acetaminophen 325 Mg Tablet, 650 MG PO Q4H PRN for PAIN-MILD, (Reported) TAKES 2 (325MG) TABLETS Albuterol Sulfate 2.5 Mg/3 Ml Vial.neb, 2.5 MG NEB Q4H PRN for WHEEZING, ( Reported) Apixaban 5 Mg Tablet, 5 MG PO BID, (Reported) Bisacodyl 10 Mg Supp.rect, 10 MG RC DAILY PRN for CONSTIPATION-4TH LINE, ( Reported) Budesonide/Formoterol Fumarate 10.2 Gm Hfa.aer.ad, 2 PUFF INH BID, (Reported) Carboxymethylcellulose Sodium 15 Ml Drops, 1 DROP OU BID, (Reported) Cephalexin 500 Mg Tablet, 500 MG PO BID Prescribed by: HUAN HOPE on 08/22/182009 Citalopram Hydrobromide 20 Mg Tablet, 20 MG PO 1700, (Reported) Cyanocobalamin (Vitamin B-12) 1,000 Mcg Tablet, 1,000 MCG PO DAILY, (Reported) Ergocalciferol (Vitamin D2) 50,000 Unit Capsule, 50,000 UNIT PO EVERY 14 DAYS, ( Reported) Fentanyl 1 Each Patch.td72, 50 MCG TD Q72H, (Reported) Ferrous Sulfate 134 Mg Tablet, 134 MG PO TID, (Reported) Fish Oil/Dha/Epa 1 Each Capsule, 1,200 MG PO TID, (Reported) Furosemide 20 Mg Tablet, 20 MG PO Q48H, (Reported) ALTERNATING WITH 40MG Furosemide 20 Mg Tablet, 40 MG PO Q48H, (Reported) ALTERNATING WITH 20MG Hydrocodone/Acetaminophen 1 Each Tablet, 1 TAB PO Q6H PRN for PAIN-MODERATE, ( Reported) Levothyroxine Sodium 112 Mcg Tablet, 112 MCG PO DAILY, (Reported) Magnesium Hydroxide 400 Mg/5 Ml Oral.susp, 30 ML PO DAILY PRN for CONSTIPATION- 7TH LINE, (Reported) Melatonin 3 Mg Tablet, 3 MG PO HS PRN for SLEEP, (Reported) Menthol 118 Ml Gel..ml., TP BID PRN for MUSCLE PAIN, (Reported) APPLY TO SHOULDERS, ARMS, OR NECK Nebivolol HCl 5 Mg Tablet, 5 MG PO DAILY, (Reported) HOLD FOR SBP <100 OR DBP <60 OR PULSE <60 Nystatin 1 Each Powder.ea., TOP BID PRN for REDNESS/GAULDING, (Reported) APPLY TO ABDOMINAL FOLD Risperidone 0.25 Mg Tablet, 0.25 MG PO BID Prescribed by: TACHO PEREYRA on 04/23/18 1437 Sennosides/Docusate Sodium 1 Each Tablet, 2 TAB PO DAILY, (Reported) Sodium Chloride 30 Ml Rosanky, 1-2 SPRAYS NS Q4H PRN for CONGESTION, (Reported) Sulfamethoxazole/Trimethoprim 1 Each Tablet, 1 EACH PO BID Prescribed by: VALERIE MASCORRO on 04/24/18 1148 Patient Home Medication List Home Medication List Reviewed: Yes Physical Exam-Cardiology Physical Exam Vital Signs/I&O 11/08/18 11/08/18 11/08/18 11/08/18 04:00 04:01 04:15 04:30 Temp 96.0 Pulse 60 62 60 60 Resp 18 B/P (MAP) 191/82 (118) 187/69 (108) 193/69 (110) 186/80 (115) Pulse Ox 98 98 99 O2 Delivery Room Air Room Air Room Air Room Air 11/08/18 11/08/18 11/08/18 11/08/18 04:45 04:54 05:00 05:28 Pulse 63 60 60 B/P (MAP) 186/80 (115) 197/91 (126) Pulse Ox 86 100 O2 Delivery Room Air Room Air Room Air 11/08/18 11/08/18 11/08/18 11/08/18 05:30 07:00 07:30 08:30 Temp 96.1 96.7 Pulse 61 59 60 60 Resp 18 18 B/P (MAP) 196/76 (116) 202/92 (128) 180/76 (110) Pulse Ox 100 97 97 O2 Delivery Room Air Room Air Room Air 11/08/18 11/08/18 09:35 10:44 Pulse 63 62 B/P (MAP) 166/78 (107) 158/74 (102) Pulse Ox 97 97 O2 Delivery Room Air Room Air Capillary Refill : Less Than 3 Seconds Constitutional: AAO x 3, well-developed, well-nourished HEENT: EOMI, hearing is well preserved, oral hygience is good; No xanthelasmas are seen Neck: carotid pulses are 2 + bilaterally, with good upstrokes Respiratory: No accessory muscle use; other (good bilat air entry, somewhat diminished at the bases) Cardiovascular: regular rate-rhythm, S1 and S2, systolic murmur (soft LAITH at card base) Gastrointestinal: No tender; soft; No guarding, No rebound; audible bowel sounds Extremities: swelling (mild, bilat, pitting and nonpitting led edema); No clubbing, No cyanosis Neurologic/Psychiatric: oriented x 3, other (Able to move all limbs), grossly intact Skin: No rash on exposed areas, No ulcerations on exposed areas Data Review Labs Laboratory Tests 11/07/18 23:47: White Blood Count 6.7, Red Blood Count 3.51L, Hemoglobin 11.5, Hematocrit 35, Mean Corpuscular Volume 100H, Mean Corpuscular Hemoglobin 33, Mean Corpuscular Hemoglobin Concent 33, Red Cell Distribution Width 14.0, Platelet Count 248, Mean Platelet Volume 9.2, Neutrophils (%) (Auto) 47, Lymphocytes (%) (Auto) 36, Monocytes (%) (Auto) 13H, Eosinophils (%) (Auto) 4, Basophils (%) (Auto) 0, Neutrophils # (Auto) 3.1, Lymphocytes # (Auto) 2.4, Monocytes # (Auto) 0.9, Eosinophils # (Auto) 0.3, Basophils # (Auto) 0.0, Prothrombin Time 18.3H, INR Comment 1.5H, Activated Partial Thromboplast Time 39H, Sodium Level 140, Potassium Level 4.7, Chloride Level 107, Carbon Dioxide Level 20L, Anion Gap 13 , Blood Urea Nitrogen 25H, Creatinine 1.42H, Estimat Glomerular Filtration Rate 35, BUN/Creatinine Ratio 18, Glucose Level 97, Calcium Level 9.0, Corrected Calcium 9.2, Magnesium Level 2.3, Total Bilirubin 0.3, Aspartate Amino Transf ( AST/SGOT) 9, Alanine Aminotransferase (ALT/SGPT) < 6, Alkaline Phosphatase 90, Myoglobin 67.2, Troponin I < 0.30, Total Protein 6.5, Albumin 3.8, Lipase 21 11/08/18 06:01: Troponin I < 0.30, Total Creatine Kinase 45, Triglycerides Level 173H, Cholesterol Level 160, LDL Cholesterol Direct 100, VLDL Cholesterol 35, HDL Cholesterol 32L Laboratory Tests 11/07/18 23:47 A/P-Cardiology Assessment/Admission Diagnosis Chest discomfort w/o evidence of ID (so far) Coronary artery disease, history of 2.25x12 mm integrity stent to the LAD done in July 2011. Most recent cardiac catheterization April 20, 2015: patent stent in the mid LAD, 50 percent stenosis proximal to the stent in the LAD, small vessel disease distally, aneurysmal dilatation of the proximal LAD and proximal RCA, mild to moderate diffuse disease, EF 60 percent Echocardiogram done July 2017 revealed normal EF Hypertension, not well controlled Hyperlipidemia, by history History of CVA and TIA Sick sinus syndrome, paroxysmal atrial fibrillation, history of permanent pacemaker, followed by Dr Stuart History of DVT Chronic anticoag with apixaban History of moderate carotid stenosis on the right, mild on the left, followed by Dr Stuart History of Parkinson disease with unsteady gait H/o mild dementia Discussion and Recomendations * Treat with ASA and bb * Add amlodipine and statin * Continue apixaban * Monitor labs * Adjust meds as necessary * Continue to eval for ACS * Repeat echo Clinical Quality Measures AMI/AHF: ASA po Prior to arrival: Yes (324mg ASA) DVT/VTE Risk/Contraindication: Risk Factor Score Per Nursin RFS Level Per Nursing on Admit: 4+=Very High TAMMY VALENZUELA MD FACP FAC CCDS Nov 08, 2018 12:08
[2018-11-08] MEDS ORDERED: NEBIVOLOL 5 MG TAB (BYSTOLIC) PO ONE (12:30)
[2018-11-08] MEDS ORDERED: PANTOPRAZOLE 40 MG (PROTONIX) TAB PO ONE (12:30)
[2018-11-08] MEDS: ACETAMINOPHEN 325 MG TABLET PO PRN (13:41)
[2018-11-08] MEDS ORDERED: ACHD5005 PO (15:52)
[2018-11-08] MEDS ORDERED: FERR325T18 PO (16:04)
[2018-11-08] MEDS ORDERED: SENN-120 PO (16:07)
[2018-11-08] MEDS ORDERED: FLUT1AER IH (16:29)
[2018-11-08] MEDS ORDERED: FOLI1TAB24 PO (16:29)
[2018-11-08] MEDS ORDERED: FLUT16SP22 (16:29)
[2018-11-08] MEDS ORDERED: RANI-515 PO (16:31)
[2018-11-08] MEDS ORDERED: HYDROcodone/APAP 5 MG/325 MG (LORTAB) TAB PO PRN (16:45)
[2018-11-08] MEDS ORDERED: RT-ALBUTEROL SULF 2.5 MG/3 ML PRE-MIX VIAL INH PRN (16:45)
[2018-11-08] MEDS ORDERED: fentaNYL PATCH 50 MCG (DURAGESIC) TD SCH (18:00)
[2018-11-08] MEDS ORDERED: PATCH REMOVAL TP SCH (18:00)
[2018-11-08] MEDS ORDERED: RT-ADVAIR HFA 115/21 MCG PER PUFF IH SCH (20:00)
[2018-11-08] MEDS: risperiDONE 0.25 MG (RisperDAL) TAB PO SCH (20:24)
[2018-11-08] MEDS ORDERED: hydrALAZINE (APRESOLINE) 25 MG TAB PO PRN (20:30)
[2018-11-08] MEDS ORDERED: hydrALAZINE (APRESOLINE) 25 MG TAB PO ONE (20:30)
[2018-11-09 00:03] VITALS: BP 134/63
[2018-11-09 04:19] VITALS: BP 142/65
[2018-11-09 04:40] LABS: BASOPHILS % (AUTO) 0 % (0-10); EOSINOPHILS % (AUTO) 0 % (0-10); HEMATOCRIT 39 % (35-52); HEMOGLOBIN 12.6 G/DL (11.5-16.0); LYMPHOCYTES % (AUTO) 43 % (12-44); MEAN CORPUSCULAR HEMOGLOBIN 32 PG (25-34); MEAN CORPUSCULAR HGB CONC 32 G/DL (32-36); MEAN CORPUSCULAR VOLUME 100 FL (80-99); MEAN PLATELET VOLUME 9.5 FL (7.4-10.4); MONOCYTES # (AUTO) 0.7 X 10^3 (0.0-1.0); MONOCYTES % (AUTO) 11 % (0-12); NEUTROPHILS # (AUTO) 3.1 X 10^3 (1.8-7.8); NEUTROPHILS % (AUTO) 46 % (42-75); PLATELET COUNT 260 10^3/uL (130-400); RED BLOOD COUNT 3.92 10^6/uL (4.35-5.85); WHITE BLOOD COUNT 6.8 10^3/uL (4.3-11.0)
[2018-11-09 05:00] LABS: CALCIUM 9.6 MG/DL (8.5-10.1); CREATININE SERUM 1.26 MG/DL (0.60-1.30); MAGNESIUM 2.7 MG/DL (1.8-2.4); POTASSIUM 4.7 MMOL/L (3.6-5.0)
[2018-11-09] MEDS: CATHETER FLUSH 10 ML SYR IV SCH ×3 (06:21→20:03)
[2018-11-09] MEDS: LEVOTHYROXINE 125 MCG (LEVOTHROID) TABLET PO SCH (06:21)
[2018-11-09] MEDS ORDERED: FUROSEMIDE 20 MG (LASIX) TAB PO SCH (07:00)
[2018-11-09] MEDS: amLODIPine 5 MG (NORVASC) TAB PO SCH (08:04)
[2018-11-09] MEDS: risperiDONE 0.25 MG (RisperDAL) TAB PO SCH ×2 (08:05→20:03)
[2018-11-09] MEDS: APIXABAN 5 MG (ELIQUIS) TABLET PO SCH ×2 (08:05→20:03)
[2018-11-09] MEDS: ASPIRIN 81 MG CHEW (CHILDREN'S ASA) PO SCH (08:05)
[2018-11-09] MEDS: NEBIVOLOL 5 MG TAB (BYSTOLIC) PO SCH (08:12)
[2018-11-09] MEDS: PANTOPRAZOLE 40 MG (PROTONIX) TAB PO SCH (08:12)
[2018-11-09 08:25] VITALS: BP 144/65
--- NOTE | 2018-11-09 10:25 | Progress Note-Hospitalist ---
Subjective HPI/CC On Admission Date Seen by Provider: Nov 09, 2018 Time Seen by Provider: 10:20 Pt is an 87yoCF with a PMH of HTN, SSS and a-fib s/p pacemaker, CAD, CVA, and dementia who presented to the ER with CC of chest pain. She states this has been going on for a couple of weeks and happens randomly. She is unable to walk so it is not precipitated by exertion or ambulation. She states the only thing that improves it is laying down and placing something on her chest. She locates it to the center of her chest. She denies any associated SOB, nausea, vomiting, diaphoresis. Subjective/Events-last exam Pt reports feeling better. No further chest pain. Only concern now is constipation. Objective Exam Vital Signs Vital Signs Date Time Temp Pulse Resp B/P (MAP) Pulse Ox O2 Delivery O2 Flow Rate FiO2 11/09/18 08:25 96.4 60 18 144/65 (91) 97 Room Air Capillary Refill : Less Than 3 Seconds General Appearance: No Apparent Distress, Chronically ill Respiratory: Lungs Clear, No Respiratory Distress Cardiovascular: Regular Rate, Rhythm, No Murmur Gastrointestinal: Normal Bowel Sounds, Non Tender, Soft Neurologic/Psychiatric: Alert, Oriented x3 Results/Procedures Lab Laboratory Tests 11/09/18 04:05 Patient resulted labs reviewed. Imaging: Reviewed Imaging Report Assessment/Plan Assessment and Plan Assess & Plan/Chief Complaint Chest Pain Diagnosis/Problems Diagnosis/Problems (1) Chest pain Status: Acute Assessment & Plan: troponin negative Likely due to blood pressure as now resolved with control of BP Cardiology consulted, appreciate recs Qualifiers: Chest pain type: unspecified Qualified Codes: R07.9 - Chest pain, unspecified (2) Hypertensive urgency Status: Acute Assessment & Plan: Continue Amlodipine and Bystolic Hydralazine prn (3) Sick sinus syndrome Assessment & Plan: s/p pacemaker Cardiology consulted, appreciate recs (4) CKD (chronic kidney disease) Assessment & Plan: Mild MARY now resolved Trend Qualifiers: Chronic kidney disease stage: stage 3 (moderate) Qualified Codes: N18.3 - Chronic kidney disease, stage 3 (moderate) (5) Constipation Assessment & Plan: Likely due to narcotics Took senna this AM and refused MOM Will add enema and lactulose prn Qualifiers: Constipation type: drug induced constipation Qualified Codes: K59.03 - Drug induced constipation Clinical Quality Measures AMI/AHF: ASA po Prior to arrival: Yes (324mg ASA) DVT/VTE Risk/Contraindication: Risk Factor Score Per Nursin RFS Level Per Nursing on Admit: 4+=Very High INDIGO PATEL MD Nov 09, 2018 10:24
[2018-11-09] MEDS ORDERED: MINERAL OIL ENEMA 133 ML BTL PR ONE (10:30)
[2018-11-09] MEDS ORDERED: LACTULOSE SYRUP 10GM/15ML (ENULOSE) 30ML UDC PO PRN (10:30)
[2018-11-09 12:16] VITALS: BP 133/60
--- NOTE | 2018-11-09 14:48 | Progress Note-Cardiology ---
Cardiology SOAP Progress Note Subjective: Gen malaise No new symptoms Objective: I&O/Vital Signs 11/09/18 11/09/18 11/09/18 11/09/18 04:19 07:00 07:52 08:25 Temp 97.3 96.4 Pulse 59 60 60 Resp 20 18 B/P (MAP) 142/65 (90) 144/65 (91) Pulse Ox 96 97 O2 Delivery Room Air Room Air Room Air 11/09/18 11/09/18 12:16 13:00 Temp 96.4 Pulse 68 60 Resp 22 B/P (MAP) 133/60 (84) Pulse Ox 96 O2 Delivery Room Air 11/09/18 00:00 Intake Total 690 ml Output Total 300 ml Balance 390 ml Weight (Pounds): 204 Weight (Ounces): 0.0 Weight (Calculated Kilograms): [id number] Constitutional: AAO x 3, well-developed, well-nourished Respiratory: No accessory muscle use; other (good bilat air entry, somewhat diminished at the bases) Cardiovascular: regular rate-rhythm, S1 and S2, systolic murmur (soft LAITH at card base) Gastrointestional: No tender; soft; No guarding, No rebound; audible bowel sounds Extremities: swelling (mild, bilat, pitting and nonpitting led edema); No clubbing, No cyanosis Neurologic/Psychiatric: oriented x 3, other (Able to move all limbs), grossly intact Skin: No rash on exposed areas, No ulcerations on exposed areas Results/Procedures: Labs Laboratory Tests 11/09/18 04:05: White Blood Count 6.8, Red Blood Count 3.92L, Hemoglobin 12.6, Hematocrit 39, Mean Corpuscular Volume 100H, Mean Corpuscular Hemoglobin 32, Mean Corpuscular Hemoglobin Concent 32, Red Cell Distribution Width 14.0, Platelet Count 260, Mean Platelet Volume 9.5, Neutrophils (%) (Auto) 46, Lymphocytes (%) (Auto) 43, Monocytes (%) (Auto) 11, Eosinophils (%) (Auto) 0, Basophils (%) (Auto) 0, Neutrophils # (Auto) 3.1, Lymphocytes # (Auto) 3.0, Monocytes # (Auto) 0.7, Eosinophils # (Auto) 0.0, Basophils # (Auto) 0.0, Sodium Level 140, Potassium Level 4.7, Chloride Level 107, Carbon Dioxide Level 22, Anion Gap 11, Blood Urea Nitrogen 26H, Creatinine 1.26, Estimat Glomerular Filtration Rate 40, BUN/ Creatinine Ratio 21, Glucose Level 88, Calcium Level 9.6, Magnesium Level 2.7H Laboratory Tests 11/07/18 23:47 11/09/18 04:05 A/P: Assessment: Chest discomfort, nonspecific, no evidence of ac [place] Coronary artery disease, history of 2.25x12 mm integrity stent to the LAD done in July 2011. Most recent cardiac catheterization April 20, 2015: patent stent in the mid LAD, 50 percent stenosis proximal to the stent in the LAD, small vessel disease distally, aneurysmal dilatation of the proximal LAD and proximal RCA, mild to moderate diffuse disease, EF 60 percent Echocardiogram done July 2017 revealed normal EF Hypertension Hyperlipidemia, by history History of CVA and TIA Sick sinus syndrome, paroxysmal atrial fibrillation, history of permanent pacemaker, followed by Dr Stuart History of DVT Chronic anticoag with apixaban History of moderate carotid stenosis on the right, mild on the left, followed by Dr Stuart History of Parkinson disease with unsteady gait H/o mild dementia Plan: * Continue current regimen * Hydralazine added * Monitor labs * Ok to d/c from card standpoint * I discussed her case with Dr Lott this am Clinical Quality Measures AMI/AHF: ASA po Prior to arrival: Yes (324mg ASA) TAMMY VALENZUELA MD FACP FAC CCDS Nov 09, 2018 14:48
[2018-11-09] MEDS: ACETAMINOPHEN 325 MG TABLET PO PRN (15:13)
[2018-11-09 15:51] VITALS: BP 133/60
[2018-11-09 20:01] VITALS: BP 121/59
[2018-11-10] VITALS: BP 97/60
[2018-11-10 04:00] VITALS: BP 170/74
[2018-11-10] MEDS: CATHETER FLUSH 10 ML SYR IV SCH ×2 (06:47→13:21)
[2018-11-10] MEDS: LEVOTHYROXINE 125 MCG (LEVOTHROID) TABLET PO SCH (06:47)
[2018-11-10] MEDS ORDERED: FUROSEMIDE 40 MG (LASIX) TAB PO SCH (07:00)
[2018-11-10 08:00] VITALS: BP 135/68
[2018-11-10] MEDS ORDERED: RT-ADVAIR HFA 115/21 MCG PER PUFF IH SCH (08:00)
[2018-11-10] MEDS: NEBIVOLOL 5 MG TAB (BYSTOLIC) PO SCH (08:51)
[2018-11-10] MEDS: amLODIPine 5 MG (NORVASC) TAB PO SCH (08:51)
[2018-11-10] MEDS: risperiDONE 0.25 MG (RisperDAL) TAB PO SCH (08:51)
[2018-11-10] MEDS: ASPIRIN 81 MG CHEW (CHILDREN'S ASA) PO SCH (08:51)
[2018-11-10] MEDS: PANTOPRAZOLE 40 MG (PROTONIX) TAB PO SCH (08:51)
[2018-11-10] MEDS: APIXABAN 5 MG (ELIQUIS) TABLET PO SCH (08:51)
[2018-11-10] MEDS ORDERED: AMLO5TAB7 PO (09:49)
--- NOTE | 2018-11-10 09:54 | Progress Note-Hospitalist ---
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 She was admitted for an atypical sounding history of chest pain. She is ruled out with regard to myocardial infarction. However she was found to be significantly hypertensive despite antihypertensive medications as an outpatient. Amlodipine 10 mg daily was added and that she is doing much better. She is ready for discharge. Physical exam: We have an elderly appearing white female who is pleasant and inquires why her blood pressure went up at this age. Lungs are clear to auscultation. CV is slightly irregular to auscultation. A rather large ecchymosis is noted on the dorsum of her right hand consistent with anticoagulation and blood draw. Extremities show no pedal edema. Impression: Hypertensive urgency. 2.atypical chest pain. 3.chronic hypertension. 4.acute on chronic renal impairment. Plan return to nursing facility. See discharge sequence for medications and routines. WALLACE BAUMANN MD Nov 10, 2018 09:54
--- NOTE | 2018-11-10 09:55 | Short Stay Summary-Hospitalist ---
Short Stay Diagnosis D/C Date 1.hypertensive urgency. 2.atypical chest pain. 3.chronic hypertension. 4.acute on chronic kidney insufficiency Clinical Quality Measures AMI/AHF: ASA po Prior to arrival: Yes (324mg ASA) DVT/VTE Risk/Contraindication: Risk Factor Score Per Nursin RFS Level Per Nursing on Admit: 4+=Very High WALLACE BAUMANN MD Nov 10, 2018 09:55
--- NOTE | 2018-11-10 10:40 | Cardiology Progress Note ---
Subjective Date Seen by Provider: Nov 10, 2018 Time Seen by Provider: 10:35 Subjective/Events-last exam Patient is sitting in a chair, no new complaint Review of Systems General: No Chills, No Night Sweats, No Fatigue, No Malaise, No Appetite, No Other HEENT: No Head Aches, No Visual Changes, No Eye Pain, No Ear Pain, No Dysphasia , No Sinus Congestion, No Post Nasal Drip, No Sore Throat, No Other Pulmonary: Dyspnea; No Cough, No Pleuritic Chest Pain, No Other Cardiovascular: No: Chest Pain, Palpitations, Orthopnea, Paroxysmal Noc. Dyspnea, Edema, Lt Headedness, Other Objective-Cardiology Exam Last Set of Vital Signs Vital Signs 11/10/18 08:00 Temp 96.0 Pulse 62 Resp 18 B/P (MAP) 135/68 (90) Pulse Ox 100 O2 Delivery Room Air Capillary Refill : Less Than 3 Seconds I&O Intake and Output 11/10/18 00:00 Intake Total 1130 ml Output Total 50 ml Balance 1080 ml Intake Oral 1130 ml Output Urine Total 50 ml # Voids 6 # Bowel Movements 1 General: Alert, Oriented X3, Cooperative HEENT: Atraumatic, PERRLA Neck: Supple Lungs: Clear to Auscultation, Normal Air Movement Heart: Regular Rate, Normal S1, Normal S2 Abdomen: Normal Bowel Sounds, No Tenderness Extremities: No Clubbing, No Edema, Normal Pulses Skin: Other (Decubitus ulcer) Neuro: Normal Speech Psych/Mental Status: Mental Status NL A/P-Cardiology Admission Diagnosis Chest pain Coronary artery disease Hypertension Hyperlipidemia Assessment/Plan Chest discomfort, nonspecific, CE are negative and ECG didn't show any acute ischemic changes, feeling better at this time, Ok for discharge and follow as an outpatient Coronary artery disease, history of 2.25x12 mm integrity stent to the LAD done in July 2011. Most recent cardiac catheterization April 20, 2015: patent stent in the mid LAD, 50 percent stenosis proximal to the stent in the LAD, small vessel disease distally, aneurysmal dilatation of the proximal LAD and proximal RCA, mild to moderate diffuse disease, EF 60 percent, continue to monitor Decubitus ulcer, no osteo, managed by primary care physician Echocardiogram done July 2017 revealed normal EF, continue to monitor Hypertension, continue on home meds and monitor blood pressure Hyperlipidemia, by history History of CVA and TIA Sick sinus syndrome, paroxysmal atrial fibrillation, history of permanent pacemaker, monitored as an outpatient History of DVT Chronic anticoag with apixaban History of moderate carotid stenosis on the right, mild on the left, continue to monitor as an outpatient History of Parkinson disease with unsteady gait H/o mild dementia Clinical Quality Measures AMI/AHF: ASA po Prior to arrival: Yes (324mg ASA) DVT/VTE Risk/Contraindication: Risk Factor Score Per Nursin RFS Level Per Nursing on Admit: 4+=Very High KAYLENE NARVAEZ MD Nov 10, 2018 10:40
[2018-11-10 12:00] VITALS: BP 134/63
[2018-11-10 14:30] VITALS: BP 134/63
== END 2018-11-10 09:42 | disposition home or self-care (01) ==
LOC: EDUNIT# 22:53 → ER 22:54 → 4TH 22:55 → UNDOADMOB 11-08 03:30 → 4TH 11-08 03:30 → UNDODISOB 11-10 14:10
PROVIDERS: ADMIT Family Medicine; ATTEND Family Medicine
DX: I16.0 Hypertensive urgency (principal); R07.89 Other chest pain; R10.13 Epigastric pain; N17.9 Acute kidney failure, unspecified; F41.9 Anxiety disorder, unspecified; N18.3 Chronic kidney disease, stage 3 (moderate); I48.91 Unspecified atrial fibrillation; I49.5 Sick sinus syndrome; I25.10 Atherosclerotic heart disease of native coronary artery without angina pectoris; E78.5 Hyperlipidemia, unspecified; J44.9 Chronic obstructive pulmonary disease, unspecified; E03.9 Hypothyroidism, unspecified; G20 Parkinson's disease; F03.90 Unspecified dementia, unspecified severity, without behavioral disturbance, psychotic disturbance, mood disturbance, and anxiety; I65.23 Occlusion and stenosis of bilateral carotid arteries; K21.9 Gastro-esophageal reflux disease without esophagitis; K59.03 Drug induced constipation; T40.605A Adverse effect of unspecified narcotics, initial encounter; F32.9 Major depressive disorder, single episode, unspecified; R26.81 Unsteadiness on feet; Z79.01 Long term (current) use of anticoagulants; Z79.899 Other long term (current) drug therapy; Z87.891 Personal history of nicotine dependence; Z95.0 Presence of cardiac pacemaker; Z95.5 Presence of coronary angioplasty implant and graft; Z86.73 Personal history of transient ischemic attack (TIA), and cerebral infarction without residual deficits; Z86.718 Personal history of other venous thrombosis and embolism
CPT/HCPCS: 36415; 71045; 74176; 80048; 80053; 80061; 82550; 83690; 83735; 83874; 84439; 84443; 84484; 85025; 85610; 85730; 93005; 93041; 93306; 96360; G0378

== ENCOUNTER 2019-03-04 08:32 | Outpatient (RCR) | payer MEDICARE, MEDICAID ==
[~2019-03-04 08:32] MED LIST changes: +AMLO5TAB9 PO; +FERR325T18 PO; +FLUT16SP22; +FLUT1AER IH; +FOLI1TAB24 PO; +RANI-515 PO; +SENN-233 PO
== END 2019-06-02 | disposition home or self-care (01) ==
LOC: ONC 08:32
PROVIDERS: ATTEND Internal Medicine Hematology & Oncology
DX: C83.38 Diffuse large B-cell lymphoma, lymph nodes of multiple sites (principal); I25.10 Atherosclerotic heart disease of native coronary artery without angina pectoris; I49.5 Sick sinus syndrome; I69.354 Hemiplegia and hemiparesis following cerebral infarction affecting left non-dominant side; J44.9 Chronic obstructive pulmonary disease, unspecified; I12.9 Hypertensive chronic kidney disease with stage 1 through stage 4 chronic kidney disease, or unspecified chronic kidney disease; N18.9 Chronic kidney disease, unspecified; E78.5 Hyperlipidemia, unspecified; G62.9 Polyneuropathy, unspecified; G20 Parkinson's disease; Z88.0 Allergy status to penicillin; Z79.899 Other long term (current) drug therapy; Z95.0 Presence of cardiac pacemaker; Z80.3 Family history of malignant neoplasm of breast
CPT/HCPCS: 99214

== ENCOUNTER → 2019-03-18 | Outpatient (CLI) | payer OTHER | LOC: ONC 16:03 | PROVIDERS: ATTEND Internal Medicine Hematology & Oncology | DX: C83.38 Diffuse large B-cell lymphoma, lymph nodes of multiple sites (principal); I25.10 Atherosclerotic heart disease of native coronary artery without angina pectoris; I49.5 Sick sinus syndrome; I69.354 Hemiplegia and hemiparesis following cerebral infarction affecting left non-dominant side; J44.9 Chronic obstructive pulmonary disease, unspecified; I12.9 Hypertensive chronic kidney disease with stage 1 through stage 4 chronic kidney disease, or unspecified chronic kidney disease; N18.9 Chronic kidney disease, unspecified; E78.5 Hyperlipidemia, unspecified; G62.9 Polyneuropathy, unspecified; G20 Parkinson's disease; Z88.0 Allergy status to penicillin; Z79.899 Other long term (current) drug therapy; Z95.0 Presence of cardiac pacemaker; Z80.3 Family history of malignant neoplasm of breast | CPT/HCPCS: 99213 ==